=== PATIENT | male | born 1955 | race Caucasian/White ===

== ENCOUNTER 2017-05-16 12:11 | Inpatient (IN) | payer BC, MEDICARE ==
[2017-05-16] MEDS ORDERED: SODIUM CHLORIDE 0.9% 1,000 ML IV ONE (12:25)
[2017-05-16] MEDS ORDERED: FUROSEMIDE 10 MG/ML 4 ML VIAL IV ONE (12:35)
[2017-05-16] MEDS ORDERED: LIDOCAINE 2% INJ 20 MG/ML SQ ONE ×2 (12:39→12:41)
[2017-05-16] MEDS ORDERED: fentaNYL (PF) 50 MCG/ML 2 ML AMP IVP ONE (12:42)
[2017-05-16] MEDS ORDERED: BIVALIRUDIN BOLUS 250 MG/50 ML IV ONE (12:56)
[2017-05-16] MEDS ORDERED: BIVALIRUDIN 250 MG in SODIUM CHLORIDE 0.9% 40 ML IV ONE ×2 (12:57→13:31)
[2017-05-16] MEDS ORDERED: MIDAZOLAM 2 MG/2 ML VIAL IVP ONE (13:00)
[2017-05-16] MEDS ORDERED: PRASUGREL 10 MG TAB PO ONE (13:01)
[2017-05-16 13:13] LABS: Glucose,Whole Blood 474 mg/dL (75-99)
[2017-05-16] MEDS ORDERED: NITROGLYCERIN 1000MCG/10ML SYRINGE INTRACORON ONE (13:14)
[2017-05-16] MEDS: niCARdipine Syringe (1,000 mcg/10 mL) INTRACORON ONE ×2 (13:23→13:40)
--- NOTE | 2017-05-16 13:38 | CC ---
INDICATION: Acute ischemic syndrome with recent anterior wall myocardial infarction with postinfarct angina. A 61-year-old gentleman presented to [facility] with shortness of breath, not feeling well initially presented to an outpatient clinic yesterday where a pneumonia was diagnosed on his arrival to the ER at [facility]. They did an EKG that showed extensive ST segment elevation in the precordial leads due to which he was expeditiously transferred to [facility] for emergent cardiac catheterization and angioplasty. I evaluated the patient in the radiographer cardiac catheterization and had explained to him risks, benefits and alternatives. Patient seems to be in respiratory distress. His O2 sats were in the high 80s to 90s. We increased the O2 and if necessary we will put him on a Ventimask. Patient had been explained of risk, benefits and alternatives, understood and accepted. Patient received moderate conscious sedation and the total sedation time was 20 minutes. PROCEDURE NOTE: After obtaining informed consent, left heart catheterization and coronary angiogram are performed via the right femoral artery using standard Liliana catheters. The patient tolerated the procedure well without any obvious immediate complications. FINDINGS: 1. HEMODYNAMICS: Left ventricular end-diastolic pressure is elevated at 36 mm. There is no significant gradient across the aortic valve. 2. LEFT VENTRICULOGRAM: Left ventriculogram is not performed. 3. ANGIOGRAPHIC DATA: LEFT MAIN CORONARY ARTERY: Left main coronary artery is a normal size vessel and is free of stenosis. Divides into left anterior descending coronary artery and circumflex coronary artery. LAD is totally occluded in its mid portion. Circumflex coronary artery is a large codominant vessel. It gives off a large caliber OM branch that shows an 80% to 90% stenosis. Right coronary artery shows mild atherosclerotic disease. CONCLUSIONS: 1. Total occlusion of the mid left anterior descending coronary artery, 80% stenosis involving the OM branch. 2. Elevated left ventricular end-diastolic pressures. PLAN: The patient will undergo angioplasty of the LAD. It appears like patient has already completed his myocardial infarction and his symptoms seem to be more related to congestive heart failure. We will obtain a 2-D echo to document his LV function. ZACHARIAH
--- NOTE | 2017-05-16 13:46 | CONS ---
CHIEF COMPLAINT: Shortness of breath. A 61-year-old gentleman with history of morbid obesity, chronic back pain and history of prior surgeries. Came to [facility] emergency room complaining of shortness of breath and cough. An EKG showed ST segment elevation in the precordial leads with Q waves. He was expeditiously transferred over to [facility] for emergent cardiac catheterization and angioplasty. Past medical history is negative for hypertension, diabetes, dyslipidemia. MEDICATIONS: None. ALLERGIES: None. FAMILY HISTORY: Significant for coronary artery disease. SOCIAL HISTORY: Negative for smoking, EtOH abuse or drug abuse. REVIEW OF SYSTEMS: HEENT: Unremarkable. CARDIAC: As described above. RESPIRATORY: As describe above. GI: Negative. GENITOURINARY: Negative. ALLERGIES/IMMUNOLOGY: Negative. MUSCULOSKELETAL: Significant for arthritis. PSYCHOSOCIAL: Negative. ENDOCRINE: Negative. DERM: Negative. CONSTITUTIONAL: Negative. ONCOLOGICAL: Negative. The rest of the system review is not relevant. On exam, comfortable at rest. Vital signs are stable. Chest exam reveals diminished air entry bilaterally. Heart exam reveals first and second heart sounds. No murmur, no rub. Abdomen is soft, nontender. Examination of the extremities did not reveal edema. Peripheral pulses are felt. O2 sat is low at 90%. Patient is tachypneic. EKG shows changes as described above. Labs are pending at this time. ASSESSMENT: 1. Acute ischemic syndrome with postinfarct angina ( ) in the form of shortness of breath. 2. Congestive heart failure, shortness of breath probably secondary to acute systolic heart failure. PLAN: Patient will undergo emergent cardiac catheterization. ZACHARIAH
[2017-05-16] MEDS ORDERED: INSULIN LISPRO (humaLOG) 300 UNIT/3 ML VIAL SQ ONE (13:47)
[2017-05-16] MEDS ORDERED: IOHEXOL 350 MG/ML 125ML BOTTLE INJ ONE (13:48)
[2017-05-16] MEDS ORDERED: MAG HYDROX/AL HYDROX/SIMETH 30 ML CUP PO PRN (13:50)
[2017-05-16] MEDS ORDERED: RX INFO: IV CONTRAST WAS GIVEN 1 EACH MISC MISCELLANE PRN (13:50)
[2017-05-16] MEDS ORDERED: NITROGLYCERIN SL TABS 0.4 MG TAB SUBLINGUAL PRN (13:50)
[2017-05-16] MEDS ORDERED: ZOLPIDEM 5 MG TAB PO PRN (13:50)
[2017-05-16] MEDS ORDERED: ATROPINE SULFATE 0.1 MG/ML 10ML SYRINGE IV PRN (13:50)
[2017-05-16] MEDS ORDERED: SODIUM CHLORIDE 0.9% 1,000 ML IV SCH ×2 (14:00→23:30)
[2017-05-16 15:33] LABS: Glucose,Whole Blood 390 mg/dL (75-99)
--- NOTE | 2017-05-16 16:23 | XR ---
EXAMINATION TYPE: XR chest 1V portable DATE OF EXAM: 05/16/2017 HISTORY: Shortness of breath. COMPARISON: None. TECHNIQUE: Single view of the chest is submitted. FINDINGS: Demonstrated are scattered senescent parenchymal change. Patchy density right lower lobe may reflect pneumonia. Correlate clinically progress studies are zachary mmended. The heart is enlarged. Hilar and mediastinal structures are within normal limits. Degenerative changes are seen of the dorsal spine. IMPRESSION: 1. Patchy density right lower lobe may reflect pneumonia. Correlate clinically progress studies are recommended.
--- NOTE | 2017-05-16 16:35 | P.HPIM ---
History of Present Illness H&P Date: 05/16/17 Chief Complaint: STEMI This is a 61-year-old gentleman that is admitted to the hospital from the [facility]. Patient apparently was presented to the other facility with complaints of difficulty breathing times a day and a half. He shouldn't the initially went to his physician which is physician Jamison Us. Patient was noted to have cough associated with difficulty breathing and chest x-ray did show some abnormalities at that time as patient was put on antibiotics and was told he has pneumonia. 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 According to the patient does not have any other medical history States that he has a cough nonproductive in nature no fevers chills nausea vomiting abdominal pain is reported patient states that he has significant amount of snoring and he does stop breathing in the middle the night Review of Systems All systems: negative (Noted in HPI) Medications and Allergies Home Medications Medication Instructions Recorded Confirmed Type Aspirin EC [Ecotrin Low Dose] 81 mg PO DAILY 05/16/17 05/16/17 History Doxycycline Hyclate 100 mg PO BID 05/16/17 05/16/17 History Ibuprofen [Motrin] 800 mg PO Q6H PRN 05/16/17 05/16/17 History guaiFENesin [Mucinex] 600 mg PO BID PRN 05/16/17 05/16/17 History Allergies Allergy/AdvReac Type Severity Reaction Status Date / Time No Known Allergies Allergy Verified 05/16/17 16:14 Physical Exam Vitals: Vital Signs Temp Pulse Pulse Resp BP BP Pulse Ox 05/16/17 16:17 93 L 05/16/17 15:09 98.3 F 107 H 20 125/85 92 L 05/16/17 14:40 103 H 24 128/89 90 L 05/16/17 14:15 102 H 24 128/69 Intake and Output 05/16/17 05/16/17 05/16/17 06:59 14:59 22:59 Intake Total 390.0 75 Output Total 250 200 Balance 140.0 -125 Intake: IV 106.7 75 Sodium Chloride 0.9% 1, 75 000 ml @ 75 mls/hr IV . [id number] [facility] Rx#:[id number] Intake, IV Titration 83.3 Amount Bivalirudin 250 mg In 33.3 Sodium Chloride 0.9% 40 ml As IV .[facility] Rx# :[id number] Sodium Chloride 0.9% 1, 50 000 ml @ 75 mls/hr IV . [id number] [facility] Rx#:[id number] Oral 200 Output: Urine 250 200 Other: Voiding Method Urinal Weight 113.398 kg Patient Weight 05/17/17 06:59 Weight 113.398 kg ABP, PAP, CO, CI - Last 8 Hours Arterial Blood Pressure 130/74 Physical exam Gen. appearance oriented 3 in no distress Neck is supple no JVD Lungs diminished breath sounds more significant on the left The left base Heart S1-S2 heard regular rate and rhythm no murmurs appreciated Abdomen is soft nontender no organomegaly bowel sounds are intact Neurologically cranial nerves II-12 grossly intact no focal motor or sensory deficits noted Skin no abnormalities appreciated Results Labs: Abnormal Lab Results - Last 24 Hours (Table) 05/16/17 05/16/17 Range/Units 13:11 15:26 POC Glucose (mg/dL) 474 H 390 H (75-99) mg/dL Assessment and Plan Plan: Acute STEMI unsuccessfuTIMI flow this is likely due to the time of presentation #2 obesity #3 history of exposure to tobacco #4 clinical obstructive sleep apnea #5 cardio megaly #6 acute hypoxic respiratory failure unknown etiology suspect right ventricular strain secondary to pulmonary hypertension #7 newly diagnosed diabetes mellitus Plan Patient's LVEDP was noted to be 38 we'll discontinue fluids at this time Patient will also be started on Rocephin and Zithromax patient is an obese gentleman the quality of the film is poor we'll obtain a CT of the chest with noncontrast as patient is on a significant amount of oxygen and poor air movement DVT prophylaxis
[2017-05-16 17:21] LABS: Glucose,Whole Blood 363 mg/dL (75-99)
[2017-05-16] MEDS: AZITHROMYCIN 250 MG TAB PO SCH (17:31)
[2017-05-16] MEDS: INSULIN LISPRO (humaLOG) 300 UNIT/3 ML VIAL SQ SCH ×2 (17:31→20:22)
--- NOTE | 2017-05-16 18:36 | CT ---
EXAMINATION TYPE: CT chest wo con DATE OF EXAM: 05/16/2017 COMPARISON: Chest x-ray 05/16/2017 HISTORY: Patient poor historian. Patient exhibits severe shortness of breath. CT DLP: 924.1 mGycm. Automated Exposure Control for Dose Reduction was Utilized. TECHNIQUE: CT scan of the thorax is performed without IV contrast. FINDINGS: LUNGS: There are interstitial reticular bands present bilaterally. Groundglass opacities scattered th roughout the lungs. Perihilar alveolar pattern is present. Interlobular septal lines are present at t he lung bases. There are bilateral pleural effusions. Small pericardial effusion is present. There ar e coronary artery calcifications. No pneumothorax. MEDIASTINUM: Lack of IV contrast is noted to limit evaluation for mediastinal and especially hilar ad enopathy. There are no definitive greater than 1 cm hilar or mediastinal lymph nodes. The heart is en larged. OTHER: Contrast is present within the renal collecting systems. The liver shows low attenuation poss ibly due to fatty infiltration. IMPRESSION: Findings compatible with congestive heart failure. Small bilateral pleural effusions and associated atelectasis.
[2017-05-16] MEDS ORDERED: ALBUTEROL NEBULIZED 2.5 MG/3 ML INHALATION SCH (20:00)
[2017-05-16 20:22] LABS: Glucose,Whole Blood 304 mg/dL (75-99)
[2017-05-16] MEDS: METOPROLOL TARTRATE 25 MG TAB PO SCH (20:22)
[2017-05-16] MEDS: predniSONE 10 MG TAB PO SCH (20:22)
[2017-05-16] MEDS: ATORVASTATIN 80 MG TAB PO SCH (20:22)
[2017-05-16] MEDS ORDERED: INSULIN DETEMIR 100 UNIT/ML 10 ML VIAL SQ SCH (21:00)
[2017-05-16] MEDS: FUROSEMIDE 10 MG/ML 4 ML VIAL IV SCH (21:15)
[2017-05-16 21:55] LABS: Potassium 3.7 mmol/L (3.5-5.1)
[2017-05-16] MEDS ORDERED: methylPREDNISolone SOD SUCCI 40 MG/ML 1 ML VIAL IV STA (22:23)
[2017-05-16 22:39] LABS: ABG HCO3 25 mmol/L (21-25); ABG PCO2 32 mmHg (35-45); ABG PO2 73 mmHg (83-108); ABG TCO2 26 mmol/L (19-24)
[2017-05-16 22:40] LABS: ABG Base Excess 1.6 mmol/L
[2017-05-16] MEDS ORDERED: PROPOFOL 1,000 MG/100 ML VIAL IV ONE (22:45)
[2017-05-16] MEDS ORDERED: ROCURONIUM BROMIDE 10 MG/ML 10 ML VIAL IV ONE (22:50)
[2017-05-16] MEDS ORDERED: PHENYLEPHRINE-0.9% NACL SYG 1 MG/10 ML SYRINGE ONE (22:50)
[2017-05-16] MEDS: PROPOFOL 1,000 MG/100 ML VIAL IV SCH (22:55)
[2017-05-16] MEDS ORDERED: NALOXONE 0.4 MG/ML 1 ML VIAL IV PRN (23:23)
[2017-05-16] MEDS ORDERED: ACETAMINOPHEN IV (For NPO) 1,000 MG in EMPTY BAG 1 BAG IVPB PRN (23:23)
--- NOTE | 2017-05-16 23:36 | XR ---
EXAM: XR Chest, 1 View CLINICAL HISTORY: Reason: Post intubation confirmation TECHNIQUE: Frontal view of the chest. COMPARISON: Chest x-ray 05/16/2017 at 15:59. FINDINGS: Lungs: Bilateral perihilar airspace disease. Pleural space: Blunting of the left costophrenic angle concerning for small pleural effusion. Heart: Enlarged cardiac silhouette. Bones/joints: Moderate degenerative changes of the spine. Vasculature: Vascular congestion. Tubes, lines and devices: Endotracheal tube terminates 4 cm superior to the dari. Distal enteric tube not well visualized due to underpenetration. IMPRESSION: 1. Endotracheal tube terminates 4 cm superior to the dari. 2. Distal enteric tube not well visualized due to underpenetration. 3. Vascular congestion, worse compared to prior. 4. Bilateral perihilar airspace disease, worse compared to prior. 5. Blunting of the left costophrenic angle concerning for small pleural effusion. 6. Enlarged cardiac silhouette.
[2017-05-17] LABS: ABG HCO3 26 mmol/L (21-25); ABG PCO2 46 mmHg (35-45); ABG PH 7.37 (7.35-7.45); ABG PO2 58 mmHg (83-108); ABG TCO2 28 mmol/L (19-24)
[2017-05-17 00:01] LABS: ABG Base Excess 1.5 mmol/L; ABG Oxygen Saturation 88.8 % (94-97)
[2017-05-17] MEDS ORDERED: Potassium Replacement Protocol 1 EACH MISC MISCELLANE PRN (00:19)
[2017-05-17 00:51] LABS: Amorphous Sediment,Urine Occasional /hpf; Appearance,Urine Cloudy (Clear); Bilirubin,Urine Negative (Negative); Glucose,Urine (UA) 4+ (Negative); Ketones,Urine Negative (Negative); Leukocyte Esterase,Urine Negative (Negative); Mucus,Urine Rare /hpf; Nitrite,Urine Negative (Negative); PH, Urine 5.5 (5.0-8.0); Particle Count 28199; Protein,Urine 1+ (Negative); RBC,Urine 9 /hpf (0-5); Specific Gravity,Urine 1.031 (1.001-1.035); Squamous Epithelial Cell,Urine 5 /hpf (0-4); UA Billing (MACRO vs. MICRO) MICRO; Urobilinogen,Urine <2.0 mg/dL (<2.0); WBC,Urine 3 /hpf (0-5)
[2017-05-17] MEDS ORDERED: POTASSIUM CHLORIDE ORAL LIQUID 40 MEQ/30 ML CUP NG-TUBE SCH (01:00)
[2017-05-17 04:32] LABS: Basophils % (A) 0 %; CH 32.9; CHCM 33.5; Eosinophils # (A) 0.1 k/uL (0-0.7); Eosinophils % (A) 0 %; HCT 42.2 % (39.0-53.0); HDW 2.67; HGB 13.8 gm/dL (13.0-17.5); Luc # (Auto) 0.17; Luc % (Auto) 1; Lymphocytes # (A) 0.6 k/uL (1.0-4.8); Lymphocytes % (A) 3 %; MCH 32.4 pg (25.0-35.0); MCHC 32.8 g/dL (31.0-37.0); Mean Platelet Volume 7.9; Monocytes # (A) 0.6 k/uL (0-1.0); Monocytes % (A) 3 %; Neutrophils # (A) 17.9 k/uL (1.3-7.7); Neutrophils % (A) 93 %; RBC 4.27 m/uL (4.30-5.90); RDW 13.5 % (11.5-15.5); WBC 19.4 k/uL (3.8-10.6); WBC (Perox) 18.75
[2017-05-17 04:40] LABS: INR 1.4 (<1.2); Prothrombin Time 13.7 sec (9.0-12.0)
[2017-05-17 04:43] LABS: Magnesium 2.3 mg/dL (1.6-2.3); Phosphorous 3.4 mg/dL (2.5-4.5); Total Bilirubin 0.9 mg/dL (0.2-1.3); Total Protein 6.3 g/dL (6.3-8.2)
[2017-05-17] MEDS: PROPOFOL 1,000 MG/100 ML VIAL IV SCH ×4 (05:06→22:50)
[2017-05-17 05:34] LABS: ABG Base Excess 0.2 mmol/L; ABG HCO3 24 mmol/L (21-25); ABG Oxygen Saturation 99.6 % (94-97); ABG PCO2 37 mmHg (35-45); ABG PH 7.43 (7.35-7.45); ABG PO2 175 mmHg (83-108); ABG TCO2 25 mmol/L (19-24)
[2017-05-17 07:14] LABS: Glucose,Whole Blood 342 mg/dL (75-99)
[2017-05-17] MEDS: IPRATROPIUM 0.5 MG/2.5 ML NEBU INHALATION SCH ×4 (07:18→19:16)
[2017-05-17] MEDS: LEVALBUTEROL NEB 1.25 MG/3 ML AMP INHALATION SCH ×4 (07:18→19:16)
--- NOTE | 2017-05-17 07:43 | XR ---
EXAMINATION TYPE: XR chest 1V portable DATE OF EXAM: 05/17/2017 HISTORY: Tube placement. REFERENCE: Previous study dated 05/16/2017. FINDINGS: The patient is ET tube and NG tube remain in place, unchanged in appearance. The heart is enlarged. Vascular congestion has improved. There is a small left effusion. IMPRESSION: THERE IS SLIGHT IMPROVEMENT IN THE PATIENT'S VOLUME STATUS.
[2017-05-17] MEDS ORDERED: INSULIN LISPRO (humaLOG) 300 UNIT/3 ML VIAL SQ SCH (08:00)
[2017-05-17] MEDS: CHLORHEXIDINE GLUCONATE 15 ML CUP MUCOUS MEM SCH ×2 (08:30→20:47)
[2017-05-17 08:46] LABS: Glucose,Whole Blood 346 mg/dL (75-99)
[2017-05-17] MEDS ORDERED: FAMOTIDINE 20 MG/2 ML VIAL IV SCH (09:00)
[2017-05-17] MEDS: ASPIRIN 325 MG TAB PO SCH (09:31)
[2017-05-17] MEDS: PRASUGREL 10 MG TAB PO SCH (09:32)
[2017-05-17] MEDS: predniSONE 10 MG TAB PO SCH (09:32)
[2017-05-17] MEDS: METOPROLOL TARTRATE 25 MG TAB PO SCH ×2 (09:33→20:47)
[2017-05-17] MEDS: FUROSEMIDE 10 MG/ML 4 ML VIAL IV SCH ×2 (09:33→23:38)
--- NOTE | 2017-05-17 09:39 | PCN ---
DATE OF SERVICE: 05/16/2017 PERFORMING PHYSICIAN: Eusebio Gann MD, [employer]ing Table Worker PROCEDURE PERFORMED: 1. Aspiration thrombectomy for the left anterior descending. 2. Successful stenting of the mid left anterior descending using 3.25 x 15 mm Xience TIM with good angiographic results. INDICATIONS: This is a pleasant 61-year-old gentleman who presented to the emergency room at [facility] with chest discomfort and was diagnosed with acute anterior ST elevation myocardial infarction. He underwent a heart catheterization by Dr. Mathew and was found to have occluded mid-LAD and critical disease involving the left circumflex. He was brought today to undergo heart catheterization. APPROACH: Right common femoral artery. COMPLICATIONS: None. LEVEL OF SEDATION: Moderate with sedation length of 52 minutes. PROCEDURE DESCRIPTION: After diagnostic heart catheterization was performed by Dr. Mathew, I evaluated the angiogram and we decided to intervene on the LAD. Anticoagulation was initiated using Angiomax. Subsequently, I used JL4 guide and the left main was engaged. Whisper wire was used to wire the LAD. I did after that balloon angioplasty of the mid-LAD. Subsequently I did aspiration thrombectomy from mid LAD. Then I stented the mid-LAD using 3.25 x 15 mm Xience TIM where the stent was positioned under fluoroscopy guidance and deployed under its nominal pressure. The following angiogram showed good angiographic results of the stented segment , but the distal LAD bed was not well visualized because of competitive flow and probably LAD distally was full of clots. POSTPROCEDURE MANAGEMENT: 1. Dual antiplatelet therapy. 2. Risk factor modifications. 3. Follow up with the patient. ZACHARIAH
--- NOTE | 2017-05-17 11:18 | P.CNPUL ---
History of Present Illness Consult date: 05/17/17 Chief complaint: Acute CO, acute respiratory failure History of present illness: 62-year-old male patient who got transferred from [facility] because of acute ST segment elevation myocardial infarction. The patient had anterior wall septal wall CO along with LAD distribution. The patient was taken immediately to cardiac catheterization he was found to have occluded mid LAD and critical disease involving the left circumflex. Based on that, patient underwent angioplasty and stenting of the mid LAD and follow-up angiogram showed good angiographic results of the stented segment but the distal LAD bed was not well-visualized because of competitive flow and probably LAD distally occluded with clots. The patient was started on dual antiplatelet agents and he was moved to the intensive care unit. Within the afternoon, the patient became progressively more short of breath. He was taken for a CT angios the chest which confirmed the findings of acute CHF. No clots were seen in the pulmonary artery branches. Within next few hours the patient even got more short of breath and he went into respiratory failure. At that point I was involved in the case and I was informed of the above-mentioned changes. I recommended immediate intubation and the patient was placed on a mechanical ventilator. Following that he was sedated with Diprivan. The patient is currently on a assist-control mode rate of 24, tidal volume of 400, FiO2 of 70% and a PEEP of 10. Morning blood gases showed a pH 7.43 with a pCO2 of 36.5 and a pO2 of 175 and based on that the FiO2 is being further weaned off. Urine output at this point is around 10 mL an hour. His systolic blood pressures in the 110 range. His creatinine is up to 1.8. He has suffered an acute kidney injury. ST segment elevation is still present on the EKG and has been present since yesterday. There is diffuse ST segment elevation involving V2, V2, V3, V4 , V5, V6, and also the inferior leads. Furthermore, a stat echocardiogram was done and it showed EF less than 20%. The patient's left ventricular end- diastolic pressure based on the cardiac catheterization was quite elevated at 36. This morning, the chest x-ray showing improvement of pulmonary edema. She was in good location. The patient is cardiomegaly. The patient on Lasix 40 mg IV push every 12 hours. The patient is also on a combination of aspirin and Effient, and he was ordered metoprolol 5 mg by mouth twice a day. He is also on lisinopril of 10 mg by mouth daily has not been given this morning. He was empirically covered also with a combination of Rocephin and Zithromax. She is on a 30 mg of prednisone. Review of Systems ROS unobtainable: due to endotracheal tube Past Medical History Past Medical History: Pneumonia Additional Past Medical History / Comment(s): Morbidly obese, diabetes mellitus , obstructive sleep apnea History of Any Multi-Drug Resistant Organisms: None Reported Past Surgical History: Appendectomy, Back Surgery Additional Past Surgical History / Comment(s): 2 BACK SX HAS CINDY/SCREWS, RT ROTAOTR CUIFF REPAIR Past Anesthesia/Blood Transfusion Reactions: No Reported Reaction Smoking Status: Former smoker - Past Family History Father Additional Family Medical History / Comment(s): LOW PLATLETS. SPLEENECTOMY Mother Family Medical History: CVA/TIA Additional Family Medical History / Comment(s): 2 STROKES, HEART DISEASE. Medications and Allergies Home Medications Medication Instructions Recorded Confirmed Type Aspirin EC [Ecotrin Low Dose] 81 mg PO DAILY 05/16/17 05/16/17 History Doxycycline Hyclate 100 mg PO BID 05/16/17 05/16/17 History Ibuprofen [Motrin] 800 mg PO Q6H PRN 05/16/17 05/16/17 History guaiFENesin [Mucinex] 600 mg PO BID PRN 05/16/17 05/16/17 History Allergies Allergy/AdvReac Type Severity Reaction Status Date / Time No Known Allergies Allergy Verified 05/16/17 16:14 Physical Exam Vitals: Vital Signs Temp Pulse Pulse Pulse Resp BP BP 05/17/17 10:00 92 30 H 114/64 05/17/17 09:30 93 28 H 114/64 05/17/17 09:00 93 26 H 135/66 05/17/17 08:30 94 27 H 135/66 05/17/17 08:00 99.1 F 93 27 H 105/82 05/17/17 07:30 88 26 H 108/69 05/17/17 07:22 89 05/17/17 07:00 91 30 H 124/62 05/17/17 06:40 94 33 H 112/73 05/17/17 06:20 95 29 H 110/65 05/17/17 06:00 87 25 H 110/62 07/28/17 05:40 87 33 H 124/67 05/17/17 05:20 92 26 H 109/73 05/17/17 05:00 93 28 H 102/63 05/17/17 04:40 88 28 H 99/65 05/17/17 04:20 88 32 H 107/64 05/17/17 04:00 97.6 F 87 32 H 92/63 05/17/17 03:40 89 31 H 100/65 05/17/17 03:20 86 30 H 100/66 05/17/17 03:00 86 30 H 98/57 05/17/17 02:40 86 30 H 90/55 05/17/17 02:20 88 30 H 100/58 05/17/17 02:00 83 28 H 95/60 05/17/17 01:40 85 25 H 98/56 05/17/17 01:35 85 25 H 05/17/17 01:20 87 26 H 95/60 05/17/17 01:00 85 31 H 90/50 05/17/17 00:40 89 31 H 86/58 05/17/17 00:20 96.9 F L 92 32 H 108/68 05/17/17 00:00 95 85 28 H 106/69 05/16/17 23:40 103 H 24 140/74 05/16/17 23:20 100 24 107/77 05/16/17 23:00 97 24 96/59 05/16/17 22:40 102 H 29 H 126/80 05/16/17 22:20 98 35 H 126/80 05/16/17 22:01 109 H 29 H 140/83 05/16/17 22:00 104 H 31 H 140/83 05/16/17 21:30 103 H 38 H 151/81 05/16/17 21:00 106 H 35 H 145/86 05/16/17 20:30 98.3 F 106 H 38 H 122/83 05/16/17 20:23 100 05/16/17 20:08 108 H 05/16/17 20:00 105 H 35 H 119/81 05/16/17 19:30 100 48 H 138/82 05/16/17 19:00 110 H 19 121/86 05/16/17 18:30 107 H 33 H 144/82 05/16/17 18:00 144/82 05/16/17 17:30 105 H 34 H 135/84 05/16/17 17:00 99 39 H 122/82 05/16/17 16:45 104 H 27 H 121/86 05/16/17 16:30 105 H 31 H 121/86 05/16/17 16:17 05/16/17 16:15 99 26 H 127/78 05/16/17 16:00 103 H 48 H 127/78 05/16/17 15:45 103 H 35 H 125/85 05/16/17 15:30 98 46 H 125/85 05/16/17 15:09 98.3 F 107 H 20 125/85 05/16/17 14:40 103 H 24 128/89 05/16/17 14:15 102 H 24 128/69 Pulse Ox 05/17/17 10:00 99 05/17/17 09:30 98 05/17/17 09:00 98 05/17/17 08:30 98 05/17/17 08:00 98 05/17/17 07:30 97 05/17/17 07:22 05/17/17 07:00 98 05/17/17 06:40 98 05/17/17 06:20 98 05/17/17 06:00 98 05/17/17 05:40 96 05/17/17 05:20 95 05/17/17 05:00 99 05/17/17 04:40 99 05/17/17 04:20 97 05/17/17 04:00 99 05/17/17 03:40 99 05/17/17 03:20 99 05/17/17 03:00 99 05/17/17 02:40 99 05/17/17 02:20 98 05/17/17 02:00 98 05/17/17 01:40 98 05/17/17 01:35 05/17/17 01:20 96 05/17/17 01:00 95 05/17/17 00:40 93 L 05/17/17 00:20 93 L 05/17/17 00:00 89 L 05/16/17 23:40 87 L 05/16/17 23:20 93 L 05/16/17 23:00 95 05/16/17 22:40 91 L 05/16/17 22:20 91 L 05/16/17 22:01 90 L 05/16/17 22:00 85 L 05/16/17 21:30 92 L 05/16/17 21:00 96 05/16/17 20:30 95 05/16/17 20:23 05/16/17 20:08 93 L 05/16/17 20:00 92 L 05/16/17 19:30 93 L 05/16/17 19:00 94 L 05/16/17 18:30 96 05/16/17 18:00 05/16/17 17:30 90 L 05/16/17 17:00 88 L 05/16/17 16:45 92 L 05/16/17 16:30 89 L 05/16/17 16:17 93 L 05/16/17 16:15 95 05/16/17 16:00 94 L 05/16/17 15:45 93 L 05/16/17 15:30 93 L 05/16/17 15:09 92 L 05/16/17 14:40 90 L 05/16/17 14:15 Intake and Output 05/16/17 05/17/17 05/17/17 22:59 06:59 14:59 Intake Total 165 230.921 102 Output Total 475 1068 332 Balance -310 -837.079 -230 Intake: IV 165 161 102 Pressure Bag 0.9% sodium 21 12 chloride Propofol 1000 mg in 100 70 ml Sodium Chloride 0.9% 1, 115 70 40 000 ml @ 75 mls/hr IV . [id number] SAMANTHA Rx#:[id number] cefTRIAXone 1,000 mg In 50 50 Sodium Chloride 0.9% 50 ml @ 100 mls/hr IVPB Q24HR SAMANTHA Rx#:[id number] Intake, IV Titration 69.921 Amount Propofol 1,000 mg In 100 69.921 ml @ Titrate IV .Q0M SAMANTHA Rx#:[id number] Output: Gastric Drainage 750 250 Urine 475 318 82 Other: Voiding Method Urinal Indwelling Catheter Weight 113.398 kg 117.5 kg 117.5 kg Patient Weight 05/18/17 06:59 Weight 117.5 kg ABP, PAP, CO, CI - Last 8 Hours Arterial Blood Pressure 108/71 Arterial Blood Pressure 122/68 Arterial Blood Pressure 115/73 Arterial Blood Pressure 118/74 Arterial Blood Pressure 114/75 Arterial Blood Pressure 115/75 Arterial Blood Pressure 120/76 Arterial Blood Pressure 114/73 Arterial Blood Pressure 117/76 Arterial Blood Pressure 102/67 Arterial Blood Pressure 102/69 Arterial Blood Pressure 92/68 Arterial Blood Pressure 112/76 Arterial Blood Pressure 103/68 Arterial Blood Pressure 91/65 Arterial Blood Pressure 107/71 Arterial Blood Pressure 99/69 Arterial Blood Pressure 101/71 Arterial Blood Pressure 97/70 Head exam was generally normal. There was no scleral icterus or corneal arcus. Mucous membranes were moist. Neck is short and supple and there is significant sickness and shortening of the neck. No neck stiffness. Orogastric and orotracheal tube are both in place. No JVDs can be visualized. Lung sounds are diminished bilaterally. No wheezes overall currently crackles at this point. Heart sounds are regular, distant, positive S1 and S2 with an S3 gallop. No murmurs appreciated.Abdominal exam revealed normal bowel sounds. The abdomen was soft, non-tender, and without masses, organomegaly, or appreciable enlargement of the abdominal aorta. Patient is obese and orders cannot be accurately palpated. Neurologically the patient is quite sedated at this point. He is on Diprivan. He can move all 4 extremities to painful stimuli. Results - Laboratory Findings CBC and BMP: 05/17/17 04:25 05/17/17 04:25 ABG ABG pH 7.43 (7.35-7.45) 05/17/17 05:05 ABG pCO2 37 mmHg (35-45) 05/17/17 05:05 ABG pO2 175 mmHg (83-108) H 05/17/17 05:05 ABG O2 Saturation 99.6 % (94-97) H 05/17/17 05:05 PT/INR, D-dimer PT 13.7 sec (9.0-12.0) H 05/17/17 04:25 INR 1.4 (<1.2) H 05/17/17 04:25 Abnormal lab findings: Abnormal Labs 05/16/17 05/16/17 05/16/17 13:11 15:26 17:04 WBC RBC Neutrophils # Lymphocytes # PT INR ABG pH ABG pCO2 ABG pO2 ABG HCO3 ABG Total CO2 ABG O2 Saturation Sodium Chloride BUN Creatinine Glucose POC Glucose (mg/dL) 474 H 390 H 363 H Calcium AST ALT Albumin Urine Protein Urine Glucose (UA) Urine Blood Urine RBC Ur Squamous Epith Cells Amorphous Sediment Urine Mucus 05/16/17 05/16/17 05/16/17 20:19 21:33 22:25 WBC RBC Neutrophils # Lymphocytes # PT INR ABG pH 7.50 H ABG pCO2 32 L ABG pO2 73 L ABG HCO3 ABG Total CO2 26 H ABG O2 Saturation Sodium 136 L Chloride 97 L BUN 45 H Creatinine 1.48 H Glucose 273 H POC Glucose (mg/dL) 304 H Calcium 8.0 L AST ALT Albumin Urine Protein Urine Glucose (UA) Urine Blood Urine RBC Ur Squamous Epith Cells Amorphous Sediment Urine Mucus 05/16/17 05/17/17 05/17/17 23:38 00:20 04:25 WBC 19.4 H RBC 4.27 L Neutrophils # 17.9 H Lymphocytes # 0.6 L PT INR ABG pH ABG pCO2 46 H ABG pO2 58 L ABG HCO3 26 H ABG Total CO2 28 H ABG O2 Saturation 88.8 L Sodium Chloride BUN Creatinine Glucose POC Glucose (mg/dL) Calcium AST ALT Albumin Urine Protein 1+ H Urine Glucose (UA) 4+ H Urine Blood Small H Urine RBC 9 H Ur Squamous Epith Cells 5 H Amorphous Sediment Occasional H Urine Mucus Rare H 05/17/17 05/17/17 05/17/17 04:25 04:25 05:05 WBC RBC Neutrophils # Lymphocytes # PT 13.7 H INR 1.4 H ABG pH ABG pCO2 ABG pO2 175 H ABG HCO3 ABG Total CO2 25 H ABG O2 Saturation 99.6 H Sodium 136 L Chloride BUN 52 H Creatinine 1.80 H Glucose 336 H POC Glucose (mg/dL) Calcium 8.0 L AST 92 H ALT 75 H Albumin 3.1 L Urine Protein Urine Glucose (UA) Urine Blood Urine RBC Ur Squamous Epith Cells Amorphous Sediment Urine Mucus 05/17/17 05/17/17 07:13 08:44 WBC RBC Neutrophils # Lymphocytes # PT INR ABG pH ABG pCO2 ABG pO2 ABG HCO3 ABG Total CO2 ABG O2 Saturation Sodium Chloride BUN Creatinine Glucose POC Glucose (mg/dL) 342 H 346 H Calcium AST ALT Albumin Urine Protein Urine Glucose (UA) Urine Blood Urine RBC Ur Squamous Epith Cells Amorphous Sediment Urine Mucus - Diagnostic Findings Chest x-ray: image reviewed Assessment and Plan Plan: Assessment [address] segment anterior wall myocardial infarction. The patient was having chest pain few days prior to his hospital admission and came in for an acute ST segment elevation myocardial infarction. He had emergent cardiac catheterization and stenting of the LAD. Please refer to the catheter report for further details. The patient also has a tight circumflex lesion in the order of 80-90%. 2 acute pulmonary edema secondary to CHF 3 acute respiratory failure secondary to above 4 acute kidney injury due to a combination of low cardiac output and contrast. Rule out contrast nephropathy. Urine output was no order of 10-20 mL an hour at this point. Creatinine is up to 1.8 5 diabetes mellitus with poorly controlled blood sugars 6 morbid obesity 7 obstructive sleep apnea [address] a [address] angios the chest is consistent with CHF/pulmonary edema Plan I was able to oxygenate the patient more effectively today. The patient is up- to-date PEEP of 10 and FiO2 has been cut down to 50%. He is pulse oxing still in the 97-99% range. I think we should be able to hydrate this patient gently and I will give normal state rate of 75 mL an hour. Continue the Lasix for now 40 mg IV push every 12 hours. We'll monitor his urine output very closely and very much likely the patient is developing an ATN for the reasons mentioned above including contrast nephropathy. We'll continue aspirin. Continue Effient. Continue monitored hemodynamics and consider addition of pressors should he develop any further drop in his blood pressure. Pressor of choice will be either norepinephrine or dobutamine based on his overall hemodynamics. Pulses in a for now. Discontinue IV Solu-Medrol. Put the patient insulin drip for blood sugar control. Would like to achieve a tighter blood sugar control. Continue high-dose statin. Echocardiogram was noted. Discussed with cardiology. No further cardiac intervention is indicated this point. It seems that the patient may ultimately have aneurysmal dilatation of the left ventricle knowing that he had a prolonged ST segment elevation and he was having chest pain at least for a few days prior to him coming to the hospital. Keep the patient sedated with Diprivan. We'll initiate tube feeds with the next 24 hours. We'll continue to follow make further recommendations based on his progress. Condition is critical. The family will be updated on his condition.
[2017-05-17] MEDS: LISINOPRIL 10 MG TAB PO SCH (11:19)
[2017-05-17] MEDS ORDERED: INSULIN REGULAR BOLUS (FROM DRIP BAG) IV PRN (11:33)
--- NOTE | 2017-05-17 11:33 | ECHOF ---
Referral Reason:stemi MEASUREMENTS -------- HEIGHT: 177.8 cm WEIGHT: 113.4 kg BP: 125/85 RVIDd: 2.4 cm (< 3.3) IVSd: 1.0 cm (0.6 - 1.1) LVIDd: 6.6 cm (3.9 - 5.3) LVPWd: 1.0 cm (0.6 - 1.1) IVSs: 1.3 cm LVIDs: 6.3 cm LVPWs: 1.3 cm LAESV Index (A-L): 25.40 ml/m Ao Diam: 3.5 cm (2.0 - 3.7) AV Cusp: 1.4 cm (1.5 - 2.6) LA Diam: 3.0 cm (2.7 - 3.8) MV EXCURSION: 16.898 mm (> 18.000) MV EF SLOPE: 391 mm/s (70 - 150) MV E Tai: 0.76 m/s MV DecT: 191 ms MV A Tai: 0.72 m/s MV E/A Ratio: 1.06 FINDINGS -------- Undetermined rhythm. This was a technically difficult study with suboptimal views. Pt. Very Sob Patient is post cardiac catheterization and cannot be in left lateral position. The left ventricle is moderately dilated. Overall left ventricular systolic function is severely impaired with, an EF < 20%. The right ventricle is normal in size and function. Normal LA size by volume 22+/-6 ml/m2. The right atrium was not well visualized. There is mild to moderate aortic valve sclerosis. There is no evidence of aortic regurgitation. There is no evidence of aortic stenosis. The mitral valve leaflets are mildly thickened. Mild mitral annular calcification present. There is trace to mild mitral regurgitation. The tricuspid valve was not well visualized. The pulmonic valve was not well visualized. The aortic root size is normal. IVC Not well visulized. The pericardium is normal. There is no pericardial effusion. CONCLUSIONS -------- 1. Undetermined rhythm. 2. The mitral valve leaflets are mildly thickened. 3. Mild mitral annular calcification present. 4. There is trace to mild mitral regurgitation. 5. The tricuspid valve was not well visualized. 6. The pulmonic valve was not well visualized. 7. The aortic root size is normal. 8. IVC Not well visulized. 9. There is no pericardial effusion. 10. This was a technically difficult study with suboptimal views. 11. Pt. Very Sob 12. Patient is post cardiac catheterization and cannot be in left lateral position. 13. The left ventricle is moderately dilated. 14. Overall left ventricular systolic function is severely impaired with, an EF < 20%. 15. Normal LA size by volume 22+/-6 ml/m2. 16. The right atrium was not well visualized. 17. There is mild to moderate aortic valve sclerosis. ELECTRICAL AND ELECTRONIC ASSEMBLER: Derian Bender RDCS
[2017-05-17] MEDS: AZITHROMYCIN 250 MG TAB PO SCH (13:36)
[2017-05-17] MEDS: SODIUM CHLORIDE 0.9% 1,000 ML IV SCH (13:37)
[2017-05-17 13:46] LABS: Glucose,Whole Blood 350 mg/dL (75-99)
[2017-05-17] MEDS: INSULIN REGULAR 100 UNIT in SODIUM CHLORIDE 0.9% 100 ML IV SCH ×2 (13:49→23:39)
[2017-05-17 14:26] LABS: Glucose,Whole Blood 357 mg/dL (75-99)
--- NOTE | 2017-05-17 14:56 | P.PN ---
Subjective Principal diagnosis: Anterior wall myocardial infarction, status post failed stent placement, cardiomyopathy and CHF This is a 61-year-old gentleman is admitted to the hospital following subacute myocardial infarction. Patient had attempted stent placement yesterday by Dr. Zurita with suboptimal results. There was no flow into the distal LAD. Patient continued to have ST elevations. Patient will be progressive shortness of breath, requiring intubation last night. His chest x-ray was consistent with pulmonary edema. Patient has diabetes for the last night and a chest x-ray appeared to be much clearer today. However, his urine output dropped. His blood pressures running about 110-120 systolic. His heart rate is in the 80s to low 90s. Patient is maintaining sinus rhythm. Patient is intubated and sedated. His oxygenation looks better. However, his creatinine has come up to 1.8. If urine output doesn't improve on his creatinine starts creeping up, patient may need nephrology consult. There is also consideration that patient be transferred to tertiary unit for further care. Objective - Vital Signs Vital signs: Vital Signs Temp 101.0 F H 05/17/17 13:00 Pulse 91 05/17/17 14:00 Resp 28 H 05/17/17 14:00 BP 101/64 05/17/17 14:00 Pulse Ox 98 05/17/17 14:00 Intake & Output 05/16/17 05/17/17 05/17/17 18:59 06:59 18:59 Intake Total 515.0 270.921 514.951 Output Total 625 1168 477 Balance -110.0 -897.079 37.951 Weight 113.398 kg 117.5 kg 117.5 kg Intake: IV 231.7 201 409 Pressure Bag 0.9% sodium 21 24 chloride Propofol 1000 mg in 100 70 ml Sodium Chloride 0.9% 1, 75 110 335 000 ml @ 75 mls/hr IV . [id number] [facility] Rx#:[id number] cefTRIAXone 1,000 mg In 50 50 Sodium Chloride 0.9% 50 ml @ 100 mls/hr IVPB Q24HR [facility] Rx#:[id number] Intake, IV Titration 83.3 69.921 105.951 Amount Bivalirudin 250 mg In 33.3 Sodium Chloride 0.9% 40 ml As IV .K-MED ONE Rx# :[id number] Insulin Regular 100 unit 7.07 In Sodium Chloride 0.9% 100 ml @ Per Protocol IV .Q0M [facility] Rx#:[id number] Propofol 1,000 mg In 100 69.921 98.881 ml @ Titrate IV .Q0M [facility] Rx#:[id number] Sodium Chloride 0.9% 1, 50 000 ml @ 75 mls/hr IV . [id number] [facility] Rx#:[id number] Oral 200 Output: Gastric Drainage 750 300 Urine 625 418 177 Other: Voiding Method Urinal Indwelling Catheter Indwelling Catheter ABP, PAP, CO, CI - Last Documented Arterial Blood Pressure 111/68 - Exam GENERAL EXAM: Patient intubated and sedated HEENT: Normocephalic. NECK: No masses, no nuchal rigidity. CHEST: No chest wall deformity. LUNGS: Diminished air exchange HEART: S1 and S2 normal with no audible mumurs or gallops. Regular rhythm, ABDOMEN: Soft SKIN: No rashes CENTRAL NERVOUS SYSTEM: Deferred EXTREMITIES: No cyanosis, clubbing or edema. - Labs CBC & Chem 7: 05/17/17 04:25 05/17/17 04:25 Labs: Abnormal Lab Results - Last 24 Hours (Table) 05/16/17 05/16/17 05/16/17 Range/Units 15:26 17:04 18:48 WBC (3.8-10.6) k/uL RBC (4.30-5.90) m/uL Neutrophils # (1.3-7.7) k/uL Lymphocytes # (1.0-4.8) k/uL PT (9.0-12.0) sec INR (<1.2) ABG pH (7.35-7.45) ABG pCO2 (35-45) mmHg ABG pO2 (83-108) mmHg ABG HCO3 (21-25) mmol/L ABG Total CO2 (19-24) mmol/L ABG O2 Saturation (94-97) % Sodium (137-145) mmol/L Chloride (98-107) mmol/L BUN (9-20) mg/dL Creatinine (0.66-1.25) mg/dL Glucose (74-99) mg/dL POC Glucose (mg/dL) 390 H 363 H (75-99) mg/dL Hemoglobin A1c 11.0 H (4.2-6.1) % Calcium (8.4-10.2) mg/dL AST (17-59) U/L ALT (21-72) U/L Total Creatine Kinase (55-170) U/L Albumin (3.5-5.0) g/dL Urine Protein (Negative) Urine Glucose (UA) (Negative) Urine Blood (Negative) Urine RBC (0-5) /hpf Ur Squamous Epith Cells (0-4) /hpf Amorphous Sediment (None) /hpf Urine Mucus (None) /hpf 05/16/17 05/16/17 05/16/17 Range/Units 20:19 21:33 22:25 WBC (3.8-10.6) k/uL RBC (4.30-5.90) m/uL Neutrophils # (1.3-7.7) k/uL Lymphocytes # (1.0-4.8) k/uL PT (9.0-12.0) sec INR (<1.2) ABG pH 7.50 H (7.35-7.45) ABG pCO2 32 L (35-45) mmHg ABG pO2 73 L (83-108) mmHg ABG HCO3 (21-25) mmol/L ABG Total CO2 26 H (19-24) mmol/L ABG O2 Saturation (94-97) % Sodium 136 L (137-145) mmol/L Chloride 97 L (98-107) mmol/L BUN 45 H (9-20) mg/dL Creatinine 1.48 H (0.66-1.25) mg/dL Glucose 273 H (74-99) mg/dL POC Glucose (mg/dL) 304 H (75-99) mg/dL Hemoglobin A1c (4.2-6.1) % Calcium 8.0 L (8.4-10.2) mg/dL AST (17-59) U/L ALT (21-72) U/L Total Creatine Kinase (55-170) U/L Albumin (3.5-5.0) g/dL Urine Protein (Negative) Urine Glucose (UA) (Negative) Urine Blood (Negative) Urine RBC (0-5) /hpf Ur Squamous Epith Cells (0-4) /hpf Amorphous Sediment (None) /hpf Urine Mucus (None) /hpf 05/16/17 05/17/17 05/17/17 Range/Units 23:38 00:20 04:25 WBC 19.4 H (3.8-10.6) k/uL RBC 4.27 L (4.30-5.90) m/uL Neutrophils # 17.9 H (1.3-7.7) k/uL Lymphocytes # 0.6 L (1.0-4.8) k/uL PT (9.0-12.0) sec INR (<1.2) ABG pH (7.35-7.45) ABG pCO2 46 H (35-45) mmHg ABG pO2 58 L (83-108) mmHg ABG HCO3 26 H (21-25) mmol/L ABG Total CO2 28 H (19-24) mmol/L ABG O2 Saturation 88.8 L (94-97) % Sodium (137-145) mmol/L Chloride (98-107) mmol/L BUN (9-20) mg/dL Creatinine (0.66-1.25) mg/dL Glucose (74-99) mg/dL POC Glucose (mg/dL) (75-99) mg/dL Hemoglobin A1c (4.2-6.1) % Calcium (8.4-10.2) mg/dL AST (17-59) U/L ALT (21-72) U/L Total Creatine Kinase (55-170) U/L Albumin (3.5-5.0) g/dL Urine Protein 1+ H (Negative) Urine Glucose (UA) 4+ H (Negative) Urine Blood Small H (Negative) Urine RBC 9 H (0-5) /hpf Ur Squamous Epith Cells 5 H (0-4) /hpf Amorphous Sediment Occasional H (None) /hpf Urine Mucus Rare H (None) /hpf 05/17/17 05/17/17 05/17/17 Range/Units 04:25 04:25 05:05 WBC (3.8-10.6) k/uL RBC (4.30-5.90) m/uL Neutrophils # (1.3-7.7) k/uL Lymphocytes # (1.0-4.8) k/uL PT 13.7 H (9.0-12.0) sec INR 1.4 H (<1.2) ABG pH (7.35-7.45) ABG pCO2 (35-45) mmHg ABG pO2 175 H (83-108) mmHg ABG HCO3 (21-25) mmol/L ABG Total CO2 25 H (19-24) mmol/L ABG O2 Saturation 99.6 H (94-97) % Sodium 136 L (137-145) mmol/L Chloride (98-107) mmol/L BUN 52 H (9-20) mg/dL Creatinine 1.80 H (0.66-1.25) mg/dL Glucose 336 H (74-99) mg/dL POC Glucose (mg/dL) (75-99) mg/dL Hemoglobin A1c (4.2-6.1) % Calcium 8.0 L (8.4-10.2) mg/dL AST 92 H (17-59) U/L ALT 75 H (21-72) U/L Total Creatine Kinase (55-170) U/L Albumin 3.1 L (3.5-5.0) g/dL Urine Protein (Negative) Urine Glucose (UA) (Negative) Urine Blood (Negative) Urine RBC (0-5) /hpf Ur Squamous Epith Cells (0-4) /hpf Amorphous Sediment (None) /hpf Urine Mucus (None) /hpf 05/17/17 05/17/17 05/17/17 Range/Units 07:13 08:44 13:40 WBC (3.8-10.6) k/uL RBC (4.30-5.90) m/uL Neutrophils # (1.3-7.7) k/uL Lymphocytes # (1.0-4.8) k/uL PT (9.0-12.0) sec INR (<1.2) ABG pH (7.35-7.45) ABG pCO2 (35-45) mmHg ABG pO2 (83-108) mmHg ABG HCO3 (21-25) mmol/L ABG Total CO2 (19-24) mmol/L ABG O2 Saturation (94-97) % Sodium (137-145) mmol/L Chloride (98-107) mmol/L BUN (9-20) mg/dL Creatinine (0.66-1.25) mg/dL Glucose (74-99) mg/dL POC Glucose (mg/dL) 342 H 346 H (75-99) mg/dL Hemoglobin A1c (4.2-6.1) % Calcium (8.4-10.2) mg/dL AST (17-59) U/L ALT (21-72) U/L Total Creatine Kinase 381 H (55-170) U/L Albumin (3.5-5.0) g/dL Urine Protein (Negative) Urine Glucose (UA) (Negative) Urine Blood (Negative) Urine RBC (0-5) /hpf Ur Squamous Epith Cells (0-4) /hpf Amorphous Sediment (None) /hpf Urine Mucus (None) /hpf 05/17/17 05/17/17 Range/Units 13:43 14:19 WBC (3.8-10.6) k/uL RBC (4.30-5.90) m/uL Neutrophils # (1.3-7.7) k/uL Lymphocytes # (1.0-4.8) k/uL PT (9.0-12.0) sec INR (<1.2) ABG pH (7.35-7.45) ABG pCO2 (35-45) mmHg ABG pO2 (83-108) mmHg ABG HCO3 (21-25) mmol/L ABG Total CO2 (19-24) mmol/L ABG O2 Saturation (94-97) % Sodium (137-145) mmol/L Chloride (98-107) mmol/L BUN (9-20) mg/dL Creatinine (0.66-1.25) mg/dL Glucose (74-99) mg/dL POC Glucose (mg/dL) 350 H 357 H (75-99) mg/dL Hemoglobin A1c (4.2-6.1) % Calcium (8.4-10.2) mg/dL AST (17-59) U/L ALT (21-72) U/L Total Creatine Kinase (55-170) U/L Albumin (3.5-5.0) g/dL Urine Protein (Negative) Urine Glucose (UA) (Negative) Urine Blood (Negative) Urine RBC (0-5) /hpf Ur Squamous Epith Cells (0-4) /hpf Amorphous Sediment (None) /hpf Urine Mucus (None) /hpf Microbiology - Last 24 Hours (Table) 05/17/17 00:20 Urine Culture - Preliminary Urine,Catheterized Assessment and Plan (1) Cardiomyopathy Status: Acute (2) STEMI (ST elevation myocardial infarction) Status: Acute (3) Congestive heart failure Status: Acute (4) Diabetes mellitus Status: Acute Plan: This patient had a large anterior wall myocardial infarction. Echo Cardigan showed severe LV dysfunction with ejection fraction of 20-25%. Patient is currently on IV diuretics. His creatinine also has gone up to 1.8. A chest x- ray shows clearing of CHF. We'll continue with cautious fluid administration. If necessary, either dobutamine or dopamine may be used. If patient condition doesn't improve, may consider transfer to share unit. Meanwhile, we'll continue beta blockers, ASH inhibitor and antiplatelet agents as tolerated.
[2017-05-17 14:59] LABS: Troponin I 34.6 ng/mL (0.000-0.034)
[2017-05-17 15:28] LABS: Glucose,Whole Blood 332 mg/dL (75-99)
[2017-05-17 16:06] LABS: Glucose,Whole Blood 291 mg/dL (75-99)
--- NOTE | 2017-05-17 16:49 | P.PN ---
Subjective This is a 61-year-old gentleman that is admitted to the hospital from the [facility]. Patient apparently was presented to the other facility with complaints of difficulty breathing times a day and a half. He shouldn't the initially went to his physician which is physician Jamison Us. Patient was noted to have cough associated with difficulty breathing and chest x-ray did show some abnormalities at that time as patient was put on antibiotics and was told he has pneumonia. 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 Patient will had to be emergently intubated due to significant respiratory distress Chest CT was noted to have pulmonary vessel congestion with diffuse pulmonary edema Objective - Vital Signs Vital signs: Vital Signs Temp 98.9 F 05/17/17 16:00 Pulse 86 05/17/17 16:02 Resp 33 H 05/17/17 16:00 BP 110/68 05/17/17 16:00 Pulse Ox 95 05/17/17 16:00 Intake & Output 05/16/17 05/17/17 05/17/17 18:59 06:59 18:59 Intake Total 515.0 270.921 701.939 Output Total 625 1168 512 Balance -110.0 -897.079 189.939 Weight 113.398 kg 117.5 kg 117.5 kg Intake: IV 231.7 201 565 Pressure Bag 0.9% sodium 21 30 chloride Propofol 1000 mg in 100 70 ml Sodium Chloride 0.9% 1, 75 110 485 000 ml @ 75 mls/hr IV . [id number] [facility] Rx#:[id number] cefTRIAXone 1,000 mg In 50 50 Sodium Chloride 0.9% 50 ml @ 100 mls/hr IVPB Q24HR [facility] Rx#:[id number] Intake, IV Titration 83.3 69.921 136.939 Amount Bivalirudin 250 mg In 33.3 Sodium Chloride 0.9% 40 ml As IV .STK-MED ONE Rx# :[id number] Insulin Regular 100 unit 29.795 In Sodium Chloride 0.9% 100 ml @ Per Protocol IV .Q0M [facility] Rx#:[id number] Propofol 1,000 mg In 100 69.921 107.144 ml @ Titrate IV .Q0M [facility] Rx#:[id number] Sodium Chloride 0.9% 1, 50 000 ml @ 75 mls/hr IV . [id number] [facility] Rx#:[id number] Oral 200 Output: Gastric Drainage 750 300 Urine 625 418 212 Other: Voiding Method Urinal Indwelling Catheter Indwelling Catheter ABP, PAP, CO, CI - Last Documented Arterial Blood Pressure 122/68 - Exam Patient is currently intubated and sedated her graft lungs trace crackles at the bases no rhonchi or wheezing Patient is currently on 50% of FiO2 and 10 of PEEP with minimal ventilation settings Abdomen is soft nontender organomegaly Lower extremity is no edema appreciated Neuro patient is sedated - Labs CBC & Chem 7: 05/17/17 04:25 05/17/17 04:25 Labs: Abnormal Lab Results - Last 24 Hours (Table) 05/16/17 05/16/17 05/16/17 Range/Units 17:04 18:48 20:19 WBC (3.8-10.6) k/uL RBC (4.30-5.90) m/uL Neutrophils # (1.3-7.7) k/uL Lymphocytes # (1.0-4.8) k/uL PT (9.0-12.0) sec INR (<1.2) ABG pH (7.35-7.45) ABG pCO2 (35-45) mmHg ABG pO2 (83-108) mmHg ABG HCO3 (21-25) mmol/L ABG Total CO2 (19-24) mmol/L ABG O2 Saturation (94-97) % Sodium (137-145) mmol/L Chloride (98-107) mmol/L BUN (9-20) mg/dL Creatinine (0.66-1.25) mg/dL Glucose (74-99) mg/dL POC Glucose (mg/dL) 363 H 304 H (75-99) mg/dL Hemoglobin A1c 11.0 H (4.2-6.1) % Calcium (8.4-10.2) mg/dL AST (17-59) U/L ALT (21-72) U/L Total Creatine Kinase (55-170) U/L CK-MB (CK-2) (0.0-2.4) ng/mL Troponin I (0.000-0.034) ng/mL Albumin (3.5-5.0) g/dL Urine Protein (Negative) Urine Glucose (UA) (Negative) Urine Blood (Negative) Urine RBC (0-5) /hpf Ur Squamous Epith Cells (0-4) /hpf Amorphous Sediment (None) /hpf Urine Mucus (None) /hpf 05/16/17 05/16/17 05/16/17 Range/Units 21:33 22:25 23:38 WBC (3.8-10.6) k/uL RBC (4.30-5.90) m/uL Neutrophils # (1.3-7.7) k/uL Lymphocytes # (1.0-4.8) k/uL PT (9.0-12.0) sec INR (<1.2) ABG pH 7.50 H (7.35-7.45) ABG pCO2 32 L 46 H (35-45) mmHg ABG pO2 73 L 58 L (83-108) mmHg ABG HCO3 26 H (21-25) mmol/L ABG Total CO2 26 H 28 H (19-24) mmol/L ABG O2 Saturation 88.8 L (94-97) % Sodium 136 L (137-145) mmol/L Chloride 97 L (98-107) mmol/L BUN 45 H (9-20) mg/dL Creatinine 1.48 H (0.66-1.25) mg/dL Glucose 273 H (74-99) mg/dL POC Glucose (mg/dL) (75-99) mg/dL Hemoglobin A1c (4.2-6.1) % Calcium 8.0 L (8.4-10.2) mg/dL AST (17-59) U/L ALT (21-72) U/L Total Creatine Kinase (55-170) U/L CK-MB (CK-2) (0.0-2.4) ng/mL Troponin I (0.000-0.034) ng/mL Albumin (3.5-5.0) g/dL Urine Protein (Negative) Urine Glucose (UA) (Negative) Urine Blood (Negative) Urine RBC (0-5) /hpf Ur Squamous Epith Cells (0-4) /hpf Amorphous Sediment (None) /hpf Urine Mucus (None) /hpf 05/17/17 05/17/17 05/17/17 Range/Units 00:20 04:25 04:25 WBC 19.4 H (3.8-10.6) k/uL RBC 4.27 L (4.30-5.90) m/uL Neutrophils # 17.9 H (1.3-7.7) k/uL Lymphocytes # 0.6 L (1.0-4.8) k/uL PT (9.0-12.0) sec INR (<1.2) ABG pH (7.35-7.45) ABG pCO2 (35-45) mmHg ABG pO2 (83-108) mmHg ABG HCO3 (21-25) mmol/L ABG Total CO2 (19-24) mmol/L ABG O2 Saturation (94-97) % Sodium 136 L (137-145) mmol/L Chloride (98-107) mmol/L BUN 52 H (9-20) mg/dL Creatinine 1.80 H (0.66-1.25) mg/dL Glucose 336 H (74-99) mg/dL POC Glucose (mg/dL) (75-99) mg/dL Hemoglobin A1c (4.2-6.1) % Calcium 8.0 L (8.4-10.2) mg/dL AST 92 H (17-59) U/L ALT 75 H (21-72) U/L Total Creatine Kinase (55-170) U/L CK-MB (CK-2) (0.0-2.4) ng/mL Troponin I (0.000-0.034) ng/mL Albumin 3.1 L (3.5-5.0) g/dL Urine Protein 1+ H (Negative) Urine Glucose (UA) 4+ H (Negative) Urine Blood Small H (Negative) Urine RBC 9 H (0-5) /hpf Ur Squamous Epith Cells 5 H (0-4) /hpf Amorphous Sediment Occasional H (None) /hpf Urine Mucus Rare H (None) /hpf 05/17/17 05/17/17 05/17/17 Range/Units 04:25 05:05 07:13 WBC (3.8-10.6) k/uL RBC (4.30-5.90) m/uL Neutrophils # (1.3-7.7) k/uL Lymphocytes # (1.0-4.8) k/uL PT 13.7 H (9.0-12.0) sec INR 1.4 H (<1.2) ABG pH (7.35-7.45) ABG pCO2 (35-45) mmHg ABG pO2 175 H (83-108) mmHg ABG HCO3 (21-25) mmol/L ABG Total CO2 25 H (19-24) mmol/L ABG O2 Saturation 99.6 H (94-97) % Sodium (137-145) mmol/L Chloride (98-107) mmol/L BUN (9-20) mg/dL Creatinine (0.66-1.25) mg/dL Glucose (74-99) mg/dL POC Glucose (mg/dL) 342 H (75-99) mg/dL Hemoglobin A1c (4.2-6.1) % Calcium (8.4-10.2) mg/dL AST (17-59) U/L ALT (21-72) U/L Total Creatine Kinase (55-170) U/L CK-MB (CK-2) (0.0-2.4) ng/mL Troponin I (0.000-0.034) ng/mL Albumin (3.5-5.0) g/dL Urine Protein (Negative) Urine Glucose (UA) (Negative) Urine Blood (Negative) Urine RBC (0-5) /hpf Ur Squamous Epith Cells (0-4) /hpf Amorphous Sediment (None) /hpf Urine Mucus (None) /hpf 05/17/17 05/17/17 05/17/17 Range/Units 08:44 13:40 13:43 WBC (3.8-10.6) k/uL RBC (4.30-5.90) m/uL Neutrophils # (1.3-7.7) k/uL Lymphocytes # (1.0-4.8) k/uL PT (9.0-12.0) sec INR (<1.2) ABG pH (7.35-7.45) ABG pCO2 (35-45) mmHg ABG pO2 (83-108) mmHg ABG HCO3 (21-25) mmol/L ABG Total CO2 (19-24) mmol/L ABG O2 Saturation (94-97) % Sodium (137-145) mmol/L Chloride (98-107) mmol/L BUN (9-20) mg/dL Creatinine (0.66-1.25) mg/dL Glucose (74-99) mg/dL POC Glucose (mg/dL) 346 H 350 H (75-99) mg/dL Hemoglobin A1c (4.2-6.1) % Calcium (8.4-10.2) mg/dL AST (17-59) U/L ALT (21-72) U/L Total Creatine Kinase 381 H (55-170) U/L CK-MB (CK-2) 8.0 H* (0.0-2.4) ng/mL Troponin I 34.600 H* (0.000-0.034) ng/mL Albumin (3.5-5.0) g/dL Urine Protein (Negative) Urine Glucose (UA) (Negative) Urine Blood (Negative) Urine RBC (0-5) /hpf Ur Squamous Epith Cells (0-4) /hpf Amorphous Sediment (None) /hpf Urine Mucus (None) /hpf 05/17/17 05/17/17 05/17/17 Range/Units 14:19 15:19 16:02 WBC (3.8-10.6) k/uL RBC (4.30-5.90) m/uL Neutrophils # (1.3-7.7) k/uL Lymphocytes # (1.0-4.8) k/uL PT (9.0-12.0) sec INR (<1.2) ABG pH (7.35-7.45) ABG pCO2 (35-45) mmHg ABG pO2 (83-108) mmHg ABG HCO3 (21-25) mmol/L ABG Total CO2 (19-24) mmol/L ABG O2 Saturation (94-97) % Sodium (137-145) mmol/L Chloride (98-107) mmol/L BUN (9-20) mg/dL Creatinine (0.66-1.25) mg/dL Glucose (74-99) mg/dL POC Glucose (mg/dL) 357 H 332 H 291 H (75-99) mg/dL Hemoglobin A1c (4.2-6.1) % Calcium (8.4-10.2) mg/dL AST (17-59) U/L ALT (21-72) U/L Total Creatine Kinase (55-170) U/L CK-MB (CK-2) (0.0-2.4) ng/mL Troponin I (0.000-0.034) ng/mL Albumin (3.5-5.0) g/dL Urine Protein (Negative) Urine Glucose (UA) (Negative) Urine Blood (Negative) Urine RBC (0-5) /hpf Ur Squamous Epith Cells (0-4) /hpf Amorphous Sediment (None) /hpf Urine Mucus (None) /hpf Microbiology - Last 24 Hours (Table) 05/17/17 00:20 Urine Culture - Preliminary Urine,Catheterized Assessment and Plan Plan: Acute STEMI unsuccessfuTIMI flow this is likely due to the time of presentation #2 obesity #3 history of exposure to tobacco #4 clinical obstructive sleep apnea #5 cardio megaly #6 acute hypoxic respiratory failure unknown etiology suspect right ventricular strain secondary to pulmonary hypertension #7 newly diagnosed diabetes mellitus #8 fever of unknown origin Plan Patient is restarted on IV fluids for contrast nephropathy protection Once the protocol is done patient would benefit from diuretics Continues to have ST elevations Continue full ICU supportive care GI prophylaxis should be ensured
--- NOTE | 2017-05-17 17:15 | P.PCN ---
Date of Procedure: 05/17/17 Preoperative Diagnosis: Acute myocardial infarction Postoperative Diagnosis: Same Procedure(s) Performed: Insertion of a triple-lumen catheter Implants: Anesthesia: regional Surgeon: Dave Logan Estimated Blood Loss (ml): 0 Pathology: none sent Condition: stable Disposition: ICU Indications for Procedure: Operative Findings: Description of Procedure: This procedure was done under regional anesthesia. The patient had his right inguinal area cleaned using ChloraPrep. The skin was infiltrated by 1% lidocaine and adequate local anesthesia was achieved. Following that, a triple lumen insertion introducer needle was used to identify the right femoral vein. A guidewire was inserted successfully and the needle was taken out. Following that the skin was incised and dilated using a dilator and following that a triple lumen catheter was inserted over the guidewire into the right femoral vein using the Seldinger technique. The guidewire was removed and the blood return was adequate in all ports. Different ports of triple-lumen catheter were flushed and the catheter was secured in place and sutured. No bedside complications or bleeding.
[2017-05-17 17:36] LABS: Glucose,Whole Blood 239 mg/dL (75-99)
[2017-05-17] MEDS ORDERED: FUROSEMIDE 10 MG/ML 4 ML VIAL IV STA (18:15)
[2017-05-17 18:21] LABS: Glucose,Whole Blood 212 mg/dL (75-99)
[2017-05-17 19:03] LABS: Glucose,Whole Blood 187 mg/dL (75-99)
[2017-05-17 19:14] LABS: Creatine Kinase MB 6.9 ng/mL (0.0-2.4); Troponin I 39.2 ng/mL (0.000-0.034)
[2017-05-17 20:45] LABS: Glucose,Whole Blood 170 mg/dL (75-99)
[2017-05-17] MEDS: ATORVASTATIN 80 MG TAB PO SCH (20:47)
[2017-05-17 21:50] LABS: Glucose,Whole Blood 176 mg/dL (75-99)
[2017-05-17 22:51] LABS: Glucose,Whole Blood 187 mg/dL (75-99)
[2017-05-17 23:48] LABS: Glucose,Whole Blood 174 mg/dL (75-99)
[2017-05-18 01:00] LABS: Glucose,Whole Blood 187 mg/dL (75-99)
[2017-05-18] MEDS: SODIUM CHLORIDE 0.9% 1,000 ML IV SCH ×2 (01:45→17:47)
[2017-05-18 01:51] LABS: Glucose,Whole Blood 165 mg/dL (75-99)
[2017-05-18 02:33] LABS: Creatine Kinase MB 6.2 ng/mL (0.0-2.4); Troponin I 45.5 ng/mL (0.000-0.034)
[2017-05-18 03:22] LABS: Glucose,Whole Blood 160 mg/dL (75-99)
[2017-05-18] MEDS: PROPOFOL 1,000 MG/100 ML VIAL IV SCH ×4 (03:24→20:45)
[2017-05-18 04:14] LABS: Glucose,Whole Blood 149 mg/dL (75-99)
[2017-05-18 05:06] LABS: Glucose,Whole Blood 140 mg/dL (75-99)
[2017-05-18 05:18] LABS: Basophils % (A) 0 %; CH 32.5; CHCM 33.1; Eosinophils % (A) 0 %; HDW 2.57; HGB 12.4 gm/dL (13.0-17.5); Luc % (Auto) 2; Lymphocytes # (A) 0.8 k/uL (1.0-4.8); Lymphocytes % (A) 4 %; MCH 33.1 pg (25.0-35.0); MCHC 33.5 g/dL (31.0-37.0); MCV 98.8 fL (80.0-100.0); Mean Platelet Volume 7.6; Monocytes # (A) 1.5 k/uL (0-1.0); Monocytes % (A) 7 %; Neutrophils # (A) 18.9 k/uL (1.3-7.7); Neutrophils % (A) 87 %; RBC 3.75 m/uL (4.30-5.90); RDW 12.7 % (11.5-15.5); WBC 21.7 k/uL (3.8-10.6); WBC (Perox) 22.42
[2017-05-18 05:32] LABS: INR 1.3 (<1.2); Prothrombin Time 12.7 sec (9.0-12.0)
[2017-05-18 05:35] LABS: Calcium 7.9 mg/dL (8.4-10.2); Magnesium 2.6 mg/dL (1.6-2.3); Phosphorous 4.9 mg/dL (2.5-4.5); Potassium 3.8 mmol/L (3.5-5.1)
[2017-05-18 05:37] LABS: ABG Base Excess 2.1 mmol/L; ABG HCO3 26 mmol/L (21-25); ABG PCO2 37 mmHg (35-45); ABG PH 7.46 (7.35-7.45); ABG PO2 91 mmHg (83-108); ABG TCO2 27 mmol/L (19-24)
[2017-05-18 07:08] LABS: Glucose,Whole Blood 136 mg/dL (75-99)
[2017-05-18] MEDS: IPRATROPIUM 0.5 MG/2.5 ML NEBU INHALATION SCH ×4 (07:15→19:35)
[2017-05-18] MEDS: LEVALBUTEROL NEB 1.25 MG/3 ML AMP INHALATION SCH ×4 (07:15→19:35)
--- NOTE | 2017-05-18 07:37 | XR ---
EXAMINATION TYPE: XR chest 1V portable DATE OF EXAM: 05/18/2017 COMPARISON: Prior chest x-ray 05/17/2017 HISTORY: Intubated TECHNIQUE: Single frontal view of the chest is obtained. FINDINGS: Endotracheal tube, NG tube, overlying cardiac leads are present as on prior exam. The hear t is enlarged. Perihilar vascular indistinctness is present, interstitium is increased. Bibasilar inc reased density noted. IMPRESSION: Findings suggest congestive failure, there may be basilar atelectasis and associated eff usions versus edema or pneumonia. Follow-up recommended.
[2017-05-18 08:10] LABS: Glucose,Whole Blood 123 mg/dL (75-99)
[2017-05-18] MEDS: CHLORHEXIDINE GLUCONATE 15 ML CUP MUCOUS MEM SCH ×2 (08:20→20:24)
[2017-05-18] MEDS: FAMOTIDINE 20 MG/2 ML VIAL IV SCH (08:21)
[2017-05-18] MEDS: ASPIRIN 325 MG TAB PO SCH (08:21)
[2017-05-18] MEDS: METOPROLOL TARTRATE 25 MG TAB PO SCH ×2 (08:21→20:25)
[2017-05-18] MEDS: LISINOPRIL 10 MG TAB PO SCH ×2 (08:22→08:47)
[2017-05-18] MEDS: PRASUGREL 10 MG TAB PO SCH (08:22)
[2017-05-18] MEDS: FUROSEMIDE 10 MG/ML 4 ML VIAL IV SCH (08:47)
[2017-05-18] MEDS ORDERED: FUROSEMIDE 10 MG/ML 10 ML VIAL IV STA (08:47)
[2017-05-18 09:12] LABS: Glucose,Whole Blood 140 mg/dL (75-99)
[2017-05-18] MEDS: INSULIN LISPRO (humaLOG) 300 UNIT/3 ML VIAL SQ SCH (09:39)
--- NOTE | 2017-05-18 10:01 | US ---
EXAMINATION TYPE: US kidneys/renal and bladder DATE OF EXAM: 05/18/2017 COMPARISON: NONE CLINICAL HISTORY: ARF. ICU patient with ARF EXAM MEASUREMENTS: Right Kidney: 13.4 x 6.1 x 6.4 cm Left Kidney: 13.7 x 6.2 x 6.2 cm Right Kidney: no evidence of hydronephrosis or mass as visualized Left Kidney: enlarged, no evidence of hydronephrosis or mass as visualized Bladder: not visualized, patient has a Causey catheter Cortical medullary differentiation maintained bilaterally. IMPRESSION: Kidneys are somewhat large, no evident hydronephrosis.
[2017-05-18 10:14] LABS: Glucose,Whole Blood 134 mg/dL (75-99)
[2017-05-18 11:15] LABS: Glucose,Whole Blood 138 mg/dL (75-99)
--- NOTE | 2017-05-18 11:18 | P.PN ---
Subjective 62-year-old male patient who got transferred from [facility] because of acute ST segment elevation myocardial infarction. The patient had anterior wall septal wall TN along with LAD distribution. The patient was taken immediately to cardiac catheterization he was found to have occluded mid LAD and critical disease involving the left circumflex. Based on that, patient underwent angioplasty and stenting of the mid LAD and follow-up angiogram showed good angiographic results of the stented segment but the distal LAD bed was not well-visualized because of competitive flow and probably LAD distally occluded with clots. The patient was started on dual antiplatelet agents and he was moved to the intensive care unit. Within the afternoon, the patient became progressively more short of breath. He was taken for a CT angios the chest which confirmed the findings of acute CHF. No clots were seen in the pulmonary artery branches. Within next few hours the patient even got more short of breath and he went into respiratory failure. At that point I was involved in the case and I was informed of the above-mentioned changes. I recommended immediate intubation and the patient was placed on a mechanical ventilator. Following that he was sedated with Diprivan. The patient is currently on a assist-control mode rate of 24, tidal volume of 400, FiO2 of 70% and a PEEP of 10. Morning blood gases showed a pH 7.43 with a pCO2 of 36.5 and a pO2 of 175 and based on that the FiO2 is being further weaned off. Urine output at this point is around 10 mL an hour. His systolic blood pressures in the 110 range. His creatinine is up to 1.8. He has suffered an acute kidney injury. ST segment elevation is still present on the EKG and has been present since yesterday. There is diffuse ST segment elevation involving V2, V2, V3, V4 , V5, V6, and also the inferior leads. Furthermore, a stat echocardiogram was done and it showed EF less than 20%. The patient's left ventricular end- diastolic pressure based on the cardiac catheterization was quite elevated at 36. This morning, the chest x-ray showing improvement of pulmonary edema. She was in good location. The patient is cardiomegaly. The patient on Lasix 40 mg IV push every 12 hours. The patient is also on a combination of aspirin and Effient, and he was ordered metoprolol 5 mg by mouth twice a day. He is also on lisinopril of 10 mg by mouth daily has not been given this morning. He was empirically covered also with a combination of Rocephin and Zithromax. He is on a 30 mg of prednisone. The patient is seen again today 05/18/2017 in follow-up in the intensive care unit. He remains intubated and on the mechanical ventilator. Current settings are assist-control 24, tidal volume 400, FiO2 of 50% and a PEEP of 10. Morning blood gases reveal a pO2 of 91, pCO2 37 and a pH of 7.46. He remains sedated on to propofol at 25 mcg/kg/m. He has a 0.9 normal saline at 75 MLS per hour. He is on insulin drip at 0.5 units per hour. He is arousable. He follows commands. His chest x-ray continues to show evidence of congestive heart failure with basilar atelectasis and small effusions. His renal function has worsened with the current creatinine of 3.40. His urine output is marginal. Ultrasound of the kidneys revealed no evidence of hydronephrosis. Telemetry continues to demonstrate elevated ST segments. Troponin increased at 45.5. This remains hemodynamically stable. Currently on no pressors. He is febrile with a temperature of 100.2. White count 21.7. He is currently on ceftriaxone and azithromycin. Objective - Vital Signs Vital signs: Vital Signs Temp 100.2 F H 05/18/17 08:00 Pulse 71 05/18/17 10:00 Resp 26 H 05/18/17 10:00 BP 100/70 05/18/17 10:00 Pulse Ox 96 05/18/17 10:00 Intake & Output 05/17/17 05/18/17 05/18/17 18:59 06:59 18:59 Intake Total 407.184 8689.391 466.436 Output Total 527 335 163 Balance 394.268 838.391 303.436 Weight 117.5 kg 118.3 kg Intake: IV 721 936 287 Pressure Bag 0.9% sodium 36 36 12 chloride Sodium Chloride 0.9% 1, 635 900 225 000 ml @ 75 mls/hr IV . [id number] SAMANTHA Rx#:[id number] cefTRIAXone 1,000 mg In 50 50 Sodium Chloride 0.9% 50 ml @ 100 mls/hr IVPB Q24HR SAMANTHA Rx#:[id number] Intake, IV Titration 200.268 237.391 179.436 Amount Insulin Regular 100 unit 52.301 41.209 26.757 In Sodium Chloride 0.9% 100 ml @ Per Protocol IV .Q0M SAMANTHA Rx#:[id number] Propofol 1,000 mg In 100 147.967 196.182 77.679 ml @ Titrate IV .Q0M SAMANTHA Rx#:[id number] Sodium Chloride 0.9% 1, 75 000 ml @ 75 mls/hr IV . [id number] SAMANTHA Rx#:[id number] Output: Gastric Drainage 300 110 30 Urine 227 225 133 Other: Voiding Method Indwelling Catheter Indwelling Catheter Indwelling Catheter # Bowel Movements 0 ABP, PAP, CO, CI - Last Documented Arterial Blood Pressure 112/63 - Exam Head exam was generally normal. There was no scleral icterus or corneal arcus. Mucous membranes were moist. Neck is short and supple and there is significant sickness and shortening of the neck. No neck stiffness. Orogastric and orotracheal tube are both in place. No JVDs can be visualized. Lung sounds are diminished bilaterally. No wheezes overall currently crackles at this point. Heart sounds are regular, distant, positive S1 and S2 with an S3 gallop. No murmurs appreciated.Abdominal exam revealed normal bowel sounds. The abdomen was soft, non-tender, and without masses, organomegaly, or appreciable enlargement of the abdominal aorta. Patient is obese and orders cannot be accurately palpated. Neurologically the patient is quite sedated at this point. He is on Diprivan. He can move all 4 extremities to stimuli. Left radial arterial line in place. Right femoral triple-lumen catheter. Peripheral pulses are intact. - Labs CBC & Chem 7: 05/18/17 04:10 05/18/17 04:10 Labs: Abnormal Lab Results - Last 24 Hours (Table) 05/16/17 05/17/17 05/17/17 Range/Units 18:48 13:40 13:43 WBC (3.8-10.6) k/uL RBC (4.30-5.90) m/uL Hgb (13.0-17.5) gm/dL Hct (39.0-53.0) % Neutrophils # (1.3-7.7) k/uL Lymphocytes # (1.0-4.8) k/uL Monocytes # (0-1.0) k/uL PT (9.0-12.0) sec INR (<1.2) ABG pH (7.35-7.45) ABG HCO3 (21-25) mmol/L ABG Total CO2 (19-24) mmol/L ABG O2 Saturation (94-97) % BUN (9-20) mg/dL Creatinine (0.66-1.25) mg/dL Glucose (74-99) mg/dL POC Glucose (mg/dL) 350 H (75-99) mg/dL Hemoglobin A1c 11.0 H (4.2-6.1) % Calcium (8.4-10.2) mg/dL Phosphorus (2.5-4.5) mg/dL Magnesium (1.6-2.3) mg/dL Total Creatine Kinase 381 H (55-170) U/L CK-MB (CK-2) 8.0 H* (0.0-2.4) ng/mL Troponin I 34.600 H* (0.000-0.034) ng/mL 05/17/17 05/17/17 05/17/17 Range/Units 14:19 15:19 16:02 WBC (3.8-10.6) k/uL RBC (4.30-5.90) m/uL Hgb (13.0-17.5) gm/dL Hct (39.0-53.0) % Neutrophils # (1.3-7.7) k/uL Lymphocytes # (1.0-4.8) k/uL Monocytes # (0-1.0) k/uL PT (9.0-12.0) sec INR (<1.2) ABG pH (7.35-7.45) ABG HCO3 (21-25) mmol/L ABG Total CO2 (19-24) mmol/L ABG O2 Saturation (94-97) % BUN (9-20) mg/dL Creatinine (0.66-1.25) mg/dL Glucose (74-99) mg/dL POC Glucose (mg/dL) 357 H 332 H 291 H (75-99) mg/dL Hemoglobin A1c (4.2-6.1) % Calcium (8.4-10.2) mg/dL Phosphorus (2.5-4.5) mg/dL Magnesium (1.6-2.3) mg/dL Total Creatine Kinase (55-170) U/L CK-MB (CK-2) (0.0-2.4) ng/mL Troponin I (0.000-0.034) ng/mL 05/17/17 05/17/17 05/17/17 Range/Units 17:17 18:16 18:17 WBC (3.8-10.6) k/uL RBC (4.30-5.90) m/uL Hgb (13.0-17.5) gm/dL Hct (39.0-53.0) % Neutrophils # (1.3-7.7) k/uL Lymphocytes # (1.0-4.8) k/uL Monocytes # (0-1.0) k/uL PT (9.0-12.0) sec INR (<1.2) ABG pH (7.35-7.45) ABG HCO3 (21-25) mmol/L ABG Total CO2 (19-24) mmol/L ABG O2 Saturation (94-97) % BUN (9-20) mg/dL Creatinine (0.66-1.25) mg/dL Glucose (74-99) mg/dL POC Glucose (mg/dL) 239 H 212 H (75-99) mg/dL Hemoglobin A1c (4.2-6.1) % Calcium (8.4-10.2) mg/dL Phosphorus (2.5-4.5) mg/dL Magnesium (1.6-2.3) mg/dL Total Creatine Kinase 353 H (55-170) U/L CK-MB (CK-2) 6.9 H* (0.0-2.4) ng/mL Troponin I 39.200 H* (0.000-0.034) ng/mL 05/17/17 05/17/17 05/17/17 Range/Units 19:02 20:44 21:48 WBC (3.8-10.6) k/uL RBC (4.30-5.90) m/uL Hgb (13.0-17.5) gm/dL Hct (39.0-53.0) % Neutrophils # (1.3-7.7) k/uL Lymphocytes # (1.0-4.8) k/uL Monocytes # (0-1.0) k/uL PT (9.0-12.0) sec INR (<1.2) ABG pH (7.35-7.45) ABG HCO3 (21-25) mmol/L ABG Total CO2 (19-24) mmol/L ABG O2 Saturation (94-97) % BUN (9-20) mg/dL Creatinine (0.66-1.25) mg/dL Glucose (74-99) mg/dL POC Glucose (mg/dL) 187 H 170 H 176 H (75-99) mg/dL Hemoglobin A1c (4.2-6.1) % Calcium (8.4-10.2) mg/dL Phosphorus (2.5-4.5) mg/dL Magnesium (1.6-2.3) mg/dL Total Creatine Kinase (55-170) U/L CK-MB (CK-2) (0.0-2.4) ng/mL Troponin I (0.000-0.034) ng/mL 05/17/17 05/17/17 05/18/17 Range/Units 22:50 23:47 00:58 WBC (3.8-10.6) k/uL RBC (4.30-5.90) m/uL Hgb (13.0-17.5) gm/dL Hct (39.0-53.0) % Neutrophils # (1.3-7.7) k/uL Lymphocytes # (1.0-4.8) k/uL Monocytes # (0-1.0) k/uL PT (9.0-12.0) sec INR (<1.2) ABG pH (7.35-7.45) ABG HCO3 (21-25) mmol/L ABG Total CO2 (19-24) mmol/L ABG O2 Saturation (94-97) % BUN (9-20) mg/dL Creatinine (0.66-1.25) mg/dL Glucose (74-99) mg/dL POC Glucose (mg/dL) 187 H 174 H 187 H (75-99) mg/dL Hemoglobin A1c (4.2-6.1) % Calcium (8.4-10.2) mg/dL Phosphorus (2.5-4.5) mg/dL Magnesium (1.6-2.3) mg/dL Total Creatine Kinase (55-170) U/L CK-MB (CK-2) (0.0-2.4) ng/mL Troponin I (0.000-0.034) ng/mL 05/18/17 05/18/17 05/18/17 Range/Units 01:30 01:48 03:19 WBC (3.8-10.6) k/uL RBC (4.30-5.90) m/uL Hgb (13.0-17.5) gm/dL Hct (39.0-53.0) % Neutrophils # (1.3-7.7) k/uL Lymphocytes # (1.0-4.8) k/uL Monocytes # (0-1.0) k/uL PT (9.0-12.0) sec INR (<1.2) ABG pH (7.35-7.45) ABG HCO3 (21-25) mmol/L ABG Total CO2 (19-24) mmol/L ABG O2 Saturation (94-97) % BUN (9-20) mg/dL Creatinine (0.66-1.25) mg/dL Glucose (74-99) mg/dL POC Glucose (mg/dL) 165 H 160 H (75-99) mg/dL Hemoglobin A1c (4.2-6.1) % Calcium (8.4-10.2) mg/dL Phosphorus (2.5-4.5) mg/dL Magnesium (1.6-2.3) mg/dL Total Creatine Kinase 340 H (55-170) U/L CK-MB (CK-2) 6.2 H* (0.0-2.4) ng/mL Troponin I 45.500 H* (0.000-0.034) ng/mL 05/18/17 05/18/17 05/18/17 Range/Units 04:10 04:10 04:10 WBC 21.7 H (3.8-10.6) k/uL RBC 3.75 L (4.30-5.90) m/uL Hgb 12.4 L (13.0-17.5) gm/dL Hct 37.0 L (39.0-53.0) % Neutrophils # 18.9 H (1.3-7.7) k/uL Lymphocytes # 0.8 L (1.0-4.8) k/uL Monocytes # 1.5 H (0-1.0) k/uL PT 12.7 H (9.0-12.0) sec INR 1.3 H (<1.2) ABG pH (7.35-7.45) ABG HCO3 (21-25) mmol/L ABG Total CO2 (19-24) mmol/L ABG O2 Saturation (94-97) % BUN 83 H* (9-20) mg/dL Creatinine 3.40 H (0.66-1.25) mg/dL Glucose 132 H (74-99) mg/dL POC Glucose (mg/dL) (75-99) mg/dL Hemoglobin A1c (4.2-6.1) % Calcium 7.9 L (8.4-10.2) mg/dL Phosphorus 4.9 H (2.5-4.5) mg/dL Magnesium 2.6 H (1.6-2.3) mg/dL Total Creatine Kinase (55-170) U/L CK-MB (CK-2) (0.0-2.4) ng/mL Troponin I (0.000-0.034) ng/mL 05/18/17 05/18/17 05/18/17 Range/Units 04:12 05:04 05:18 WBC (3.8-10.6) k/uL RBC (4.30-5.90) m/uL Hgb (13.0-17.5) gm/dL Hct (39.0-53.0) % Neutrophils # (1.3-7.7) k/uL Lymphocytes # (1.0-4.8) k/uL Monocytes # (0-1.0) k/uL PT (9.0-12.0) sec INR (<1.2) ABG pH 7.46 H (7.35-7.45) ABG HCO3 26 H (21-25) mmol/L ABG Total CO2 27 H (19-24) mmol/L ABG O2 Saturation 98.0 H (94-97) % BUN (9-20) mg/dL Creatinine (0.66-1.25) mg/dL Glucose (74-99) mg/dL POC Glucose (mg/dL) 149 H 140 H (75-99) mg/dL Hemoglobin A1c (4.2-6.1) % Calcium (8.4-10.2) mg/dL Phosphorus (2.5-4.5) mg/dL Magnesium (1.6-2.3) mg/dL Total Creatine Kinase (55-170) U/L CK-MB (CK-2) (0.0-2.4) ng/mL Troponin I (0.000-0.034) ng/mL 05/18/17 05/18/17 05/18/17 Range/Units 07:06 08:09 09:09 WBC (3.8-10.6) k/uL RBC (4.30-5.90) m/uL Hgb (13.0-17.5) gm/dL Hct (39.0-53.0) % Neutrophils # (1.3-7.7) k/uL Lymphocytes # (1.0-4.8) k/uL Monocytes # (0-1.0) k/uL PT (9.0-12.0) sec INR (<1.2) ABG pH (7.35-7.45) ABG HCO3 (21-25) mmol/L ABG Total CO2 (19-24) mmol/L ABG O2 Saturation (94-97) % BUN (9-20) mg/dL Creatinine (0.66-1.25) mg/dL Glucose (74-99) mg/dL POC Glucose (mg/dL) 136 H 123 H 140 H (75-99) mg/dL Hemoglobin A1c (4.2-6.1) % Calcium (8.4-10.2) mg/dL Phosphorus (2.5-4.5) mg/dL Magnesium (1.6-2.3) mg/dL Total Creatine Kinase (55-170) U/L CK-MB (CK-2) (0.0-2.4) ng/mL Troponin I (0.000-0.034) ng/mL 05/18/17 Range/Units 10:12 WBC (3.8-10.6) k/uL RBC (4.30-5.90) m/uL Hgb (13.0-17.5) gm/dL Hct (39.0-53.0) % Neutrophils # (1.3-7.7) k/uL Lymphocytes # (1.0-4.8) k/uL Monocytes # (0-1.0) k/uL PT (9.0-12.0) sec INR (<1.2) ABG pH (7.35-7.45) ABG HCO3 (21-25) mmol/L ABG Total CO2 (19-24) mmol/L ABG O2 Saturation (94-97) % BUN (9-20) mg/dL Creatinine (0.66-1.25) mg/dL Glucose (74-99) mg/dL POC Glucose (mg/dL) 134 H (75-99) mg/dL Hemoglobin A1c (4.2-6.1) % Calcium (8.4-10.2) mg/dL Phosphorus (2.5-4.5) mg/dL Magnesium (1.6-2.3) mg/dL Total Creatine Kinase (55-170) U/L CK-MB (CK-2) (0.0-2.4) ng/mL Troponin I (0.000-0.034) ng/mL Microbiology - Last 24 Hours (Table) 05/17/17 00:20 Urine Culture - Preliminary Urine,Catheterized Assessment and Plan Plan: Assessment [address] segment anterior wall myocardial infarction. The patient was having chest pain few days prior to his hospital admission and came in for an acute ST segment elevation myocardial infarction. He had emergent cardiac catheterization and stenting of the LAD. Please refer to the catheter report for further details. The patient also has a tight circumflex lesion in the order of 80-90%. Currently on aspirin and Effient. 2 acute pulmonary edema secondary to CHF 3 acute hypoxic respiratory failure secondary to above 4 acute kidney injury due to a combination of low cardiac output and contrast. Rule out contrast nephropathy. Urine output remains marginal at this point. Creatinine is up to 3.40 5 diabetes mellitus with poorly controlled blood sugars 6 morbid obesity 7 obstructive sleep apnea 8 doubtful pneumonia, CT angio of the chest is consistent with CHF/pulmonary edema, however, the patient is covered with ceftriaxone and azithromycin empirically. Plan The patient was seen and evaluated by Dr. Dave. His chest x-ray and labs were reviewed. We will go ahead and consult nephrology regarding the worsening renal failure. We'll consult dietary services for tube feeding recommendations. No plans for weaning at this point. We will allow continued decrease work of breathing while he is recovering from his significant myocardial infarction and significant ischemic cardiomyopathy. He is on heparin for DVT prophylaxis, Pepcid for GI prophylaxis. Continue bronchodilators every 4 hours. We'll continue to follow and make further recommendations based on his clinical status. Critical care time 38 minutes.
[2017-05-18 12:08] LABS: Glucose,Whole Blood 142 mg/dL (75-99)
[2017-05-18] MEDS: HEPARIN SODIUM,PORCINE 5,000 UNIT/ML 1 ML VIAL SQ SCH ×3 (12:22→23:39)
[2017-05-18] MEDS: AZITHROMYCIN 250 MG TAB PO SCH (12:23)
[2017-05-18 13:07] LABS: Glucose,Whole Blood 131 mg/dL (75-99)
[2017-05-18 14:06] LABS: Glucose,Whole Blood 129 mg/dL (75-99)
[2017-05-18 15:16] LABS: Glucose,Whole Blood 114 mg/dL (75-99)
--- NOTE | 2017-05-18 16:05 | P.PN ---
Subjective Principal diagnosis: Anterior wall myocardial infarction, status post failed stent placement, cardiomyopathy and CHF This patient is admitted with acute/subacute anterior wall myocardial infarction. Patient had attempted stent placement of the LAD with suboptimal results. His echocardiogram showed severely impaired LV function. Patient went into pulmonary edema and respiratory failure requiring intubation. Patient responded very well to diuresis and chest x-ray showed improvement. However, subsequently his renal function got worse and creatinine went up to 2.3 which most probably secondary to ATN. Nephrology consult is requested. Patient is awake and responding appropriately. Pulmonary has evaluated the patient and are not attempted to wean him at this time. Urine output has picked up after IV Lasix is given this morning. His blood pressure is in the range of about 100/64, pulse rate is about 75. Saturations are about 95% on current ventilatory settings. Patient is currently on aspirin, Lipitor 80 mg, Zithromax, ceftriaxone, famotidine subcu heparin, insulin, metoprolol 25 mg by mouth twice a day possible 10 mg daily and also the program. Objective - Vital Signs Vital signs: Vital Signs Temp 99.8 F H 05/18/17 12:00 Pulse 74 05/18/17 15:49 Resp 24 05/18/17 15:00 BP 97/65 05/18/17 15:00 Pulse Ox 95 05/18/17 15:00 Intake & Output 05/17/17 05/18/17 05/18/17 18:59 06:59 18:59 Intake Total 472.665 1982.391 977.155 Output Total 527 335 493 Balance 394.268 838.391 484.155 Weight 117.5 kg 118.3 kg 118.3 kg Intake: IV 721 936 677 Pressure Bag 0.9% sodium 36 36 27 chloride Sodium Chloride 0.9% 1, 635 900 600 000 ml @ 75 mls/hr IV . [id number] [facility] Rx#:[id number] cefTRIAXone 1,000 mg In 50 50 Sodium Chloride 0.9% 50 ml @ 100 mls/hr IVPB Q24HR [facility] Rx#:[id number] Intake, IV Titration 200.268 237.391 215.155 Amount Insulin Regular 100 unit 52.301 41.209 43.085 In Sodium Chloride 0.9% 100 ml @ Per Protocol IV .Q0M [facility] Rx#:[id number] Propofol 1,000 mg In 100 147.967 196.182 97.070 ml @ Titrate IV .Q0M [facility] Rx#:[id number] Sodium Chloride 0.9% 1, 75 000 ml @ 75 mls/hr IV . [id number] [facility] Rx#:[id number] Tube Feeding 40 Other 45 Output: Gastric Drainage 300 110 30 Urine 227 225 463 Other: Voiding Method Indwelling Catheter Indwelling Catheter Indwelling Catheter # Bowel Movements 0 ABP, PAP, CO, CI - Last Documented Arterial Blood Pressure 112/64 - Exam GENERAL EXAM: Patient intubated and awake this morning HEENT: Normocephalic. NECK: No masses, no nuchal rigidity. CHEST: No chest wall deformity. LUNGS: Diminished air exchange HEART: S1 and S2 normal with no audible mumurs or gallops. Regular rhythm, ABDOMEN: Soft SKIN: No rashes CENTRAL NERVOUS SYSTEM: Deferred EXTREMITIES: No cyanosis, clubbing or edema. - Labs CBC & Chem 7: 05/18/17 04:10 05/18/17 04:10 Labs: Abnormal Lab Results - Last 24 Hours (Table) 05/17/17 05/17/17 05/17/17 Range/Units 16:02 17:17 18:16 WBC (3.8-10.6) k/uL RBC (4.30-5.90) m/uL Hgb (13.0-17.5) gm/dL Hct (39.0-53.0) % Neutrophils # (1.3-7.7) k/uL Lymphocytes # (1.0-4.8) k/uL Monocytes # (0-1.0) k/uL PT (9.0-12.0) sec INR (<1.2) ABG pH (7.35-7.45) ABG HCO3 (21-25) mmol/L ABG Total CO2 (19-24) mmol/L ABG O2 Saturation (94-97) % BUN (9-20) mg/dL Creatinine (0.66-1.25) mg/dL Glucose (74-99) mg/dL POC Glucose (mg/dL) 291 H 239 H 212 H (75-99) mg/dL Calcium (8.4-10.2) mg/dL Phosphorus (2.5-4.5) mg/dL Magnesium (1.6-2.3) mg/dL Total Creatine Kinase (55-170) U/L CK-MB (CK-2) (0.0-2.4) ng/mL Troponin I (0.000-0.034) ng/mL 05/17/17 05/17/17 05/17/17 Range/Units 18:17 19:02 20:44 WBC (3.8-10.6) k/uL RBC (4.30-5.90) m/uL Hgb (13.0-17.5) gm/dL Hct (39.0-53.0) % Neutrophils # (1.3-7.7) k/uL Lymphocytes # (1.0-4.8) k/uL Monocytes # (0-1.0) k/uL PT (9.0-12.0) sec INR (<1.2) ABG pH (7.35-7.45) ABG HCO3 (21-25) mmol/L ABG Total CO2 (19-24) mmol/L ABG O2 Saturation (94-97) % BUN (9-20) mg/dL Creatinine (0.66-1.25) mg/dL Glucose (74-99) mg/dL POC Glucose (mg/dL) 187 H 170 H (75-99) mg/dL Calcium (8.4-10.2) mg/dL Phosphorus (2.5-4.5) mg/dL Magnesium (1.6-2.3) mg/dL Total Creatine Kinase 353 H (55-170) U/L CK-MB (CK-2) 6.9 H* (0.0-2.4) ng/mL Troponin I 39.200 H* (0.000-0.034) ng/mL 05/17/17 05/17/17 05/17/17 Range/Units 21:48 22:50 23:47 WBC (3.8-10.6) k/uL RBC (4.30-5.90) m/uL Hgb (13.0-17.5) gm/dL Hct (39.0-53.0) % Neutrophils # (1.3-7.7) k/uL Lymphocytes # (1.0-4.8) k/uL Monocytes # (0-1.0) k/uL PT (9.0-12.0) sec INR (<1.2) ABG pH (7.35-7.45) ABG HCO3 (21-25) mmol/L ABG Total CO2 (19-24) mmol/L ABG O2 Saturation (94-97) % BUN (9-20) mg/dL Creatinine (0.66-1.25) mg/dL Glucose (74-99) mg/dL POC Glucose (mg/dL) 176 H 187 H 174 H (75-99) mg/dL Calcium (8.4-10.2) mg/dL Phosphorus (2.5-4.5) mg/dL Magnesium (1.6-2.3) mg/dL Total Creatine Kinase (55-170) U/L CK-MB (CK-2) (0.0-2.4) ng/mL Troponin I (0.000-0.034) ng/mL 05/18/17 05/18/17 05/18/17 Range/Units 00:58 01:30 01:48 WBC (3.8-10.6) k/uL RBC (4.30-5.90) m/uL Hgb (13.0-17.5) gm/dL Hct (39.0-53.0) % Neutrophils # (1.3-7.7) k/uL Lymphocytes # (1.0-4.8) k/uL Monocytes # (0-1.0) k/uL PT (9.0-12.0) sec INR (<1.2) ABG pH (7.35-7.45) ABG HCO3 (21-25) mmol/L ABG Total CO2 (19-24) mmol/L ABG O2 Saturation (94-97) % BUN (9-20) mg/dL Creatinine (0.66-1.25) mg/dL Glucose (74-99) mg/dL POC Glucose (mg/dL) 187 H 165 H (75-99) mg/dL Calcium (8.4-10.2) mg/dL Phosphorus (2.5-4.5) mg/dL Magnesium (1.6-2.3) mg/dL Total Creatine Kinase 340 H (55-170) U/L CK-MB (CK-2) 6.2 H* (0.0-2.4) ng/mL Troponin I 45.500 H* (0.000-0.034) ng/mL 05/18/17 05/18/17 05/18/17 Range/Units 03:19 04:10 04:10 WBC 21.7 H (3.8-10.6) k/uL RBC 3.75 L (4.30-5.90) m/uL Hgb 12.4 L (13.0-17.5) gm/dL Hct 37.0 L (39.0-53.0) % Neutrophils # 18.9 H (1.3-7.7) k/uL Lymphocytes # 0.8 L (1.0-4.8) k/uL Monocytes # 1.5 H (0-1.0) k/uL PT 12.7 H (9.0-12.0) sec INR 1.3 H (<1.2) ABG pH (7.35-7.45) ABG HCO3 (21-25) mmol/L ABG Total CO2 (19-24) mmol/L ABG O2 Saturation (94-97) % BUN (9-20) mg/dL Creatinine (0.66-1.25) mg/dL Glucose (74-99) mg/dL POC Glucose (mg/dL) 160 H (75-99) mg/dL Calcium (8.4-10.2) mg/dL Phosphorus (2.5-4.5) mg/dL Magnesium (1.6-2.3) mg/dL Total Creatine Kinase (55-170) U/L CK-MB (CK-2) (0.0-2.4) ng/mL Troponin I (0.000-0.034) ng/mL 05/18/17 05/18/17 05/18/17 Range/Units 04:10 04:12 05:04 WBC (3.8-10.6) k/uL RBC (4.30-5.90) m/uL Hgb (13.0-17.5) gm/dL Hct (39.0-53.0) % Neutrophils # (1.3-7.7) k/uL Lymphocytes # (1.0-4.8) k/uL Monocytes # (0-1.0) k/uL PT (9.0-12.0) sec INR (<1.2) ABG pH (7.35-7.45) ABG HCO3 (21-25) mmol/L ABG Total CO2 (19-24) mmol/L ABG O2 Saturation (94-97) % BUN 83 H* (9-20) mg/dL Creatinine 3.40 H (0.66-1.25) mg/dL Glucose 132 H (74-99) mg/dL POC Glucose (mg/dL) 149 H 140 H (75-99) mg/dL Calcium 7.9 L (8.4-10.2) mg/dL Phosphorus 4.9 H (2.5-4.5) mg/dL Magnesium 2.6 H (1.6-2.3) mg/dL Total Creatine Kinase (55-170) U/L CK-MB (CK-2) (0.0-2.4) ng/mL Troponin I (0.000-0.034) ng/mL 05/18/17 05/18/17 05/18/17 Range/Units 05:18 07:06 08:09 WBC (3.8-10.6) k/uL RBC (4.30-5.90) m/uL Hgb (13.0-17.5) gm/dL Hct (39.0-53.0) % Neutrophils # (1.3-7.7) k/uL Lymphocytes # (1.0-4.8) k/uL Monocytes # (0-1.0) k/uL PT (9.0-12.0) sec INR (<1.2) ABG pH 7.46 H (7.35-7.45) ABG HCO3 26 H (21-25) mmol/L ABG Total CO2 27 H (19-24) mmol/L ABG O2 Saturation 98.0 H (94-97) % BUN (9-20) mg/dL Creatinine (0.66-1.25) mg/dL Glucose (74-99) mg/dL POC Glucose (mg/dL) 136 H 123 H (75-99) mg/dL Calcium (8.4-10.2) mg/dL Phosphorus (2.5-4.5) mg/dL Magnesium (1.6-2.3) mg/dL Total Creatine Kinase (55-170) U/L CK-MB (CK-2) (0.0-2.4) ng/mL Troponin I (0.000-0.034) ng/mL 05/18/17 05/18/17 05/18/17 Range/Units 09:09 10:12 11:14 WBC (3.8-10.6) k/uL RBC (4.30-5.90) m/uL Hgb (13.0-17.5) gm/dL Hct (39.0-53.0) % Neutrophils # (1.3-7.7) k/uL Lymphocytes # (1.0-4.8) k/uL Monocytes # (0-1.0) k/uL PT (9.0-12.0) sec INR (<1.2) ABG pH (7.35-7.45) ABG HCO3 (21-25) mmol/L ABG Total CO2 (19-24) mmol/L ABG O2 Saturation (94-97) % BUN (9-20) mg/dL Creatinine (0.66-1.25) mg/dL Glucose (74-99) mg/dL POC Glucose (mg/dL) 140 H 134 H 138 H (75-99) mg/dL Calcium (8.4-10.2) mg/dL Phosphorus (2.5-4.5) mg/dL Magnesium (1.6-2.3) mg/dL Total Creatine Kinase (55-170) U/L CK-MB (CK-2) (0.0-2.4) ng/mL Troponin I (0.000-0.034) ng/mL 05/18/17 05/18/17 05/18/17 Range/Units 12:07 13:05 14:04 WBC (3.8-10.6) k/uL RBC (4.30-5.90) m/uL Hgb (13.0-17.5) gm/dL Hct (39.0-53.0) % Neutrophils # (1.3-7.7) k/uL Lymphocytes # (1.0-4.8) k/uL Monocytes # (0-1.0) k/uL PT (9.0-12.0) sec INR (<1.2) ABG pH (7.35-7.45) ABG HCO3 (21-25) mmol/L ABG Total CO2 (19-24) mmol/L ABG O2 Saturation (94-97) % BUN (9-20) mg/dL Creatinine (0.66-1.25) mg/dL Glucose (74-99) mg/dL POC Glucose (mg/dL) 142 H 131 H 129 H (75-99) mg/dL Calcium (8.4-10.2) mg/dL Phosphorus (2.5-4.5) mg/dL Magnesium (1.6-2.3) mg/dL Total Creatine Kinase (55-170) U/L CK-MB (CK-2) (0.0-2.4) ng/mL Troponin I (0.000-0.034) ng/mL 05/18/17 Range/Units 15:15 WBC (3.8-10.6) k/uL RBC (4.30-5.90) m/uL Hgb (13.0-17.5) gm/dL Hct (39.0-53.0) % Neutrophils # (1.3-7.7) k/uL Lymphocytes # (1.0-4.8) k/uL Monocytes # (0-1.0) k/uL PT (9.0-12.0) sec INR (<1.2) ABG pH (7.35-7.45) ABG HCO3 (21-25) mmol/L ABG Total CO2 (19-24) mmol/L ABG O2 Saturation (94-97) % BUN (9-20) mg/dL Creatinine (0.66-1.25) mg/dL Glucose (74-99) mg/dL POC Glucose (mg/dL) 114 H (75-99) mg/dL Calcium (8.4-10.2) mg/dL Phosphorus (2.5-4.5) mg/dL Magnesium (1.6-2.3) mg/dL Total Creatine Kinase (55-170) U/L CK-MB (CK-2) (0.0-2.4) ng/mL Troponin I (0.000-0.034) ng/mL Microbiology - Last 24 Hours (Table) 05/17/17 00:20 Urine Culture - Final Urine,Catheterized Assessment and Plan (1) Cardiomyopathy Status: Acute (2) STEMI (ST elevation myocardial infarction) Status: Acute (3) Congestive heart failure Status: Acute (4) Diabetes mellitus Status: Acute (5) ATN (acute tubular necrosis) Status: Acute Plan: Patient is being consulted by nephrology. Pulmonary is not planning to do any weaning today. From [facility]ec standpoint we'll continue current medical therapy. Further recommendations depend upon clinical course.
[2017-05-18 16:56] LABS: Glucose,Whole Blood 128 mg/dL (75-99)
--- NOTE | 2017-05-18 18:14 | P.PN ---
<Kaycee Morales - Last Filed: 05/18/17 17:44> Progress Note - Text DATE OF SERVICE: 05/18/2017 PRESENTING COMPLAINT: Acute ST segment elevation myocardial infarction INTERVAL HISTORY: 62-year-old male transferred from [place] due to ST segment elevation myocardial infarction. Patient was taken to the [facility] and was found to have an occluded mid LAD and critical disease involving his left circumflex. Patient underwent angioplasty and stenting however LAD that was not well visualized. Patient was started on dual antiplatelet agents and moved to the ICU. Patient became increasingly short of breath, CT angiogram revealed acute CHF. Patient developed respiratory failure and required intubation. Patient has subsequently developed acute kidney injury. 05/18/2017: Patient remains intubated, awake, following commands, ventilator settings: Assist control FiO2 of 50% PEEP of 10. Patient motioning to get the tube out, attempting to mouth words. Anxious appearing. Nutrition services is been consulted for tube feeding. REVIEW OF SYSTEMS: Done for constitutional ,cardiovascular, GI, pulmonary with relevant findings as above. CURRENT MEDICATIONS Insulin drip, ceftriaxone, azithromycin, PHYSICAL EXAM VITAL SIGNS: Temperature 100.2, pulse 83, respirations 26, blood pressure 127/71, oxygen saturation 96% on mechanical ventilation. GENERAL APPEARANCE: Lying in bed, attempting to mouth words, motioning for the tube to be removed appears distressed. EYES: Pupils equal. Conjunctiva normal. NECK: JVD not raised. Mass not palpable. THROAT/Mouth: ET tube in place, orogastric tube in place draining dark burgundy drainage RESPIRATORY: Respiratory effort normal. Lungs diminished with scattered crackles to auscultation. CARDIOVASCULAR: First and second sounds normal. Moderate edema. ABDOMEN: Soft. Liver and spleen not palpable. No tenderness. No mass palpable. Right femoral triple-lumen catheter in place PSYCHIATRY: Alert and oriented x3. Mood and affect normal. MUSCULOSKELETAL: Moves all 4 extremities, left radial arterial line in place INVESTIGATIONS: Chest x-ray: Evidence of congestive heart failure with basilar atelectasis and small effusions. ASSESSMENT: -Acute ST segment anterior wall myocardial infarction status post cardiac catheterization and stenting of the LAD -Acute pulmonary edema secondary to CHF -Acute hypoxic respiratory failure requiring intubation and mechanical ventilation. -Acute kidney injury secondary to low cardiac output, contrast. Rule out contrast nephropathy. -Diabetes mellitus2 -Morbid obesity -Obstructive sleep apnea -Pneumonia, although this is unlikely as CT angiogram of the chest is consistent with CHF/pulmonary edema PLAN: No plans for weaning and extubation today however we'll attempt tomorrow. Cardiology plans to continue current medication therapy and will adjust based on patient's clinical course. Await input from nephrology. Given the patient' s current condition, plan of care discussion deferred until family is present. We'll continue to follow closely. CARE COORDINATOR statement: Patient was seen and examined by nurse practitioner Kaycee Morales and all elements of the case discussed with attending Dr. Mckeon <Kana Mckeon - Last Filed: 05/19/17 13:08> Progress Note - Text Attending note. Date of service-05/18/2017 This patient was seen and examined by me . I reviewed the note of my nurse practitioner, Ms. Morales. Discussed with her, additional findings as below. Patient with uncontrolled diabetes, admitted with ST elevation myocardial infarction. Patient status post stents to the LAD. Then went into respiratory failure currently on the ventilator on IV Diprivan. Patient somewhat responsive. Blood pressures running low off pressors On examination: 99.8, 77, 24, 92/63, 50% on the ventilator with PEEP of 10 Sitting up in a chair, lethargic responding slightly Lungsbreath sounds Psychiatry lethargic Investigations: BUN 83, creatinine 3.40 Assessment and plan: -Acute ST elevation microinfarction followed by stent to the LAD -Obesity BMI 37.4 -Obstructive sleep apnea -Acute congestive heart failure exacerbation from systolic dysfunction EF 20% from underlying coronary artery disease -Acute hypoxic respiratory failure from pulmonary edema -That is metastatic to uncontrolled on insulin drip -Acute renal failure likely ATN multifactorial including hypotension -Possibly chronic kidney disease from diabetic nephro at the -Acute metabolic and cough neuropathy multifactorial from multiple medical problems Acute hypoxic respiratory failure currently ventilator assisted Plan continue medication treatment plan and nephrology was consulted. on the ventilator. On IV diprivan. Renal function to be followed closely prognosis guarded. follow
[2017-05-18 18:57] LABS: Glucose,Whole Blood 122 mg/dL (75-99)
[2017-05-18 20:01] LABS: Glucose,Whole Blood 128 mg/dL (75-99)
[2017-05-18] MEDS: FUROSEMIDE 10 MG/ML 10 ML VIAL IV SCH (20:24)
[2017-05-18] MEDS: ATORVASTATIN 80 MG TAB PO SCH (20:24)
[2017-05-18 21:13] LABS: Glucose,Whole Blood 134 mg/dL (75-99)
[2017-05-18 22:33] LABS: Glucose,Whole Blood 143 mg/dL (75-99)
[2017-05-18 22:48] LABS: Calcium 7.8 mg/dL (8.4-10.2); Magnesium 2.7 mg/dL (1.6-2.3); Potassium 3.3 mmol/L (3.5-5.1)
[2017-05-18] MEDS ORDERED: INSULIN GLARGINE 100 UNIT/ML 10 ML VIAL SQ SCH (23:00)
[2017-05-18 23:38] LABS: Glucose,Whole Blood 152 mg/dL (75-99)
[2017-05-19] MEDS: POTASSIUM CHLORIDE 20 MEQ in WATER FOR INJECTION 1 100ML.BAG IVPB SCH ×3 (00:12→04:30)
[2017-05-19] MEDS: PROPOFOL 1,000 MG/100 ML VIAL IV SCH (04:47)
[2017-05-19 05:18] LABS: ABG Base Excess 2.1 mmol/L; ABG HCO3 26 mmol/L (21-25); ABG PCO2 38 mmHg (35-45); ABG PH 7.45 (7.35-7.45); ABG PO2 118 mmHg (83-108); ABG TCO2 27 mmol/L (19-24)
[2017-05-19 05:38] LABS: Glucose,Whole Blood 241 mg/dL (75-99)
[2017-05-19 05:50] LABS: Basophils % (A) 0 %; CH 32.8; CHCM 32.9; Eosinophils # (A) 0.1 k/uL (0-0.7); Eosinophils % (A) 0 %; HCT 37.4 % (39.0-53.0); HDW 2.56; HGB 12.2 gm/dL (13.0-17.5); Luc # (Auto) 0.24; Luc % (Auto) 2; Lymphocytes # (A) 1.1 k/uL (1.0-4.8); Lymphocytes % (A) 7 %; MCH 32.5 pg (25.0-35.0); MCHC 32.5 g/dL (31.0-37.0); MCV 100.1 fL (80.0-100.0); Mean Platelet Volume 7.8; Monocytes # (A) 1.4 k/uL (0-1.0); Monocytes % (A) 10 %; Neutrophils # (A) 11.4 k/uL (1.3-7.7); Neutrophils % (A) 81 %; RBC 3.74 m/uL (4.30-5.90); RDW 13.1 % (11.5-15.5); WBC 14.2 k/uL (3.8-10.6); WBC (Perox) 14.57
[2017-05-19 05:52] LABS: INR 1.2 (<1.2); Prothrombin Time 12.3 sec (9.0-12.0)
[2017-05-19 05:53] LABS: Ionized Calcium 4.7 mg/dL (4.5-5.3)
[2017-05-19 06:02] LABS: Calcium 7.9 mg/dL (8.4-10.2); Magnesium 2.7 mg/dL (1.6-2.3); Phosphorous 5.7 mg/dL (2.5-4.5); Potassium 4.5 mmol/L (3.5-5.1)
[2017-05-19] MEDS: INSULIN LISPRO (humaLOG) 300 UNIT/3 ML VIAL SQ SCH ×3 (06:11→17:26)
--- NOTE | 2017-05-19 07:21 | XR ---
EXAMINATION TYPE: XR chest 1V portable DATE OF EXAM: 05/19/2017 COMPARISON: Prior chest x-ray 05/18/2017 HISTORY: Intubated TECHNIQUE: Single frontal view of the chest is obtained. FINDINGS: Endotracheal tube, NG tube, overlying cardiac leads are again noted. No pneumothorax. Hear t size is stable. Pleural parenchymal changes not significantly changed. IMPRESSION: Essentially stable exam. Correlate for congestive heart failure, edema, pneumonia, ARDS follow-up recommended.
[2017-05-19] MEDS: IPRATROPIUM 0.5 MG/2.5 ML NEBU INHALATION SCH ×4 (07:26→20:02)
[2017-05-19] MEDS: LEVALBUTEROL NEB 1.25 MG/3 ML AMP INHALATION SCH ×4 (07:26→20:02)
[2017-05-19] MEDS: HEPARIN SODIUM,PORCINE 5,000 UNIT/ML 1 ML VIAL SQ SCH ×2 (07:48→17:00)
[2017-05-19] MEDS: ASPIRIN 325 MG TAB PO SCH (09:23)
[2017-05-19] MEDS: PRASUGREL 10 MG TAB PO SCH (09:23)
[2017-05-19] MEDS: FUROSEMIDE 10 MG/ML 10 ML VIAL IV SCH ×2 (09:23→21:06)
[2017-05-19] MEDS: METOPROLOL TARTRATE 25 MG TAB PO SCH ×2 (09:23→21:06)
[2017-05-19] MEDS: FAMOTIDINE 20 MG/2 ML VIAL IV SCH (09:23)
[2017-05-19] MEDS: AZITHROMYCIN 250 MG TAB PO SCH (09:24)
[2017-05-19] MEDS: CHLORHEXIDINE GLUCONATE 15 ML CUP MUCOUS MEM SCH (09:24)
--- NOTE | 2017-05-19 09:24 | P.PN ---
Subjective Principal diagnosis: Anterior wall myocardial infarction, status post failed stent placement, cardiomyopathy and CHF This 61-year-old male was admitted with the anterior wall myocardial infarction which most probably subacute. Unfortunately patient did not have a good result at attempted stent placement of the LAD. Patient developed a picture of cardiomyopathy and CHF. Patient required ventilatory support because of pulmonary edema. His pulmonary status is improved and attempts are being made to wean him of the respirator. Urine output has picked up. His creatinine showed some improvement. We'll continue his current management. Hopefully we' ll be able extubated later today Objective - Vital Signs Vital signs: Vital Signs Temp 98.5 F 05/19/17 04:00 Pulse 78 05/19/17 08:02 Resp 24 05/19/17 07:29 BP 103/65 05/19/17 07:00 Pulse Ox 98 05/19/17 07:00 Intake & Output 05/18/17 05/19/17 05/19/17 18:59 06:59 18:59 Intake Total 1855.630 2822.440 352.866 Output Total 658 2030 100 Balance 717.901 -282.560 252.866 Weight 118.3 kg 118.1 kg Intake: IV 761 581 73 Potassium Chloride 20 mEq 250 50 /100ml @50 ml/hr Pressure Bag 0.9% sodium 36 36 3 chloride Sodium Chloride 0.9% 1, 675 75 000 ml @ 75 mls/hr IV . [id number] [facility] Rx#:[id number] Sodium Chloride 0.9% @ 20 220 20 ml/hr cefTRIAXone 1,000 mg In 50 Sodium Chloride 0.9% 50 ml @ 100 mls/hr IVPB Q24HR [facility] Rx#:[id number] Intake, IV Titration 369.901 216.440 64.866 Amount Insulin Regular 100 unit 47.831 19.313 In Sodium Chloride 0.9% 100 ml @ Per Protocol IV .Q0M [facility] Rx#:[id number] Propofol 1,000 mg In 100 97.070 197.127 64.866 ml @ Titrate IV .Q0M [facility] Rx#:[id number] Sodium Chloride 0.9% 1, 225 000 ml @ 20 mls/hr IV . Q24H [facility] Rx#:[id number] Tube Feeding 200 600 40 Other 45 350 175 Output: Gastric Drainage 30 Urine 628 2030 100 Other: Voiding Method Indwelling Catheter Indwelling Catheter # Bowel Movements 0 ABP, PAP, CO, CI - Last Documented Arterial Blood Pressure 118/59 - Exam GENERAL EXAM: Patient intubated and awake this morning HEENT: Normocephalic. NECK: No masses, no nuchal rigidity. CHEST: No chest wall deformity. LUNGS: Diminished air exchange HEART: S1 and S2 normal with no audible mumurs or gallops. Regular rhythm, ABDOMEN: Soft SKIN: No rashes CENTRAL NERVOUS SYSTEM: Deferred EXTREMITIES: No cyanosis, clubbing or edema. - Labs CBC & Chem 7: 05/19/17 05:35 05/19/17 05:35 Labs: Abnormal Lab Results - Last 24 Hours (Table) 05/18/17 05/18/17 05/18/17 Range/Units 10:12 11:14 12:07 WBC (3.8-10.6) k/uL RBC (4.30-5.90) m/uL Hgb (13.0-17.5) gm/dL Hct (39.0-53.0) % MCV (80.0-100.0) fL Neutrophils # (1.3-7.7) k/uL Monocytes # (0-1.0) k/uL PT (9.0-12.0) sec INR (<1.2) ABG pO2 (83-108) mmHg ABG HCO3 (21-25) mmol/L ABG Total CO2 (19-24) mmol/L ABG O2 Saturation (94-97) % Potassium (3.5-5.1) mmol/L BUN (9-20) mg/dL Creatinine (0.66-1.25) mg/dL Glucose (74-99) mg/dL POC Glucose (mg/dL) 134 H 138 H 142 H (75-99) mg/dL Calcium (8.4-10.2) mg/dL Phosphorus (2.5-4.5) mg/dL Magnesium (1.6-2.3) mg/dL 05/18/17 05/18/17 05/18/17 Range/Units 13:05 14:04 15:15 WBC (3.8-10.6) k/uL RBC (4.30-5.90) m/uL Hgb (13.0-17.5) gm/dL Hct (39.0-53.0) % MCV (80.0-100.0) fL Neutrophils # (1.3-7.7) k/uL Monocytes # (0-1.0) k/uL PT (9.0-12.0) sec INR (<1.2) ABG pO2 (83-108) mmHg ABG HCO3 (21-25) mmol/L ABG Total CO2 (19-24) mmol/L ABG O2 Saturation (94-97) % Potassium (3.5-5.1) mmol/L BUN (9-20) mg/dL Creatinine (0.66-1.25) mg/dL Glucose (74-99) mg/dL POC Glucose (mg/dL) 131 H 129 H 114 H (75-99) mg/dL Calcium (8.4-10.2) mg/dL Phosphorus (2.5-4.5) mg/dL Magnesium (1.6-2.3) mg/dL 05/18/17 05/18/17 05/18/17 Range/Units 16:55 18:56 19:58 WBC (3.8-10.6) k/uL RBC (4.30-5.90) m/uL Hgb (13.0-17.5) gm/dL Hct (39.0-53.0) % MCV (80.0-100.0) fL Neutrophils # (1.3-7.7) k/uL Monocytes # (0-1.0) k/uL PT (9.0-12.0) sec INR (<1.2) ABG pO2 (83-108) mmHg ABG HCO3 (21-25) mmol/L ABG Total CO2 (19-24) mmol/L ABG O2 Saturation (94-97) % Potassium (3.5-5.1) mmol/L BUN (9-20) mg/dL Creatinine (0.66-1.25) mg/dL Glucose (74-99) mg/dL POC Glucose (mg/dL) 128 H 122 H 128 H (75-99) mg/dL Calcium (8.4-10.2) mg/dL Phosphorus (2.5-4.5) mg/dL Magnesium (1.6-2.3) mg/dL 07/05/18/17 05/18/17 Range/Units 21:07 22:31 22:31 WBC (3.8-10.6) k/uL RBC (4.30-5.90) m/uL Hgb (13.0-17.5) gm/dL Hct (39.0-53.0) % MCV (80.0-100.0) fL Neutrophils # (1.3-7.7) k/uL Monocytes # (0-1.0) k/uL PT (9.0-12.0) sec INR (<1.2) ABG pO2 (83-108) mmHg ABG HCO3 (21-25) mmol/L ABG Total CO2 (19-24) mmol/L ABG O2 Saturation (94-97) % Potassium 3.3 L (3.5-5.1) mmol/L BUN 91 H* (9-20) mg/dL Creatinine 2.60 H (0.66-1.25) mg/dL Glucose 139 H (74-99) mg/dL POC Glucose (mg/dL) 134 H 143 H (75-99) mg/dL Calcium 7.8 L (8.4-10.2) mg/dL Phosphorus (2.5-4.5) mg/dL Magnesium 2.7 H (1.6-2.3) mg/dL 05/18/17 05/19/17 05/19/17 Range/Units 23:36 05:17 05:35 WBC 14.2 H (3.8-10.6) k/uL RBC 3.74 L (4.30-5.90) m/uL Hgb 12.2 L (13.0-17.5) gm/dL Hct 37.4 L (39.0-53.0) % MCV 100.1 H (80.0-100.0) fL Neutrophils # 11.4 H (1.3-7.7) k/uL Monocytes # 1.4 H (0-1.0) k/uL PT (9.0-12.0) sec INR (<1.2) ABG pO2 118 H (83-108) mmHg ABG HCO3 26 H (21-25) mmol/L ABG Total CO2 27 H (19-24) mmol/L ABG O2 Saturation 99.0 H (94-97) % Potassium (3.5-5.1) mmol/L BUN (9-20) mg/dL Creatinine (0.66-1.25) mg/dL Glucose (74-99) mg/dL POC Glucose (mg/dL) 152 H (75-99) mg/dL Calcium (8.4-10.2) mg/dL Phosphorus (2.5-4.5) mg/dL Magnesium (1.6-2.3) mg/dL 05/19/17 05/19/17 05/19/17 Range/Units 05:35 05:35 05:35 WBC (3.8-10.6) k/uL RBC (4.30-5.90) m/uL Hgb (13.0-17.5) gm/dL Hct (39.0-53.0) % MCV (80.0-100.0) fL Neutrophils # (1.3-7.7) k/uL Monocytes # (0-1.0) k/uL PT 12.3 H (9.0-12.0) sec INR 1.2 H (<1.2) ABG pO2 (83-108) mmHg ABG HCO3 (21-25) mmol/L ABG Total CO2 (19-24) mmol/L ABG O2 Saturation (94-97) % Potassium (3.5-5.1) mmol/L BUN 91 H* (9-20) mg/dL Creatinine 2.13 H (0.66-1.25) mg/dL Glucose 206 H (74-99) mg/dL POC Glucose (mg/dL) 241 H (75-99) mg/dL Calcium 7.9 L (8.4-10.2) mg/dL Phosphorus 5.7 H (2.5-4.5) mg/dL Magnesium 2.7 H (1.6-2.3) mg/dL Microbiology - Last 24 Hours (Table) 05/17/17 14:35 Blood Culture - Preliminary Blood No Growth after 24 hours 05/17/17 14:15 Blood Culture - Preliminary Blood No Growth after 24 hours 05/17/17 00:20 Urine Culture - Final Urine,Catheterized Assessment and Plan (1) Cardiomyopathy Status: Acute (2) STEMI (ST elevation myocardial infarction) Status: Acute (3) Congestive heart failure Status: Acute (4) Diabetes mellitus Status: Acute (5) ATN (acute tubular necrosis) Status: Acute Plan: Continue current management. Extubation later today. Prognosis is guarded and we'll repeat the echocardiogram next week
--- NOTE | 2017-05-19 09:39 | P.NPCON ---
History of Present Illness - Reason for Consult acute renal failure - History of Present Illness Patient is a 61-year-old white male who was admitted to the hospital with ST elevation UT and Q waves. He was taken for emergent emergent cardiac catheterization on 05/16/2017. Cardiac cath revealed severe triple-vessel disease. Angioplasty at that time could not be performed as the lesions were too tight.. He has severe cardiomyopathy with ejection fraction of less than 20 %. Patient was intubated and is currently on the vent. His urine output dropped the following day. Blood pressure was noted to be on the lower side with systolic around 95-98 mmHg. Patient has been maintained on IV fluids however his urine output remained low. He was also started on josey inhibitors in the setting of acute UT. Yesterday 60 mg of IV Lasix was given and patient responded well with good diuresis. His IV fluids were then decreased to KVO and patient's Lasix was increased to 60 IV every 12. He has put out a large amount of urine and his creatinine is actually improved from 2.6 with grams per deciliter to 2.13 today. Serum creatinine on admission was 1.48 mg/dL. Patient remains on the vent with 10 of PEEP FiO2 is at 50% he is awake and has been communicating with nursing staff. He is maintained on minimal sedation Review of Systems No GI bleed noted patient remains on the vent no fevers. Past Medical History Past Medical History: Pneumonia Additional Past Medical History / Comment(s): Morbidly obese, diabetes mellitus , obstructive sleep apnea History of Any Multi-Drug Resistant Organisms: None Reported Past Surgical History: Appendectomy, Back Surgery Additional Past Surgical History / Comment(s): 2 BACK SX HAS CINDY/SCREWS, RT ROTAOTR CUIFF REPAIR Past Anesthesia/Blood Transfusion Reactions: No Reported Reaction Smoking Status: Former smoker - Past Family History Father Additional Family Medical History / Comment(s): LOW PLATLETS. SPLEENECTOMY Mother Family Medical History: CVA/TIA Additional Family Medical History / Comment(s): 2 STROKES, HEART DISEASE. Medications and Allergies Home Medications Medication Instructions Recorded Confirmed Type Aspirin EC [Ecotrin Low Dose] 81 mg PO DAILY 05/16/17 05/16/17 History Doxycycline Hyclate 100 mg PO BID 05/16/17 05/16/17 History Ibuprofen [Motrin] 800 mg PO Q6H PRN 05/16/17 05/16/17 History guaiFENesin [Mucinex] 600 mg PO BID PRN 05/16/17 05/16/17 History Allergies Allergy/AdvReac Type Severity Reaction Status Date / Time No Known Allergies Allergy Verified 05/16/17 16:14 Physical Exam Vitals: Vital Signs Temp Pulse Resp BP BP Pulse Ox 05/19/17 08:02 78 05/19/17 07:29 80 24 05/19/17 07:00 80 24 103/65 98 05/19/17 06:00 79 24 104/68 97 05/19/17 05:00 80 24 103/67 98 05/19/17 04:00 98.5 F 76 24 100/66 98 05/19/17 03:00 77 24 98/56 97 05/19/17 02:00 77 24 99/64 97 05/19/17 01:00 98.7 F 77 26 H 101/68 101/68 97 05/19/17 00:00 76 24 98/61 97 05/18/17 23:00 99.9 F H 74 24 107/74 98 05/18/17 22:00 78 26 H 108/72 98 05/18/17 21:00 77 25 H 106/68 98 05/18/17 20:00 99 F 77 26 H 106/66 98 05/18/17 19:52 76 05/18/17 19:35 76 05/18/17 19:00 76 24 106/66 97 05/18/17 18:00 77 24 112/61 97 05/18/17 17:00 82 27 H 105/68 94 L 05/18/17 16:00 98.9 F 78 24 95/67 96 05/18/17 15:49 74 05/18/17 15:00 67 24 97/65 95 05/18/17 14:00 73 24 99/66 95 05/18/17 13:00 72 24 97/64 98 05/18/17 12:00 99.8 F H 77 24 92/63 97 05/18/17 11:45 79 26 H 05/18/17 11:20 79 05/18/17 11:00 73 24 98/61 95 05/18/17 10:00 71 26 H 100/70 96 Intake and Output 05/18/17 05/19/17 05/19/17 22:59 06:59 14:59 Intake Total 5729.429 0129.354 352.866 Output Total 925 1330 100 Balance 103.447 -42.646 252.866 Intake: IV 309 434 73 Potassium Chloride 20 mEq 250 50 /100ml @50 ml/hr Pressure Bag 0.9% sodium 24 24 3 chloride Sodium Chloride 0.9% 1, 225 000 ml @ 75 mls/hr IV . [id number] [facility] Rx#:[id number] Sodium Chloride 0.9% @ 20 60 160 20 ml/hr Intake, IV Titration 274.447 103.354 64.866 Amount Insulin Regular 100 unit 27.320 3.354 In Sodium Chloride 0.9% 100 ml @ Per Protocol IV .Q0M [facility] Rx#:[id number] Propofol 1,000 mg In 100 97.127 100.000 64.866 ml @ Titrate IV .Q0M [facility] Rx#:[id number] Sodium Chloride 0.9% 1, 150 000 ml @ 20 mls/hr IV . Q24H [facility] Rx#:[id number] Tube Feeding 400 400 40 Other 45 350 175 Output: Urine 925 1330 100 Other: Voiding Method Indwelling Catheter Indwelling Catheter # Bowel Movements 0 0 Weight 118.3 kg 118.1 kg ABP, PAP, CO, CI - Last 8 Hours Arterial Blood Pressure 118/59 Arterial Blood Pressure 116/60 Arterial Blood Pressure 117/64 Arterial Blood Pressure 111/60 Arterial Blood Pressure 118/61 Arterial Blood Pressure 112/61 On examination patient is currently on the vent with minimal sedation. Blood pressure is 103/65 heart rate 80/m he is afebrile Examination of the heart S1 and S2 Examination lungs bilateral breath sounds are heard Abdomen is soft obese nontender Examination lower extremities shows trace edema bilaterally. Results - Lab Results Most recent lab results ABG pH 7.45 (7.35-7.45) 05/19/17 05:17 ABG pCO2 38 mmHg (35-45) 05/19/17 05:17 ABG pO2 118 mmHg (83-108) H 05/19/17 05:17 ABG HCO3 26 mmol/L (21-25) H 05/19/17 05:17 ABG O2 Saturation 99.0 % (94-97) H 05/19/17 05:17 Calcium 7.9 mg/dL (8.4-10.2) L 05/19/17 05:35 Phosphorus 5.7 mg/dL (2.5-4.5) H 05/19/17 05:35 Magnesium 2.7 mg/dL (1.6-2.3) H 05/19/17 05:35 05/19/17 05:35 05/19/17 05:35 Assessment and Plan Plan: Assessment 1. Acute kidney injury ATN initially oliguric currently nonoliguric and improving. May continue with the current dose of Lasix we may need to decrease it down the road possibly tomorrow. Patient has had good diuresis hopefully this will help with getting him off the vent. 2. CHF with the severe cardiomyopathy EF of less than 20% 3. Status post acute ST elevation UT. Status post cardiac cath which showed severe triple-vessel disease. Lesions were too tight for intervention. 4. Vent dependent respiratory failure mainly associated with CHF and severe cardiomyopathy. Continue to diurese 5. Hypokalemia secondary to diuretic status post replacement Plan Continue with current dose of Lasix. Repeat labs in a.m. monitor hemoglobin to rule out underlying GI bleed as BUN is disproportionately elevated, this may also be secondary to prerenal condition from severe CHF. Patient is currently not on steroids. Thank you for the consultation we'll continue to follow the patient with you during his hospitalization. prognosis is guarded
[2017-05-19 09:49] LABS: ABG Base Excess 1.1 mmol/L; ABG HCO3 25 mmol/L (21-25); ABG PCO2 36 mmHg (35-45); ABG PH 7.45 (7.35-7.45); ABG PO2 96 mmHg (83-108); ABG TCO2 26 mmol/L (19-24)
[2017-05-19 09:50] LABS: ABG Oxygen Saturation 97.8 % (94-97)
--- NOTE | 2017-05-19 11:14 | P.PN ---
Subjective Principal diagnosis: Acute ST elevation myocardial infarction, and respiratory failure secondary to congestive heart failure. 62-year-old male patient who got transferred from [facility] because of acute ST segment elevation myocardial infarction. The patient had anterior wall septal wall SD along with LAD distribution. The patient was taken immediately to cardiac catheterization he was found to have occluded mid LAD and critical disease involving the left circumflex. Based on that, patient underwent angioplasty and stenting of the mid LAD and follow-up angiogram showed good angiographic results of the stented segment but the distal LAD bed was not well-visualized because of competitive flow and probably LAD distally occluded with clots. The patient was started on dual antiplatelet agents and he was moved to the intensive care unit. Within the afternoon, the patient became progressively more short of breath. He was taken for a CT angios the chest which confirmed the findings of acute CHF. No clots were seen in the pulmonary artery branches. Within next few hours the patient even got more short of breath and he went into respiratory failure. At that point I was involved in the case and I was informed of the above-mentioned changes. I recommended immediate intubation and the patient was placed on a mechanical ventilator. Following that he was sedated with Diprivan. The patient is currently on a assist-control mode rate of 24, tidal volume of 400, FiO2 of 70% and a PEEP of 10. Morning blood gases showed a pH 7.43 with a pCO2 of 36.5 and a pO2 of 175 and based on that the FiO2 is being further weaned off. Urine output at this point is around 10 mL an hour. His systolic blood pressures in the 110 range. His creatinine is up to 1.8. He has suffered an acute kidney injury. ST segment elevation is still present on the EKG and has been present since yesterday. There is diffuse ST segment elevation involving V2, V2, V3, V4 , V5, V6, and also the inferior leads. Furthermore, a stat echocardiogram was done and it showed EF less than 20%. The patient's left ventricular end- diastolic pressure based on the cardiac catheterization was quite elevated at 36. This morning, the chest x-ray showing improvement of pulmonary edema. She was in good location. The patient is cardiomegaly. The patient on Lasix 40 mg IV push every 12 hours. The patient is also on a combination of aspirin and Effient, and he was ordered metoprolol 5 mg by mouth twice a day. He is also on lisinopril of 10 mg by mouth daily has not been given this morning. He was empirically covered also with a combination of Rocephin and Zithromax. He is on a 30 mg of prednisone. The patient is seen again today 05/18/2017 in follow-up in the intensive care unit. He remains intubated and on the mechanical ventilator. Current settings are assist-control 24, tidal volume 400, FiO2 of 50% and a PEEP of 10. Morning blood gases reveal a pO2 of 91, pCO2 37 and a pH of 7.46. He remains sedated on to propofol at 25 mcg/kg/m. He has a 0.9 normal saline at 75 MLS per hour. He is on insulin drip at 0.5 units per hour. He is arousable. He follows commands. His chest x-ray continues to show evidence of congestive heart failure with basilar atelectasis and small effusions. His renal function has worsened with the current creatinine of 3.40. His urine output is marginal. Ultrasound of the kidneys revealed no evidence of hydronephrosis. Telemetry continues to demonstrate elevated ST segments. Troponin increased at 45.5. This remains hemodynamically stable. Currently on no pressors. He is febrile with a temperature of 100.2. White count 21.7. He is currently on ceftriaxone and azithromycin. Seen again on 05/19/2017, patient remains on mechanical ventilation, however his ABG seems to be significantly better, chest x-ray is showing definite improvement in his pulmonary edema, ABG was reviewed, bedside weaning parameters were noted, hence I went ahead and recommended switching the patient to a pressure support of 8 and CPAP. Urine output seems to be adequate, remains on Lasix at 60 mg IV push every 12 hours, patient was placed on pressure support and CPAP, and I was able to monitor his pulmonary status while I'm at bedside. After 20 minutes of pressure support and CPAP, patient continued to do well, he had good ABG, hence I recommended extubation. Patient was extubated to nasal cannula, I saw him again one hour post extubation, and he was doing quite well in no form of distress. Preextubation gases showed a pO2 of 96 pCO2 of 36 pH of 7.45. Renal profile seems to be better today compared to yesterday, and this is in spite of aggressive diuresis. Patient remains on 60 mg of Lasix IV push every 12 hours. Objective - Vital Signs Vital signs: Vital Signs Temp 98.4 F 05/19/17 08:00 Pulse 86 05/19/17 10:00 Resp 22 05/19/17 10:00 BP 126/69 05/19/17 10:00 Pulse Ox 96 05/19/17 10:00 Intake & Output 05/18/17 05/19/17 05/19/17 18:59 06:59 18:59 Intake Total 4726.638 8278.440 511.866 Output Total 658 2030 550 Balance 717.901 -282.560 -38.134 Weight 118.3 kg 118.1 kg Intake: IV 761 581 192 Potassium Chloride 20 mEq 250 50 /100ml @50 ml/hr Pressure Bag 0.9% sodium 36 36 12 chloride Sodium Chloride 0.9% 1, 675 75 000 ml @ 75 mls/hr IV . [id number] [facility]A Rx#:[id number] Sodium Chloride 0.9% @ 20 220 80 ml/hr cefTRIAXone 1,000 mg In 50 50 Sodium Chloride 0.9% 50 ml @ 100 mls/hr IVPB Q24HR [facility]A Rx#:[id number] Intake, IV Titration 369.901 216.440 64.866 Amount Insulin Regular 100 unit 47.831 19.313 In Sodium Chloride 0.9% 100 ml @ Per Protocol IV .Q0M [facility]A Rx#:[id number] Propofol 1,000 mg In 100 97.070 197.127 64.866 ml @ Titrate IV .Q0M [facility]AN[facility]A Rx#:[id number] Sodium Chloride 0.9% 1, 225 000 ml @ 20 mls/hr IV . Q24H [facility]A Rx#:[id number] Tube Feeding 200 600 80 Other 45 350 175 Output: Gastric Drainage 30 Urine 628 2030 550 Other: Voiding Method Indwelling Catheter Indwelling Catheter Indwelling Catheter # Bowel Movements 0 ABP, PAP, CO, CI - Last Documented Arterial Blood Pressure 128/69 - Exam Head exam was generally normal. There was no scleral icterus or corneal arcus. Mucous membranes were moist. Neck is short and supple and there is significant sickness and shortening of the neck. No neck stiffness. Orogastric and orotracheal tube are both in place. No JVDs can be visualized. Lung sounds are diminished bilaterally. No wheezes overall currently crackles at this point. Heart sounds are regular, distant, positive S1 and S2 with an S3 gallop. No murmurs appreciated.Abdominal exam revealed normal bowel sounds. The abdomen was soft, non-tender, and without masses, organomegaly, or appreciable enlargement of the abdominal aorta. Patient is obese and orders cannot be accurately palpated. Neurologically the patient is quite sedated at this point. He is on Diprivan. He can move all 4 extremities to stimuli. Left radial arterial line in place. Right femoral triple-lumen catheter. Peripheral pulses are intact. - Labs CBC & Chem 7: 05/19/17 05:35 05/19/17 05:35 Labs: Abnormal Lab Results - Last 24 Hours (Table) 05/18/17 05/18/17 05/18/17 Range/Units 11:14 12:07 13:05 WBC (3.8-10.6) k/uL RBC (4.30-5.90) m/uL Hgb (13.0-17.5) gm/dL Hct (39.0-53.0) % MCV (80.0-100.0) fL Neutrophils # (1.3-7.7) k/uL Monocytes # (0-1.0) k/uL PT (9.0-12.0) sec INR (<1.2) ABG pO2 (83-108) mmHg ABG HCO3 (21-25) mmol/L ABG Total CO2 (19-24) mmol/L ABG O2 Saturation (94-97) % Potassium (3.5-5.1) mmol/L BUN (9-20) mg/dL Creatinine (0.66-1.25) mg/dL Glucose (74-99) mg/dL POC Glucose (mg/dL) 138 H 142 H 131 H (75-99) mg/dL Calcium (8.4-10.2) mg/dL Phosphorus (2.5-4.5) mg/dL Magnesium (1.6-2.3) mg/dL 05/18/17 05/18/17 05/18/17 Range/Units 14:04 15:15 16:55 WBC (3.8-10.6) k/uL RBC (4.30-5.90) m/uL Hgb (13.0-17.5) gm/dL Hct (39.0-53.0) % MCV (80.0-100.0) fL Neutrophils # (1.3-7.7) k/uL Monocytes # (0-1.0) k/uL PT (9.0-12.0) sec INR (<1.2) ABG pO2 (83-108) mmHg ABG HCO3 (21-25) mmol/L ABG Total CO2 (19-24) mmol/L ABG O2 Saturation (94-97) % Potassium (3.5-5.1) mmol/L BUN (9-20) mg/dL Creatinine (0.66-1.25) mg/dL Glucose (74-99) mg/dL POC Glucose (mg/dL) 129 H 114 H 128 H (75-99) mg/dL Calcium (8.4-10.2) mg/dL Phosphorus (2.5-4.5) mg/dL Magnesium (1.6-2.3) mg/dL 05/18/17 05/18/17 05/18/17 Range/Units 18:56 19:58 21:07 WBC (3.8-10.6) k/uL RBC (4.30-5.90) m/uL Hgb (13.0-17.5) gm/dL Hct (39.0-53.0) % MCV (80.0-100.0) fL Neutrophils # (1.3-7.7) k/uL Monocytes # (0-1.0) k/uL PT (9.0-12.0) sec INR (<1.2) ABG pO2 (83-108) mmHg ABG HCO3 (21-25) mmol/L ABG Total CO2 (19-24) mmol/L ABG O2 Saturation (94-97) % Potassium (3.5-5.1) mmol/L BUN (9-20) mg/dL Creatinine (0.66-1.25) mg/dL Glucose (74-99) mg/dL POC Glucose (mg/dL) 122 H 128 H 134 H (75-99) mg/dL Calcium (8.4-10.2) mg/dL Phosphorus (2.5-4.5) mg/dL Magnesium (1.6-2.3) mg/dL 05/18/17 05/18/17 05/18/17 Range/Units 22:31 22:31 23:36 WBC (3.8-10.6) k/uL RBC (4.30-5.90) m/uL Hgb (13.0-17.5) gm/dL Hct (39.0-53.0) % MCV (80.0-100.0) fL Neutrophils # (1.3-7.7) k/uL Monocytes # (0-1.0) k/uL PT (9.0-12.0) sec INR (<1.2) ABG pO2 (83-108) mmHg ABG HCO3 (21-25) mmol/L ABG Total CO2 (19-24) mmol/L ABG O2 Saturation (94-97) % Potassium 3.3 L (3.5-5.1) mmol/L BUN 91 H* (9-20) mg/dL Creatinine 2.60 H (0.66-1.25) mg/dL Glucose 139 H (74-99) mg/dL POC Glucose (mg/dL) 143 H 152 H (75-99) mg/dL Calcium 7.8 L (8.4-10.2) mg/dL Phosphorus (2.5-4.5) mg/dL Magnesium 2.7 H (1.6-2.3) mg/dL 05/19/17 05/19/17 05/19/17 Range/Units 05:17 05:35 05:35 WBC 14.2 H (3.8-10.6) k/uL RBC 3.74 L (4.30-5.90) m/uL Hgb 12.2 L (13.0-17.5) gm/dL Hct 37.4 L (39.0-53.0) % MCV 100.1 H (80.0-100.0) fL Neutrophils # 11.4 H (1.3-7.7) k/uL Monocytes # 1.4 H (0-1.0) k/uL PT 12.3 H (9.0-12.0) sec INR 1.2 H (<1.2) ABG pO2 118 H (83-108) mmHg ABG HCO3 26 H (21-25) mmol/L ABG Total CO2 27 H (19-24) mmol/L ABG O2 Saturation 99.0 H (94-97) % Potassium (3.5-5.1) mmol/L BUN (9-20) mg/dL Creatinine (0.66-1.25) mg/dL Glucose (74-99) mg/dL POC Glucose (mg/dL) (75-99) mg/dL Calcium (8.4-10.2) mg/dL Phosphorus (2.5-4.5) mg/dL Magnesium (1.6-2.3) mg/dL 05/19/17 05/19/17 05/19/17 Range/Units 05:35 05:35 09:40 WBC (3.8-10.6) k/uL RBC (4.30-5.90) m/uL Hgb (13.0-17.5) gm/dL Hct (39.0-53.0) % MCV (80.0-100.0) fL Neutrophils # (1.3-7.7) k/uL Monocytes # (0-1.0) k/uL PT (9.0-12.0) sec INR (<1.2) ABG pO2 (83-108) mmHg ABG HCO3 (21-25) mmol/L ABG Total CO2 26 H (19-24) mmol/L ABG O2 Saturation 97.8 H (94-97) % Potassium (3.5-5.1) mmol/L BUN 91 H* (9-20) mg/dL Creatinine 2.13 H (0.66-1.25) mg/dL Glucose 206 H (74-99) mg/dL POC Glucose (mg/dL) 241 H (75-99) mg/dL Calcium 7.9 L (8.4-10.2) mg/dL Phosphorus 5.7 H (2.5-4.5) mg/dL Magnesium 2.7 H (1.6-2.3) mg/dL Microbiology - Last 24 Hours (Table) 05/17/17 14:35 Blood Culture - Preliminary Blood No Growth after 24 hours 05/17/17 14:15 Blood Culture - Preliminary Blood No Growth after 24 hours 05/17/17 00:20 Urine Culture - Final Urine,Catheterized Assessment and Plan Plan: [address] segment anterior wall myocardial infarction. The patient was having chest pain few days prior to his hospital admission and came in for an acute ST segment elevation myocardial infarction. He had emergent cardiac catheterization and stenting of the LAD. Please refer to the catheter report for further details. The patient also has a tight circumflex lesion in the order of 80-90%. Currently on aspirin and Effient. 2 acute pulmonary edema secondary to ischemic cardiomyopathy and acute myocardial infarction 3 acute hypoxic respiratory failure secondary to above 4 acute kidney injury due to a combination of low cardiac output and contrast. Rule out contrast nephropathy. Urine output has been improving with diuretics, renal profile remains poor but improved compared to yesterday. 5 diabetes mellitus with poorly controlled blood sugars 6 morbid obesity 7 obstructive sleep apnea 8 doubtful pneumonia, CT angio of the chest is consistent with CHF/pulmonary edema, however, the patient is covered with ceftriaxone and azithromycin empirically. Recommendation: After a trial of pressure support and CPAP, patient was extubated uneventfully, follow-up evaluation an hour after showed that the patient was tolerating the extubation well, hence we'll continue present supportive care measures, repeat chest x-ray in a.m., further decisions regarding his underlying coronary artery disease with have to be made by cardiology. Whether or not the patient needs to have repeat cardiac cath or consider surgical evaluation, that would be decided upon by cardiology. Discussed with the patient his condition, I also discussed his condition with his family yesterday. Critical care time is 32 minutes. Time with Patient: Greater than 30
--- NOTE | 2017-05-19 12:01 | P.PN ---
Progress Note - Text DATE OF SERVICE: 05/19/2017 PRESENTING COMPLAINT: Acute ST segment elevation myocardial infarction INTERVAL HISTORY: 62-year-old male transferred from [facility] due to ST segment elevation myocardial infarction. Patient was taken to the [facility] and was found to have an occluded mid LAD and critical disease involving his left circumflex. Patient underwent angioplasty and stenting however LAD that was not well visualized. Patient was started on dual antiplatelet agents and moved to the ICU. Patient became increasingly short of breath, CT angiogram revealed acute CHF. Patient developed respiratory failure and required intubation. Patient has subsequently developed acute kidney injury. 05/18/2017: Patient remains intubated, awake, following commands, ventilator settings: Assist control FiO2 of 50% PEEP of 10. Patient motioning to get the tube out, attempting to mouth words. Anxious appearing. Nutrition services is been consulted for tube feeding. 05/19/2017: Patient remains intubated, awake, following commands, ventilator settings: Assist control FiO2 of 40%, PEEP of 5, patient is awake and anxious to have the tube removed, in the middle of an SBT. Insulin drip stopped yesterday Lantus was added and today blood glucose remains elevated. Lantus increased from 20 units to 30 units at at bedtime. REVIEW OF SYSTEMS: Done for constitutional ,cardiovascular, GI, pulmonary with relevant findings as above. CURRENT MEDICATIONS Insulin drip, ceftriaxone, azithromycin, PHYSICAL EXAM VITAL SIGNS: Temperature 98.4, pulse 79, respiratory rate 27, blood pressure 110/70, oxygen saturation 96% on SBT trial GENERAL APPEARANCE: Sitting up in bed, attempting to mouth words, motioning for the tube to be removed appears somewhat anxious. EYES: Pupils equal. Conjunctiva normal. NECK: JVD not raised. Mass not palpable. THROAT/Mouth: ET tube in place, orogastric tube in place draining dark burgundy drainage RESPIRATORY: Respiratory effort normal. Lungs diminished with scattered crackles to auscultation. CARDIOVASCULAR: First and second sounds normal. Gross edema. ABDOMEN: Soft. Liver and spleen not palpable. No tenderness. No mass palpable. Right femoral triple-lumen catheter in place PSYCHIATRY: Alert and oriented x3. Mood and affect normal. MUSCULOSKELETAL: Moves all 4 extremities, left radial arterial line in place INVESTIGATIONS: Sodium 140, potassium 4.5, BUN 91, creatinine 2.13, Chest x-ray: Essentially stable exam, ET tube, NG tube, overlying cardiac leads , no pneumothorax. ASSESSMENT: -Acute ST segment anterior wall myocardial infarction status post cardiac catheterization and stenting of the LAD -Acute hypoxic respiratory failure from pulmonary edema -Diabetes mellitus type II, uncontrolled, on injectable insulin -Acute hypoxic respiratory failure requiring intubation and mechanical ventilation. -Acute renal failure likely nonoliguric likely multifactorial including hypotension, improving -Possible chronic kidney disease from diabetic nephrosclerosis -Morbid obesity -Obstructive sleep apnea -Pneumonia, although this is unlikely as CT angiogram of the chest is consistent with CHF/pulmonary marisa -Acute metabolic encephalopathy, multifactorial from multiple medical problems PLAN: Patient will be likely extubated today based on SBT trial numbers. Cardiology plans to continue current medication therapy and will adjust based on patient's clinical course plans to repeat echocardiogram next week. Nephrology will continue the current dose of Lasix with possibility of decreasing it tomorrow. Lantus increased today to gain better control over his glucose. Given the patient's current condition, plan of care discussed briefly with the patient as to today's events, and pending extubation. Patient is in agreement and acknowledges this by nodding his head. We'll continue to follow closely. CONTINUOUS IMPROVEMENT COACH statement: Patient was seen and examined by nurse practitioner Kaycee Morales and all elements of the case discussed with attending Dr. Mckeon
[2017-05-19 12:15] LABS: Glucose,Whole Blood 233 mg/dL (75-99)
[2017-05-19] MEDS: SODIUM CHLORIDE 0.9% 1,000 ML IV SCH (12:55)
[2017-05-19 17:27] LABS: Glucose,Whole Blood 288 mg/dL (75-99)
[2017-05-19] MEDS: INSULIN GLARGINE 100 UNIT/ML 10 ML VIAL SQ SCH (20:54)
[2017-05-19] MEDS: ATORVASTATIN 80 MG TAB PO SCH (21:06)
[2017-05-19 23:01] LABS: Calcium 8.6 mg/dL (8.4-10.2)
[2017-05-19] MEDS ORDERED: METOPROLOL TARTRATE 25 MG TAB PO STA (23:43)
[2017-05-19] MEDS ORDERED: HEPARIN SODIUM,PORCINE/D5W PMX 25,000 UNIT in DEXTROSE/WATER 1 500ML.BAG IV SCH (23:45)
[2017-05-19 23:53] LABS: Glucose,Whole Blood 239 mg/dL (75-99)
[2017-05-19] MEDS ORDERED: HEPARIN SODIUM,PORCINE 5,000 UNIT/ML 1 ML VIAL IV ONE (23:55)
[2017-05-20] MEDS: INSULIN LISPRO (humaLOG) 300 UNIT/3 ML VIAL SQ SCH ×5 (00:05→23:53)
[2017-05-20] MEDS: HEPARIN SODIUM,PORCINE/D5W PMX 25,000 UNIT in DEXTROSE/WATER 1 500ML.BAG IV SCH ×2 (00:18→19:10)
[2017-05-20 04:03] LABS: INR 1.3 (<1.2); Partial Thromboplastin Time 21.9 sec (22.0-30.0)
[2017-05-20 05:22] LABS: Glucose,Whole Blood 210 mg/dL (75-99)
[2017-05-20 05:47] LABS: Basophils % (A) 0 %; Eosinophils # (A) 0.1 k/uL (0-0.7); Eosinophils % (A) 1 %; HCT 41.1 % (39.0-53.0); HGB 13.5 gm/dL (13.0-17.5); Luc # (Auto) 0.27; Luc % (Auto) 2; Lymphocytes % (A) 6 %; MCH 32.9 pg (25.0-35.0); MCHC 32.8 g/dL (31.0-37.0); MCV 100.5 fL (80.0-100.0); Mean Platelet Volume 7.6; Monocytes # (A) 1.5 k/uL (0-1.0); Monocytes % (A) 9 %; Neutrophils # (A) 14.4 k/uL (1.3-7.7); Neutrophils % (A) 83 %; RBC 4.09 m/uL (4.30-5.90); RDW 12.4 % (11.5-15.5); WBC 17.3 k/uL (3.8-10.6); WBC (Perox) 17.43
[2017-05-20 05:57] LABS: INR 1.3 (<1.2); Partial Thromboplastin Time 24.4 sec (22.0-30.0); Prothrombin Time 13.1 sec (9.0-12.0)
[2017-05-20 06:10] LABS: Calcium 8.6 mg/dL (8.4-10.2); Magnesium 2.5 mg/dL (1.6-2.3); Phosphorous 5.4 mg/dL (2.5-4.5); Potassium 4.3 mmol/L (3.5-5.1)
[2017-05-20] MEDS: HEPARIN SODIUM,PORCINE 5,000 UNIT/ML 1 ML VIAL IV PRN ×3 (06:54→23:45)
--- NOTE | 2017-05-20 07:34 | XR ---
EXAMINATION TYPE: XR chest 1V portable DATE OF EXAM: 05/20/2017 CLINICAL HISTORY: Difficulty breathing progress study. TECHNIQUE: Single AP portable upright view of the chest is obtained. COMPARISON: Chest x-ray from one day earlier FINDINGS: There is interval extubation with removal of endotracheal and orogastric tubes. There is c ardiomegaly with atherosclerotic thoracic aorta. There is central vascular congestion with small bila teral pleural effusions and bibasilar infiltrate and/or atelectasis all redemonstrated. Large spurs i n the mid thoracic spine are redemonstrated. IMPRESSION: Overall stable findings, suspect CHF exacerbation as there is cardiomegaly with mild ce ntral vascular congestion and small bilateral pleural effusions felt present, underlying bibasilar at electasis and/or infiltrate is noted.
[2017-05-20] MEDS: FAMOTIDINE 20 MG/2 ML VIAL IV SCH (08:13)
[2017-05-20] MEDS: FUROSEMIDE 10 MG/ML 10 ML VIAL IV SCH ×2 (08:13→20:11)
[2017-05-20] MEDS: METOPROLOL TARTRATE 50 MG TAB PO SCH ×2 (08:13→21:26)
[2017-05-20] MEDS: ASPIRIN 325 MG TAB PO SCH (08:14)
[2017-05-20] MEDS: PRASUGREL 10 MG TAB PO SCH (08:14)
--- NOTE | 2017-05-20 08:43 | P.PN ---
Subjective Principal diagnosis: Anterior wall myocardial infarction, status post failed stent placement, cardiomyopathy and CHF This 61-year-old male was admitted with the anterior wall myocardial infarction which most probably subacute. Unfortunately patient did not have a good result at attempted stent placement of the LAD. Patient developed a picture of cardiomyopathy and CHF. Patient required ventilatory support because of pulmonary edema. His pulmonary status is improved and attempts are being made to wean him of the respirator. Urine output has picked up. His creatinine showed some improvement. We'll continue his current management. Hopefully we' ll be able extubated later today. This patient is reexamined on 20 of May. Patient is extubated and seems to be alert and oriented. Doesn't appear to be in acute distress. Complaints of mild cough. Still extremely weak. Patient converted to atrial fibrillation last night with controlled ventricular response. Patient was initiated on higher dose of beta demar and also heparin protocol. Patient may have to go on anticoagulation therapy along with the dual antiplatelet agents. I will start him on Coumadin 2.5 mg and try to keep low INRs in the range of 1.8-2. His creatinine has improved to 1.5. Patient's urine output is good and seemed to be redding balance. A chest x-ray showed findings of mild CHF and possible right lower lobe infiltrate. Patient is also having intermittent spikes in temperature. He is currently on antibiotic therapy. I will discuss with nephrology before starting patient on ASH inhibitor and Aldactone combination because of cardiomyopathy Objective - Vital Signs Vital signs: Vital Signs Temp 98.0 F 05/20/17 08:00 Pulse 104 H 05/20/17 08:00 Resp 25 H 05/20/17 08:00 BP 136/95 05/20/17 08:00 Pulse Ox 98 05/20/17 08:00 Intake & Output 05/19/17 05/20/17 05/20/17 18:59 06:59 18:59 Intake Total 3084.420 9863.786 40 Output Total 3150 2550 135 Balance -1868.134 -1180.214 -95 Weight 116.7 kg Intake: IV 352 240 40 Potassium Chloride 20 mEq 50 /100ml @50 ml/hr Pressure Bag 0.9% sodium 12 chloride Sodium Chloride 0.9% @ 20 240 240 40 ml/hr cefTRIAXone 1,000 mg In 50 Sodium Chloride 0.9% 50 ml @ 100 mls/hr IVPB Q24HR SAMANTHA Rx#:[id number] Intake, IV Titration 64.866 129.786 Amount Heparin Sodium,Porcine/ 129.786 D5w Pmx 25,000 unit In Dextrose/Water 1 500ml. bag @ 8.5 UNITS/KG/HR 20. 07 mls/hr IV .Q24H SAMANTHA Rx #:[id number] Propofol 1,000 mg In 100 64.866 ml @ Titrate IV .Q0M SAMANTHA Rx#:[id number] Oral 610 1000 Tube Feeding 80 Other 175 Output: Urine 3150 2550 135 Other: Voiding Method Indwelling Catheter Indwelling Catheter # Bowel Movements 0 ABP, PAP, CO, CI - Last Documented Arterial Blood Pressure 128/69 - Exam GENERAL EXAM: Patient is extubated. Alert and oriented. HEENT: Normocephalic. NECK: No masses, no nuchal rigidity. CHEST: No chest wall deformity. LUNGS: Diminished air exchange HEART: S1 and S2 normal with no audible mumurs or gallops. Regular rhythm, ABDOMEN: Soft SKIN: No rashes CENTRAL NERVOUS SYSTEM: Deferred EXTREMITIES: No cyanosis, clubbing or edema. - Labs CBC & Chem 7: 05/20/17 05:20 05/20/17 05:20 Labs: Abnormal Lab Results - Last 24 Hours (Table) 05/19/17 05/19/17 05/19/17 Range/Units 09:40 12:14 17:26 WBC (3.8-10.6) k/uL RBC (4.30-5.90) m/uL MCV (80.0-100.0) fL Neutrophils # (1.3-7.7) k/uL Monocytes # (0-1.0) k/uL PT (9.0-12.0) sec INR (<1.2) APTT (22.0-30.0) sec ABG Total CO2 26 H (19-24) mmol/L ABG O2 Saturation 97.8 H (94-97) % Carbon Dioxide (22-30) mmol/L BUN (9-20) mg/dL Creatinine (0.66-1.25) mg/dL Glucose (74-99) mg/dL POC Glucose (mg/dL) 233 H 288 H (75-99) mg/dL Phosphorus (2.5-4.5) mg/dL Magnesium (1.6-2.3) mg/dL 05/19/17 05/19/17 05/20/17 Range/Units 22:40 23:33 00:10 WBC (3.8-10.6) k/uL RBC (4.30-5.90) m/uL MCV (80.0-100.0) fL Neutrophils # (1.3-7.7) k/uL Monocytes # (0-1.0) k/uL PT 13.0 H (9.0-12.0) sec INR 1.3 H (<1.2) APTT 21.9 L (22.0-30.0) sec ABG Total CO2 (19-24) mmol/L ABG O2 Saturation (94-97) % Carbon Dioxide 31 H (22-30) mmol/L BUN 68 H (9-20) mg/dL Creatinine 1.60 H (0.66-1.25) mg/dL Glucose 254 H (74-99) mg/dL POC Glucose (mg/dL) 239 H (75-99) mg/dL Phosphorus (2.5-4.5) mg/dL Magnesium (1.6-2.3) mg/dL 05/20/17 05/20/17 05/20/17 Range/Units 05:20 05:20 05:20 WBC 17.3 H (3.8-10.6) k/uL RBC 4.09 L (4.30-5.90) m/uL MCV 100.5 H (80.0-100.0) fL Neutrophils # 14.4 H (1.3-7.7) k/uL Monocytes # 1.5 H (0-1.0) k/uL PT 13.1 H (9.0-12.0) sec INR 1.3 H (<1.2) APTT (22.0-30.0) sec ABG Total CO2 (19-24) mmol/L ABG O2 Saturation (94-97) % Carbon Dioxide (22-30) mmol/L BUN 62 H (9-20) mg/dL Creatinine 1.50 H (0.66-1.25) mg/dL Glucose 215 H (74-99) mg/dL POC Glucose (mg/dL) (75-99) mg/dL Phosphorus 5.4 H (2.5-4.5) mg/dL Magnesium 2.5 H (1.6-2.3) mg/dL 05/20/17 Range/Units 05:20 WBC (3.8-10.6) k/uL RBC (4.30-5.90) m/uL MCV (80.0-100.0) fL Neutrophils # (1.3-7.7) k/uL Monocytes # (0-1.0) k/uL PT (9.0-12.0) sec INR (<1.2) APTT (22.0-30.0) sec ABG Total CO2 (19-24) mmol/L ABG O2 Saturation (94-97) % Carbon Dioxide (22-30) mmol/L BUN (9-20) mg/dL Creatinine (0.66-1.25) mg/dL Glucose (74-99) mg/dL POC Glucose (mg/dL) 210 H (75-99) mg/dL Phosphorus (2.5-4.5) mg/dL Magnesium (1.6-2.3) mg/dL Microbiology - Last 24 Hours (Table) 05/17/17 14:35 Blood Culture - Preliminary Blood No Growth after 48 hours 05/17/17 14:15 Blood Culture - Preliminary Blood No Growth after 48 hours Assessment and Plan (1) Cardiomyopathy Status: Acute (2) STEMI (ST elevation myocardial infarction) Status: Acute (3) Congestive heart failure Status: Acute (4) Diabetes mellitus Status: Acute (5) ATN (acute tubular necrosis) Status: Acute Plan: Overall patient clinical status seemed more stable. There is improvement in the renal function. Patient went into atrial fibrillation with controlled ventricular response. We'll continue with high dose of beta demar and also anticoagulation. Increase activity as tolerated. We'll add ASH inhibitor and Aldactone when cleared by nephrology.
[2017-05-20] MEDS: IPRATROPIUM 0.5 MG/2.5 ML NEBU INHALATION SCH ×4 (08:57→20:21)
[2017-05-20] MEDS: LEVALBUTEROL NEB 1.25 MG/3 ML AMP INHALATION SCH ×4 (08:57→20:21)
--- NOTE | 2017-05-20 09:19 | P.PN ---
Subjective Patient is seen in follow-up for acute kidney injury. Unclear as to what his baseline renal function is. Creatinine on admission was 1.48 and peaked at 3.4. It is down to 1.5 today. Patient presented with an acute STEMI and underwent a cardiac catheterization on May 16 which revealed triple-vessel disease. No interventions could be done at that time. He is noted to have an ejection fraction of 20%. Currently is resting in bed. Denies chest pain or shortness of breath. He is nonoliguric. Chest x-ray shows vascular congestion and he's maintained on IV diuretics. Oral intake is fair. Vital signs are stable. General: The patient appeared well nourished and normally developed. HEENT: Head exam is unremarkable. Neck is without jugular venous distension. LUNGS: Breath sounds decreased. Mild rhonchi at bases. HEART: Rate and Rhythm are regular. First and second heart sounds normal. No murmurs, rubs or gallops. ABDOMEN: Abdominal exam reveals normal bowel sounds. Non-tender and non- distended. No evidence of peritonitis. EXTREMITITES: No clubbing, cyanosis, or edema. Objective - Vital Signs Vital signs: Vital Signs Temp 98.0 F 05/20/17 08:00 Pulse 99 05/20/17 09:00 Resp 25 H 05/20/17 09:00 BP 136/95 05/20/17 08:00 Pulse Ox 98 05/20/17 08:00 Intake & Output 05/19/17 05/20/17 05/20/17 18:59 06:59 18:59 Intake Total 2517.992 0390.786 40 Output Total 3150 2550 135 Balance -1868.134 -1180.214 -95 Weight 116.7 kg Intake: IV 352 240 40 Potassium Chloride 20 mEq 50 /100ml @50 ml/hr Pressure Bag 0.9% sodium 12 chloride Sodium Chloride 0.9% @ 20 240 240 40 ml/hr cefTRIAXone 1,000 mg In 50 Sodium Chloride 0.9% 50 ml @ 100 mls/hr IVPB Q24HR [facility] Rx#:[id number] Intake, IV Titration 64.866 129.786 Amount Heparin Sodium,Porcine/ 129.786 D5w Pmx 25,000 unit In Dextrose/Water 1 500ml. bag @ 8.5 UNITS/KG/HR 20. 07 mls/hr IV .Q24H [facility] Rx #:[id number] Propofol 1,000 mg In 100 64.866 ml @ Titrate IV .Q0M [facility] Rx#:[id number] Oral 610 1000 Tube Feeding 80 Other 175 Output: Urine 3150 2550 135 Other: Voiding Method Indwelling Catheter Indwelling Catheter # Bowel Movements 0 ABP, PAP, CO, CI - Last Documented Arterial Blood Pressure 128/69 - Labs CBC & Chem 7: 05/20/17 05:20 05/20/17 05:20 Labs: Abnormal Lab Results - Last 24 Hours (Table) 05/19/17 05/19/17 05/19/17 Range/Units 09:40 12:14 17:26 WBC (3.8-10.6) k/uL RBC (4.30-5.90) m/uL MCV (80.0-100.0) fL Neutrophils # (1.3-7.7) k/uL Monocytes # (0-1.0) k/uL PT (9.0-12.0) sec INR (<1.2) APTT (22.0-30.0) sec ABG Total CO2 26 H (19-24) mmol/L ABG O2 Saturation 97.8 H (94-97) % Carbon Dioxide (22-30) mmol/L BUN (9-20) mg/dL Creatinine (0.66-1.25) mg/dL Glucose (74-99) mg/dL POC Glucose (mg/dL) 233 H 288 H (75-99) mg/dL Phosphorus (2.5-4.5) mg/dL Magnesium (1.6-2.3) mg/dL 05/19/17 05/19/17 05/20/17 Range/Units 22:40 23:33 00:10 WBC (3.8-10.6) k/uL RBC (4.30-5.90) m/uL MCV (80.0-100.0) fL Neutrophils # (1.3-7.7) k/uL Monocytes # (0-1.0) k/uL PT 13.0 H (9.0-12.0) sec INR 1.3 H (<1.2) APTT 21.9 L (22.0-30.0) sec ABG Total CO2 (19-24) mmol/L ABG O2 Saturation (94-97) % Carbon Dioxide 31 H (22-30) mmol/L BUN 68 H (9-20) mg/dL Creatinine 1.60 H (0.66-1.25) mg/dL Glucose 254 H (74-99) mg/dL POC Glucose (mg/dL) 239 H (75-99) mg/dL Phosphorus (2.5-4.5) mg/dL Magnesium (1.6-2.3) mg/dL 05/20/17 05/20/17 05/20/17 Range/Units 05:20 05:20 05:20 WBC 17.3 H (3.8-10.6) k/uL RBC 4.09 L (4.30-5.90) m/uL MCV 100.5 H (80.0-100.0) fL Neutrophils # 14.4 H (1.3-7.7) k/uL Monocytes # 1.5 H (0-1.0) k/uL PT 13.1 H (9.0-12.0) sec INR 1.3 H (<1.2) APTT (22.0-30.0) sec ABG Total CO2 (19-24) mmol/L ABG O2 Saturation (94-97) % Carbon Dioxide (22-30) mmol/L BUN 62 H (9-20) mg/dL Creatinine 1.50 H (0.66-1.25) mg/dL Glucose 215 H (74-99) mg/dL POC Glucose (mg/dL) (75-99) mg/dL Phosphorus 5.4 H (2.5-4.5) mg/dL Magnesium 2.5 H (1.6-2.3) mg/dL 05/20/17 Range/Units 05:20 WBC (3.8-10.6) k/uL RBC (4.30-5.90) m/uL MCV (80.0-100.0) fL Neutrophils # (1.3-7.7) k/uL Monocytes # (0-1.0) k/uL PT (9.0-12.0) sec INR (<1.2) APTT (22.0-30.0) sec ABG Total CO2 (19-24) mmol/L ABG O2 Saturation (94-97) % Carbon Dioxide (22-30) mmol/L BUN (9-20) mg/dL Creatinine (0.66-1.25) mg/dL Glucose (74-99) mg/dL POC Glucose (mg/dL) 210 H (75-99) mg/dL Phosphorus (2.5-4.5) mg/dL Magnesium (1.6-2.3) mg/dL Microbiology - Last 24 Hours (Table) 05/17/17 14:35 Blood Culture - Preliminary Blood No Growth after 48 hours 05/17/17 14:15 Blood Culture - Preliminary Blood No Growth after 48 hours Assessment and Plan Plan: Assessment: #1. Nonoliguric acute kidney injury secondary to ischemic ATN secondary to acute [place] and hemodynamic instability. Renal function improving with creatinine down to 1.5 today. Unclear as to what his baseline renal function is. #2. Acute STEMI status post cardiac catheterization on May 16 revealing triple -vessel disease. #3. Systolic CHF with ejection fraction of 20%. #4. Volume overload. Plan: Continue Lasix 60 mg IV twice daily. May resume low-dose ASH inhibitor as GFR stabilizing and hemodynamically stable. Continue to monitor renal function and urine output. Cardiology following.
--- NOTE | 2017-05-20 11:10 | PN ---
DATE OF SERVICE: 05/19/2017 ATTENDING NOTE: This patient was seen and examined by me. I discussed the care with my nurse practitioner, Ms. Morales. Additional findings as below. This patient is status post acute MD intervention, extubated earlier today, sitting up, is on clear liquids. and 2 kids at the bedside. Breathing is somewhat better. ON EXAMINATION: LUNGS: Decreased breath sounds. CARDIOVASCULAR: First and second sounds normal. No edema. PSYCH: Awake, answering questions. INVESTIGATIONS: White count 14.2, hemoglobin 12.2. BUN 91, creatinine 2.13. ASSESSMENT: 1. Acute ST elevation myocardial infarction, followed by stent to the LAD. 2. Acute hypoxic respiratory failure, multifactorial, status post being on the ventilator. 3. Acute renal failure, likely acute tubular necrosis, improving. PLAN: Continue current medications and treatment plan. Overall patient doing better. Care was discussed. Family at the bedside. Will follow. ZACHARIAH
[2017-05-20] MEDS: BISACODYL 5 MG TABLET.DR PO SCH (12:09)
[2017-05-20] MEDS: LISINOPRIL 2.5 MG TAB PO SCH (12:09)
[2017-05-20 12:11] LABS: Glucose,Whole Blood 270 mg/dL (75-99)
--- NOTE | 2017-05-20 13:04 | PN ---
This is a 61 -year-old male who was admitted on May 16. He is a patient who has ST segment elevation myocardial infarction and stent in the LAD. He has very poor cardiac function with ejection fraction of less than 20%. Apparently was on the ventilator yesterday when he was seen by my partner and the patient was extubated. The patient seems to be doing reasonably well. He is sitting at the side of the bed. He is not having any complaints. No shortness of breath, chest pain, chest discomfort, cough, wheezing, shortness of breath, phlegm production or any other complaints for that matter. The patient is currently on O2 with 10 L of high flow getting a 0.9 IV at 20. Heparin via weight based protocol and apparently the yard supervisor cotton gin started the patient on Coumadin today. As mentioned earlier, also ejection fraction only less than 20%. Current vital signs include a temperature of 98. Heart rate 100. Respiratory rate of 25. Blood pressure 136/95. Saturations are 98% on FIO2. Appears in no acute distress. Sitting at the bedside. HEENT: Examination is grossly unremarkable. Mucous membranes are moist. No oral lesions. Neck is supple. Full range of motion. No adenopathy, thyromegaly or neck vein distention. Cardiovascular examination reveals distant heart sounds. S1, S2 normal. Soft, systolic murmur. No distinct S3, or S4. Lungs reveal some crackles at the bases. More right than left sided. No wheezes or rhonchi. Breath sounds are equal. Abdomen soft but obese. Bowel sounds are heard. Extremities intact. Slight edema. Skin without rash. Neurological examination is brief but nonfocal. Labs are reviewed. White count 17.2. Hemoglobin 13.5. Hematocrit 41.1. Platelet count 323,000. PT/INR were 13.1 and 1.3 respectively. PTT 24.4. Sodium and potassium, chloride and CO2 all normal. Anion gap is normal. BUN and creatinine consistent with prerenal azotemia with BUN and creatinine 62 and 1.5. The rest of the labs look okay. The patient had a chest x-ray which showed findings of CHF with cardiomegaly and central venous congestion. Some small effusions. Chest x-ray as mentioned earlier consistent with some heart failure. There is cardiomegaly. There is small bilateral effusions. There is some cephalization probably a little bit of fluid in the minor fissure wall. ASSESSMENT: 1. Acute ST segment elevation myocardial infarction, status post LAD stent. 2. Hypoxemic respiratory failure requiring intubation, mechanical ventilation , resolved. 3. Acute pulmonary edema secondary to ischemic cardiomyopathy and acute myocardial infarction. 4. Acute kidney injury. 5. Diabetes mellitus. 6. Morbid obesity. 7. Sleep apnea syndrome. 8. Doubt pneumonia. PLAN: The patient seems to be doing relatively well. Extubated yesterday. We will continue to follow. The patients lab work is reviewed. Medications are reviewed. Chest x-ray is reviewed. Continue to progress. Cardiology will stop the IV heparin, started on Coumadin. Will continue to follow. Prognosis given his poor cardiac function is very guarded. ZACHARIAH
[2017-05-20] MEDS: AZITHROMYCIN 250 MG TAB PO SCH (14:02)
[2017-05-20] MEDS: SODIUM CHLORIDE 0.9% 1,000 ML IV SCH (14:02)
--- NOTE | 2017-05-20 17:06 | P.PN ---
Progress Note - Text DATE OF SERVICE: 05/20/2017 PRESENTING COMPLAINT: Acute ST segment elevation myocardial infarction INTERVAL HISTORY: 62-year-old male transferred from [facility] due to ST segment elevation myocardial infarction. Patient was taken to the [facility] and was found to have an occluded mid LAD and critical disease involving his left circumflex. Patient underwent angioplasty and stenting however LAD that was not well visualized. Patient was started on dual antiplatelet agents and moved to the ICU. Patient became increasingly short of breath, CT angiogram revealed acute CHF. Patient developed respiratory failure and required intubation. Patient has subsequently developed acute kidney injury. 05/18/2017: Patient remains intubated, awake, following commands, ventilator settings: Assist control FiO2 of 50% PEEP of 10. Patient motioning to get the tube out, attempting to mouth words. Anxious appearing. Nutrition services is been consulted for tube feeding. 05/19/2017: Patient remains intubated, awake, following commands, ventilator settings: Assist control FiO2 of 40%, PEEP of 5, patient is awake and anxious to have the tube removed, in the middle of an SBT. Insulin drip stopped yesterday Lantus was added and today blood glucose remains elevated. Lantus increased from 20 units to 30 units at at bedtime. 05/20/2017: Patient is extubated sitting at the bedside working with physical therapy. Feels a bit dizzy and lightheaded at this time. Patient ate most of his breakfast. Blood and urine cultures negative. Patient went into atrial fibrillation overnight, cardiology has been consulted. REVIEW OF SYSTEMS: Done for constitutional ,cardiovascular, GI, pulmonary with relevant findings as above. CURRENT MEDICATIONS Azithromycin, ceftriaxone, famotidine, Lasix, lisinopril, metoprolol, warfarin. PHYSICAL EXAM VITAL SIGNS: Temperature 98.0 pulse 104 respirations 25 blood pressure 136/95 98% on 6 L high flow GENERAL APPEARANCE: Sitting up on the edge of the bed, tired appearing, weak. EYES: Pupils equal. Conjunctiva normal. NECK: JVD not raised. Mass not palpable. RESPIRATORY: Respiratory effort labored. Lungs diminished with scattered crackles to bilateral bases CARDIOVASCULAR: First and second sounds normal. Gross edema. ABDOMEN: Soft. Liver and spleen not palpable. No tenderness. No mass palpable. PSYCHIATRY: Alert and oriented x3. Mood and affect tired appearing. MUSCULOSKELETAL: Moves all 4 extremities INVESTIGATIONS: White blood cell count 17.3, hemoglobin 13.5, INR 1.3, sodium 140, potassium 4.3 , BUN 62, creatinine 1.50, Accu-Cheks noted ASSESSMENT: -Acute ST segment anterior wall myocardial infarction status post cardiac catheterization and stenting of the LAD -Acute hypoxic respiratory failure, multifactorial, status post being on the ventilator -Diabetes mellitus type II, uncontrolled, on injectable insulin -Acute hypoxic respiratory failure requiring intubation and mechanical ventilation. -Acute renal failure likely acute tubular necrosis, likely multifactorial including hypotension, improving -Possible chronic kidney disease from diabetic nephrosclerosis -Morbid obesity -Obstructive sleep apnea -Pneumonia, although this is unlikely as CT angiogram of the chest is consistent with CHF/pulmonary marisa -Acute metabolic encephalopathy, multifactorial from multiple medical problems, improving -New onset atrial fibrillation PLAN: Atrial fibrillation will be controlled with a beta demar and anticoagulation, cardiology will add ASH inhibitor and Aldactone when cleared by nephrology. Overall kidney function has improved nephrology will continue Lasix, patient's white blood cell count bumped back up today patient is continued on antibiotic therapy. Plan of care discussed with the patient, and he is agreeable. ANIMAL ASSISTED THERAPIST statement: Patient was seen and examined by nurse practitioner Kaycee Morales and all elements of the case discussed with attending Dr. Mckeon
[2017-05-20 17:45] LABS: Glucose,Whole Blood 288 mg/dL (75-99)
[2017-05-20] MEDS ORDERED: WARFARIN 2.5 MG TAB PO ONE (18:00)
[2017-05-20] MEDS: ATORVASTATIN 80 MG TAB PO SCH (20:10)
[2017-05-20] MEDS: FAMOTIDINE 20 MG TAB PO SCH (20:11)
[2017-05-20 21:25] LABS: Glucose,Whole Blood 274 mg/dL (75-99)
[2017-05-20] MEDS: INSULIN GLARGINE 100 UNIT/ML 10 ML VIAL SQ SCH (21:25)
[2017-05-20 23:55] LABS: Glucose,Whole Blood 249 mg/dL (75-99)
[2017-05-21 06:09] LABS: Basophils # (A) 0.1 k/uL (0-0.2); Basophils % (A) 1 %; CH 32.5; CHCM 32.4; Eosinophils # (A) 0.2 k/uL (0-0.7); Eosinophils % (A) 1 %; HCT 38.9 % (39.0-53.0); HDW 2.59; HGB 12.4 gm/dL (13.0-17.5); Luc # (Auto) 0.29; Luc % (Auto) 2; Lymphocytes # (A) 1.2 k/uL (1.0-4.8); Lymphocytes % (A) 7 %; MCH 32.2 pg (25.0-35.0); MCV 100.7 fL (80.0-100.0); Mean Platelet Volume 7.8; Monocytes # (A) 1.5 k/uL (0-1.0); Monocytes % (A) 8 %; Neutrophils % (A) 81 %; RBC 3.86 m/uL (4.30-5.90); RDW 12.9 % (11.5-15.5); WBC 17.2 k/uL (3.8-10.6)
[2017-05-21 06:24] LABS: INR 1.3 (<1.2); Partial Thromboplastin Time 38.8 sec (22.0-30.0); Prothrombin Time 13.2 sec (9.0-12.0)
--- NOTE | 2017-05-21 06:34 | P.CONS ---
History of Present Illness - Chief Complaint Medical debility - History of Present Illness I had the op to see patient for inpatient rehab consultation with regard to medical debility. He was admitted to [facility] May 16 with shortness of breath with than half duration. Found to have non-STEMI and acute respiratory failure. Seen by Dr. Logan for acute respiratory failure in ICU care. Seen by Dr. Smith for acute kidney failure. Chest CT and chest x-rays demonstrated congestive heart failure and small effusions. Abdominal ultrasound with large kidneys only. PT reports two-person maximal assistance for transfer yesterday. OT attempted available was on vent, not extubated yet. Previous functional history as elicited from patient: 61-year-old right-handed white male who is lives in one form with and daughter. Retired. History smoking 30 years ago. Rare drink. Describes independent with cooking, laundry, driving, standing shower and gait without device. Regular doctors Dr. Santiago. Family history of cardiac disease in mother. Review of Systems Review of systems: ENT: Denies sneezes or discharge. Eyes: Denies discharge or photophobia. Cardiac: Denies chest pain or palpitation. Pulmonary: Denies cough or shortness of breath. Gastrointestinal: Denies nausea, emesis, constipation, diarrhea. Genitourinary: Denies discharge or frequency. Musculoskeletal: Denies muscle or bone aches. Neurologic: Denies motor or sensory change. Endocrine: Denies shakes or sweats. Oncology: Denies cancers. Dermatologic: Denies rash, itching, pruritus. ALLERGY/immunology: Denies sneezes, rashes. Past Medical History Past Medical History: Pneumonia Additional Past Medical History / Comment(s): Morbidly obese, diabetes mellitus , obstructive sleep apnea History of Any Multi-Drug Resistant Organisms: None Reported Past Surgical History: Appendectomy, Back Surgery Additional Past Surgical History / Comment(s): 2 BACK SX HAS CINDY/SCREWS, RT ROTAOTR CUIFF REPAIR Past Anesthesia/Blood Transfusion Reactions: No Reported Reaction Smoking Status: Former smoker - Past Family History Father Additional Family Medical History / Comment(s): LOW PLATLETS. SPLEENECTOMY Mother Family Medical History: CVA/TIA Additional Family Medical History / Comment(s): 2 STROKES, HEART DISEASE. Medications and Allergies Home Medications Medication Instructions Recorded Confirmed Type Aspirin EC [Ecotrin Low Dose] 81 mg PO DAILY 05/16/17 05/16/17 History Doxycycline Hyclate 100 mg PO BID 05/16/17 05/16/17 History Ibuprofen [Motrin] 800 mg PO Q6H PRN 05/16/17 05/16/17 History guaiFENesin [Mucinex] 600 mg PO BID PRN 05/16/17 05/16/17 History Allergies Allergy/AdvReac Type Severity Reaction Status Date / Time No Known Allergies Allergy Verified 05/16/17 16:14 Physical Exam Vitals: Vital Signs Temp Pulse Resp BP Pulse Ox 05/21/17 06:00 87 22 104/67 95 05/21/17 05:00 88 20 93/65 90 L 05/21/17 04:00 97.9 F 97 12 102/75 91 L 05/21/17 03:00 84 24 102/75 93 L 05/21/17 02:00 83 21 100/66 91 L 05/21/17 01:00 89 20 108/64 94 L 05/21/17 00:00 97.8 F 78 27 H 106/73 92 L 05/20/17 23:00 88 22 98/69 96 05/20/17 22:00 92 22 116/69 98 05/20/17 21:00 88 23 112/73 96 05/20/17 20:35 91 05/20/17 20:24 89 05/20/17 20:00 97.1 F L 93 27 H 108/65 96 05/20/17 19:00 85 13 103/83 96 05/20/17 18:00 100 38 H 99/65 93 L 05/20/17 17:00 94 25 H 94/71 97 05/20/17 16:04 92 05/20/17 16:00 98.1 F 92 26 H 113/76 100 05/20/17 15:55 90 05/20/17 15:00 92 18 108/64 93 L 05/20/17 14:00 87 27 H 116/88 92 L 05/20/17 13:30 90 05/20/17 13:08 88 28 H 05/20/17 13:00 85 24 116/88 100 05/20/17 12:00 98.7 F 89 23 129/74 98 05/20/17 11:00 88 28 H 120/74 96 05/20/17 10:00 99 21 129/80 98 05/20/17 09:13 90 05/20/17 09:00 103 H 25 H 141/90 98 05/20/17 08:00 98.0 F 104 H 21 136/95 98 05/20/17 07:00 109 H 14 118/89 98 Intake and Output 05/20/17 05/20/17 05/21/17 14:59 22:59 06:59 Intake Total 160 521.092 294.651 Output Total 885 871 480 Balance -725 -349.908 -185.349 Intake: IV 160 160 140 Sodium Chloride 0.9% @ 20 160 160 140 ml/hr Intake, IV Titration 361.092 154.651 Amount Heparin Sodium,Porcine/ 361.092 154.651 D5w Pmx 25,000 unit In Dextrose/Water 1 500ml. bag @ 8.5 UNITS/KG/HR 20. 07 mls/hr IV .Q24H [facility] Rx #:[id number] Output: Urine 885 871 480 Other: Voiding Method Indwelling Catheter Indwelling Catheter Indwelling Catheter # Bowel Movements 0 0 Skin: Good color, texture, turgor. General: Obese and comfortable appearance. Head: Normocephalic, atraumatic. Eyes: Symmetric. Pupils equal round. Ears: Symmetric. Hearing within normal limits. Mouth: Clear. Neck: Supple. Carotid without bruit. Cardiac: Regular rate and rhythm. Lungs: Clear anteriorly and posteriorly. Abdomen: Soft active nontender, obese. Extremities: Normal tone. Neurological: Mental status: Alert, cooperative, pleasant. Cranial nerves: Symmetric facial tone and trapezius. Motor: Active movement and ability elevate limbs off of bed all 4 limbs. Sensation: Intact throughout. DTRs: Symmetric and equal throughout. Mobility: Did not attempt to sit or stand is currently in ICU bed. Results CBC & Chem 7: 05/21/17 05:46 05/20/17 05:20 Labs: Abnormal Lab Results - Last 24 Hours (Table) 05/20/17 05/20/17 05/20/17 Range/Units 12:09 14:10 17:44 WBC (3.8-10.6) k/uL RBC (4.30-5.90) m/uL Hgb (13.0-17.5) gm/dL Hct (39.0-53.0) % MCV (80.0-100.0) fL Neutrophils # (1.3-7.7) k/uL Monocytes # (0-1.0) k/uL PT (9.0-12.0) sec INR (<1.2) APTT 30.5 H (22.0-30.0) sec POC Glucose (mg/dL) 270 H 288 H (75-99) mg/dL 05/20/17 05/20/17 05/20/17 Range/Units 21:22 22:18 23:52 WBC (3.8-10.6) k/uL RBC (4.30-5.90) m/uL Hgb (13.0-17.5) gm/dL Hct (39.0-53.0) % MCV (80.0-100.0) fL Neutrophils # (1.3-7.7) k/uL Monocytes # (0-1.0) k/uL PT (9.0-12.0) sec INR (<1.2) APTT 30.4 H (22.0-30.0) sec POC Glucose (mg/dL) 274 H 249 H (75-99) mg/dL 05/21/17 05/21/17 Range/Units 05:46 05:46 WBC 17.2 H (3.8-10.6) k/uL RBC 3.86 L (4.30-5.90) m/uL Hgb 12.4 L (13.0-17.5) gm/dL Hct 38.9 L (39.0-53.0) % MCV 100.7 H (80.0-100.0) fL Neutrophils # 14.0 H (1.3-7.7) k/uL Monocytes # 1.5 H (0-1.0) k/uL PT 13.2 H (9.0-12.0) sec INR 1.3 H (<1.2) APTT 38.8 H (22.0-30.0) sec POC Glucose (mg/dL) (75-99) mg/dL Microbiology - Last 24 Hours (Table) 05/19/17 23:30 Blood Culture - Preliminary Blood No Growth after 24 hours 05/19/17 22:40 Blood Culture - Preliminary Blood No Growth after 24 hours 05/17/17 14:35 Blood Culture - Preliminary Blood No Growth after 72 hours 05/17/17 14:15 Blood Culture - Preliminary Blood No Growth after 72 hours Chest x-ray: report reviewed (Followed for CHF and small effusions.) CT scan - chest: report reviewed (Demonstrated CHF and small effusions.) US - abdomen: report reviewed (Consistent only for large kidneys.) Assessment and Plan (1) STEMI (ST elevation myocardial infarction) Status: Acute Plan: Impression: 1. Medical debility. 2. Non-STEMI. 3. Acute respiratory failure. 4. Acute tubular necrosis with acute kidney failure. 5. Obesity. Comments and plan: At this time PT and OT are ongoing. Anticipate patient will do well. Will follow closely with yourself.
[2017-05-21 06:37] LABS: Anion Gap 10 mmol/L; Blood Urea Nitrogen 54 mg/dL (9-20); Calcium 7.9 mg/dL (8.4-10.2); Carbon Dioxide 28 mmol/L (22-30); Chloride 100 mmol/L (98-107); Glucose 217 mg/dL (74-99); Magnesium 2.6 mg/dL (1.6-2.3); Non-African American GFR(MDRD) >60 (>60 ml/min/1.73 sqM); Phosphorous 3.9 mg/dL (2.5-4.5); Potassium 3.9 mmol/L (3.5-5.1); Sodium 138 mmol/L (137-145)
[2017-05-21] MEDS: HEPARIN SODIUM,PORCINE 5,000 UNIT/ML 1 ML VIAL IV PRN ×2 (06:52→15:58)
[2017-05-21 07:54] LABS: Glucose,Whole Blood 222 mg/dL (75-99)
[2017-05-21] MEDS ORDERED: POTASSIUM CHLORIDE ER 20 MEQ TAB.ER PO SCH (08:00)
[2017-05-21] MEDS: INSULIN LISPRO (humaLOG) 300 UNIT/3 ML VIAL SQ SCH ×7 (08:01→21:05)
[2017-05-21] MEDS: LEVALBUTEROL NEB 1.25 MG/3 ML AMP INHALATION SCH (08:14)
[2017-05-21] MEDS: IPRATROPIUM 0.5 MG/2.5 ML NEBU INHALATION SCH (08:14)
[2017-05-21] MEDS: LISINOPRIL 2.5 MG TAB PO SCH (08:20)
[2017-05-21] MEDS: BISACODYL 5 MG TABLET.DR PO SCH (08:20)
[2017-05-21] MEDS: METOPROLOL TARTRATE 50 MG TAB PO SCH ×2 (08:20→21:32)
[2017-05-21] MEDS: FUROSEMIDE 10 MG/ML 10 ML VIAL IV SCH ×2 (08:21→20:59)
[2017-05-21] MEDS: FAMOTIDINE 20 MG TAB PO SCH ×2 (08:21→20:59)
[2017-05-21] MEDS: ASPIRIN 325 MG TAB PO SCH (08:21)
[2017-05-21] MEDS: PRASUGREL 10 MG TAB PO SCH (08:23)
[2017-05-21] MEDS: POLYETHYLENE GLYCOL 3350 17 GM POWD.PACK PO SCH (08:23)
[2017-05-21] MEDS ORDERED: IPRATROPIUM-ALBUTEROL 3 ML NEB INHALATION PRN (08:24)
--- NOTE | 2017-05-21 09:10 | P.PN ---
Subjective Principal diagnosis: Anterior wall myocardial infarction, status post failed stent placement, cardiomyopathy and CHF This 61-year-old male was admitted with the anterior wall myocardial infarction which most probably subacute. Unfortunately patient did not have a good result at attempted stent placement of the LAD. Patient developed a picture of cardiomyopathy and CHF. Patient required ventilatory support because of pulmonary edema. His pulmonary status is improved and attempts are being made to wean him of the respirator. Urine output has picked up. His creatinine showed some improvement. We'll continue his current management. Hopefully we' ll be able extubated later today. This patient is reexamined on 20 of May. Patient is extubated and seems to be alert and oriented. Doesn't appear to be in acute distress. Complaints of mild cough. Still extremely weak. Patient converted to atrial fibrillation last night with controlled ventricular response. Patient was initiated on higher dose of beta demar and also heparin protocol. Patient may have to go on anticoagulation therapy along with the dual antiplatelet agents. I will start him on Coumadin 2.5 mg and try to keep low INRs in the range of 1.8-2. His creatinine has improved to 1.5. Patient's urine output is good and seemed to be beaver balance. A chest x-ray showed findings of mild CHF and possible right lower lobe infiltrate. Patient is also having intermittent spikes in temperature. He is currently on antibiotic therapy. I will discuss with nephrology before starting patient on ASH inhibitor and Aldactone combination because of cardiomyopathy. This patient is reexamined on May 21. Patient appears to be stable. Doesn't complain of any chest pain or shortness of breath appears to be slightly tachypneic. Still extremely weak. His maintaining it fibrillation with controlled ventricular response. His blood pressures running about 110 systolic. His respiratory rate is about 15-20. Clinically, his lungs appeared to be clear. Heart is irregular. No murmurs heard. Patient is having good diuresis and urine output, maintaining a negative balance and last about a couple of pounds. At this point we will continue current medical therapy. Try to increase his physical activity. From Cardec standpoint, patient could be transferred to telemetry unit. Repeat echo is done, which will be reviewed Objective - Vital Signs Vital signs: Vital Signs Temp 97.9 F 05/21/17 04:00 Pulse 96 05/21/17 08:32 Resp 31 H 05/21/17 08:00 BP 99/66 05/21/17 08:00 Pulse Ox 96 05/21/17 08:18 Intake & Output 05/20/17 05/21/17 05/21/17 18:59 06:59 18:59 Intake Total 483.535 809.095 20 Output Total 1200 1086 65 Balance -716.465 -276.905 -45 Weight 118.6 kg Intake: IV 240 240 20 Sodium Chloride 0.9% @ 20 240 240 20 ml/hr Intake, IV Titration 243.535 569.095 Amount Heparin Sodium,Porcine/ 243.535 569.095 D5w Pmx 25,000 unit In Dextrose/Water 1 500ml. bag @ 8.5 UNITS/KG/HR 20. 07 mls/hr IV .Q24H [facility] Rx #:[id number] Output: Urine 1200 1086 65 Other: Voiding Method Indwelling Catheter Indwelling Catheter # Bowel Movements 0 ABP, PAP, CO, CI - Last Documented Arterial Blood Pressure 128/69 - Exam GENERAL EXAM: Patient is extubated. Alert and oriented. HEENT: Normocephalic. NECK: No masses, no nuchal rigidity. CHEST: No chest wall deformity. LUNGS: Diminished air exchange HEART: S1 and S2 normal with no audible mumurs or gallops. Regular rhythm, ABDOMEN: Soft SKIN: No rashes CENTRAL NERVOUS SYSTEM: Deferred EXTREMITIES: No cyanosis, clubbing or edema. - Labs CBC & Chem 7: 05/21/17 05:46 05/21/17 05:46 Labs: Abnormal Lab Results - Last 24 Hours (Table) 05/20/17 05/20/17 05/20/17 Range/Units 12:09 14:10 17:44 WBC (3.8-10.6) k/uL RBC (4.30-5.90) m/uL Hgb (13.0-17.5) gm/dL Hct (39.0-53.0) % MCV (80.0-100.0) fL Neutrophils # (1.3-7.7) k/uL Monocytes # (0-1.0) k/uL PT (9.0-12.0) sec INR (<1.2) APTT 30.5 H (22.0-30.0) sec BUN (9-20) mg/dL Glucose (74-99) mg/dL POC Glucose (mg/dL) 270 H 288 H (75-99) mg/dL Calcium (8.4-10.2) mg/dL Magnesium (1.6-2.3) mg/dL 05/20/17 05/20/17 05/20/17 Range/Units 21:22 22:18 23:52 WBC (3.8-10.6) k/uL RBC (4.30-5.90) m/uL Hgb (13.0-17.5) gm/dL Hct (39.0-53.0) % MCV (80.0-100.0) fL Neutrophils # (1.3-7.7) k/uL Monocytes # (0-1.0) k/uL PT (9.0-12.0) sec INR (<1.2) APTT 30.4 H (22.0-30.0) sec BUN (9-20) mg/dL Glucose (74-99) mg/dL POC Glucose (mg/dL) 274 H 249 H (75-99) mg/dL Calcium (8.4-10.2) mg/dL Magnesium (1.6-2.3) mg/dL 05/21/17 05/21/17 05/21/17 Range/Units 05:46 05:46 05:46 WBC 17.2 H (3.8-10.6) k/uL RBC 3.86 L (4.30-5.90) m/uL Hgb 12.4 L (13.0-17.5) gm/dL Hct 38.9 L (39.0-53.0) % MCV 100.7 H (80.0-100.0) fL Neutrophils # 14.0 H (1.3-7.7) k/uL Monocytes # 1.5 H (0-1.0) k/uL PT 13.2 H (9.0-12.0) sec INR 1.3 H (<1.2) APTT 38.8 H (22.0-30.0) sec BUN 54 H (9-20) mg/dL Glucose 217 H (74-99) mg/dL POC Glucose (mg/dL) (75-99) mg/dL Calcium 7.9 L (8.4-10.2) mg/dL Magnesium 2.6 H (1.6-2.3) mg/dL 05/21/17 Range/Units 07:52 WBC (3.8-10.6) k/uL RBC (4.30-5.90) m/uL Hgb (13.0-17.5) gm/dL Hct (39.0-53.0) % MCV (80.0-100.0) fL Neutrophils # (1.3-7.7) k/uL Monocytes # (0-1.0) k/uL PT (9.0-12.0) sec INR (<1.2) APTT (22.0-30.0) sec BUN (9-20) mg/dL Glucose (74-99) mg/dL POC Glucose (mg/dL) 222 H (75-99) mg/dL Calcium (8.4-10.2) mg/dL Magnesium (1.6-2.3) mg/dL Microbiology - Last 24 Hours (Table) 05/19/17 23:30 Blood Culture - Preliminary Blood No Growth after 24 hours 05/19/17 22:40 Blood Culture - Preliminary Blood No Growth after 24 hours 05/17/17 14:35 Blood Culture - Preliminary Blood No Growth after 72 hours 05/17/17 14:15 Blood Culture - Preliminary Blood No Growth after 72 hours Assessment and Plan (1) Cardiomyopathy Status: Acute (2) STEMI (ST elevation myocardial infarction) Status: Acute (3) Congestive heart failure Status: Acute (4) Diabetes mellitus Status: Acute (5) ATN (acute tubular necrosis) Status: Acute Plan: Patient seemed to be clinically stable. He remains weak and needs physical therapy. Maintaining atrial fibrillation. Urine output is good. We'll continue current medical therapy and may switch to by mouth diuretics tomorrow. May transfer to telemetry unit and increase activity gradually. Repeat echo to be reviewed.
[2017-05-21] MEDS: HEPARIN SODIUM,PORCINE/D5W PMX 25,000 UNIT in DEXTROSE/WATER 1 500ML.BAG IV SCH (09:31)
--- NOTE | 2017-05-21 09:39 | P.PN ---
Subjective Acute ST elevation myocardial infarction, and respiratory failure secondary to congestive heart failure. 62-year-old male patient who got transferred from [facility] because of acute ST segment elevation myocardial infarction. The patient had anterior wall septal wall FL along with LAD distribution. The patient was taken immediately to cardiac catheterization he was found to have occluded mid LAD and critical disease involving the left circumflex. Based on that, patient underwent angioplasty and stenting of the mid LAD and follow-up angiogram showed good angiographic results of the stented segment but the distal LAD bed was not well-visualized because of competitive flow and probably LAD distally occluded with clots. The patient was started on dual antiplatelet agents and he was moved to the intensive care unit. Within the afternoon, the patient became progressively more short of breath. He was taken for a CT angios the chest which confirmed the findings of acute CHF. No clots were seen in the pulmonary artery branches. Within next few hours the patient even got more short of breath and he went into respiratory failure. At that point I was involved in the case and I was informed of the above-mentioned changes. I recommended immediate intubation and the patient was placed on a mechanical ventilator. Following that he was sedated with Diprivan. The patient is currently on a assist-control mode rate of 24, tidal volume of 400, FiO2 of 70% and a PEEP of 10. Morning blood gases showed a pH 7.43 with a pCO2 of 36.5 and a pO2 of 175 and based on that the FiO2 is being further weaned off. Urine output at this point is around 10 mL an hour. His systolic blood pressures in the 110 range. His creatinine is up to 1.8. He has suffered an acute kidney injury. ST segment elevation is still present on the EKG and has been present since yesterday. There is diffuse ST segment elevation involving V2, V2, V3, V4 , V5, V6, and also the inferior leads. Furthermore, a stat echocardiogram was done and it showed EF less than 20%. The patient's left ventricular end- diastolic pressure based on the cardiac catheterization was quite elevated at 36. This morning, the chest x-ray showing improvement of pulmonary edema. She was in good location. The patient is cardiomegaly. The patient on Lasix 40 mg IV push every 12 hours. The patient is also on a combination of aspirin and Effient, and he was ordered metoprolol 5 mg by mouth twice a day. He is also on lisinopril of 10 mg by mouth daily has not been given this morning. He was empirically covered also with a combination of Rocephin and Zithromax. He is on a 30 mg of prednisone. The patient is seen again today 05/18/2017 in follow-up in the intensive care unit. He remains intubated and on the mechanical ventilator. Current settings are assist-control 24, tidal volume 400, FiO2 of 50% and a PEEP of 10. Morning blood gases reveal a pO2 of 91, pCO2 37 and a pH of 7.46. He remains sedated on to propofol at 25 mcg/kg/m. He has a 0.9 normal saline at 75 MLS per hour. He is on insulin drip at 0.5 units per hour. He is arousable. He follows commands. His chest x-ray continues to show evidence of congestive heart failure with basilar atelectasis and small effusions. His renal function has worsened with the current creatinine of 3.40. His urine output is marginal. Ultrasound of the kidneys revealed no evidence of hydronephrosis. Telemetry continues to demonstrate elevated ST segments. Troponin increased at 45.5. This remains hemodynamically stable. Currently on no pressors. He is febrile with a temperature of 100.2. White count 21.7. He is currently on ceftriaxone and azithromycin. Seen again on 05/19/2017, patient remains on mechanical ventilation, however his ABG seems to be significantly better, chest x-ray is showing definite improvement in his pulmonary edema, ABG was reviewed, bedside weaning parameters were noted, hence I went ahead and recommended switching the patient to a pressure support of 8 and CPAP. Urine output seems to be adequate, remains on Lasix at 60 mg IV push every 12 hours, patient was placed on pressure support and CPAP, and I was able to monitor his pulmonary status while I'm at bedside. After 20 minutes of pressure support and CPAP, patient continued to do well, he had good ABG, hence I recommended extubation. Patient was extubated to nasal cannula, I saw him again one hour post extubation, and he was doing quite well in no form of distress. Preextubation gases showed a pO2 of 96 pCO2 of 36 pH of 7.45. Renal profile seems to be better today compared to yesterday, and this is in spite of aggressive diuresis. Patient remains on 60 mg of Lasix IV push every 12 hours. Patient is seen again today 05/21/2017 in follow-up in the intensive care unit. He is awake and alert in no acute distress. He has been maintaining good O2 saturations in the mid 90s on 5 L of high flow nasal cannula. He's been hemodynamically stable. He is currently on IV 0.9 at a KVO. He is maintained on a heparin drip and is being transitioned to warfarin. Current white count 17.2, hemoglobin 12.4, INR 1.3 and his creatinine continues to improve currently at 1.10. He remains on Lasix 60 mg IV every 12 hours. He denies any worsening shortness of breath, cough or congestion. He denies any chest pain, palpitations, lightheadedness or dizziness. Objective - Vital Signs Vital signs: Vital Signs Temp 97.9 F 05/21/17 04:00 Pulse 96 05/21/17 08:32 Resp 31 H 05/21/17 08:00 BP 99/66 05/21/17 08:00 Pulse Ox 96 05/21/17 08:18 Intake & Output 05/20/17 05/21/17 05/21/17 18:59 06:59 18:59 Intake Total 483.535 809.095 20 Output Total 1200 1086 65 Balance -716.465 -276.905 -45 Weight 118.6 kg Intake: IV 240 240 20 Sodium Chloride 0.9% @ 20 240 240 20 ml/hr Intake, IV Titration 243.535 569.095 Amount Heparin Sodium,Porcine/ 243.535 569.095 D5w Pmx 25,000 unit In Dextrose/Water 1 500ml. bag @ 8.5 UNITS/KG/HR 20. 07 mls/hr IV .Q24H [facility] Rx #:[id number] Output: Urine 1200 1086 65 Other: Voiding Method Indwelling Catheter Indwelling Catheter # Bowel Movements 0 ABP, PAP, CO, CI - Last Documented Arterial Blood Pressure 128/69 - Exam Head exam was generally normal. There was no scleral icterus or corneal arcus. Mucous membranes were moist. Neck is short and supple and there is significant shortening of the neck. No neck stiffness. No JVDs can be visualized. Lung sounds are diminished bilaterally. No wheezes overall currently crackles at this point. Heart sounds are regular, distant, positive S1 and S2 with an S3 gallop. No murmurs appreciated. Abdominal exam revealed normal bowel sounds. The abdomen was soft, non-tender, and without masses, organomegaly, or appreciable enlargement of the abdominal aorta. Patient is obese and organs cannot be accurately palpated. Neurologically the patient is awake and alert and intact. He can move all 4 extremities. Peripheral pulses are intact. - Labs CBC & Chem 7: 05/21/17 05:46 05/21/17 05:46 Labs: Abnormal Lab Results - Last 24 Hours (Table) 05/20/17 05/20/17 05/20/17 Range/Units 12:09 14:10 17:44 WBC (3.8-10.6) k/uL RBC (4.30-5.90) m/uL Hgb (13.0-17.5) gm/dL Hct (39.0-53.0) % MCV (80.0-100.0) fL Neutrophils # (1.3-7.7) k/uL Monocytes # (0-1.0) k/uL PT (9.0-12.0) sec INR (<1.2) APTT 30.5 H (22.0-30.0) sec BUN (9-20) mg/dL Glucose (74-99) mg/dL POC Glucose (mg/dL) 270 H 288 H (75-99) mg/dL Calcium (8.4-10.2) mg/dL Magnesium (1.6-2.3) mg/dL 05/20/17 05/20/17 05/20/17 Range/Units 21:22 22:18 23:52 WBC (3.8-10.6) k/uL RBC (4.30-5.90) m/uL Hgb (13.0-17.5) gm/dL Hct (39.0-53.0) % MCV (80.0-100.0) fL Neutrophils # (1.3-7.7) k/uL Monocytes # (0-1.0) k/uL PT (9.0-12.0) sec INR (<1.2) APTT 30.4 H (22.0-30.0) sec BUN (9-20) mg/dL Glucose (74-99) mg/dL POC Glucose (mg/dL) 274 H 249 H (75-99) mg/dL Calcium (8.4-10.2) mg/dL Magnesium (1.6-2.3) mg/dL 05/21/17 05/21/17 05/21/17 Range/Units 05:46 05:46 05:46 WBC 17.2 H (3.8-10.6) k/uL RBC 3.86 L (4.30-5.90) m/uL Hgb 12.4 L (13.0-17.5) gm/dL Hct 38.9 L (39.0-53.0) % MCV 100.7 H (80.0-100.0) fL Neutrophils # 14.0 H (1.3-7.7) k/uL Monocytes # 1.5 H (0-1.0) k/uL PT 13.2 H (9.0-12.0) sec INR 1.3 H (<1.2) APTT 38.8 H (22.0-30.0) sec BUN 54 H (9-20) mg/dL Glucose 217 H (74-99) mg/dL POC Glucose (mg/dL) (75-99) mg/dL Calcium 7.9 L (8.4-10.2) mg/dL Magnesium 2.6 H (1.6-2.3) mg/dL 05/21/17 Range/Units 07:52 WBC (3.8-10.6) k/uL RBC (4.30-5.90) m/uL Hgb (13.0-17.5) gm/dL Hct (39.0-53.0) % MCV (80.0-100.0) fL Neutrophils # (1.3-7.7) k/uL Monocytes # (0-1.0) k/uL PT (9.0-12.0) sec INR (<1.2) APTT (22.0-30.0) sec BUN (9-20) mg/dL Glucose (74-99) mg/dL POC Glucose (mg/dL) 222 H (75-99) mg/dL Calcium (8.4-10.2) mg/dL Magnesium (1.6-2.3) mg/dL Microbiology - Last 24 Hours (Table) 05/19/17 23:30 Blood Culture - Preliminary Blood No Growth after 24 hours 05/19/17 22:40 Blood Culture - Preliminary Blood No Growth after 24 hours 05/17/17 14:35 Blood Culture - Preliminary Blood No Growth after 72 hours 05/17/17 14:15 Blood Culture - Preliminary Blood No Growth after 72 hours Assessment and Plan Plan: Assessment [address] segment anterior wall myocardial infarction. The patient was having chest pain few days prior to his hospital admission and came in for an acute ST segment elevation myocardial infarction. He had emergent cardiac catheterization and stenting of the LAD. Please refer to the catheter report for further details. The patient also has a tight circumflex lesion in the order of 80-90%. Currently on aspirin and Effient. 2 acute pulmonary edema secondary to CHF much improved. 3 acute hypoxic respiratory failure secondary to above mentioned improved. 4 acute kidney injury due to a combination of low cardiac output and contrast. Rule out contrast nephropathy. Urine output remains marginal at this point. Creatinine is down to 1.10. 5 diabetes mellitus with poorly controlled blood sugars 6 morbid obesity 7 obstructive sleep apnea 8 doubtful pneumonia, CT angio of the chest is consistent with CHF/pulmonary edema, however, the patient is covered with ceftriaxone and azithromycin empirically. 9 atrial fibrillation currently in normal sinus rhythm Plan The patient was seen and evaluated by Dr. Veliz. We'll continue with his current medications including antibiotics in the form of ceftriaxone and azithromycin. Continue IV Lasix. He is on heparin and being transitioned to warfarin. Pepcid for GI prophylaxis. Continue bronchodilators 3 times a day and when necessary. The patient could be transferred to the selective care unit from the pulmonary and critical care standpoint if cleared by cardiology. We' ll continue to follow and make further recommendations based on his clinical status.
--- NOTE | 2017-05-21 10:00 | PN ---
Patient is seen for follow up for acute kidney injury and volume overload. He has been extubated, currently doing fairly well. Patient remains on Lasix, it is now at 60 IV q12. He has had good urine output. Renal function has improved with serum creatinine now down to 1.1. On examination, patient is comfortable, awake, alert, oriented x3. He is not in any acute distress. Blood pressure is 99/66, heart rate 96 per minute, he is afebrile. HEART: S1/S2. LUNGS: Decreased breath sounds at the bases. Bilateral basal crackles are heard. ABDOMEN: Soft, obese, nontender. LOWER EXTREMITIES: Show not significant edema. GOLF BALL WINDER: Grossly intact. Patient is moving all four extremities. LABS: Show sodium 138, potassium 3.9, chloride 100, BUN 54, serum creatinine 1.1 , hemoglobin 12.4 gm/dl. ASSESSMENT: 1. Acute kidney injury, acute tubular necrosis, initially oliguric, currently nonoliguric and significantly improved. 2. Volume overload congestive heart failure, maintained on IV Lasix which we can continue for now. 3. Severe cardiomyopathy, ejection fraction of less than 20%. 4. Status post ST elevation myocardial infarction status post cardiac catheterization on initial admission on 05/16/2017. 5. Ventilator dependent respiratory failure status post extubation and doing well. PLAN: Continue with IV Lasix, monitor potassium, repeat labs in a.m. MTDD
--- NOTE | 2017-05-21 11:34 | ECHOF ---
Referral Reason:Chest pain and cardiomyopathy MEASUREMENTS -------- HEIGHT: 152.4 cm WEIGHT: 116.6 kg BP: 104/55 FINDINGS -------- Undetermined rhythm. Limited Study: Pt had Echo 05/16/17, Re-eval LV Function. There is severe global hypokinesis of LV . Overall left ventricular systolic function is severely impaired with, an EF between 25 - 30 %. Segmental hypokinesis. only mid and basal inf lateral segment is ir[place]. Anterseptal Hypokinesis [place] Hypokinesis. Distal Septal Hypokinesis. There is a trivial pericardial effusion present. CONCLUSIONS -------- 1. Limited Study: Pt had Echo 05/16/17, Re-eval LV Function. 2. There is severe global hypokinesis of LV . 3. Overall left ventricular systolic function is severely impaired with, an EF between 25 - 30 %. 4. Segmental hypokinesis. 5. only mid and basal inf lateral segment is irwin. 6. Anterseptal Hypokinesis 7. [place] Hypokinesis. 8. Distal Septal Hypokinesis. 9. There is a trivial pericardial effusion present. SUPPLY CHAIN SPECIALIST: Chandni Briseno RDCS
--- NOTE | 2017-05-21 11:40 | PN ---
DATE OF SERVICE: 05/20/2017 ATTENDING NOTE: This patient seen and examined by me earlier today. Discussed with the HEAD ANIMAL KEEPER, Ms. Morales, additional findings below. This is a patient with acute ST elevation myocardial infarction, status post intervention to the LAD. Patient is status post being on the ventilator, more awake, tolerating his diet, was up in the chair, breathing is better. Lantus was added last night. Patient did go into atrial fibrillation last night. Respiration 23, blood pressure 112/74, pulse ox 98% on 8 L. GENERAL APPEARANCE: Sitting up, awake. Heart sounds irregular. LUNGS: Diminished breath sounds. ASSESSMENT: 1. Acute ST-elevation, myocardial infarction with stent of the left anterior descending artery. 2. Acute renal failure, improving. 3. There is acute metabolic encephalopathy, improving. 4. New onset atrial fibrillation. 5. Diabetes mellitus type 2, uncontrolled. PLAN: Continued current medication and treatment plan. Humalog 5 units will be added with each meal. Dose of Lantus is already increased. Care was discussed with the patient and at the bedside. Prognosis guarded. MTDD
[2017-05-21] MEDS: AZITHROMYCIN 250 MG TAB PO SCH (12:30)
[2017-05-21 12:34] LABS: Glucose,Whole Blood 274 mg/dL (75-99)
[2017-05-21] MEDS: IPRATROPIUM-ALBUTEROL 3 ML NEB INHALATION SCH ×2 (13:36→20:41)
--- NOTE | 2017-05-21 17:19 | P.PN ---
<Kaycee Morales J Luis - Last Filed: 05/21/17 17:06> Progress Note - Text DATE OF SERVICE: 05/21/2017 PRESENTING COMPLAINT: Acute ST segment elevation myocardial infarction INTERVAL HISTORY: 62-year-old male transferred from [facility] due to ST segment elevation myocardial infarction. Patient was taken to the Desk Clerk and was found to have an occluded mid LAD and critical disease involving his left circumflex. Patient underwent angioplasty and stenting however LAD that was not well visualized. Patient was started on dual antiplatelet agents and moved to the ICU. Patient became increasingly short of breath, CT angiogram revealed acute CHF. Patient developed respiratory failure and required intubation. Patient has subsequently developed acute kidney injury. 05/18/2017: Patient remains intubated, awake, following commands, ventilator settings: Assist control FiO2 of 50% PEEP of 10. Patient motioning to get the tube out, attempting to mouth words. Anxious appearing. Nutrition services is been consulted for tube feeding. 05/19/2017: Patient remains intubated, awake, following commands, ventilator settings: Assist control FiO2 of 40%, PEEP of 5, patient is awake and anxious to have the tube removed, in the middle of an SBT. Insulin drip stopped yesterday Lantus was added and today blood glucose remains elevated. Lantus increased from 20 units to 30 units at at bedtime. 05/20/2017: Patient is extubated sitting at the bedside working with physical therapy. Feels a bit dizzy and lightheaded at this time. Patient ate most of his breakfast. Blood and urine cultures negative. Patient went into atrial fibrillation overnight, cardiology has been consulted. 05/21/2017: Patient lying in the bed, appears comfortable. Has not yet been up out of bed today. States appetite is better ate about 50% of his meal. Patient is aware that he stable enough to be transferred to stepdown area, this may occur later today. REVIEW OF SYSTEMS: Done for constitutional ,cardiovascular, GI, pulmonary with relevant findings as above. CURRENT MEDICATIONS Azithromycin, ceftriaxone, famotidine, Lasix, heparin IV lisinopril, metoprolol , . PHYSICAL EXAM VITAL SIGNS: Temperature 97.4, pulse 85, respiratory rate 27, blood pressure 100/64, oxygen saturation 97% on 5 L GENERAL APPEARANCE: Lying in the bed, tired appearing, weak. EYES: Pupils equal. Conjunctiva normal. NECK: JVD not raised. Mass not palpable. RESPIRATORY: Respiratory effort labored. Lungs diminished with scattered crackles to bilateral bases CARDIOVASCULAR: Irregular rhythm. Gross edema. ABDOMEN: Soft. Liver and spleen not palpable. No tenderness. No mass palpable. PSYCHIATRY: Alert and oriented x3. Mood and affect tired appearing. INVESTIGATIONS: White blood cell count 17.2, hemoglobin 12.4, INR 1.3, sodium 138, potassium 3.9 , BUN 54, creatinine 1.10. Accu-Cheks noted ASSESSMENT: -Acute ST segment anterior wall myocardial infarction status post cardiac catheterization and stenting of the LAD -Acute hypoxic respiratory failure, multifactorial, status post being on the ventilator -Diabetes mellitus type II, uncontrolled, on injectable insulin -Acute hypoxic respiratory failure requiring intubation and mechanical ventilation. -Acute renal failure likely acute tubular necrosis, likely multifactorial including hypotension, improving -Possible chronic kidney disease from diabetic nephrosclerosis -Morbid obesity -Obstructive sleep apnea -Pneumonia, although this is unlikely as CT angiogram of the chest is consistent with CHF/pulmonary marisa -Acute metabolic encephalopathy, multifactorial from multiple medical problems, improving -New onset atrial fibrillation, on heparin drip. PLAN: Atrial fibrillation will be controlled with a beta demar and anticoagulation, cardiology will add ASH inhibitor and Aldactone when cleared by nephrology. Overall kidney function has improved nephrology will continue Lasix, patient's white blood cell count bumped back up today patient is continued on antibiotic therapy. Plan of care discussed with the patient, and he is agreeable. Transfer to [facility] soon. STAMP REDEMPTION CLERK statement: Patient was seen and examined by nurse practitioner Kaycee Morales and all elements of the case discussed with attending Dr. Mckeon <Kana Mckeon - Last Filed: 05/22/17 10:49> Progress Note - Text Attending note. Date of service-05/21/2017 This patient was seen and examined by me . I reviewed the note of my nurse practitioner, Ms. Morales. Discussed with her, additional findings as below. Admitted with acute [place] with a stent to the LAD though not with good results. Patient has been in atrial fibrillation. And on IV heparin. Insulin was adjusted. at the bedside breathing is better. On examination: Respiratory rate increased, decreased breath sounds, blood pressure 99 / 66 Investigations: Telemetry shows atrial fibrillation BUN 54, creatinine 1.10, hemoglobin 12.4 Assessment and plan: Acute ST elevation myocardial infarction with stent to the LAD with not so good results Persistent atrial fibrillation now on IV heparin Care was discussed the patient and at the bedside discussed with Dr. Treviño. Patient will be started on Coumadin. Overall prognosis guarded.
[2017-05-21 17:24] LABS: Glucose,Whole Blood 190 mg/dL (75-99)
[2017-05-21] MEDS: SODIUM CHLORIDE 0.9% 1,000 ML IV SCH (19:45)
[2017-05-21] MEDS: ATORVASTATIN 80 MG TAB PO SCH (20:59)
[2017-05-21 21:03] LABS: Glucose,Whole Blood 174 mg/dL (75-99)
[2017-05-21] MEDS: INSULIN GLARGINE 100 UNIT/ML 10 ML VIAL SQ SCH (21:08)
[2017-05-22 06:29] LABS: Glucose,Whole Blood 152 mg/dL (75-99)
[2017-05-22 06:32] LABS: Basophils # (A) 0.1 k/uL (0-0.2); Basophils % (A) 1 %; CH 32.5; CHCM 32.8; Eosinophils # (A) 0.4 k/uL (0-0.7); Eosinophils % (A) 2 %; HCT 38.5 % (39.0-53.0); HDW 2.68; HGB 12.5 gm/dL (13.0-17.5); Luc # (Auto) 0.39; Luc % (Auto) 2; Lymphocytes # (A) 1.5 k/uL (1.0-4.8); Lymphocytes % (A) 8 %; MCH 32.4 pg (25.0-35.0); MCHC 32.5 g/dL (31.0-37.0); MCV 99.7 fL (80.0-100.0); Mean Platelet Volume 7.9; Monocytes # (A) 1.5 k/uL (0-1.0); Monocytes % (A) 8 %; Neutrophils # (A) 16.1 k/uL (1.3-7.7); Neutrophils % (A) 80 %; RBC 3.86 m/uL (4.30-5.90); RDW 12.6 % (11.5-15.5); WBC (Perox) 20.14
[2017-05-22 06:39] LABS: INR 1.4 (<1.2); Prothrombin Time 13.8 sec (9.0-12.0)
[2017-05-22] MEDS: INSULIN LISPRO (humaLOG) 300 UNIT/3 ML VIAL SQ SCH ×7 (07:08→21:43)
[2017-05-22] MEDS: IPRATROPIUM-ALBUTEROL 3 ML NEB INHALATION SCH ×3 (07:48→20:10)
[2017-05-22] MEDS: BISACODYL 5 MG TABLET.DR PO SCH (08:52)
[2017-05-22] MEDS: FUROSEMIDE 10 MG/ML 10 ML VIAL IV SCH ×2 (08:52→20:13)
[2017-05-22] MEDS: PRASUGREL 10 MG TAB PO SCH (08:52)
[2017-05-22] MEDS: LISINOPRIL 2.5 MG TAB PO SCH ×2 (08:52→09:42)
[2017-05-22] MEDS: ASPIRIN 325 MG TAB PO SCH (08:52)
[2017-05-22] MEDS: POLYETHYLENE GLYCOL 3350 17 GM POWD.PACK PO SCH (08:52)
[2017-05-22] MEDS: METOPROLOL TARTRATE 50 MG TAB PO SCH ×2 (08:52→20:12)
[2017-05-22] MEDS: FAMOTIDINE 20 MG TAB PO SCH ×2 (08:52→20:13)
[2017-05-22 11:58] LABS: Glucose,Whole Blood 143 mg/dL (75-99)
[2017-05-22] MEDS: SODIUM CHLORIDE 0.9% 1,000 ML IV SCH (12:23)
[2017-05-22] MEDS: HEPARIN SODIUM,PORCINE/D5W PMX 25,000 UNIT in DEXTROSE/WATER 1 500ML.BAG IV SCH (14:42)
--- NOTE | 2017-05-22 15:14 | PN ---
A 61-year-old male with a diagnosis of acute ST-segment anterior wall myocardial infarction , status post stenting of his LAD. The patient also has a history of acute pulmonary edema secondary to CHF and fluid overload, hypoxemic respiratory failure with chronic intubation, mechanical ventilation and acute kidney injury secondary to ATN and contrast nephropathy as well as diabetes, morbid obesity, sleep apnea and atrial fibrillation. The patient was in the ICU up until yesterday. Moved out the floor today. Doing reasonably well. The patient is feeling much less short of breath. Seems much more comfortable. Should be evaluated eventually for sleep apnea syndrome which he likely has. The patient's current vital signs are stable. Temperature 98.1, heart rate is 80 , respiratory rate is 20, blood pressure 103/64 with a mean of 77 and saturations are 95% to 100% on 4 L. Appears in no acute distress. HEENT examination is grossly unremarkable. Mucous membranes are moist. Nasal O2 in place. NECK: Supple, no adenopathy or thyromegaly. Neck veins are flat. Cardiovascular examination reveals regular rhythm and rate, S1, S2 normal. No S3, no S4, no murmurs. Lungs reveal a few scattered bibasilar crackles. Breath sounds are equal. No rhonchi. ABDOMEN: Soft, bowel sounds are heard. No masses or tenderness. Extremities are intact. Slight edema noted, 1+, there is pitting. Skin without rash. There are some mild venostasis changes noted. Neurologic examination nonfocal. LAB DATA is reviewed. White count is 20, hemoglobin is 12.5, hematocrit 38.5, platelet count normal. PT, INR is 13.8 and 1.4, PTT is 52. No additional labs to report. No additional recent x-rays to report. ASSESSMENT: 1. Acute ST segment elevation anterior wall myocardial infarction. The patient went in for emergency cardiac catheterization, had stenting of the left anterior descending artery. 2. Acute/flash pulmonary edema secondary to CHF. 3. Hypoxemic respiratory failure requiring intubation and mechanical ventilation, resolved. 4. Acute kidney injury secondary to acute tubular necrosis. 5. Hypotension and contrast nephropathy. 6. Diabetes mellitus. 7. Morbid obesity. 8. Sleep apnea syndrome. 9. Doubt pneumonia. 10. History of atrial fibrillation. PLAN: The patient seems to be doing relatively well. Will continue to follow closely. Medications, x-rays, labs are all reviewed. From my perspective the patient is doing well from the pulmonary standpoint. No additional recommendations are made. Again, medications are reviewed. Unnecessary medications are discontinued. MTDD
--- NOTE | 2017-05-22 15:18 | P.PN ---
Subjective Principal diagnosis: anterior wall OH This 61-year-old male was admitted with the anterior wall myocardial infarction which most probably subacute. Unfortunately patient did not have a good result at attempted stent placement of the LAD. Patient developed a picture of cardiomyopathy and CHF. Patient required ventilatory support because of pulmonary edema. 05/22/2017 Patient was seen and examined on the telemetry unit today.blood pressure 100/50 , heart rate in the 80s.White blood cell count 20, hemoglobin 12.5, INR 1.4, limited echocardiogram with Doppler study performed yesterday revealed an ejection fraction of 25-30%. Patient overall is feeling better today.improvement in appetite. Continues to have a persistent hacking cough. Objective - Vital Signs Vital signs: Vital Signs Temp 98.0 F 05/22/17 12:00 Pulse 84 05/22/17 13:27 Resp 20 05/22/17 12:00 BP 99/53 05/22/17 12:00 Pulse Ox 98 05/22/17 12:00 Intake & Output 05/21/17 05/22/17 05/22/17 18:59 06:59 18:59 Intake Total 950.771 617.084 2149 Output Total 780 700 905 Balance 170.771 72.691 105 Weight 118.6 kg 116.5 kg 116.5 kg Intake: IV 230 585 290 Heparin Sodium,Porcine/ 425 D5w Pmx 25,000 unit In Dextrose/Water 1 500ml. bag @ 8.5 UNITS/KG/HR 20. 07 mls/hr IV .Q24H SAMANTHA Rx #:[id number] Sodium Chloride 0.9% @ 20 180 160 240 ml/hr cefTRIAXone 1,000 mg In 50 50 Sodium Chloride 0.9% 50 ml @ 100 mls/hr IVPB Q24HR SAMANTHA Rx#:[id number] Intake, IV Titration 360.771 187.691 Amount Heparin Sodium,Porcine/ 360.771 187.691 D5w Pmx 25,000 unit In Dextrose/Water 1 500ml. bag @ 8.5 UNITS/KG/HR 20. 07 mls/hr IV .Q24H SAMANTHA Rx #:[id number] Oral 360 720 Output: Urine 780 700 905 Uretheral (Causey) 705 Other: Voiding Method Indwelling Catheter Indwelling Catheter Toilet Urinal # Voids 1 1 # Bowel Movements 0 ABP, PAP, CO, CI - Last Documented Arterial Blood Pressure 128/69 - Exam GENERAL EXAM: Patient is extubated. Alert and oriented. HEENT: Normocephalic. NECK: No masses, no nuchal rigidity. CHEST: No chest wall deformity. LUNGS: Diminished air exchange HEART: S1 and S2 normal with no audible mumurs or gallops. Regular rhythm, ABDOMEN: Soft SKIN: No rashes CENTRAL NERVOUS SYSTEM: Deferred EXTREMITIES: No cyanosis, clubbing or edema. - Labs CBC & Chem 7: 05/22/17 05:42 05/21/17 05:46 Labs: Abnormal Lab Results - Last 24 Hours (Table) 05/21/17 05/21/17 05/21/17 Range/Units 15:13 17:21 21:02 WBC (3.8-10.6) k/uL RBC (4.30-5.90) m/uL Hgb (13.0-17.5) gm/dL Hct (39.0-53.0) % Neutrophils # (1.3-7.7) k/uL Monocytes # (0-1.0) k/uL PT (9.0-12.0) sec INR (<1.2) APTT 40.2 H (22.0-30.0) sec POC Glucose (mg/dL) 190 H 174 H (75-99) mg/dL Calcium (8.4-10.2) mg/dL 05/21/17 05/22/17 05/22/17 Range/Units 22:53 05:42 05:42 WBC (3.8-10.6) k/uL RBC (4.30-5.90) m/uL Hgb (13.0-17.5) gm/dL Hct (39.0-53.0) % Neutrophils # (1.3-7.7) k/uL Monocytes # (0-1.0) k/uL PT 13.8 H (9.0-12.0) sec INR 1.4 H (<1.2) APTT 48.7 H 52.0 H (22.0-30.0) sec POC Glucose (mg/dL) (75-99) mg/dL Calcium 7.9 L (8.4-10.2) mg/dL 05/22/17 05/22/1717 Range/Units 05:42 06:27 11:57 WBC 20.0 H (3.8-10.6) k/uL RBC 3.86 L (4.30-5.90) m/uL Hgb 12.5 L (13.0-17.5) gm/dL Hct 38.5 L (39.0-53.0) % Neutrophils # 16.1 H (1.3-7.7) k/uL Monocytes # 1.5 H (0-1.0) k/uL PT (9.0-12.0) sec INR (<1.2) APTT (22.0-30.0) sec POC Glucose (mg/dL) 152 H 143 H (75-99) mg/dL Calcium (8.4-10.2) mg/dL Microbiology - Last 24 Hours (Table) 05/19/17 23:30 Blood Culture - Preliminary Blood No Growth after 48 hours 05/19/17 22:40 Blood Culture - Preliminary Blood No Growth after 48 hours 05/17/17 14:35 Blood Culture - Preliminary Blood No Growth after 96 hours 05/17/17 14:15 Blood Culture - Preliminary Blood No Growth after 96 hours Assessment and Plan (1) ST elevation myocardial infarction (STEMI) of anterior wall Status: Acute (2) Ischemic cardiomyopathy Status: Acute (3) Systolic CHF, acute on chronic Status: Acute (4) Diabetes Status: Acute (5) ATN (acute tubular necrosis) Status: Acute (6) Hyperlipemia Status: Acute Plan: from cardiology's perspective, we'll continue current dose of Lasix. We will add Aldactone to the patient's medication regime, obtain chest x-ray in the morning. Give 2-1/2 mg of Coumadin today. We will also put the paperwork in order for a LifeVest. Dr. Bhatt explained in detail to the patient and his why a LifeVest as necessary for prevention of sudden cardiac . DNP note has been reviewed, I agree with a documented findings and plan of care. Patient was seen and examined.
--- NOTE | 2017-05-22 16:11 | P.PN ---
<Kaycee Morales J Luis - Last Filed: 05/22/17 15:39> Progress Note - Text DATE OF SERVICE: 05/22/2017 PRESENTING COMPLAINT: Acute ST segment elevation myocardial infarction INTERVAL HISTORY: 62-year-old male transferred from [facility] due to ST segment elevation myocardial infarction. Patient was taken to the [employer] [facility] and was found to have an occluded mid LAD and critical disease involving his left circumflex. Patient underwent angioplasty and stenting however LAD that was not well visualized. Patient was started on dual antiplatelet agents and moved to the ICU. Patient became increasingly short of breath, CT angiogram revealed acute CHF. Patient developed respiratory failure and required intubation. Patient has subsequently developed acute kidney injury. 05/18/2017: Patient remains intubated, awake, following commands, ventilator settings: Assist control FiO2 of 50% PEEP of 10. Patient motioning to get the tube out, attempting to mouth words. Anxious appearing. Nutrition services is been consulted for tube feeding. 05/19/2017: Patient remains intubated, awake, following commands, ventilator settings: Assist control FiO2 of 40%, PEEP of 5, patient is awake and anxious to have the tube removed, in the middle of an SBT. Insulin drip stopped yesterday Lantus was added and today blood glucose remains elevated. Lantus increased from 20 units to 30 units at at bedtime. 05/20/2017: Patient is extubated sitting at the bedside working with physical therapy. Feels a bit dizzy and lightheaded at this time. Patient ate most of his breakfast. Blood and urine cultures negative. Patient went into atrial fibrillation overnight, cardiology has been consulted. 05/21/2017: Patient lying in the bed, appears comfortable. Has not yet been up out of bed today. States appetite is better ate about 50% of his meal. Patient is aware that he stable enough to be transferred to stepdown area, this may occur later today. 05/22/2017: Patient sitting up in chair, ate all of his breakfast, states he feels better today and he has in the past days. Ambulatory in the room with a walker, in the hallway with a walker has walked about a third of the hallway with assistance. "No BM yet however does feel"gassy" REVIEW OF SYSTEMS: Done for constitutional ,cardiovascular, GI, pulmonary with relevant findings as above. CURRENT MEDICATIONS Azithromycin, ceftriaxone, famotidine, Lasix, heparin IV lisinopril, metoprolol , . PHYSICAL EXAM VITAL SIGNS: Temperature 98.1, pulse 87, respiratory rate 18, blood pressure 115/85, oxygen saturation 99% on 5 L GENERAL APPEARANCE: Sitting up in the chair at the bedside tired appearing, but much perkier than in days past. EYES: Pupils equal. Conjunctiva normal. NECK: JVD not raised. Mass not palpable. RESPIRATORY: Respiratory effort labored. Lungs diminished with scattered crackles to bilateral bases CARDIOVASCULAR: Irregular rhythm. Gross edema. ABDOMEN: Soft. Liver and spleen not palpable. No tenderness. No mass palpable. PSYCHIATRY: Alert and oriented x3. Mood and affect tired appearing, perkier. INVESTIGATIONS: White blood cell count 20.0, hemoglobin 12.5, INR 1.4, Accu-Cheks noted. ASSESSMENT: -Acute ST segment anterior wall myocardial infarction status post cardiac catheterization and stenting of the LAD with less than optimal results -Acute hypoxic respiratory failure, multifactorial, status post being on the ventilator -Diabetes mellitus type II, uncontrolled, on injectable insulin -Acute hypoxic respiratory failure requiring intubation and mechanical ventilation. -Acute renal failure likely acute tubular necrosis, likely multifactorial including hypotension, improving -Possible chronic kidney disease from diabetic nephrosclerosis -Morbid obesity -Obstructive sleep apnea -Pneumonia, although this is unlikely as CT angiogram of the chest is consistent with CHF/pulmonary marisa -Acute metabolic encephalopathy, multifactorial from multiple medical problems, improving -Persistent atrial fibrillation, Coumadin for anticoagulation PLAN: White blood cell count elevated again today and will continue with antibiotics, Coumadin therapy initiated. Will likely require other antiplatelet agents defer to cardiology. Lasix to continue as well as adding Aldactone tomorrow. Anticipate patient being fitted for a LifeVest. We'll continue to monitor closely. PUBLICATIONS DISTRIBUTION CLERK statement: Patient was seen and examined by nurse practitioner Kaycee Morales and all elements of the case discussed with attending Dr. Mckeon <Kana Mckeon - Last Filed: 05/22/17 22:36> Progress Note - Text Attending note. Date of service-05/22/2017 This patient was seen and examined by me . I reviewed the note of my nurse practitioner, Ms. Morales. Discussed with her, additional findings as below. Patient be admitted with acute ST elevation LA with intervention to LAD though unsuccessfully. Tolerating his diet. Slightly short of breath On examination: Laying in bed tired appearing, lungs decreased breath sounds, blood pressure 103 /64 Investigations: 2-D echo shows EF of 25-30% Accu-Cheks noted Assessment and plan: Acute ST elevation microinfarction with unsuccessful intervention to LAD Acute ischemic cardio myopathy from systolic dysfunction EF 20-25% next diabetes uncontrolled New-onset atrial fibrillation Coumadinstarted. Patient was on Lantus and Humalog was further adjusted. Care was discussed with the patient and at the bedside. prognosis guarded. LifeVest has been ordered by cardiology
[2017-05-22 17:06] LABS: Glucose,Whole Blood 185 mg/dL (75-99)
[2017-05-22] MEDS: WARFARIN 2.5 MG TAB PO SCH (17:24)
[2017-05-22] MEDS: ACETAMINOPHEN TAB 325 MG TAB PO PRN (20:12)
[2017-05-22] MEDS: ATORVASTATIN 80 MG TAB PO SCH (20:13)
[2017-05-22 21:04] LABS: Glucose,Whole Blood 164 mg/dL (75-99)
[2017-05-22] MEDS: INSULIN GLARGINE 100 UNIT/ML 10 ML VIAL SQ SCH (21:43)
[2017-05-23] MEDS: HEPARIN SODIUM,PORCINE/D5W PMX 25,000 UNIT in DEXTROSE/WATER 1 500ML.BAG IV SCH ×2 (02:20→12:25)
[2017-05-23 05:56] LABS: Glucose,Whole Blood 145 mg/dL (75-99)
[2017-05-23 06:27] LABS: Basophils # (A) 0.1 k/uL (0-0.2); Basophils % (A) 1 %; CH 32.5; CHCM 33.1; Eosinophils # (A) 0.3 k/uL (0-0.7); Eosinophils % (A) 2 %; HCT 36.2 % (39.0-53.0); HDW 2.68; HGB 11.7 gm/dL (13.0-17.5); Luc # (Auto) 0.35; Luc % (Auto) 2; Lymphocytes # (A) 1.2 k/uL (1.0-4.8); Lymphocytes % (A) 7 %; MCH 31.8 pg (25.0-35.0); MCHC 32.3 g/dL (31.0-37.0); MCV 98.5 fL (80.0-100.0); Mean Platelet Volume 7.9; Monocytes # (A) 1.7 k/uL (0-1.0); Monocytes % (A) 10 %; Neutrophils # (A) 13.9 k/uL (1.3-7.7); Neutrophils % (A) 79 %; RBC 3.68 m/uL (4.30-5.90); RDW 12.6 % (11.5-15.5); WBC 17.5 k/uL (3.8-10.6); WBC (Perox) 17.23
[2017-05-23 06:31] LABS: Anion Gap 9 mmol/L; Blood Urea Nitrogen 59 mg/dL (9-20); Calcium 7.6 mg/dL (8.4-10.2); Carbon Dioxide 30 mmol/L (22-30); Chloride 96 mmol/L (98-107); Glucose 132 mg/dL (74-99); INR 1.4 (<1.2); Non-African American GFR(MDRD) 60 (>60 ml/min/1.73 sqM); Partial Thromboplastin Time 61.9 sec (22.0-30.0); Potassium 3.4 mmol/L (3.5-5.1); Prothrombin Time 14.1 sec (9.0-12.0); Sodium 135 mmol/L (137-145)
[2017-05-23] MEDS ORDERED: LACTULOSE 20 GM/30 ML CUP PO ONE (06:59)
[2017-05-23] MEDS: INSULIN LISPRO (humaLOG) 300 UNIT/3 ML VIAL SQ SCH ×7 (07:10→21:06)
[2017-05-23] MEDS: IPRATROPIUM-ALBUTEROL 3 ML NEB INHALATION SCH ×3 (07:14→19:21)
[2017-05-23] MEDS: POLYETHYLENE GLYCOL 3350 17 GM POWD.PACK PO SCH (08:11)
[2017-05-23] MEDS: FAMOTIDINE 20 MG TAB PO SCH ×2 (08:11→21:06)
[2017-05-23] MEDS: POTASSIUM CHLORIDE ER 20 MEQ TAB.ER PO SCH ×2 (08:11→12:09)
[2017-05-23] MEDS: SPIRONOLACTONE 25 MG TAB PO SCH (08:12)
[2017-05-23] MEDS: ASPIRIN 81 MG PO SCH (08:12)
[2017-05-23] MEDS: FUROSEMIDE 10 MG/ML 10 ML VIAL IV SCH (08:12)
[2017-05-23] MEDS: PRASUGREL 10 MG TAB PO SCH (08:12)
[2017-05-23] MEDS: METOPROLOL TARTRATE 50 MG TAB PO SCH ×2 (08:12→21:06)
[2017-05-23] MEDS: LISINOPRIL 2.5 MG TAB PO SCH (08:12)
[2017-05-23] MEDS: BISACODYL 5 MG TABLET.DR PO SCH (08:13)
--- NOTE | 2017-05-23 08:32 | XR ---
EXAMINATION TYPE: XR chest 2V DATE OF EXAM: 05/23/2017 COMPARISON: Prior chest x-ray 05/20/2017 HISTORY: Congestive heart failure, coronary artery disease TECHNIQUE: Frontal and lateral views of the chest are obtained. FINDINGS: The heart remains enlarged. There is improvement in aeration as compared to prior exam. So me residual airspace disease or atelectasis is suspected possibly indicating edema or pneumonia. No p neumothorax. No sizable effusion. There are overlying cardiac leads. IMPRESSION: Improvement in aeration, volume status.
--- NOTE | 2017-05-23 10:58 | PN ---
The patient is seen for follow-up for acute kidney injury. He is currently doing well. The patient is actually in the shower. He denies any chest pain, shortness of breath, nausea or vomiting. He is maintained on IV Lasix. This was decreased to 60 mg IV q12 hours. His serum creatinine was 1.1 yesterday, ( ) 1.23 today. On examination, blood pressure is 111/61. Heart rate 95 per minute. The patient is afebrile. Examination of the heart, S1, S2. ( ) examination shows no evidence of edema in the lower extremities. Abdomen is soft, nontender. He appears to be fairly euvolemic. Labs show sodium 135. Potassium 3.4. Chloride 96. ( ) creatinine 1.23. Hemoglobin 11.7. ASSESSMENT: 1. Acute kidney injury, acute tubular necrosis, initially oliguric, currently improved. 2. Volume overload/systolic heart failure, chronic with acute exacerbation currently improving. 3. Volume overload, maintained on IV Lasix. We can decrease it to 40 mg IV q12 hours and switch to po possibly tomorrow. 4. Status post vent dependent respiratory failure. 5. Status post ST elevation myocardial infarction with cardiac catheterization with no plans for further intervention at this time. 6. Hypokalemia, we will replace. PLAN: Decrease Lasix. Replace potassium. Repeat labs in the a.m. Continue to avoid nephrotoxic agents. Avoid hypotension. MTDD
--- NOTE | 2017-05-23 11:20 | P.PN ---
Subjective Acute ST elevation myocardial infarction, and respiratory failure secondary to congestive heart failure. 62-year-old male patient who got transferred from [facility] because of acute ST segment elevation myocardial infarction. The patient had anterior wall septal wall WI along with LAD distribution. The patient was taken immediately to cardiac catheterization he was found to have occluded mid LAD and critical disease involving the left circumflex. Based on that, patient underwent angioplasty and stenting of the mid LAD and follow-up angiogram showed good angiographic results of the stented segment but the distal LAD bed was not well-visualized because of competitive flow and probably LAD distally occluded with clots. The patient was started on dual antiplatelet agents and he was moved to the intensive care unit. Within the afternoon, the patient became progressively more short of breath. He was taken for a CT angios the chest which confirmed the findings of acute CHF. No clots were seen in the pulmonary artery branches. Within next few hours the patient even got more short of breath and he went into respiratory failure. At that point I was involved in the case and I was informed of the above-mentioned changes. I recommended immediate intubation and the patient was placed on a mechanical ventilator. Following that he was sedated with Diprivan. The patient is currently on a assist-control mode rate of 24, tidal volume of 400, FiO2 of 70% and a PEEP of 10. Morning blood gases showed a pH 7.43 with a pCO2 of 36.5 and a pO2 of 175 and based on that the FiO2 is being further weaned off. Urine output at this point is around 10 mL an hour. His systolic blood pressures in the 110 range. His creatinine is up to 1.8. He has suffered an acute kidney injury. ST segment elevation is still present on the EKG and has been present since yesterday. There is diffuse ST segment elevation involving V2, V2, V3, V4 , V5, V6, and also the inferior leads. Furthermore, a stat echocardiogram was done and it showed EF less than 20%. The patient's left ventricular end- diastolic pressure based on the cardiac catheterization was quite elevated at 36. This morning, the chest x-ray showing improvement of pulmonary edema. She was in good location. The patient is cardiomegaly. The patient on Lasix 40 mg IV push every 12 hours. The patient is also on a combination of aspirin and Effient, and he was ordered metoprolol 5 mg by mouth twice a day. He is also on lisinopril of 10 mg by mouth daily has not been given this morning. He was empirically covered also with a combination of Rocephin and Zithromax. He is on a 30 mg of prednisone. The patient is seen again today 05/18/2017 in follow-up in the intensive care unit. He remains intubated and on the mechanical ventilator. Current settings are assist-control 24, tidal volume 400, FiO2 of 50% and a PEEP of 10. Morning blood gases reveal a pO2 of 91, pCO2 37 and a pH of 7.46. He remains sedated on to propofol at 25 mcg/kg/m. He has a 0.9 normal saline at 75 MLS per hour. He is on insulin drip at 0.5 units per hour. He is arousable. He follows commands. His chest x-ray continues to show evidence of congestive heart failure with basilar atelectasis and small effusions. His renal function has worsened with the current creatinine of 3.40. His urine output is marginal. Ultrasound of the kidneys revealed no evidence of hydronephrosis. Telemetry continues to demonstrate elevated ST segments. Troponin increased at 45.5. This remains hemodynamically stable. Currently on no pressors. He is febrile with a temperature of 100.2. White count 21.7. He is currently on ceftriaxone and azithromycin. Seen again on 05/19/2017, patient remains on mechanical ventilation, however his ABG seems to be significantly better, chest x-ray is showing definite improvement in his pulmonary edema, ABG was reviewed, bedside weaning parameters were noted, hence I went ahead and recommended switching the patient to a pressure support of 8 and CPAP. Urine output seems to be adequate, remains on Lasix at 60 mg IV push every 12 hours, patient was placed on pressure support and CPAP, and I was able to monitor his pulmonary status while I'm at bedside. After 20 minutes of pressure support and CPAP, patient continued to do well, he had good ABG, hence I recommended extubation. Patient was extubated to nasal cannula, I saw him again one hour post extubation, and he was doing quite well in no form of distress. Preextubation gases showed a pO2 of 96 pCO2 of 36 pH of 7.45. Renal profile seems to be better today compared to yesterday, and this is in spite of aggressive diuresis. Patient remains on 60 mg of Lasix IV push every 12 hours. Patient is seen again today 05/21/2017 in follow-up in the intensive care unit. He is awake and alert in no acute distress. He has been maintaining good O2 saturations in the mid 90s on 5 L of high flow nasal cannula. He's been hemodynamically stable. He is currently on IV 0.9 at a KVO. He is maintained on a heparin drip and is being transitioned to warfarin. Current white count 17.2, hemoglobin 12.4, INR 1.3 and his creatinine continues to improve currently at 1.10. He remains on Lasix 60 mg IV every 12 hours. He denies any worsening shortness of breath, cough or congestion. He denies any chest pain, palpitations, lightheadedness or dizziness. The patient is seen again today 05/23/2017 in follow-up on the selective care unit. He is currently sitting up in the chair at the bedside. He is awake and alert in no acute distress. He is still quite dyspneic on minimal exertion. He is maintaining good O2 saturations in the high 90s on 2 L/m per nasal cannula. His been afebrile. Hemodynamically stable. He remains in atrial fibrillation with good rate control. Current white count 17.5, hemoglobin 11.7 , creatinine 1.23. INR 1.4. He has been initiated on warfarin. He remains on heparin drip. Blood cultures revealed no growth to date. Objective - Vital Signs Vital signs: Vital Signs Temp 96.9 F L 05/23/17 08:00 Pulse 95 05/23/17 08:00 Resp 22 05/23/17 08:00 BP 111/61 05/23/17 08:00 Pulse Ox 98 05/23/17 08:00 Intake & Output 05/22/17 05/23/17 05/23/17 18:59 06:59 18:59 Intake Total 1510 500 240 Output Total 1305 Balance 205 500 240 Weight 116.5 kg 116.8 kg Intake: IV 290 240 Sodium Chloride 0.9% @ 20 240 240 ml/hr cefTRIAXone 1,000 mg In 50 Sodium Chloride 0.9% 50 ml @ 100 mls/hr IVPB Q24HR [facility] Rx#:[id number] Intake, IV Titration 500 Amount Heparin Sodium,Porcine/ 500 D5w Pmx 25,000 unit In Dextrose/Water 1 500ml. bag @ 8.5 UNITS/KG/HR 20. 07 mls/hr IV .Q24H [facility] Rx #:[id number] Oral 1220 0 Output: Urine 1305 Uretheral (Causey) 705 Other: Voiding Method Toilet Toilet Toilet Urinal Urinal Urinal # Voids 1 2 # Bowel Movements 0 ABP, PAP, CO, CI - Last Documented Arterial Blood Pressure 128/69 - Exam Head exam was generally normal. There was no scleral icterus or corneal arcus. Mucous membranes were moist. Neck is short and supple and there is significant shortening of the neck. No neck stiffness. No JVDs can be visualized. Lung sounds are diminished bilaterally. No wheezes overall currently crackles at this point. Heart sounds are regular, distant, positive S1 and S2 with an S3 gallop. No murmurs appreciated. Abdominal exam revealed normal bowel sounds. The abdomen was soft, non-tender, and without masses, organomegaly, or appreciable enlargement of the abdominal aorta. Patient is obese and organs cannot be accurately palpated. Neurologically the patient is awake and alert and intact. He can move all 4 extremities. Peripheral pulses are intact. - Labs CBC & Chem 7: 05/23/17 05:35 05/23/17 05:35 Labs: Abnormal Lab Results - Last 24 Hours (Table) 05/22/17 05/22/17 05/22/17 Range/Units 11:57 17:03 21:00 WBC (3.8-10.6) k/uL RBC (4.30-5.90) m/uL Hgb (13.0-17.5) gm/dL Hct (39.0-53.0) % Neutrophils # (1.3-7.7) k/uL Monocytes # (0-1.0) k/uL PT (9.0-12.0) sec INR (<1.2) APTT (22.0-30.0) sec Sodium (137-145) mmol/L Potassium (3.5-5.1) mmol/L Chloride (98-107) mmol/L BUN (9-20) mg/dL Glucose (74-99) mg/dL POC Glucose (mg/dL) 143 H 185 H 164 H (75-99) mg/dL Calcium (8.4-10.2) mg/dL 05/23/17 05/23/17 05/23/17 Range/Units 05:35 05:35 05:35 WBC 17.5 H (3.8-10.6) k/uL RBC 3.68 L (4.30-5.90) m/uL Hgb 11.7 L (13.0-17.5) gm/dL Hct 36.2 L (39.0-53.0) % Neutrophils # 13.9 H (1.3-7.7) k/uL Monocytes # 1.7 H (0-1.0) k/uL PT 14.1 H (9.0-12.0) sec INR 1.4 H (<1.2) APTT 61.9 H (22.0-30.0) sec Sodium 135 L (137-145) mmol/L Potassium 3.4 L (3.5-5.1) mmol/L Chloride 96 L (98-107) mmol/L BUN 59 H (9-20) mg/dL Glucose 132 H (74-99) mg/dL POC Glucose (mg/dL) (75-99) mg/dL Calcium 7.6 L (8.4-10.2) mg/dL 05/23/17 Range/Units 05:54 WBC (3.8-10.6) k/uL RBC (4.30-5.90) m/uL Hgb (13.0-17.5) gm/dL Hct (39.0-53.0) % Neutrophils # (1.3-7.7) k/uL Monocytes # (0-1.0) k/uL PT (9.0-12.0) sec INR (<1.2) APTT (22.0-30.0) sec Sodium (137-145) mmol/L Potassium (3.5-5.1) mmol/L Chloride (98-107) mmol/L BUN (9-20) mg/dL Glucose (74-99) mg/dL POC Glucose (mg/dL) 145 H (75-99) mg/dL Calcium (8.4-10.2) mg/dL Microbiology - Last 24 Hours (Table) 05/19/17 23:30 Blood Culture - Preliminary Blood No Growth after 72 hours 05/19/17 22:40 Blood Culture - Preliminary Blood No Growth after 72 hours 05/17/17 14:35 Blood Culture - Preliminary Blood No Growth after 120 hours 05/17/17 14:15 Blood Culture - Preliminary Blood No Growth after 120 hours Assessment and Plan Plan: Assessment [address] segment anterior wall myocardial infarction. The patient was having chest pain few days prior to his hospital admission and came in for an acute ST segment elevation myocardial infarction. He had emergent cardiac catheterization and stenting of the LAD. Please refer to the catheter report for further details. The patient also has a tight circumflex lesion in the order of 80-90%. Currently on aspirin and Effient. 2 acute pulmonary edema secondary to CHF much improved. 3 acute hypoxic respiratory failure secondary to above mentioned improved. 4 acute kidney injury due to a combination of low cardiac output and contrast. Rule out contrast nephropathy. Urine output remains marginal at this point. Creatinine is down to 1.23. 5 diabetes mellitus with poorly controlled blood sugars 6 morbid obesity 7 obstructive sleep apnea 8 doubtful pneumonia, CT angio of the chest is consistent with CHF/pulmonary edema. 9 atrial fibrillation remains on IV heparin, warfarin has been initiated. Plan The patient was seen and evaluated by Dr. Veliz. He is stable from the pulmonary and critical care standpoint. Cardiology is planning to place a LifeVest on the patient regarding his significant ischemic cardiomyopathy and risk for ventricular arrhythmias. Continue IV Lasix. He is on heparin and being transitioned to warfarin. Pepcid for GI prophylaxis. Continue bronchodilators 3 times a day and when necessary. We'll continue to follow and make further recommendations based on his clinical status.
--- NOTE | 2017-05-23 11:24 | P.PN ---
Subjective Principal diagnosis: anterior wall ID This 61-year-old male was admitted with the anterior wall myocardial infarction which most probably subacute. Unfortunately patient did not have a good result at attempted stent placement of the LAD. Patient developed a picture of cardiomyopathy and CHF. Patient required ventilatory support because of pulmonary edema. 05/22/2017 Patient was seen and examined on the telemetry unit today.blood pressure 100/50 , heart rate in the 80s.White blood cell count 20, hemoglobin 12.5, INR 1.4, limited echocardiogram with Doppler study performed yesterday revealed an ejection fraction of 25-30%. Patient overall is feeling better today.improvement in appetite. Continues to have a persistent hacking cough. 05/23/2017 Patient seen and examined this morning, Blood pressure 110/60, heart rate in the 90s. INR 1.4. Patient sitting up in the chair. Coughing is somewhat improved today overall. Creatinine 1.2. Potassium 3.4. Continues to be on IV Lasix. Chest x-ray from today reveals improvement in aeration and volume status. Objective - Vital Signs Vital signs: Vital Signs Temp 96.9 F L 05/23/17 08:00 Pulse 95 05/23/17 08:00 Resp 22 05/23/17 08:00 BP 111/61 05/23/17 08:00 Pulse Ox 98 05/23/17 08:00 Intake & Output 05/22/17 05/23/17 05/23/17 18:59 06:59 18:59 Intake Total 1510 500 240 Output Total 1305 Balance 205 500 240 Weight 116.5 kg 116.8 kg Intake: IV 290 240 Sodium Chloride 0.9% @ 20 240 240 ml/hr cefTRIAXone 1,000 mg In 50 Sodium Chloride 0.9% 50 ml @ 100 mls/hr IVPB Q24HR [facility] Rx#:[id number] Intake, IV Titration 500 Amount Heparin Sodium,Porcine/ 500 D5w Pmx 25,000 unit In Dextrose/Water 1 500ml. bag @ 8.5 UNITS/KG/HR 20. 07 mls/hr IV .Q24H [facility] Rx #:[id number] Oral 1220 0 Output: Urine 1305 Uretheral (Causey) 705 Other: Voiding Method Toilet Toilet Toilet Urinal Urinal Urinal # Voids 1 2 # Bowel Movements 0 ABP, PAP, CO, CI - Last Documented Arterial Blood Pressure 128/69 - Exam GENERAL EXAM: Patient is extubated. Alert and oriented. HEENT: Normocephalic. NECK: No masses, no nuchal rigidity. CHEST: No chest wall deformity. LUNGS: Diminished air exchange HEART: S1 and S2 normal with no audible mumurs or gallops. Regular rhythm, ABDOMEN: Soft SKIN: No rashes CENTRAL NERVOUS SYSTEM: Deferred EXTREMITIES: No cyanosis, clubbing or edema. - Labs CBC & Chem 7: 05/23/17 05:35 05/23/17 05:35 Labs: Abnormal Lab Results - Last 24 Hours (Table) 05/22/17 05/22/17 05/22/17 Range/Units 11:57 17:03 21:00 WBC (3.8-10.6) k/uL RBC (4.30-5.90) m/uL Hgb (13.0-17.5) gm/dL Hct (39.0-53.0) % Neutrophils # (1.3-7.7) k/uL Monocytes # (0-1.0) k/uL PT (9.0-12.0) sec INR (<1.2) APTT (22.0-30.0) sec Sodium (137-145) mmol/L Potassium (3.5-5.1) mmol/L Chloride (98-107) mmol/L BUN (9-20) mg/dL Glucose (74-99) mg/dL POC Glucose (mg/dL) 143 H 185 H 164 H (75-99) mg/dL Calcium (8.4-10.2) mg/dL 05/23/17 05/23/17 05/23/17 Range/Units 05:35 05:35 05:35 WBC 17.5 H (3.8-10.6) k/uL RBC 3.68 L (4.30-5.90) m/uL Hgb 11.7 L (13.0-17.5) gm/dL Hct 36.2 L (39.0-53.0) % Neutrophils # 13.9 H (1.3-7.7) k/uL Monocytes # 1.7 H (0-1.0) k/uL PT 14.1 H (9.0-12.0) sec INR 1.4 H (<1.2) APTT 61.9 H (22.0-30.0) sec Sodium 135 L (137-145) mmol/L Potassium 3.4 L (3.5-5.1) mmol/L Chloride 96 L (98-107) mmol/L BUN 59 H (9-20) mg/dL Glucose 132 H (74-99) mg/dL POC Glucose (mg/dL) (75-99) mg/dL Calcium 7.6 L (8.4-10.2) mg/dL 05/23/17 Range/Units 05:54 WBC (3.8-10.6) k/uL RBC (4.30-5.90) m/uL Hgb (13.0-17.5) gm/dL Hct (39.0-53.0) % Neutrophils # (1.3-7.7) k/uL Monocytes # (0-1.0) k/uL PT (9.0-12.0) sec INR (<1.2) APTT (22.0-30.0) sec Sodium (137-145) mmol/L Potassium (3.5-5.1) mmol/L Chloride (98-107) mmol/L BUN (9-20) mg/dL Glucose (74-99) mg/dL POC Glucose (mg/dL) 145 H (75-99) mg/dL Calcium (8.4-10.2) mg/dL Microbiology - Last 24 Hours (Table) 05/19/17 23:30 Blood Culture - Preliminary Blood No Growth after 72 hours 05/19/17 22:40 Blood Culture - Preliminary Blood No Growth after 72 hours 05/17/17 14:35 Blood Culture - Preliminary Blood No Growth after 120 hours 05/17/17 14:15 Blood Culture - Preliminary Blood No Growth after 120 hours Assessment and Plan (1) ST elevation myocardial infarction (STEMI) of anterior wall Status: Acute (2) Ischemic cardiomyopathy Status: Acute (3) Systolic CHF, acute on chronic Status: Acute (4) Diabetes Status: Acute (5) ATN (acute tubular necrosis) Status: Acute (6) Hyperlipemia Status: Acute Plan: From cardiology's perspective, we'll continue current dose of Lasix. Patient will also be fitted for a LifeVest for prevention of sudden cardiac . Him and his both been educated thoroughly regarding this. If patient continues to do well we will plan for possible discharge home Saturday or Saturday. DNP note has been reviewed, I agree with a documented findings and plan of care. Patient was seen and examined.
[2017-05-23 11:45] LABS: Glucose,Whole Blood 129 mg/dL (75-99)
[2017-05-23] MEDS: SODIUM CHLORIDE 0.9% 1,000 ML IV SCH (12:07)
[2017-05-23] MEDS ORDERED: LACTULOSE 20 GM/30 ML CUP PO PRN (12:18)
--- NOTE | 2017-05-23 12:44 | P.PN ---
Progress Note - Text This is an addendum to the progress note dictated earlier today. Because of the patient's persistent hacking cough, we will discontinue the ASH inhibitor and start the patient on angiotensin demar to see if the cough improves. DNP note has been reviewed, I agree with a documented findings and plan of care. Patient was seen and examined.
[2017-05-23 14:32] VITALS: BMI 36.9
[2017-05-23] MEDS: LOSARTAN 25 MG TAB PO SCH (14:48)
--- NOTE | 2017-05-23 16:14 | P.PN ---
Progress Note - Text DATE OF SERVICE: 05/23/2017 PRESENTING COMPLAINT: Acute ST segment elevation myocardial infarction INTERVAL HISTORY: 62-year-old male transferred from [facility] due to ST segment elevation myocardial infarction. Patient was taken to the Regulatory Assistant and was found to have an occluded mid LAD and critical disease involving his left circumflex. Patient underwent angioplasty and stenting however LAD that was not well visualized. Patient was started on dual antiplatelet agents and moved to the ICU. Patient became increasingly short of breath, CT angiogram revealed acute CHF. Patient developed respiratory failure and required intubation. Patient has subsequently developed acute kidney injury. 05/18/2017: Patient remains intubated, awake, following commands, ventilator settings: Assist control FiO2 of 50% PEEP of 10. Patient motioning to get the tube out, attempting to mouth words. Anxious appearing. Nutrition services is been consulted for tube feeding. 05/19/2017: Patient remains intubated, awake, following commands, ventilator settings: Assist control FiO2 of 40%, PEEP of 5, patient is awake and anxious to have the tube removed, in the middle of an SBT. Insulin drip stopped yesterday Lantus was added and today blood glucose remains elevated. Lantus increased from 20 units to 30 units at at bedtime. 05/20/2017: Patient is extubated sitting at the bedside working with physical therapy. Feels a bit dizzy and lightheaded at this time. Patient ate most of his breakfast. Blood and urine cultures negative. Patient went into atrial fibrillation overnight, cardiology has been consulted. 05/21/2017: Patient lying in the bed, appears comfortable. Has not yet been up out of bed today. States appetite is better ate about 50% of his meal. Patient is aware that he stable enough to be transferred to stepdown area, this may occur later today. 05/22/2017: Patient sitting up in chair, ate all of his breakfast, states he feels better today and he has in the past days. Ambulatory in the room with a walker, in the hallway with a walker has walked about a third of the hallway with assistance. "No BM yet however does feel"gassy" 05/23/2017: Sitting up in the chair, states he feels better. Ambulating in the [facility] about shelter up and back. He is tolerating his diet, had a BM today. Awaiting a LifeVest. Persistent hacking cough noted. Cardiology adjusted his medications. Remains in atrial fibrillation rate controlled, warfarin initiated. Bronchodilators continue per pulmonology. Continues on IV Lasix due to volume overload. REVIEW OF SYSTEMS: Done for constitutional ,cardiovascular, GI, pulmonary with relevant findings as above. CURRENT MEDICATIONS Azithromycin, ceftriaxone, famotidine, IV Lasix, warfarin, heparin lisinopril, metoprolol, . PHYSICAL EXAM VITAL SIGNS: Temperature 96.8, pulse 95, respiratory rate 22, oxygen saturation 98% on 2 L, blood pressure 111/61 GENERAL APPEARANCE: Sitting up in the chair at the bedside a bit perkier, . EYES: Pupils equal. Conjunctiva normal. NECK: JVD not raised. Mass not palpable. RESPIRATORY: Respiratory effort labored. Lungs diminished with scattered crackles to bilateral bases CARDIOVASCULAR: Irregular rhythm. Gross edema. ABDOMEN: Soft. Liver and spleen not palpable. No tenderness. No mass palpable. PSYCHIATRY: Alert and oriented x3. Mood and affect calm cooperative. INVESTIGATIONS: White blood cell count 17.5, hemoglobin is 11.7, INR 1.4, sodium 135, potassium 3.4, Accu-Cheks noted. ASSESSMENT: -Acute ST segment anterior wall myocardial infarction status post cardiac catheterization and unsuccessful stenting of the LAD with less than optimal results -Acute ischemic cardiomyopathy from systolic dysfunction EF 20-25% -Acute hypoxic respiratory failure, multifactorial, status post being on the ventilator -Diabetes mellitus type II, uncontrolled, on injectable insulin -Acute hypoxic respiratory failure requiring intubation and mechanical ventilation. -Acute renal failure likely acute tubular necrosis, likely multifactorial including hypotension, improving -Possible chronic kidney disease from diabetic nephrosclerosis -Morbid obesity -Obstructive sleep apnea -Pneumonia, although this is unlikely as CT angiogram of the chest is consistent with CHF/pulmonary edema -Acute metabolic encephalopathy, multifactorial from multiple medical problems, improving -Persistent atrial fibrillation, Coumadin for anticoagulation PLAN: White blood cell count elevated again today and will continue with antibiotics, Coumadin therapy initiated. Will likely require other antiplatelet agents defer to cardiology. Continue bronchodilators Lasix to continue to be switched to by mouth tomorrow per nephrology. Await fitting for a LifeVest. We'll continue to monitor closely. 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 Mckeon
[2017-05-23 16:47] LABS: Glucose,Whole Blood 131 mg/dL (75-99)
[2017-05-23] MEDS: WARFARIN 2.5 MG TAB PO SCH (17:06)
[2017-05-23 20:45] LABS: Glucose,Whole Blood 147 mg/dL (75-99)
[2017-05-23] MEDS ORDERED: FUROSEMIDE 10 MG/ML 4 ML VIAL IV SCH (21:00)
[2017-05-23] MEDS ORDERED: LACTULOSE 20 GM/30 ML CUP PO SCH (21:00)
[2017-05-23] MEDS: INSULIN GLARGINE 100 UNIT/ML 10 ML VIAL SQ SCH (21:06)
[2017-05-23] MEDS: ATORVASTATIN 80 MG TAB PO SCH (21:06)
[2017-05-24] MEDS: HEPARIN SODIUM,PORCINE/D5W PMX 25,000 UNIT in DEXTROSE/WATER 1 500ML.BAG IV SCH ×2 (01:30→08:33)
[2017-05-24 05:43] LABS: Glucose,Whole Blood 164 mg/dL (75-99)
[2017-05-24 06:43] LABS: Basophils # (A) 0.1 k/uL (0-0.2); Basophils % (A) 0 %; CH 32.4; CHCM 32.8; Eosinophils # (A) 0.1 k/uL (0-0.7); Eosinophils % (A) 1 %; HCT 36.8 % (39.0-53.0); HDW 2.63; HGB 11.9 gm/dL (13.0-17.5); Luc # (Auto) 0.45; Luc % (Auto) 2; Lymphocytes # (A) 1.4 k/uL (1.0-4.8); Lymphocytes % (A) 7 %; MCH 32.2 pg (25.0-35.0); MCHC 32.5 g/dL (31.0-37.0); MCV 99.1 fL (80.0-100.0); Mean Platelet Volume 7.8; Monocytes # (A) 1.8 k/uL (0-1.0); Monocytes % (A) 9 %; Neutrophils # (A) 17.2 k/uL (1.3-7.7); Neutrophils % (A) 81 %; RBC 3.71 m/uL (4.30-5.90); RDW 13.2 % (11.5-15.5); WBC 21.1 k/uL (3.8-10.6); WBC (Perox) 21.92
[2017-05-24 06:52] LABS: INR 1.5 (<1.2); Prothrombin Time 14.5 sec (9.0-12.0)
[2017-05-24 06:58] LABS: Anion Gap 12 mmol/L; Blood Urea Nitrogen 65 mg/dL (9-20); Carbon Dioxide 27 mmol/L (22-30); Chloride 94 mmol/L (98-107); Glucose 164 mg/dL (74-99); Non-African American GFR(MDRD) 51 (>60 ml/min/1.73 sqM); Potassium 3.6 mmol/L (3.5-5.1); Sodium 133 mmol/L (137-145)
[2017-05-24] MEDS: INSULIN LISPRO (humaLOG) 300 UNIT/3 ML VIAL SQ SCH ×4 (07:17→12:21)
--- NOTE | 2017-05-24 08:31 | P.PN ---
Subjective Patient is seen for follow-up for acute kidney injury. He was admitted to the hospital with ST elevation [place] and had a cardiac catheterization which showed significant cardiomyopathy and severe coronary artery disease. No plans for intervention No plans for surgery. Patient had been dependent respiratory failure and was on the ventilator. He was in severe volume overload and congestive heart failure. Patient has been diuresed aggressively. His renal function improved with creatinine going down from 3.4-1.1 mg/dL on 10/2016. Lasix was decreased serum creatinine was 1.23 yesterday and this morning it is at 1.4. Patient denies any chest pains or shortness of breath he is comfortable he has had good urine output. Objective - Vital Signs Vital signs: Vital Signs Temp 96.4 F L 05/24/17 04:00 Pulse 85 05/24/17 04:00 Resp 18 05/24/17 04:00 BP 111/77 05/24/17 04:00 Pulse Ox 93 L 05/24/17 04:00 Intake & Output 05/23/17 05/24/17 05/24/17 18:59 06:59 18:59 Intake Total 790 980 Output Total 800 500 200 Balance -10 480 -200 Weight 116.8 kg 118.5 kg Intake: IV 240 320 Heparin Sodium,Porcine/ 160 D5w Pmx 25,000 unit In Dextrose/Water 1 500ml. bag @ 8.5 UNITS/KG/HR 20. 07 mls/hr IV .Q24H [facility] Rx #:[id number] Sodium Chloride 0.9% @ 20 240 160 ml/hr Intake, IV Titration 500 500 Amount Heparin Sodium,Porcine/ 500 500 D5w Pmx 25,000 unit In Dextrose/Water 1 500ml. bag @ 8.5 UNITS/KG/HR 20. 07 mls/hr IV .Q24H [facility] Rx #:[id number] Oral 50 160 Output: Urine 800 500 200 Other: Voiding Method Toilet Toilet Urinal Urinal # Voids 1 2 # Bowel Movements 1 ABP, PAP, CO, CI - Last Documented Arterial Blood Pressure 128/69 - Exam And examination patient is comfortable awake alert oriented 3. Not in any acute distress. Blood pressure is 111/77 heart rate 85/m he is afebrile Examination of the heart S1 and S2 Examination lungs bilateral breath sounds are heard. There are few basal crackles heard bilaterally. Abdomen is soft obese nontender Examination of lower extremities shows chronic skin changes edema 1+ bilaterally. 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 - Labs CBC & Chem 7: 05/24/17 05:59 05/24/17 05:59 Labs: Abnormal Lab Results - Last 24 Hours (Table) 05/23/17 05/23/17 05/23/17 Range/Units 11:43 16:46 20:43 WBC (3.8-10.6) k/uL RBC (4.30-5.90) m/uL Hgb (13.0-17.5) gm/dL Hct (39.0-53.0) % Neutrophils # (1.3-7.7) k/uL Monocytes # (0-1.0) k/uL PT (9.0-12.0) sec INR (<1.2) APTT (22.0-30.0) sec Sodium (137-145) mmol/L Chloride (98-107) mmol/L BUN (9-20) mg/dL Creatinine (0.66-1.25) mg/dL Glucose (74-99) mg/dL POC Glucose (mg/dL) 129 H 131 H 147 H (75-99) mg/dL Calcium (8.4-10.2) mg/dL 05/24/17 05/24/17 05/24/17 Range/Units 05:42 05:59 05:59 WBC 21.1 H (3.8-10.6) k/uL RBC 3.71 L (4.30-5.90) m/uL Hgb 11.9 L (13.0-17.5) gm/dL Hct 36.8 L (39.0-53.0) % Neutrophils # 17.2 H (1.3-7.7) k/uL Monocytes # 1.8 H (0-1.0) k/uL PT (9.0-12.0) sec INR (<1.2) APTT (22.0-30.0) sec Sodium 133 L (137-145) mmol/L Chloride 94 L (98-107) mmol/L BUN 65 H (9-20) mg/dL Creatinine 1.40 H (0.66-1.25) mg/dL Glucose 164 H (74-99) mg/dL POC Glucose (mg/dL) 164 H (75-99) mg/dL Calcium 8.0 L (8.4-10.2) mg/dL 05/24/17 Range/Units 06:25 WBC (3.8-10.6) k/uL RBC (4.30-5.90) m/uL Hgb (13.0-17.5) gm/dL Hct (39.0-53.0) % Neutrophils # (1.3-7.7) k/uL Monocytes # (0-1.0) k/uL PT 14.5 H (9.0-12.0) sec INR 1.5 H (<1.2) APTT 59.0 H (22.0-30.0) sec Sodium (137-145) mmol/L Chloride (98-107) mmol/L BUN (9-20) mg/dL Creatinine (0.66-1.25) mg/dL Glucose (74-99) mg/dL POC Glucose (mg/dL) (75-99) mg/dL Calcium (8.4-10.2) mg/dL Microbiology - Last 24 Hours (Table) 05/19/17 23:30 Blood Culture - Preliminary Blood No Growth after 96 hours 05/19/17 22:40 Blood Culture - Preliminary Blood No Growth after 96 hours 05/17/17 14:35 Blood Culture - Final Blood No Growth after 144 hours 05/17/17 14:15 Blood Culture - Final Blood No Growth after 144 hours Assessment and Plan Plan: Assessment 1. Acute kidney injury ATN initially oliguric currently improving however. Serum creatinine has been slowly increasing over the last 2 days. Lasix was decreased to 40 mg IV every 12 hours yesterday. I will switch him to oral diuretics today. He is maintained on a small dose of 4 Cozaar which we can continue for now. 2. Volume overload with systolic heart failure acute on top of chronic exacerbation currently improved 3. Status post vent dependent respiratory failure 4. Status post ST elevation [place] with cardiac catheterization with currently no plans for intervention secondary to severe disease. He did have an unsuccessful attempt at stent placement to LAD he 5. Hypokalemia status post replacement Plan Change Lasix to by mouth. Continue with Cozaar for now. Repeat labs in a.m.
[2017-05-24] MEDS: ASPIRIN 81 MG PO SCH (08:53)
[2017-05-24] MEDS: FAMOTIDINE 20 MG TAB PO SCH (08:54)
[2017-05-24] MEDS: SPIRONOLACTONE 25 MG TAB PO SCH (08:55)
[2017-05-24] MEDS: PRASUGREL 10 MG TAB PO SCH (08:55)
[2017-05-24] MEDS: METOPROLOL TARTRATE 50 MG TAB PO SCH (08:55)
[2017-05-24] MEDS ORDERED: FUROSEMIDE 40 MG TAB PO SCH (09:00)
[2017-05-24] MEDS: IPRATROPIUM-ALBUTEROL 3 ML NEB INHALATION SCH ×3 (09:00→12:46)
[2017-05-24 11:14] VITALS: BP 121/57; RESP 20; TEMP 96.8
[2017-05-24] MEDS: LOSARTAN 25 MG TAB PO SCH (11:17)
[2017-05-24] MEDS: POLYETHYLENE GLYCOL 3350 17 GM POWD.PACK PO SCH (11:17)
[2017-05-24] MEDS: BISACODYL 5 MG TABLET.DR PO SCH (11:17)
[2017-05-24 11:51] LABS: Glucose,Whole Blood 146 mg/dL (75-99)
[2017-05-24 12:59] VITALS: PULSE 74
--- NOTE | 2017-05-24 13:57 | P.PN ---
Subjective Acute ST elevation myocardial infarction, and respiratory failure secondary to congestive heart failure. 62-year-old male patient who got transferred from [facility] because of acute ST segment elevation myocardial infarction. The patient had anterior wall septal wall NC along with LAD distribution. The patient was taken immediately to cardiac catheterization he was found to have occluded mid LAD and critical disease involving the left circumflex. Based on that, patient underwent angioplasty and stenting of the mid LAD and follow-up angiogram showed good angiographic results of the stented segment but the distal LAD bed was not well-visualized because of competitive flow and probably LAD distally occluded with clots. The patient was started on dual antiplatelet agents and he was moved to the intensive care unit. Within the afternoon, the patient became progressively more short of breath. He was taken for a CT angios the chest which confirmed the findings of acute CHF. No clots were seen in the pulmonary artery branches. Within next few hours the patient even got more short of breath and he went into respiratory failure. At that point I was involved in the case and I was informed of the above-mentioned changes. I recommended immediate intubation and the patient was placed on a mechanical ventilator. Following that he was sedated with Diprivan. The patient is currently on a assist-control mode rate of 24, tidal volume of 400, FiO2 of 70% and a PEEP of 10. Morning blood gases showed a pH 7.43 with a pCO2 of 36.5 and a pO2 of 175 and based on that the FiO2 is being further weaned off. Urine output at this point is around 10 mL an hour. His systolic blood pressures in the 110 range. His creatinine is up to 1.8. He has suffered an acute kidney injury. ST segment elevation is still present on the EKG and has been present since yesterday. There is diffuse ST segment elevation involving V2, V2, V3, V4 , V5, V6, and also the inferior leads. Furthermore, a stat echocardiogram was done and it showed EF less than 20%. The patient's left ventricular end- diastolic pressure based on the cardiac catheterization was quite elevated at 36. This morning, the chest x-ray showing improvement of pulmonary edema. She was in good location. The patient is cardiomegaly. The patient on Lasix 40 mg IV push every 12 hours. The patient is also on a combination of aspirin and Effient, and he was ordered metoprolol 5 mg by mouth twice a day. He is also on lisinopril of 10 mg by mouth daily has not been given this morning. He was empirically covered also with a combination of Rocephin and Zithromax. He is on a 30 mg of prednisone. The patient is seen again today 05/18/2017 in follow-up in the intensive care unit. He remains intubated and on the mechanical ventilator. Current settings are assist-control 24, tidal volume 400, FiO2 of 50% and a PEEP of 10. Morning blood gases reveal a pO2 of 91, pCO2 37 and a pH of 7.46. He remains sedated on to propofol at 25 mcg/kg/m. He has a 0.9 normal saline at 75 MLS per hour. He is on insulin drip at 0.5 units per hour. He is arousable. He follows commands. His chest x-ray continues to show evidence of congestive heart failure with basilar atelectasis and small effusions. His renal function has worsened with the current creatinine of 3.40. His urine output is marginal. Ultrasound of the kidneys revealed no evidence of hydronephrosis. Telemetry continues to demonstrate elevated ST segments. Troponin increased at 45.5. This remains hemodynamically stable. Currently on no pressors. He is febrile with a temperature of 100.2. White count 21.7. He is currently on ceftriaxone and azithromycin. Seen again on 05/19/2017, patient remains on mechanical ventilation, however his ABG seems to be significantly better, chest x-ray is showing definite improvement in his pulmonary edema, ABG was reviewed, bedside weaning parameters were noted, hence I went ahead and recommended switching the patient to a pressure support of 8 and CPAP. Urine output seems to be adequate, remains on Lasix at 60 mg IV push every 12 hours, patient was placed on pressure support and CPAP, and I was able to monitor his pulmonary status while I'm at bedside. After 20 minutes of pressure support and CPAP, patient continued to do well, he had good ABG, hence I recommended extubation. Patient was extubated to nasal cannula, I saw him again one hour post extubation, and he was doing quite well in no form of distress. Preextubation gases showed a pO2 of 96 pCO2 of 36 pH of 7.45. Renal profile seems to be better today compared to yesterday, and this is in spite of aggressive diuresis. Patient remains on 60 mg of Lasix IV push every 12 hours. Patient is seen again today 05/21/2017 in follow-up in the intensive care unit. He is awake and alert in no acute distress. He has been maintaining good O2 saturations in the mid 90s on 5 L of high flow nasal cannula. He's been hemodynamically stable. He is currently on IV 0.9 at a KVO. He is maintained on a heparin drip and is being transitioned to warfarin. Current white count 17.2, hemoglobin 12.4, INR 1.3 and his creatinine continues to improve currently at 1.10. He remains on Lasix 60 mg IV every 12 hours. He denies any worsening shortness of breath, cough or congestion. He denies any chest pain, palpitations, lightheadedness or dizziness. The patient is seen again today 05/23/2017 in follow-up on the selective care unit. He is currently sitting up in the chair at the bedside. He is awake and alert in no acute distress. He is still quite dyspneic on minimal exertion. He is maintaining good O2 saturations in the high 90s on 2 L/m per nasal cannula. His been afebrile. Hemodynamically stable. He remains in atrial fibrillation with good rate control. Current white count 17.5, hemoglobin 11.7 , creatinine 1.23. INR 1.4. He has been initiated on warfarin. He remains on heparin drip. Blood cultures revealed no growth to date. The patient is seen again today for 2016 in follow-up on the selective care unit. He is currently sitting up in the chair at the bedside. He is awake and alert in no acute distress. His LifeVest has been placed. He denies any chest pain, palpitations lightheadedness or dizziness. No worsening shortness of breath cough or congestion. He is still somewhat dyspneic on minimal exertion. He is maintaining good O2 saturations in the mid 90s on room air. He is afebrile. Hemodynamically stable. Objective - Vital Signs Vital signs: Vital Signs Temp 96.8 F L 05/24/17 11:14 Pulse 74 05/24/17 12:58 Resp 20 05/24/17 11:14 BP 121/57 05/24/17 11:14 Pulse Ox 94 L 05/24/17 11:14 Intake & Output 05/23/17 05/24/17 05/24/17 18:59 06:59 18:59 Intake Total 790 980 Output Total 800 500 200 Balance -10 480 -200 Weight 116.8 kg 118.5 kg Intake: IV 240 320 Heparin Sodium,Porcine/ 160 D5w Pmx 25,000 unit In Dextrose/Water 1 500ml. bag @ 8.5 UNITS/KG/HR 20. 07 mls/hr IV .Q24H [facility] Rx #:[id number] Sodium Chloride 0.9% @ 20 240 160 ml/hr Intake, IV Titration 500 500 Amount Heparin Sodium,Porcine/ 500 500 D5w Pmx 25,000 unit In Dextrose/Water 1 500ml. bag @ 8.5 UNITS/KG/HR 20. 07 mls/hr IV .Q24H [facility] Rx #:[id number] Oral 50 160 Output: Urine 800 500 200 Other: Voiding Method Toilet Toilet Toilet Urinal Urinal Urinal # Voids 1 2 # Bowel Movements 1 ABP, PAP, CO, CI - Last Documented Arterial Blood Pressure 128/69 - Exam Head exam was generally normal. There was no scleral icterus or corneal arcus. Mucous membranes were moist. Neck is short and supple and there is significant shortening of the neck. No neck stiffness. No JVDs can be visualized. Lung sounds are diminished bilaterally. No wheezes overall currently crackles at this point. Heart sounds are regular, distant, positive S1 and S2 with an S3 gallop. No murmurs appreciated. Abdominal exam revealed normal bowel sounds. The abdomen was soft, non-tender, and without masses, organomegaly, or appreciable enlargement of the abdominal aorta. Patient is obese and organs cannot be accurately palpated. Neurologically the patient is awake and alert and intact. He can move all 4 extremities. Peripheral pulses are intact. - Labs CBC & Chem 7: 05/24/17 05:59 05/24/17 05:59 Labs: Abnormal Lab Results - Last 24 Hours (Table) 05/23/17 05/23/17 05/24/17 Range/Units 16:46 20:43 05:42 WBC (3.8-10.6) k/uL RBC (4.30-5.90) m/uL Hgb (13.0-17.5) gm/dL Hct (39.0-53.0) % Neutrophils # (1.3-7.7) k/uL Monocytes # (0-1.0) k/uL PT (9.0-12.0) sec INR (<1.2) APTT (22.0-30.0) sec Sodium (137-145) mmol/L Chloride (98-107) mmol/L BUN (9-20) mg/dL Creatinine (0.66-1.25) mg/dL Glucose (74-99) mg/dL POC Glucose (mg/dL) 131 H 147 H 164 H (75-99) mg/dL Calcium (8.4-10.2) mg/dL 05/24/17 05/24/17 05/24/17 Range/Units 05:59 05:59 06:25 WBC 21.1 H (3.8-10.6) k/uL RBC 3.71 L (4.30-5.90) m/uL Hgb 11.9 L (13.0-17.5) gm/dL Hct 36.8 L (39.0-53.0) % Neutrophils # 17.2 H (1.3-7.7) k/uL Monocytes # 1.8 H (0-1.0) k/uL PT 14.5 H (9.0-12.0) sec INR 1.5 H (<1.2) APTT 59.0 H (22.0-30.0) sec Sodium 133 L (137-145) mmol/L Chloride 94 L (98-107) mmol/L BUN 65 H (9-20) mg/dL Creatinine 1.40 H (0.66-1.25) mg/dL Glucose 164 H (74-99) mg/dL POC Glucose (mg/dL) (75-99) mg/dL Calcium 8.0 L (8.4-10.2) mg/dL 05/24/17 Range/Units 11:49 WBC (3.8-10.6) k/uL RBC (4.30-5.90) m/uL Hgb (13.0-17.5) gm/dL Hct (39.0-53.0) % Neutrophils # (1.3-7.7) k/uL Monocytes # (0-1.0) k/uL PT (9.0-12.0) sec INR (<1.2) APTT (22.0-30.0) sec Sodium (137-145) mmol/L Chloride (98-107) mmol/L BUN (9-20) mg/dL Creatinine (0.66-1.25) mg/dL Glucose (74-99) mg/dL POC Glucose (mg/dL) 146 H (75-99) mg/dL Calcium (8.4-10.2) mg/dL Microbiology - Last 24 Hours (Table) 05/19/17 23:30 Blood Culture - Preliminary Blood No Growth after 96 hours 05/19/17 22:40 Blood Culture - Preliminary Blood No Growth after 96 hours 05/17/17 14:35 Blood Culture - Final Blood No Growth after 144 hours 05/17/17 14:15 Blood Culture - Final Blood No Growth after 144 hours Assessment and Plan Plan: Assessment [address] segment anterior wall myocardial infarction. The patient was having chest pain few days prior to his hospital admission and came in for an acute ST segment elevation myocardial infarction. He had emergent cardiac catheterization and stenting of the LAD. Please refer to the catheter report for further details. The patient also has a tight circumflex lesion in the order of 80-90%. Currently on aspirin and Effient. 2 acute pulmonary edema secondary to CHF much improved. 3 acute hypoxic respiratory failure secondary to above mentioned improved. 4 acute kidney injury due to a combination of low cardiac output and contrast. Rule out contrast nephropathy. Urine output remains marginal at this point. Creatinine 1.40. 5 diabetes mellitus with better controlled blood sugars 6 morbid obesity 7 obstructive sleep apnea 8 doubtful pneumonia, CT angio of the chest is consistent with CHF/pulmonary edema. 9 atrial fibrillation remains on IV heparin, warfarin has been initiated. INR 1.5. Plan The patient was seen and evaluated by Dr. Veliz. He is stable from the pulmonary and critical care standpoint. Pepcid for GI prophylaxis. Continue bronchodilators 3 times a day and when necessary. He may require inpatient rehabilitation. We'll continue to follow and make further recommendations based on his clinical status.
--- NOTE | 2017-05-24 14:42 | P.PN ---
Subjective Principal diagnosis: Acute AL This 61-year-old male was admitted with the anterior wall myocardial infarction which most probably subacute. Unfortunately patient did not have a good result at attempted stent placement of the LAD. Patient developed cardiomyopathy and CHF. Patient required ventilatory support because of pulmonary edema. He has since been extubated and has been on selective care unit. He's been up walking. He was fitted with a LifeVest today. His Lasix was changed to by mouth this morning by Dr. Smith. He continues to have a hacking cough however this has improved some since stopping lisinopril. His INR is 1.5 today, he has been receiving Coumadin 2.5 mg daily. Objective - Vital Signs Vital signs: Vital Signs Temp 96.8 F L 05/24/17 11:14 Pulse 74 05/24/17 12:58 Resp 20 05/24/17 11:14 BP 121/57 05/24/17 11:14 Pulse Ox 94 L 05/24/17 11:14 Intake & Output 05/23/17 05/24/17 05/24/17 18:59 06:59 18:59 Intake Total 790 980 Output Total 800 500 200 Balance -10 480 -200 Weight 116.8 kg 118.5 kg Intake: IV 240 320 Heparin Sodium,Porcine/ 160 D5w Pmx 25,000 unit In Dextrose/Water 1 500ml. bag @ 8.5 UNITS/KG/HR 20. 07 mls/hr IV .Q24H [facility] Rx #:[id number] Sodium Chloride 0.9% @ 20 240 160 ml/hr Intake, IV Titration 500 500 Amount Heparin Sodium,Porcine/ 500 500 D5w Pmx 25,000 unit In Dextrose/Water 1 500ml. bag @ 8.5 UNITS/KG/HR 20. 07 mls/hr IV .Q24H [facility] Rx #:[id number] Oral 50 160 Output: Urine 800 500 200 Other: Voiding Method Toilet Toilet Toilet Urinal Urinal Urinal # Voids 1 2 # Bowel Movements 1 ABP, PAP, CO, CI - Last Documented Arterial Blood Pressure 128/69 - Exam PHYSICAL EXAMINATION: HEENT: Head is atraumatic, normocephalic. Pupils equal, round. Neck is supple. There is no elevated jugular venous pressure. HEART EXAMINATION: Heart sounds irregularly irregular, S1 and S2 normal. No murmur or gallop heard. CHEST EXAMINATION: Lungs are clear to auscultation and precussion. No chest wall tenderness is noted on palpation or with deep breathing. ABDOMEN: Soft, nontender. Bowel sounds are heard. No organomegaly noted. EXTREMITIES: 2+ peripheral pulses with no evidence of peripheral edema and no calf tenderness noted. NEUROLOGIC patient is awake, alert and oriented x3. . - Labs CBC & Chem 7: 05/24/17 05:59 05/24/17 05:59 Labs: Abnormal Lab Results - Last 24 Hours (Table) 05/23/17 05/23/17 05/24/17 Range/Units 16:46 20:43 05:42 WBC (3.8-10.6) k/uL RBC (4.30-5.90) m/uL Hgb (13.0-17.5) gm/dL Hct (39.0-53.0) % Neutrophils # (1.3-7.7) k/uL Monocytes # (0-1.0) k/uL PT (9.0-12.0) sec INR (<1.2) APTT (22.0-30.0) sec Sodium (137-145) mmol/L Chloride (98-107) mmol/L BUN (9-20) mg/dL Creatinine (0.66-1.25) mg/dL Glucose (74-99) mg/dL POC Glucose (mg/dL) 131 H 147 H 164 H (75-99) mg/dL Calcium (8.4-10.2) mg/dL 05/24/17 05/24/17 05/24/17 Range/Units 05:59 05:59 06:25 WBC 21.1 H (3.8-10.6) k/uL RBC 3.71 L (4.30-5.90) m/uL Hgb 11.9 L (13.0-17.5) gm/dL Hct 36.8 L (39.0-53.0) % Neutrophils # 17.2 H (1.3-7.7) k/uL Monocytes # 1.8 H (0-1.0) k/uL PT 14.5 H (9.0-12.0) sec INR 1.5 H (<1.2) APTT 59.0 H (22.0-30.0) sec Sodium 133 L (137-145) mmol/L Chloride 94 L (98-107) mmol/L BUN 65 H (9-20) mg/dL Creatinine 1.40 H (0.66-1.25) mg/dL Glucose 164 H (74-99) mg/dL POC Glucose (mg/dL) (75-99) mg/dL Calcium 8.0 L (8.4-10.2) mg/dL 05/24/17 Range/Units 11:49 WBC (3.8-10.6) k/uL RBC (4.30-5.90) m/uL Hgb (13.0-17.5) gm/dL Hct (39.0-53.0) % Neutrophils # (1.3-7.7) k/uL Monocytes # (0-1.0) k/uL PT (9.0-12.0) sec INR (<1.2) APTT (22.0-30.0) sec Sodium (137-145) mmol/L Chloride (98-107) mmol/L BUN (9-20) mg/dL Creatinine (0.66-1.25) mg/dL Glucose (74-99) mg/dL POC Glucose (mg/dL) 146 H (75-99) mg/dL Calcium (8.4-10.2) mg/dL Microbiology - Last 24 Hours (Table) 05/19/17 23:30 Blood Culture - Preliminary Blood No Growth after 96 hours 05/19/17 22:40 Blood Culture - Preliminary Blood No Growth after 96 hours 05/17/17 14:35 Blood Culture - Final Blood No Growth after 144 hours 05/17/17 14:15 Blood Culture - Final Blood No Growth after 144 hours Assessment and Plan Plan: Assessment and plan #[address] elevation myocardial infarction #2 ischemic cardiomyopathy, LifeVest has been placed #3 acute on chronic systolic congestive heart failure #4 diabetes #5 persistent atrial fibrillation Cardiology's perspective, patient may be transferred to inpatient rehab today with LifeVest. He needs 5 mg of Coumadin tonight and then 2.5 mg daily. PT/ INR daily to keep INR 1.8-2.1. He will follow up in the office as an outpatient. 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 Patient was seen and examined.
--- NOTE | 2017-05-24 15:42 | P.DS ---
Providers Date of admission: 05/16/17 12:29 Expected date of discharge: 05/24/17 Attending physician: Kana Mckeon Consults: 05/16/17 13:50 Consult Physician Routine Consulting Provider: [facility] Consult Reason/Comments: Post Interventional patient Do you want consulting provider notified?: Already Contacted 05/16/17 22:22 Consult Physician Stat Consulting Provider: Dave Logan Consult Reason/Comments: Porter Sample Case for ICU management and respiratory distress Do you want consulting provider notified?: Yes 05/18/17 08:09 Consult Physician Routine Consulting Provider: Umesh Calvo Consult Reason/Comments: Renal failure Do you want consulting provider notified?: Yes 05/20/17 15:08 Consult Physician Routine Consulting Provider: Fernandez Vásquez Consult Reason/Comments: Possible IP rehab Do you want consulting provider notified?: Yes Primary care physician: Luis Alberto Santiago [place] [facility] Course: Hospital course: This pleasant 61 patient was admitted with ST elevation myocardial infarction transferred from [facility]. Patient was taken to the cardiac label stitcher found to have an occluded mid LAD and critical disease involving the circumflex. Patient did have angioplasty stent stenting but this wasn't very successful. Patient also had CHF. Also developed congestive heart failure. Patient's creatinine did peak to 3.4 from 1.48 and did come down to 1.4. Patient did get a life vest today. Also had atrial fibrillation started on Coumadin. INR is 1.5 Investigations: BUN 65, creatinine 1.40, INR 1.5, hemoglobin 11.9 2-D echo shows EF of 25-30%, with multiple wall hypokinesia. On examination: Lungs decreased breath sounds, cardiovascular heart is irregular Consultations: Cardiology Dr. Bhatt Nephrology Dr. Smith Intervention marketing teacher Dr. Zurita Pulmonary-Dr. Logan Final diagnoses: -Acute ST segment anterior wall myocardial infarction status post cardiac catheterization and unsuccessful stenting of the LAD with less than optimal results -Acute ischemic cardiomyopathy from systolic dysfunction EF 20-25% -Acute hypoxic respiratory failure, multifactorial, status post being on the ventilator -Diabetes mellitus type II, uncontrolled, on injectable insulin -Acute hypoxic respiratory failure requiring intubation and mechanical ventilation. -Acute renal failure likely acute tubular necrosis, likely multifactorial including hypotension, improving -Possible chronic kidney disease from diabetic nephrosclerosis -Morbid obesity -Obstructive sleep apnea -Pneumonia, although this is unlikely as CT angiogram of the chest is consistent with CHF/pulmonary edema -Acute metabolic encephalopathy, multifactorial from multiple medical problems, improving -Persistent atrial fibrillation, Coumadin for anticoagulation Plan - Discharge Summary New Discharge Prescriptions: New Acetaminophen Tab [Tylenol] 650 mg PO Q6HR PRN tab PRN Reason: Fever And/ Or Pain Aspirin 81 mg PO DAILY Atorvastatin [Lipitor] 80 mg PO HS tab Bisacodyl [Dulcolax] 5 mg PO DAILY tab Famotidine [Pepcid] 20 mg PO BID tab Furosemide [Lasix] 40 mg PO BID@0900,1600 tab Insulin Glargine [Lantus] 34 unit SQ HS vial INSULIN LISPRO (humaLOG) [humaLOG (formulary)] 8 unit SQ AC-TID vial Ipratropium-Albuterol Nebulize [Duoneb 0.5 mg-3 mg/3 ml Soln] 3 ml INHALATION RT-TID neb Ipratropium-Albuterol Nebulize [Duoneb 0.5 mg-3 mg/3 ml Soln] 3 ml INHALATION RT-Q2H PRN neb PRN Reason: Shortness Of Breath Or Wheezing Lactulose [Cephulac] 30 gm PO BID PRN dose PRN Reason: Constipation Losartan [Cozaar] 12.5 mg PO DAILY tab Mag Hydrox/Al Hydrox/Simeth [Maalox] 30 ml PO Q4HR PRN dose PRN Reason: Heartburn Metoprolol Tartrate [Lopressor] 50 mg PO BID tab Nitroglycerin Sl Tabs [Nitrostat] 0.4 mg SUBLINGUAL Q5M PRN tab PRN Reason: Chest Pain Polyethylene Glycol 3350 [Miralax] 17 gm PO DAILY pack Prasugrel [Effient] 10 mg PO DAILY tab Spironolactone [Aldactone] 25 mg PO DAILY tab Warfarin [Coumadin] 2.5 mg PO DAILY@1800 tab Warfarin [Coumadin] 5 mg PO ONCE@1800 tab Enoxaparin [Lovenox] 120 mg SQ Q12H #1 syringe Discontinued guaiFENesin [Mucinex] 600 mg PO BID PRN PRN Reason: Congestion Aspirin EC [Ecotrin Low Dose] 81 mg PO DAILY Ibuprofen [Motrin] 800 mg PO Q6H PRN PRN Reason: Pain Doxycycline Hyclate 100 mg PO BID Discharge Medication List Acetaminophen Tab [Tylenol] 650 mg PO Q6HR PRN tab 05/24/17 [Rx] Aspirin 81 mg PO DAILY 05/24/17 [Rx] Atorvastatin [Lipitor] 80 mg PO HS tab 05/24/17 [Rx] Bisacodyl [Dulcolax] 5 mg PO DAILY tab 05/24/17 [Rx] Enoxaparin [Lovenox] 120 mg SQ Q12H #1 syringe 05/24/17 [Rx] Famotidine [Pepcid] 20 mg PO BID tab 05/24/17 [Rx] Furosemide [Lasix] 40 mg PO BID@0900,1600 tab 05/24/17 [Rx] INSULIN LISPRO (humaLOG) [humaLOG (formulary)] 8 unit SQ AC-TID vial 05/24/17 [ Rx] Insulin Glargine [Lantus] 34 unit SQ HS vial 05/24/17 [Rx] Ipratropium-Albuterol Nebulize [Duoneb 0.5 mg-3 mg/3 ml Soln] 3 ml INHALATION RT -Q2H PRN neb 05/24/17 [Rx] Ipratropium-Albuterol Nebulize [Duoneb 0.5 mg-3 mg/3 ml Soln] 3 ml INHALATION RT -TID neb 05/24/17 [Rx] Lactulose [Cephulac] 30 gm PO BID PRN dose 05/24/17 [Rx] Losartan [Cozaar] 12.5 mg PO DAILY tab 05/24/17 [Rx] Mag Hydrox/Al Hydrox/Simeth [Maalox] 30 ml PO Q4HR PRN dose 05/24/17 [Rx] Metoprolol Tartrate [Lopressor] 50 mg PO BID tab 05/24/17 [Rx] Nitroglycerin Sl Tabs [Nitrostat] 0.4 mg SUBLINGUAL Q5M PRN tab 05/24/17 [Rx] Polyethylene Glycol 3350 [Miralax] 17 gm PO DAILY pack 05/24/17 [Rx] Prasugrel [Effient] 10 mg PO DAILY tab 05/24/17 [Rx] Spironolactone [Aldactone] 25 mg PO DAILY tab 05/24/17 [Rx] Warfarin [Coumadin] 2.5 mg PO DAILY@1800 tab 05/24/17 [Rx] Warfarin [Coumadin] 5 mg PO ONCE@1800 tab 05/24/17 [Rx] Follow up Appointment(s)/Referral(s): Umesh Calvo DO [STAFF PHYSICIAN] - 1 Week Juan Mathew MD [STAFF PHYSICIAN] - 1 Week Activity/Diet/Wound Care/Special Instructions: life vest Discharge Disposition: TRANSFER TO SNF/ECF
[2017-05-24 16:55] LABS: Glucose,Whole Blood 106 mg/dL (75-99)
[2017-05-24] MEDS: ACETAMINOPHEN TAB 325 MG TAB PO PRN (16:57)
[2017-05-24] MEDS ORDERED: WARFARIN 5 MG TAB PO ONE (18:00)
== END 2017-05-24 17:22 | DRG 246 ==
LOC: 6ICU 12:29 → 6SEL 05-21 22:36
PROVIDERS: ADMIT Hospitalist; ATTEND Hospitalist
PROC: 5A1945Z Respiratory Ventilation, 24-96 Consecutive Hours (ICD-10-PCS; 2017-05-16)
PROC: 4A023N7 Measurement of Cardiac Sampling and Pressure, Left Heart, Percutaneous Approach (ICD-10-PCS; 2017-05-16)
PROC: B2111ZZ Fluoroscopy of Multiple Coronary Arteries using Low Osmolar Contrast (ICD-10-PCS; 2017-05-16)
PROC: 0BH17EZ Insertion of Endotracheal Airway into Trachea, Via Natural or Artificial Opening (ICD-10-PCS; 2017-05-16)
PROC: 0D9670Z Drainage of Stomach with Drainage Device, Via Natural or Artificial Opening (ICD-10-PCS; 2017-05-16)
PROC: 02C03ZZ Extirpation of Matter from Coronary Artery, One Artery, Percutaneous Approach (ICD-10-PCS; principal; 2017-05-16 12:50)
PROC: 027034Z Dilation of Coronary Artery, One Artery with Drug-eluting Intraluminal Device, Percutaneous Approach (ICD-10-PCS; 2017-05-16 12:50)
PROC: 06HM33Z Insertion of Infusion Device into Right Femoral Vein, Percutaneous Approach (ICD-10-PCS; 2017-05-17)
DX: I21.09 ST elevation (STEMI) myocardial infarction involving other coronary artery of anterior wall (principal); J96.01 Acute respiratory failure with hypoxia; N17.0 Acute kidney failure with tubular necrosis; I50.23 Acute on chronic systolic (congestive) heart failure; G93.41 Metabolic encephalopathy; J18.9 Pneumonia, unspecified organism; I48.1 Persistent atrial fibrillation; I23.7 Postinfarction angina; J98.11 Atelectasis; I25.5 Ischemic cardiomyopathy; I27.2 Other secondary pulmonary hypertension; E11.65 Type 2 diabetes mellitus with hyperglycemia; E66.01 Morbid (severe) obesity due to excess calories; G62.9 Polyneuropathy, unspecified; G47.33 Obstructive sleep apnea (adult) (pediatric); G89.29 Other chronic pain; M54.9 Dorsalgia, unspecified; Z68.37 Body mass index [BMI] 37.0-37.9, adult; I25.10 Atherosclerotic heart disease of native coronary artery without angina pectoris; E78.5 Hyperlipidemia, unspecified; E87.6 Hypokalemia; N14.1 Nephropathy induced by other drugs, medicaments and biological substances; T50.2X5A Adverse effect of carbonic-anhydrase inhibitors, benzothiadiazides and other diuretics, initial encounter; T50.8X5A Adverse effect of diagnostic agents, initial encounter; E11.22 Type 2 diabetes mellitus with diabetic chronic kidney disease; N18.9 Chronic kidney disease, unspecified; Z79.82 Long term (current) use of aspirin; Z79.899 Other long term (current) drug therapy; Z87.891 Personal history of nicotine dependence; Z82.49 Family history of ischemic heart disease and other diseases of the circulatory system
CPT/HCPCS: 31500; 36600; 36620; 71010; 71020; 71250; 76770; 80048; 80053; 81001; 82310; 82330; 82550; 82553; 82805; 83036; 83735; 83880; 84100; 84132; 84443; 84484; 85025; 85610; 85730; 87040; 87086; 93306; 93308; 93458; 94002; 94003; 94640; 94770

== ENCOUNTER 2017-05-27 15:39 | Inpatient (IN) | payer BC, MEDICARE ==
[2017-05-27 20:06] LABS: Glucose,Whole Blood 124 mg/dL (75-99)
[2017-05-27] MEDS ORDERED: DEXTROSE/WATER 1 500ML.BAG with DOPamine DRIP 800 MG IV SCH (21:15)
[2017-05-27] MEDS ORDERED: AMIODARONE 450 MG in DEXTROSE 5% IN WATER 250 ML IV SCH ×2 (21:30)
[2017-05-27] MEDS ORDERED: NITROGLYCERIN SL TABS 0.4 MG TAB SUBLINGUAL PRN (22:35)
[2017-05-27] MEDS ORDERED: INSULIN GLARGINE 100 UNIT/ML 10 ML VIAL SQ SCH (22:45)
[2017-05-27] MEDS ORDERED: METOPROLOL TARTRATE 50 MG TAB PO SCH (23:00)
[2017-05-27] MEDS ORDERED: NALOXONE 0.4 MG/ML 1 ML VIAL IV PRN (23:23)
[2017-05-27] MEDS ORDERED: HEPARIN SODIUM,PORCINE/D5W PMX 25,000 UNIT in DEXTROSE/WATER 1 500ML.BAG IV SCH (23:30)
[2017-05-27 23:32] LABS: CH 32.4; CHCM 31.8; HCT 37.6 % (39.0-53.0); HDW 2.44; HGB 11.9 gm/dL (13.0-17.5); MCH 32.2 pg (25.0-35.0); MCHC 31.5 g/dL (31.0-37.0); MCV 102.1 fL (80.0-100.0); Macrocytosis Slight; Mean Platelet Volume 8.9; RBC 3.69 m/uL (4.30-5.90); RDW 13.8 % (11.5-15.5); WBC (Perox) 30.36
[2017-05-27 23:36] LABS: WBC 29.6 k/uL (3.8-10.6)
[2017-05-27 23:38] LABS: INR 1.8 (<1.2); Prothrombin Time 17.8 sec (9.0-12.0)
[2017-05-27 23:49] LABS: Calcium 7.7 mg/dL (8.4-10.2); Total Protein 7.2 g/dL (6.3-8.2)
[2017-05-27 23:53] LABS: Potassium 5.2 mmol/L (3.5-5.1)
[2017-05-28] MEDS: HEPARIN SODIUM,PORCINE 5,000 UNIT/ML 1 ML VIAL IV PRN ×2 (00:36→06:55)
[2017-05-28 00:41] LABS: Add Differential Manual Differential
[2017-05-28 00:43] LABS: Manual Review Performed; Metamyelocytes % 0.5 %; Nucleated Red Blood Cells 0 /100 WBC (0-0); Total Cells Counted 200
[2017-05-28 00:44] LABS: Polychromasia Present
[2017-05-28 01:15] LABS: Appearance,Urine Cloudy (Clear); Bilirubin,Urine Negative (Negative); Glucose,Urine (UA) Negative (Negative); Ketones,Urine Negative (Negative); Leukocyte Esterase,Urine Negative (Negative); Nitrite,Urine Negative (Negative); Particle Count 14684; Protein,Urine Trace (Negative); RBC,Urine 8 /hpf (0-5); Specific Gravity,Urine 1.016 (1.001-1.035); Squamous Epithelial Cell,Urine 1 /hpf (0-4); UA Billing (MACRO vs. MICRO) MICRO; Urobilinogen,Urine <2.0 mg/dL (<2.0); WBC,Urine 6 /hpf (0-5)
[2017-05-28 01:16] VITALS: BMI 40.4
[2017-05-28] MEDS: AMIODARONE 450 MG in DEXTROSE 5% IN WATER 250 ML IV SCH ×4 (03:54→12:25)
[2017-05-28 06:40] LABS: Basophils # (A) 0.1 k/uL (0-0.2); Basophils % (A) 0 %; CH 31.9; CHCM 32.5; Eosinophils # (A) 0.1 k/uL (0-0.7); Eosinophils % (A) 0 %; HCT 34.4 % (39.0-53.0); HDW 2.49; HGB 11.2 gm/dL (13.0-17.5); Luc # (Auto) 0.52; Luc % (Auto) 2; Lymphocytes # (A) 0.8 k/uL (1.0-4.8); Lymphocytes % (A) 3 %; MCH 32.3 pg (25.0-35.0); MCHC 32.7 g/dL (31.0-37.0); MCV 98.6 fL (80.0-100.0); Mean Platelet Volume 7.2; Monocytes # (A) 1.8 k/uL (0-1.0); Monocytes % (A) 6 %; Neutrophils # (A) 29.8 k/uL (1.3-7.7); Neutrophils % (A) 90 %; RBC 3.49 m/uL (4.30-5.90); RDW 12.8 % (11.5-15.5); WBC (Perox) 35.33
[2017-05-28 06:42] LABS: WBC 33.1 k/uL (3.8-10.6)
[2017-05-28 06:56] LABS: Calcium 7.6 mg/dL (8.4-10.2); Phosphorous 7.1 mg/dL (2.5-4.5); Potassium 4.5 mmol/L (3.5-5.1); Total Bilirubin 0.7 mg/dL (0.2-1.3); Total Protein 6.9 g/dL (6.3-8.2)
--- NOTE | 2017-05-28 06:56 | XR ---
EXAMINATION TYPE: XR chest 1V DATE OF EXAM: 05/28/2017 CLINICAL HISTORY: Difficulty breathing progress study. TECHNIQUE: Single AP portable upright view of the chest is obtained. COMPARISON: Chest x-ray from 5 days ago. FINDINGS: Exam is slightly suboptimal due to portable technique and patient's large body habitus. Dim inished inspiration is present currently. Defibrillator pad overlies the right chest. There is persis tent cardiomegaly with central vascular congestion. Suspect persistent small bilateral pleural effusi ons. Poor visualization of left hemidiaphragm suggests atelectasis and/or infiltrate at this level. IMPRESSION: There is redemonstration of cardiomegaly with central vascular congestion and suspected s mall bilateral pleural effusions, suspect CHF exacerbation. In addition underlying left basilar atele ctasis and/or infiltrate is not excluded.
[2017-05-28 07:18] LABS: Glucose,Whole Blood 97 mg/dL (75-99)
[2017-05-28 07:29] LABS: Glucose,Whole Blood 95 mg/dL (75-99)
[2017-05-28] MEDS: INSULIN LISPRO (humaLOG) 300 UNIT/3 ML VIAL SQ SCH ×2 (07:29→12:17)
[2017-05-28] MEDS ORDERED: IPRATROPIUM-ALBUTEROL 3 ML NEB INHALATION SCH (08:00)
--- NOTE | 2017-05-28 08:35 | P.CNPUL ---
History of Present Illness Consult date: 05/28/17 Reason for consult: dyspnea Chief complaint: CHF, VF History of present illness: 62-year-old male patient who got transferred from [facility] because of acute ST segment elevation myocardial infarction. The patient had anterior wall septal wall LA along with LAD distribution. The patient was taken immediately to cardiac catheterization he was found to have occluded mid LAD and critical disease involving the left circumflex. Based on that, patient underwent angioplasty and stenting of the mid LAD and follow-up angiogram showed good angiographic results of the stented segment but the distal LAD bed was not well-visualized because of competitive flow and probably LAD distally occluded with clots. At that time, the patient had diffuse ST segment elevation involving V2, V2, V3, V4, V5, V6, and also the inferior leads. Furthermore, a stat echocardiogram was done and it showed EF less than 20%. The patient's left ventricular end-diastolic pressure based on the cardiac catheterization was quite elevated at 36. Note that the patient was also intubated and he was on a mechanical ventilator due to acute pulmonary edema. He was ultimately weaned off the mechanical ventilator. He was diuresed. He was stabilized and he was discharged to [facility]. Note that he also has chronic renal failure. He is morbidly obese and he suffers from diabetes mellitus and possible obstructive sleep apnea. Yesterday afternoon, the patient developed an acute syncopal episodes. He was wearing a LifeVest which identified ventricular fibrillation and it shot and twice. The patient had spontaneous recovery of his circulation. Following that he was moved to the intensive care unit at [facility] and then to [facility] to be seen by cardiology and electrophysiology. Overnight, the patient was found to have sinus bradycardia. He was placed on dopamine which made him more arrhythmogenic and he was having episodes of tachycardia, short runs of wide-complex tachycardia. Cardiology was again involved in the case and the patient was placed on amiodarone loading and maintenance. Currently amiodarone is running still at 1 mg an hour. His cardiac rhythm is sinus at this point. He still has some underlying ST segment elevation in his rhythm strips and 12-lead EKGs to follow. His white cell count is elevated at 33.1. Renal function is impaired with a creatinine of 2.7 and albumin of 105. His chest x-ray showing cardiomegaly and central pulmonary vessel congestion and small bilateral pleural effusions. He has significant edema in his lower extremities bilaterally. Denies having any cough or sputum production. Denies having any chest pain. No nausea. No vomiting. Quite uncomfortable and somewhat restless in bed. Family is at the bedside. Note that the dopamine drip has been discontinued. The patient is on amiodarone drip at 1 mg an hour. He is also on IV heparin. He is also on a combination of aspirin, Effient and he is also on a mechanical ventilation with warfarin with a INR of 1.8 Review of Systems Constitutional: Reports fatigue, Reports lethargy, Reports weakness, Reports weight gain Eyes: denies blurred vision, denies bulging eye, denies decreased vision Ears: deny: decreased hearing, ear discharge, earache Ears, nose, mouth and throat: Denies headache, Denies sore throat Cardiovascular: Reports decreased exercise tolerance, Reports dyspnea on exertion, Reports orthopnea, Reports paroxysmal nocturnal dyspnea, Reports rapid heart beat, Reports shortness of breath Respiratory: Reports dyspnea, Reports sleep apnea Genitourinary: Reports as per HPI Musculoskeletal: Denies myalgias Musculoskeletal: bilateral: ankle swelling, absent: ankle pain, ankle stiffness Integumentary: Denies pruritus, Denies rash Neurological: Denies numbness, Denies weakness Psychiatric: Denies anxiety, Denies depression Endocrine: Denies fatigue, Denies weight change Past Medical History Past Medical History: Pneumonia Additional Past Medical History / Comment(s): Morbidly obese, diabetes mellitus , obstructive sleep apnea, coronary artery disease with recent anterior wall myocardial infarction status post angioplasty and stenting of the LAD, chronic renal failure, chronic back pain, hyperlipidemia. History of Any Multi-Drug Resistant Organisms: None Reported Past Surgical History: Appendectomy, Back Surgery Additional Past Surgical History / Comment(s): cardiac catheterization and stenting of the LAD, back surgery with instrumentation and insertions of rods and screws, right rotator cuff Past Anesthesia/Blood Transfusion Reactions: No Reported Reaction Past Psychological History: No Psychological Hx Reported Additional Psychological History / Comment(s): PT IS INDEPENDANT. LIVES WITH /DAUGHTER IN SINGLE LEVEL HOME THAT HAS 3OR 4 STEPS. PT IS ON DISABILTY. 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 NO SERVICE IN BACK GROUND. HAS 3 PET CATS. NO HOME CARE SERVICES RECIEVED, HAS A GLUCOMETER. Smoking Status: Former smoker Past Alcohol Use History: Occasional Additional Past Alcohol Use History / Comment(s): STARTED SMOKING AT AGE 19(1973 ) AND QUIT AT AGE 22(1976) SMOKED 1 PPD. Past Drug Use History: None Reported - Past Family History Father Additional Family Medical History / Comment(s): LOW PLATLETS. SPLEENECTOMY Mother Family Medical History: CVA/TIA Additional Family Medical History / Comment(s): 2 STROKES, HEART DISEASE. Medications and Allergies Home Medications Medication Instructions Recorded Confirmed Type Doxycycline Monohydrate [Monodox] 100 mg PO Q12HR 05/27/17 05/27/17 History Allergies Allergy/AdvReac Type Severity Reaction Status Date / Time No Known Allergies Allergy Verified 05/27/17 20:45 Physical Exam Vitals: Vital Signs Temp Pulse Resp BP BP Pulse Ox 05/28/17 07:00 67 26 H 109/72 96 05/28/17 06:30 70 25 H 103/64 95 05/28/17 06:00 68 29 H 99/58 96 05/28/17 05:30 68 28 H 106/71 96 05/28/17 05:00 73 29 H 103/66 97 05/28/17 04:30 67 18 99/66 96 05/28/17 04:00 98.7 F 151 H 22 117/73 95 05/28/17 03:30 71 26 H 96/65 96 05/28/17 03:00 68 20 97/67 97 05/28/17 02:30 79 22 99/71 94 L 05/28/17 02:00 79 26 H 138/79 91 L 05/28/17 01:30 99 27 H 140/67 87 L 05/28/17 01:00 81 26 H 119/93 90 L 05/28/17 00:30 78 26 H 134/107 92 L 05/28/17 00:00 98.6 F 79 27 H 97/69 93 L 05/27/17 23:46 69 33 H 97/69 88 L 05/27/17 23:30 88 35 H 113/65 88 L 05/27/17 23:00 69 36 H 113/65 91 L 05/27/17 22:30 45 L 31 H 113/65 91 L 05/27/17 22:00 75 28 H 96/63 92 L 05/27/17 21:30 44 L 32 H 96/63 98 05/27/17 21:00 45 L 25 H 117/58 98 05/27/17 20:30 33 L 26 H 102/64 98 05/27/17 20:00 98.8 F 44 L 27 H 111/60 97 05/27/17 19:30 33 L 19 102/59 97 05/27/17 19:00 39 L 28 H 91/56 95 05/27/17 18:30 42 L 47 H 111/59 93 L 05/27/17 18:19 98.8 F 119/93 93 L 05/27/17 18:15 25 H Intake and Output 05/27/17 05/28/17 05/28/17 22:59 06:59 14:59 Intake Total 30 255.529 10 Output Total 150 280 25 Balance -120 -24.471 -15 Intake: IV 30 80 10 0.9 KVO 30 80 10 Intake, IV Titration 175.529 Amount Heparin Sodium,Porcine/ 175.529 D5w Pmx 25,000 unit In Dextrose/Water 1 500ml. bag @ 8.1 UNITS/KG/HR 20. 12 mls/hr IV .Q24H [facility] Rx #:[id number] Output: Urine 150 280 25 Other: Voiding Method Urinal Indwelling Catheter Weight 124.2 kg 124.6 kg Patient is in mild degree of respiratory distress even at rest. He has obvious signs of orthopnea. He is unable to lay down flat because of increased shortness of breath. He is a morbidly obese male patient. At times is having difficulty in speaking up. This is. Head exam was generally normal. There was no scleral icterus or corneal arcus. Mucous membranes were moist. Neck is supple and there is mild JVDs no goiter or neck masses this point. He has significant crowding of the posterior pharynx and has a very thick and short neck. Lung sounds are diminished bilaterally especially in the lung bases along with some bibasilar crackles. Heart sounds are distant, regular, normal S1-S2 and no significant murmurs appreciated. Abdomen is obese soft nontender. Organs cannot be palpated. There is no direct tenderness or rebound tenderness or guarding. Extremities show extensive edema in lower extremities bilaterally without any cyanosis or clubbing at this point. Pulses are diminished in the feet. Neurologically the patient is awake and following commands and answering questions appropriately. Results - Laboratory Findings CBC and BMP: 05/28/17 06:17 05/28/17 06:18 PT/INR, D-dimer PT 17.8 sec (9.0-12.0) H 05/27/17 23:25 INR 1.8 (<1.2) H 05/27/17 23:25 Abnormal lab findings: Abnormal Labs 05/27/17 05/27/17 05/27/17 00:59 20:04 22:36 WBC 29.6 H* RBC 3.69 L Hgb 11.9 L Hct 37.6 L MCV 102.1 H Neutrophils # Neutrophils # (Manual) 25.5 H Lymphocytes # Monocytes # Monocytes # (Manual) 2.2 H PT INR APTT Sodium Potassium Chloride Carbon Dioxide BUN Creatinine Glucose POC Glucose (mg/dL) 124 H Calcium Phosphorus Magnesium AST Albumin Urine Protein Trace H Urine Blood Small H Urine RBC 8 H Urine WBC 6 H Hyaline Casts 8 H 05/27/17 05/27/17 05/28/17 23:25 23:25 06:17 WBC 33.1 H* RBC 3.49 L Hgb 11.2 L Hct 34.4 L MCV Neutrophils # 29.8 H Neutrophils # (Manual) Lymphocytes # 0.8 L Monocytes # 1.8 H Monocytes # (Manual) PT 17.8 H INR 1.8 H APTT Sodium 133 L Potassium 5.2 H Chloride Carbon Dioxide 16 L BUN 105 H* Creatinine 2.60 H Glucose 129 H POC Glucose (mg/dL) Calcium 7.7 L Phosphorus Magnesium AST 74 H Albumin 3.2 L Urine Protein Urine Blood Urine RBC Urine WBC Hyaline Casts 05/28/17 05/28/17 06:17 06:18 WBC RBC Hgb Hct MCV Neutrophils # Neutrophils # (Manual) Lymphocytes # Monocytes # Monocytes # (Manual) PT INR APTT 31.1 H Sodium 134 L Potassium Chloride 97 L Carbon Dioxide BUN 105 H* Creatinine 2.71 H Glucose POC Glucose (mg/dL) Calcium 7.6 L Phosphorus 7.1 H Magnesium 3.0 H AST Albumin 3.0 L Urine Protein Urine Blood Urine RBC Urine WBC Hyaline Casts - Diagnostic Findings Chest x-ray: image reviewed Assessment and Plan Plan: Assessment [address] segment elevation myocardial infarction. The patient presented to the hospital approximately 2 weeks ago with acute STEMI involving the LAD. He had emergent cardiac catheterization and stenting of the LAD. Please refer to the earlier cardiac cath report regarding further details. He is also known to have a tight circumflex lesion estimated to be around 80-90% stenosis. Note that he continued to have ST segment elevations throughout his earlier hospitalizations. Ultimately he had Q waves developed throughout the anterior septal and lateral leads. ST segments are still somewhat elevated. Rule out development of a anterior wall aneurysm secondary to massive anterior wall myocardial infarction. Currently free of any chest pain 2 V. fib, a complication of mesentery wall myocardial infarction, the patient had his LifeVest fires twice and currently is on an amiodarone drip 3 ongoing cardiac arrhythmias most recent EKG showing a first-degree AV block, no significant bradycardia arrhythmias noted. 4 CHF with ejection fraction of less than 20% based on an earlier echocardiogram. Rule out LV aneurysm 5 manifestations of heart failure including dyspnea, orthopnea, and an extensive lower extremity edema 6 morbid obesity with classical manifestations of obstructive sleep apnea 7 chronic renal failure, but it nephropathy is suspected. Patient's creatinine was in the 1.8 range during his early hospitalization there is an acute on top of chronic renal failure. Rule out underlying cardiorenal factors. 6 acute hypoxic respiratory failure secondary to above 7 diabetes mellitus 8 leukocytosis 9 paroxysmal atrial fibrillation, current rhythm is sinus. The patient has been anticoagulated with warfarin and INR is at 1.8 10 recent hospitalization for an acute pulmonary edema and respiratory failure , recovered and the patient was extubated without any major difficulties Plan Condition is extremely critical. Prognosis poor baseline above-mentioned comorbidities. My assessment is that the patient is having Complications of massive anterior wall myocardial infarction. It's likely that he had developed a left ventricular aneurysm. He is quite arrhythmogenic. He is currently on amiodarone. He is also in acute heart failure and acute kidney injury on top of chronic renal failure. We'll consult with cardiology. I contacted Dr. Zurita and based on her phone call conversation he tells me that there is no room for role for any further intervention this patient. He needs his condition to be treated medically. He was placed on amiodarone. Continue aspirin. Continue Effient. Continue IV heparin and keep the warfarin on hold. Put the patient on Lasix 40 mg every 12 hours. Monitor renal function. Monitor fluid balance. Monitor white cell count. Pancultures will be sent. We 'll need to put him on a CPAP overnight at a pressure of 12/570 is a fourth and this will be a arbitrary pressure to treat any form of nighttime sleep breathing disorder. Repeat echocardiogram. Repeat cardiac enzymes. We'll continue to follow. Prognosis poor. I will discuss this with the at the bedside. We'll make further recommendations based on his progress. I've contacted cardiology and I asked them to evaluate this patient BRADY baseline above-mentioned medical problems and comorbidities. Time with Patient: Greater than 30
[2017-05-28] MEDS ORDERED: FUROSEMIDE 10 MG/ML 4 ML VIAL IV SCH (09:00)
[2017-05-28] MEDS ORDERED: POLYETHYLENE GLYCOL 3350 17 GM POWD.PACK PO SCH (09:00)
[2017-05-28] MEDS ORDERED: SPIRONOLACTONE 25 MG TAB PO SCH (09:00)
[2017-05-28] MEDS ORDERED: PRASUGREL 10 MG TAB PO SCH (09:00)
[2017-05-28] MEDS ORDERED: FAMOTIDINE 20 MG TAB PO SCH (09:00)
[2017-05-28] MEDS ORDERED: LOSARTAN 25 MG TAB PO SCH (09:00)
[2017-05-28] MEDS ORDERED: ASPIRIN 81 MG CHEW PO SCH (09:00)
[2017-05-28] MEDS ORDERED: METOPROLOL TARTRATE 25 MG TAB PO SCH (09:30)
[2017-05-28] MEDS ORDERED: FUROSEMIDE 10 MG/ML 2 ML VIAL IV STA (09:36)
[2017-05-28 09:38] LABS: Creatine Kinase MB 5.9 ng/mL (0.0-2.4)
--- NOTE | 2017-05-28 09:44 | P.CRDCN ---
History of Present Illness Consult date: 05/28/17 Chief complaint: Syncopal episode History of present illness: This is a pleasant 61-year-old gentleman who was admitted initially to [facility] intensive care unit with syncopal episode and then was transferred to [facility] intensive care unit. The patient presented to the hospital last week with a chest discomfort where he was diagnosed with acute anterior ST elevation myocardial infarction. It was a late presentation with acute anterior STEMI to start with. The patient symptoms started at least 2 days before he presented to the hospital with shortness of breath and he was diagnosed initially with a pneumonia and was on antibiotic but he did not feel better. When he came in with acute anterior STEMI he underwent an emergent heart catheterization and was found to have critical disease involving the proximal to mid LAD which was opened and stented with a good angiographic results. At that point he was found to have intermediate disease involving medium size left circumflex coronary artery runs in the AV groove and doesn't go to the myocardium. The patient after was intubated and he was admitted to the intensive care unit and he was discharged in stable medical condition end was extended care facility. Echocardiogram at that admission showed severe cardiomyopathy and the patient was discharged on LifeVest. He was at the extended care facility yesterday when he took a shower and he was in his usual state of health when he had a syncopal episode. The LifeVest shock the patient was because the patient went into V. fib. Subsequently he was started on amiodarone IV. Currently the patient seems to be in mild respiratory distress and seems to be in congestive heart failure. He has been maintaining normal sinus mechanism with EKG showing ST segment elevation in the anteroseptal leads consistent was probably aneurysmal myocardium. I had a long discussion with the patient as well as with his family in the room regarding the next step in management. I recommended the patient to be seen by lacquer pin press operator to be evaluated for AICD. I will continue the amiodarone at this point. I don't see any urgency to undergo a heart catheterization at this point. I am going to restart the patient back on metoprolol. He is already on heparin IV for anticoagulation because he has paroxysmal atrial fibrillation. Currently he is not on any vasopressors. He was started on Lasix IV because of congestive heart failure. The echocardiogram at bedside was reviewed and continues to show severe cardiomyopathy with EF about 10-15% with small pericardial effusion. Past Medical History Past Medical History: Pneumonia Additional Past Medical History / Comment(s): Morbidly obese, diabetes mellitus , obstructive sleep apnea, coronary artery disease with recent anterior wall myocardial infarction status post angioplasty and stenting of the LAD, chronic renal failure, chronic back pain, hyperlipidemia. History of Any Multi-Drug Resistant Organisms: None Reported Past Surgical History: Appendectomy, Back Surgery Additional Past Surgical History / Comment(s): cardiac catheterization and stenting of the LAD, back surgery with instrumentation and insertions of rods and screws, right rotator cuff Past Anesthesia/Blood Transfusion Reactions: No Reported Reaction Past Psychological History: No Psychological Hx Reported Additional Psychological History / Comment(s): PT IS INDEPENDANT. LIVES WITH /DAUGHTER IN SINGLE LEVEL HOME THAT HAS 3OR 4 STEPS. PT IS ON DISABILTY. 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 NO SERVICE IN BACK GROUND. HAS 3 PET CATS. NO HOME CARE SERVICES RECIEVED, HAS A GLUCOMETER. Smoking Status: Former smoker Past Alcohol Use History: Occasional Additional Past Alcohol Use History / Comment(s): STARTED SMOKING AT AGE 19(1973 ) AND QUIT AT AGE 22(1976) SMOKED 1 PPD. Past Drug Use History: None Reported - Past Family History Father Additional Family Medical History / Comment(s): LOW PLATLETS. SPLEENECTOMY Mother Family Medical History: CVA/TIA Additional Family Medical History / Comment(s): 2 STROKES, HEART DISEASE. Medications and Allergies Home Medications Medication Instructions Recorded Confirmed Type Doxycycline Monohydrate [Monodox] 100 mg PO Q12HR 05/27/17 05/27/17 History Allergies Allergy/AdvReac Type Severity Reaction Status Date / Time No Known Allergies Allergy Verified 05/27/17 20:45 Physical Exam Vitals: Vital Signs Temp Pulse Resp BP BP Pulse Ox 05/28/17 09:01 71 05/28/17 08:50 81 05/28/17 07:00 67 26 H 109/72 96 05/28/17 06:30 70 25 H 103/64 95 05/28/17 06:00 68 29 H 99/58 96 05/28/17 05:30 68 28 H 106/71 96 05/28/17 05:00 73 29 H 103/66 97 05/28/17 04:30 67 18 99/66 96 05/28/17 04:00 98.7 F 151 H 22 117/73 95 05/28/17 03:30 71 26 H 96/65 96 05/28/17 03:00 68 20 97/67 97 05/28/17 02:30 79 22 99/71 94 L 05/28/17 02:00 79 26 H 138/79 91 L 05/28/17 01:30 99 27 H 140/67 87 L 05/28/17 01:00 81 26 H 119/93 90 L 05/28/17 00:30 78 26 H 134/107 92 L 05/28/17 00:00 98.6 F 79 27 H 97/69 93 L 05/27/17 23:46 69 33 H 97/69 88 L 05/27/17 23:30 88 35 H 113/65 88 L 05/27/17 23:00 69 36 H 113/65 91 L 05/27/17 22:30 45 L 31 H 113/65 91 L 05/27/17 22:00 75 28 H 96/63 92 L 05/27/17 21:30 44 L 32 H 96/63 98 05/27/17 21:00 45 L 25 H 117/58 98 05/27/17 20:30 33 L 26 H 102/64 98 05/27/17 20:00 98.8 F 44 L 27 H 111/60 97 05/27/17 19:30 33 L 19 102/59 97 05/27/17 19:00 39 L 28 H 91/56 95 05/27/17 18:30 42 L 47 H 111/59 93 L 05/27/17 18:19 98.8 F 119/93 93 L 05/27/17 18:15 25 H Intake and Output 05/27/17 05/28/17 05/28/17 22:59 06:59 14:59 Intake Total 30 255.529 10 Output Total 150 280 25 Balance -120 -24.471 -15 Intake: IV 30 80 10 0.9 KVO 30 80 10 Intake, IV Titration 175.529 Amount Heparin Sodium,Porcine/ 175.529 D5w Pmx 25,000 unit In Dextrose/Water 1 500ml. bag @ 8.1 UNITS/KG/HR 20. 12 mls/hr IV .Q24H [facility] Rx #:[id number] Output: Urine 150 280 25 Other: Voiding Method Urinal Indwelling Catheter Weight 124.2 kg 124.6 kg - Constitutional General appearance: mild distress - Respiratory Respiratory: left: diminished - Cardiovascular Rhythm: regular Heart sounds: normal: S1, S2 Results 05/28/17 06:17 05/28/17 06:18 Cardiac Enzymes 05/27/17 05/28/17 Range/Units 23:25 06:18 AST 74 H 44 (17-59) U/L Coagulation 05/27/17 05/27/17 05/28/17 Range/Units 23:25 23:25 06:17 PT 17.8 H (9.0-12.0) sec APTT 26.3 31.1 H (22.0-30.0) sec CBC 05/27/17 05/28/17 Range/Units 22:36 06:17 WBC 29.6 H* 33.1 H* (3.8-10.6) k/uL RBC 3.69 L 3.49 L (4.30-5.90) m/uL Hgb 11.9 L 11.2 L (13.0-17.5) gm/dL Hct 37.6 L 34.4 L (39.0-53.0) % Plt Count 363 292 (150-450) k/uL Comprehensive Metabolic Panel 05/27/17 05/28/17 Range/Units 23:25 06:18 Sodium 133 L 134 L (137-145) mmol/L Potassium 5.2 H 4.5 (3.5-5.1) mmol/L Chloride 99 97 L (98-107) mmol/L Carbon Dioxide 16 L 23 (22-30) mmol/L BUN 105 H* 105 H* (9-20) mg/dL Creatinine 2.60 H 2.71 H (0.66-1.25) mg/dL Glucose 129 H 84 (74-99) mg/dL Calcium 7.7 L 7.6 L (8.4-10.2) mg/dL AST 74 H 44 (17-59) U/L ALT 68 69 (21-72) U/L Alkaline Phosphatase 115 110 (38-126) U/L Total Protein 7.2 6.9 (6.3-8.2) g/dL Albumin 3.2 L 3.0 L (3.5-5.0) g/dL Current Medications Generic Name Dose Route Start Last Admin Trade Name Freq PRN Reason Stop Dose Admin Albuterol/Ipratropium 3 ml 05/28/17 08:00 05/28/17 08:50 Duoneb 0.5 Mg-3 Mg/3 Ml Soln INHALATION 3 ml RT-TID [facility] Administration Aspirin 81 mg 05/28/17 09:00 05/28/17 09:05 Aspirin PO 81 mg DAILY [facility] Administration Famotidine 20 mg 05/28/17 09:00 05/28/17 09:05 Pepcid PO 20 mg BID [facility] Administration Furosemide 40 mg 05/28/17 09:00 05/28/17 08:57 Lasix IV 40 mg Q12HR [facility] Administration Furosemide 20 mg 05/28/17 09:36 Lasix IV 05/28/17 09:37 ONCE STA Heparin Sodium (Porcine) 0 unit 05/27/17 23:27 05/28/17 06:55 Heparin IV 4,000 unit PER PROTOCOL PRN Administration Low PTT Protocol Heparin Sodium/Dextrose 25,000 500 mls @ 20.12 mls/hr 05/27/17 23:30 06:56 unit/ IV Solution IV 14.1 units/kg/hr .Q24H [facility] 35.02 mls/hr Protocol Titration 8.1 UNITS/KG/HR Amiodarone HCl 450 mg/ 250 mls @ 33.33 mls/hr 05/28/17 03:35 05/28/17 03:54 Dextrose/Water IV 05/29/17 03:35 1 mg/min .Q7H31M [facility] 33.33 mls/hr Protocol Administration 1 MG/MIN Insulin Glargine 34 unit 05/27/17 22:45 05/27/17 22:55 Lantus SQ Not Given HS [facility] Insulin Human Lispro 8 unit 05/28/17 07:30 05/28/17 07:29 Humalog SQ Not Given AC-TID [facility] Losartan Potassium 12.5 mg 05/28/17 09:00 05/28/17 09:05 Cozaar PO 12.5 mg DAILY [facility] Administration Metoprolol Tartrate 25 mg 05/28/17 09:30 Lopressor PO BID [facility] Naloxone HCl 0.2 mg 05/27/17 23:23 Narcan IV Q2M PRN Opioid Reversal Nitroglycerin 0.4 mg 05/27/17 22:35 Nitrostat SUBLINGUAL Q5M PRN Chest Pain Polyethylene Glycol 17 gm 05/28/17 09:00 05/28/17 09:13 Miralax PO Not Given DAILY [facility] Prasugrel 10 mg 05/28/17 09:00 Effient PO DAILY [facility] Spironolactone 25 mg 05/28/17 09:00 05/28/17 09:05 Aldactone PO 25 mg DAILY [facility] Administration Intake and Output 05/27/17 05/28/17 05/28/17 22:59 06:59 14:59 Intake Total 30 255.529 10 Output Total 150 280 25 Balance -120 -24.471 -15 Intake: IV 30 80 10 0.9 KVO 30 80 10 Intake, IV Titration 175.529 Amount Heparin Sodium,Porcine/ 175.529 D5w Pmx 25,000 unit In Dextrose/Water 1 500ml. bag @ 8.1 UNITS/KG/HR 20. 12 mls/hr IV .Q24H [facility] Rx #:[id number] Output: Urine 150 280 25 Other: Voiding Method Urinal Indwelling Catheter Weight 124.2 kg 124.6 kg 05/28/17 06:17 05/28/17 06:18 Assessment and Plan Plan: This is a 62-year-old gentleman with a known CAD and prior stenting of the LAD as well as severe cardiomyopathy who was admitted to the hospital with Jenn arce. Currently the patient has been maintaining normal sinus mechanism and he is hemodynamically stable. I would restart the patient back on metoprolol, continue amiodarone IV, continue Lasix IV, continue heparin IV, and consult EP for the evaluation of AICD.
[2017-05-28 09:50] LABS: Hemoglobin A1C 10.9 % (4.2-6.1)
--- NOTE | 2017-05-28 10:15 | ECHOF ---
Referral Reason:rhythm changes, SOB MEASUREMENTS -------- HEIGHT: 175.3 cm WEIGHT: 124.3 kg BP: 96/54 RVIDd: 4.1 cm (< 3.3) IVSd: 1.4 cm (0.6 - 1.1) LVIDd: 7.6 cm (3.9 - 5.3) LVPWd: 1.5 cm (0.6 - 1.1) IVSs: 1.7 cm LVIDs: 6.9 cm LVPWs: 1.5 cm LA Diam: 3.7 cm (2.7 - 3.8) LAESV Index (A-L): 39.37 ml/m Ao Diam: 3.7 cm (2.0 - 3.7) AV Cusp: 2.1 cm (1.5 - 2.6) MV EXCURSION: 14.837 mm (> 18.000) MV EF SLOPE: 121 mm/s (70 - 150) EPSS: 1.4 cm MV E Tai: 0.96 m/s MV DecT: 122 ms MV A Tai: 0.32 m/s MV E/A Ratio: 2.97 RAP: 15.00 mmHg RVSP: 55.28 mmHg FINDINGS -------- This was a technically difficult study with suboptimal views. The left ventricle is severely dilated. There is moderate concentric left ventricular hypertrophy. Overall left ventricular systolic function is severely impaired with, an EF < 20%. Mid inferoseptal LV wall motion is hypokinetic. Apical anterior LV wall motion is akinetic. Apical lateral LV wall motion is akinetic. Apical inferior LV wall motion is akinetic. Apical septum LV wall motion is akinetic. The right ventricle is moderately enlarged. LA is moderately dilated 34-39 ml/m2 The right atrium was not well visualized. 1.5mg of Definity was utilized for enhancement of images Aortic valve is trileaflet and is mildly thickened. Mild mitral annular calcification present. Mild mitral regurgitation is present. Mild tricuspid regurgitation present. There is moderate to severe pulmonary hypertension. The right ventricular systolic pressure, as measured by Doppler, is 55.28mmHg. The aortic root is dilated measuring 3.7cm. The inferior vena cava is dilated with no significant inspiratory collapse which is consistent estimated right atrial pressure of >15 mmHg. There is a small, generalized pericardial effusion present. more so overlying RA. CONCLUSIONS -------- 1. This was a technically difficult study with suboptimal views. 2. The right ventricle is moderately enlarged. 3. LA is moderately dilated 34-39 ml/m2 4. The right atrium was not well visualized. 5. 1.5mg of Definity was utilized for enhancement of images 6. Aortic valve is trileaflet and is mildly thickened. 7. Mild mitral annular calcification present. 8. Mild mitral regurgitation is present. 9. Mild tricuspid regurgitation present. 10. There is moderate to severe pulmonary hypertension. 11. The right ventricular systolic pressure, as measured by Doppler, is 55.28mmHg. 12. The left ventricle is severely dilated. 13. The aortic root is dilated measuring 3.7cm. 14. The inferior vena cava is dilated with no significant inspiratory collapse which is consistent estimated right atrial pressure of >15 mmHg. 15. There is moderate concentric left ventricular hypertrophy. 16. Overall left ventricular systolic function is severely impaired with, an EF < 20%. 17. Mid inferoseptal LV wall motion is hypokinetic. 18. Apical anterior LV wall motion is akinetic. 19. Apical lateral LV wall motion is akinetic. 20. Apical inferior LV wall motion is akinetic. 21. Apical septum LV wall motion is akinetic. CHILD AND FAMILY THERAPIST: Savanna Wyatt RDCS
--- NOTE | 2017-05-28 10:15 | P.NPCON ---
History of Present Illness - Reason for Consult acute renal failure - History of Present Illness T1-year-old male with the history of severe cardiomyopathy EF of less than 20% who was just discharged from [facility] to [facility] rehab after an admission with the vent dependent respiratory failure status post ST elevation [place] and cardiac catheterization. He had acute kidney injury which had improved with serum creatinine down to about 1.1-1.2 mg/dL from 3.4 at peak. Patient was readmitted after his life vest shocked twice. Patient was identified to be in V. fib. He is currently in the ICU. Patient was started on dopamine but he had the increased the arrhythmias therefore this is now discontinued. His the serum creatinine was at 2.7 mg/dL. Urine output is low. Patient is also currently maintained on IV amiodarone. He remains short of breath. Review of Systems Per HPI other systems negative for fever chills nausea vomiting diarrhea abdominal pain. Past Medical History Past Medical History: Pneumonia Additional Past Medical History / Comment(s): Morbidly obese, diabetes mellitus , obstructive sleep apnea, coronary artery disease with recent anterior wall myocardial infarction status post angioplasty and stenting of the LAD, chronic renal failure, chronic back pain, hyperlipidemia. History of Any Multi-Drug Resistant Organisms: None Reported Past Surgical History: Appendectomy, Back Surgery Additional Past Surgical History / Comment(s): cardiac catheterization and stenting of the LAD, back surgery with instrumentation and insertions of rods and screws, right rotator cuff Past Anesthesia/Blood Transfusion Reactions: No Reported Reaction Past Psychological History: No Psychological Hx Reported Additional Psychological History / Comment(s): PT IS INDEPENDANT. LIVES WITH /DAUGHTER IN SINGLE LEVEL HOME THAT HAS 3OR 4 STEPS. PT IS ON DISABILTY. 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 NO SERVICE IN BACK GROUND. HAS 3 PET CATS. NO HOME CARE SERVICES RECIEVED, HAS A GLUCOMETER. Smoking Status: Former smoker Past Alcohol Use History: Occasional Additional Past Alcohol Use History / Comment(s): STARTED SMOKING AT AGE 19(1973 ) AND QUIT AT AGE 22(1976) SMOKED 1 PPD. Past Drug Use History: None Reported - Past Family History Father Additional Family Medical History / Comment(s): LOW PLATLETS. SPLEENECTOMY Mother Family Medical History: CVA/TIA Additional Family Medical History / Comment(s): 2 STROKES, HEART DISEASE. Medications and Allergies Home Medications Medication Instructions Recorded Confirmed Type Doxycycline Monohydrate [Monodox] 100 mg PO Q12HR 05/27/17 05/27/17 History Allergies Allergy/AdvReac Type Severity Reaction Status Date / Time No Known Allergies Allergy Verified 05/27/17 20:45 Physical Exam Vitals: Vital Signs Temp Pulse Resp BP BP Pulse Ox 05/28/17 09:30 78 15 105/73 93 L 05/28/17 09:01 71 05/28/17 09:00 66 27 H 95/63 97 05/28/17 08:50 81 05/28/17 08:30 80 26 H 107/50 95 05/28/17 08:00 70 29 H 100/59 95 05/28/17 07:30 133 H 25 H 108/81 96 05/28/17 07:00 67 26 H 109/72 96 05/28/17 06:30 70 25 H 103/64 95 05/28/17 06:00 68 29 H 99/58 96 05/28/17 05:30 68 28 H 106/71 96 05/28/17 05:00 73 29 H 103/66 97 05/28/17 04:30 67 18 99/66 96 05/28/17 04:00 98.7 F 151 H 22 117/73 95 05/28/17 03:30 71 26 H 96/65 96 05/28/17 03:00 68 20 97/67 97 05/28/17 02:30 79 22 99/71 94 L 05/28/17 02:00 79 26 H 138/79 91 L 05/28/17 01:30 99 27 H 140/67 87 L 05/28/17 01:00 81 26 H 119/93 90 L 05/28/17 00:30 78 26 H 134/107 92 L 05/28/17 00:00 98.6 F 79 27 H 97/69 93 L 05/27/17 23:46 69 33 H 97/69 88 L 05/27/17 23:30 88 35 H 113/65 88 L 05/27/17 23:00 69 36 H 113/65 91 L 05/27/17 22:30 45 L 31 H 113/65 91 L 05/27/17 22:00 75 28 H 96/63 92 L 05/27/17 21:30 44 L 32 H 96/63 98 05/27/17 21:00 45 L 25 H 117/58 98 05/27/17 20:30 33 L 26 H 102/64 98 05/27/17 20:00 98.8 F 44 L 27 H 111/60 97 05/27/17 19:30 33 L 19 102/59 97 05/27/17 19:00 39 L 28 H 91/56 95 05/27/17 18:30 42 L 47 H 111/59 93 L 05/27/17 18:19 98.8 F 119/93 93 L 05/27/17 18:15 25 H Intake and Output 05/27/17 05/28/17 05/28/17 22:59 06:59 14:59 Intake Total 30 255.529 12 Output Total 150 280 85 Balance -120 -24.471 -73 Intake: IV 30 80 10 0.9 KVO 30 80 10 Intake, IV Titration 175.529 2 Amount Amiodarone 450 mg In 2 Dextrose 5% in Water 250 ml @ 1 MG/MIN 33.33 mls/ hr IV .Q7H31M [facility] Rx#: [id number] Heparin Sodium,Porcine/ 175.529 D5w Pmx 25,000 unit In Dextrose/Water 1 500ml. bag @ 8.1 UNITS/KG/HR 20. 12 mls/hr IV .Q24H [facility] Rx #:[id number] Output: Urine 150 280 85 Other: Voiding Method Urinal Indwelling Catheter Weight 124.2 kg 124.6 kg On examination patient is is short of breath, he is not in any acute distress. Blood pressure is 123/69 heart rate 65/m he is afebrile he is communicating. Examination of the heart S1 and S2 Examination lungs bilateral breath sounds are heard with crackles heard occasional wheezing is also heard. Abdomen is soft distended obese nontender. Examination lower ex Mittie shows edema 2+ bilaterally. [place] [employer] exam is grossly intact. Results - Lab Results Most recent lab results Calcium 7.6 mg/dL (8.4-10.2) L 05/28/17 06:18 Phosphorus 7.1 mg/dL (2.5-4.5) H 05/28/17 06:18 Magnesium 3.0 mg/dL (1.6-2.3) H 05/28/17 06:18 05/28/17 06:17 05/28/17 06:18 Assessment and Plan Plan: Assessment 1. Acute kidney injury mainly cardiorenal with perhaps an element of ATN secondary to hypoperfusion. Currently urine output is low. Agree with Lasix however I'll give him at least 60 mg IV at this time. There are no nephrotoxic agents on board. 2. Severe cardiomyopathy with EF of less than 20% with severe coronary artery disease 3. Ventricular fibrillation status post shock 2. Patient has a life [place] on. 4. CHF/fluid overload systolic acute on top of chronic. Plan Lasix 160 mg IV push. Continue to monitor urine output. Continue to avoid nephrotoxic agents. Hold the Cozaar for now as patient is oliguric
[2017-05-28] MEDS ORDERED: PIPERACILLIN-TAZOBACTAM 3.375 GM in DEXTROSE/WATER 1 50ML.BAG IVPB SCH ×2 (11:00→16:00)
--- NOTE | 2017-05-28 11:02 | P.HPIM ---
History of Present Illness H&P Date: 05/28/17 Chief Complaint: LifeVest shock History of presenting complaint: This is a pleasant 61 patient who was admitted to [facility] on [id number] and transferred to [facility] on 05/24/2017 for inpatient rehab. Patient was admitted with acute ST elevation anterior wall microinfarction and underwent cardiac catheterization and unsuccessful stenting of the LAD with less than optimal results. She also found a chronically occluded circumflex. Patient also had ischemic cardiomyopathy with the EF of 20-25%. Patient must temporally on the ventilator. Patient also was found to have uncontrolled diabetes and started on insulin. Patient also went into acute renal failure felt to be acute tubular necrosis. And patient also found to underlying chronic kidney disease from diabetic nephrosclerosis. Patient also has a persistent sleep apnea. Patient also went into atrial fibrillation for which she was anticoagulated. With Coumadin. Patient also received the LifeVest. Patient went to the [facility] and his white count was climbing up. Patient and minimal cough no sputum no fever. Patient seen with Dr. Smith who started him on IV Zosyn. Yesterday the patient is didn't rehab and then his life and went off twice. Patient was then transferred here to [place] in ICU by the cardiology service. Patient was bradycardic when he arrived and was put on dopamine drip per cardiology. Patient then has something burst of atrial fibrillation. Dopamine was taken off and patient was given IV amiodarone loading. Subsequently LifeVest was taken off and patient is got chest pads in place. Currently patient is in sinus rhythm. Not a not on any pressure support. Blood pressure systolic is above 100. Patient is short of breath. GEN.: Tired EYES: None HEENT: None NECK: None RESPIRATORY: [Short of breath, mild cough CARDIOVASCULAR: None GASTROINTESTINAL: Some edema GENITOURINARY: None MUSCULOSKELETAL: None LYMPHATICS: None HEMATOLOGICAL: None PSYCHIATRY: None NEUROLOGICAL: None Significant past medical history: --Acute ST segment anterior wall myocardial infarction status post cardiac catheterization and unsuccessful stenting of the LAD with less than optimal results, on 05/16/2017 -Acute ischemic cardiomyopathy from systolic dysfunction EF 20-25% -Acute hypoxic respiratory failure, multifactorial, status post being on the ventilator -Diabetes mellitus type II, uncontrolled, on injectable insulin -Acute hypoxic respiratory failure requiring intubation and mechanical ventilation. -Acute renal failure likely acute tubular necrosis, likely multifactorial including hypotension, improving -Possible chronic kidney disease from diabetic nephrosclerosis -Morbid obesity -Obstructive sleep apnea -Pneumonia, possible -Acute metabolic encephalopathy, multifactorial from multiple medical problems, improving -Persistent atrial fibrillation, Coumadin for anticoagulation Significant past medical history: Appendectomy, back surgery, cardiac cath with stent to LAD with not so good results, back surgery with instrumentation of Ema Hooper, right rotator cuff surgery. Social history: , patient smoked from 7582-9340-1 pack a day Family history: Stroke as splenectomy Medications upon transfer: Coumadin 2.5 mg daily Aldactone 25 mg daily If intermittent Daily MiraLAX 17 g daily Nitrostat 0.4 sublingual every 5 when necessary Lopressor 50 mg by mouth twice a day Maalox 30 mL by mouth every 4 when necessary Cozaar 12.5 by mouth daily Lactulose 30 g by mouth twice a day when necessary Abdomen abdomen 3 times a day Lantus 34 units subcu daily at bedtime Humalog 8 units subcu before meals 3 times a day Lasix 40 mg by mouth twice a day Pepcid 20 mg by mouth twice a day Aspirin 81 mg by mouth daily Tylenol 650 mg by mouth every 6 when necessary I think patient is on Zosyn ALLERGIES: None VITAL SIGNS: 98, 42, 101/5993% 4 L GENERAL: Obese, BMI 40.6, proper in bed short of breath tired. EYES: Pupils equal. Conjunctiva normal. HEENT: External appearance of nose and ears normal, oral cavity grossly normal. NECK: JVD possibly raised; masses not palpable. HEART: First and second heart sounds are normal; edema present. LUNGS: Respiratory rate increased, decreased breath sounds prolonged expiration. ABDOMEN: Soft, distended, nontender, liver spleen not palpable, no masses palpable. LYMPHATICS: No lymph nodes palpable in the axilla and neck. PSYCH: Lethargic, arousable does answer questions dozes off for down to l. NEUROLOGICAL: Cranial nerves grossly intact; no facial asymmetry, power and sensation grossly intact. Investigations: White count 29.6, hemoglobin 11.9, INR 1.8 potassium 5.2, albumin 105, creatinine 2.6, troponin 6, it was 45 on 05/18/2017 Chest [id number] cardiomegaly, some vascular prominence questionable infiltrate Assessment: -Possibly acute on chronic congestive heart failure exacerbation from systolic dysfunction EF 20-25% from an ischemic cardiomyopathy -Recurrent paroxysmal atrial fibrillation -Acute metabolic enteropathy multifactorial --Acute ST segment anterior wall myocardial infarction status post cardiac catheterization and unsuccessful stenting of the LAD with less than optimal results, on 05/16/2017 -Acute hypoxic respiratory failure, multifactorial, r -Diabetes mellitus type II, uncontrolled, on i insulin -Acute hypoxic respiratory failure . -Acute renal failure likely acute tubular necrosis, likely multifactorial including hypotension, improving -Possible chronic kidney disease from diabetic nephrosclerosis -Morbid obesity with BMI 40.6 -Obstructive sleep apnea -Pneumonia, possible -Acute metabolic encephalopathy, multifactorial from multiple medical problems, -Persistent atrial fibrillation, Coumadin for anticoagula Plan: Patient was on dopamine. There was taken off. Patient on IV heparin. Also on Effient Lopressor Lantus DuoNeb. And Aldactone. Upon admission consultation was made to cardiology, pulmonary, nephrology, infectious disease. I spoke to patient's patient at length this morning. Patient will be transferred to [facility] for higher level of care as college he cannot offer more at this point to today. His prognosis is guarded. I also spoke to Dr. guzman from pulmonary. I also spoke to Dr. Ovalles from infectious disease and will continue the Zosyn. Total time spent today was [address] for transferred to [facility] Past Medical History Past Medical History: Pneumonia Additional Past Medical History / Comment(s): Morbidly obese, diabetes mellitus , obstructive sleep apnea, coronary artery disease with recent anterior wall myocardial infarction status post angioplasty and stenting of the LAD, chronic renal failure, chronic back pain, hyperlipidemia. History of Any Multi-Drug Resistant Organisms: None Reported Past Surgical History: Appendectomy, Back Surgery Additional Past Surgical History / Comment(s): cardiac catheterization and stenting of the LAD, back surgery with instrumentation and insertions of rods and screws, right rotator cuff Past Anesthesia/Blood Transfusion Reactions: No Reported Reaction Past Psychological History: No Psychological Hx Reported Additional Psychological History / Comment(s): PT IS INDEPENDANT. LIVES WITH /DAUGHTER IN SINGLE LEVEL HOME THAT HAS 3OR 4 STEPS. PT IS ON DISABILTY. 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 NO SERVICE IN BACK GROUND. HAS 3 PET CATS. NO HOME CARE SERVICES RECIEVED, HAS A GLUCOMETER. Smoking Status: Former smoker Past Alcohol Use History: Occasional Additional Past Alcohol Use History / Comment(s): STARTED SMOKING AT AGE 19(1973 ) AND QUIT AT AGE 22(1976) SMOKED 1 PPD. Past Drug Use History: None Reported - Past Family History Father Additional Family Medical History / Comment(s): LOW PLATLETS. SPLEENECTOMY Mother Family Medical History: CVA/TIA Additional Family Medical History / Comment(s): 2 STROKES, HEART DISEASE. Medications and Allergies Home Medications Medication Instructions Recorded Confirmed Type Doxycycline Monohydrate [Monodox] 100 mg PO Q12HR 05/27/17 05/27/17 History Allergies Allergy/AdvReac Type Severity Reaction Status Date / Time No Known Allergies Allergy Verified 05/27/17 20:45 Physical Exam Vitals: Vital Signs Intake and Output 05/27/17 05/28/17 05/28/17 22:59 06:59 14:59 Intake Total 30 255.529 12 Output Total 150 280 85 Balance -120 -24.471 -73 Intake: IV 30 80 10 0.9 KVO 30 80 10 Intake, IV Titration 175.529 2 Amount Amiodarone 450 mg In 2 Dextrose 5% in Water 250 ml @ 1 MG/MIN 33.33 mls/ hr IV .Q7H31M SAMANTHA Rx#: [id number] Heparin Sodium,Porcine/ 175.529 D5w Pmx 25,000 unit In Dextrose/Water 1 500ml. bag @ 8.1 UNITS/KG/HR 20. 12 mls/hr IV .Q24H SAMANTHA Rx #:[id number] Output: Urine 150 280 85 Other: Voiding Method Urinal Indwelling Catheter Indwelling Catheter # Bowel Movements 0 Weight 124.2 kg 124.6 kg Results CBC & Chem 7: 05/28/17 06:17 05/28/17 06:18
[2017-05-28 11:46] VITALS: TEMP 96.6
[2017-05-28 11:51] LABS: Glucose,Whole Blood 113 mg/dL (75-99)
--- NOTE | 2017-05-28 12:07 | CDI ---
In responding to this query, please exercise your independent professional judgment. The [facility] Coding Staff and Clinical Documentation Specialists appreciate your assistance in clarifying documentation, maintaining compliance with coding guidelines, accurately documenting patients condition and capturing severity of illness. The fact that a question is asked does not imply that any particular answer is desired or expected. Communication forms are a method of clarifying documentation and are not made part of the Legal Health Record. Thank you in advance for your clarification. Last Revision, August 2015 [address] [place] [address] Documentation Clarification Form Date: 05/28/2017 11:38:00 AM From: Summer Renee RN, CDS Admit Date: 05/27/2017 6:10:00 PM Patient Name: Adam Muro Visit Number: [id number] Dr. Mulu Smith, 62 year old patient admitted after syncopal episode post Life vest shocked patient twice for V-fib. Patient has history of chronic renal failure noted in consult note. History/Risk Factors: DM, ALEJANDRA, Chronic Renal Failure, Clinical Indicators: BUN/CR/GFR 105-2.60-25, GFR range noted from 32->60 Treatment: Renal consult, Daily labs, BMP, Phosphorus, In order to capture the severity of condition, please clarify if the condition signifies: CKD Stage 1 (GFR > 90) CKD Stage 2 (GFR 60-89) CKD Stage 3 (GFR 30-59) CKD Stage 4 (GFR 15-29) CKD Stage 5 (GFR <15) Unable to determine Other condition, please specify Please document in your progress notes and discharge summary in order to capture severity of illness and risk of mortality. Include clinical findings that support your diagnosis. FYI: Press F11 to launch patient chart. Thank you. ZACHARIAH
[2017-05-28 12:42] VITALS: BP 99/50
[2017-05-28] MEDS ORDERED: NYSTATIN 100,000 UNIT/ML SUSP 500,000 UNIT/5 ML CUP PO SCH (13:00)
[2017-05-28 13:14] VITALS: PULSE 58; RESP 26
[2017-05-28] MEDS ORDERED: WARFARIN 2.5 MG TAB PO SCH ×2 (18:00)
--- NOTE | 2017-05-29 07:49 | CONS ---
DATE OF SERVICE: 05/28/2017 REASON FOR CONSULTATION: Leukocytosis. HISTORY OF PRESENT ILLNESS: The patient is a 61-year-old male who was recently admitted to [facility] where the patient did have anteroseptal wall IA. Patient did have a PTCA and stenting to the mid LAD. Patient also noted to have a low EF of about 20%. The patient subsequently has been assigned to the [facility] where the patient was getting rehab yesterday afternoon. The patient developed a near-syncopal episode. The patient wearing a Life Vest which identified ventricular fibrillation and it ( ) twice. The patient did have ( ) recovery. He was subsequently was transferred to the ICU and afterward the patient has been transferred to the [facility] ER where the patient was started on Amiodarone drip. The patient did have a chest x-ray which did show cardiomegaly with pulmonary vascular congestion. The patient did have some cough, but had significant sputum production. No chest pain. No abdominal pain. No nausea, vomiting. The patient denies having difficulty in breathing. The patient with no fever, has been admitted to this facility and no fever at the [facility]. The patient did have elevated white count 33.1, which was I was asked to evaluate the patient. The patient did have a UA that was reported to be negative a ramon. REVIEW OF SYSTEMS: CONSTITUTIONAL: Positive for weakness, but no fever. EYES: No complaint. ENT: As per HPI. RESPIRATORY: As per HPI. CARDIOVASCULAR: As per HPI. GENITOURINARY: No complaint. GASTROINTESTINAL: No complaint. MUSCULOSKELETAL: No complaint. INTEGUMENTARY: No complaint. PSYCHOLOGICAL: No complaint. ENDOCRINE: No complaint. NEUROLOGICAL: No complaint. PAST MEDICAL HISTORY: Significant for coronary artery disease, acute IA, pneumonia, morbid obesity, diabetes mellitus, past history of sleep apnea, hyperlipidemia, chronic back pain, chronic renal insufficiency. PAST SURGICAL HISTORY: Appendectomy, back surgery and PTCA and stenting to the LAD. SOCIAL HISTORY: Former smoker, occasionally drinks. No drug use. FAMILY HISTORY: Mother had history CVA and TIA. ALLERGIES: No known drug allergies. Medications include patient is currently on DuoNeb, amiodarone, aspirin, Pepcid , Lasix, heparin, Lantus, Humalog, Lopressor, Narcan, Nitrostat, piperacillin- tazobactam, MiraLAX and Aldactone. On examination, blood pressure is 99/50 with a pulse of 88, temperature 98. He is 96% on 2 L nasal cannula. General description is a middle-age male lying in bed in no distress. No tachypnea or accessory muscles of respiration use. HEENT examination shows slight pallor. No scleral icterus. Oral mucosa is moist with minimal thrush. NECK: Trachea central. No thyromegaly. LUNGS: Unlabored breathing with decreased breath sounds, no wheeze. HEART: S1 and S2, regular rate and rhythm. ABDOMEN: Soft. No tenderness. No guarding or rigidity. EXTREMITIES: Some trace edema of the feet. SKIN EXAMINATION: With multiple bruises. NEUROLOGICALLY: The patient is awake and alert, oriented x3. Mood and affect normal. LABS: Hemoglobin is 11.2 with a white count of 33.1. BUN of 105 with a creatinine 2.71. UA has been negative. Chest x-ray on admission, cardiomegaly with central vascular congestion suspect small bilateral pleural effusion with left basal atelectasis and/or infiltrate not excluded. DIAGNOSTIC IMPRESSION AND PLAN: The patient with leukocytosis, which is likely multifactorial in this patient who did have a recent myocardial infarction, status post PTCA and stenting to the LAD in a patient who had the questions of possible left lower lobe pneumonia not entirely excluded. The patient did have very minimal cough, not bringing up any sputum. The patient did have multiple bruises and that could be contributed to ( ) elevated white count plus the component of thrush. PLAN: 1. Will try to obtain sputum for gram stain and cultures and sensitivity. 2. The patient will continue Zosyn. I will add Nystatin swish and swallow. 3. Patient is being transferred to [facility] for further management and should be evaluated by an ID service there. 4. Will continue to follow up on the culture and adjustment in antibiotic if needed. was present at the bedside. Her questions and concerns were answered. ZACHARIAH
[2017-05-29] MEDS ORDERED: FAMOTIDINE 20 MG TAB PO SCH (09:00)
--- NOTE | 2017-05-30 05:58 | CONS ---
ADDENDUM An addendum on my previous note from yesterday, which was consultation. The patient was seen in consult for acute kidney injury. Review of previous labs shows serum creatinine about 1.1 to 1.2 mg/dL during his last admission. The patient may have underlying chronic kidney disease secondary to nephrosclerosis and NKF stage II to III. However, at this time we do not have prior labs from before April of 2017. ZACHARIAH
== END 2017-05-28 14:46 | disposition short-term general hospital (02) | DRG 308 ==
LOC: 6ICU 18:10
PROVIDERS: ADMIT Hospitalist; ATTEND Hospitalist
DX: I49.01 Ventricular fibrillation (principal); G93.41 Metabolic encephalopathy; J96.01 Acute respiratory failure with hypoxia; N17.0 Acute kidney failure with tubular necrosis; I50.23 Acute on chronic systolic (congestive) heart failure; J18.9 Pneumonia, unspecified organism; I13.0 Hypertensive heart and chronic kidney disease with heart failure and stage 1 through stage 4 chronic kidney disease, or unspecified chronic kidney disease; Z68.41 Body mass index [BMI] 40.0-44.9, adult; E11.22 Type 2 diabetes mellitus with diabetic chronic kidney disease; E11.65 Type 2 diabetes mellitus with hyperglycemia; E66.01 Morbid (severe) obesity due to excess calories; E78.5 Hyperlipidemia, unspecified; G47.33 Obstructive sleep apnea (adult) (pediatric); I25.10 Atherosclerotic heart disease of native coronary artery without angina pectoris; I25.5 Ischemic cardiomyopathy; I48.0 Paroxysmal atrial fibrillation; I48.1 Persistent atrial fibrillation; N18.9 Chronic kidney disease, unspecified; G89.29 Other chronic pain; M54.9 Dorsalgia, unspecified; I25.2 Old myocardial infarction; Z87.891 Personal history of nicotine dependence; Z95.5 Presence of coronary angioplasty implant and graft; Z79.01 Long term (current) use of anticoagulants; Z79.4 Long term (current) use of insulin; Z79.899 Other long term (current) drug therapy
CPT/HCPCS: 71010; 80053; 81001; 82550; 82553; 83036; 83605; 83735; 83880; 84100; 84484; 85025; 85610; 85730; 87086; 93306; 94640

== ENCOUNTER 2017-07-05 20:55 | Inpatient (IN) | payer BC, MEDICARE ==
[2017-07-05] MEDS ORDERED: SODIUM CHLORIDE 0.9% 500 ML IV STA (21:19)
[2017-07-05] MEDS ORDERED: ACETAMINOPHEN TAB 325 MG TAB PO STA (21:19)
--- NOTE | 2017-07-05 21:26 | ED ---
General Adult HPI - General Chief complaint: Upper Respiratory Infection Stated complaint: Pneumonia-Sent by PCP Time Seen by Provider: 07/05/17 21:10 Source: patient, RN notes reviewed, old records reviewed Mode of arrival: ambulatory Limitations: no limitations - History of Present Illness Initial comments: 62-year-old male sent from primary care physician's office for evaluation. Patient has chief complaint cough and fever. He was found to be febrile at his PCPs office 103. Patient has had recent complicated medical history. Patient had a heart attack in April, after hospitalization for rehab he had a V. fib arrest, patient was wearing a LifeVest at the time and was defibrillated. Patient was subsequently transferred to [facility], he did develop a pneumonia and urinary tract infection. Patient had been home since first week of June. Symptoms began today with fever and cough. Prior to patient's heart attack in April, he had no known medical history, no medications. - Related Data Home Medications Medication Instructions Recorded Confirmed Doxycycline Monohydrate [Monodox] 100 mg PO Q12HR 05/27/17 05/27/17 Previous Rx's Medication Instructions Recorded Acetaminophen Tab [Tylenol] 650 mg PO Q6HR PRN tab 05/24/17 Aspirin 81 mg PO DAILY 05/24/17 Famotidine [Pepcid] 20 mg PO BID tab 05/24/17 Furosemide [Lasix] 40 mg PO BID@0900,1600 tab 05/24/17 INSULIN LISPRO (humaLOG) [humaLOG 8 unit SQ AC-TID vial 05/24/17 (formulary)] Insulin Glargine [Lantus] 34 unit SQ HS vial 05/24/17 Ipratropium-Albuterol Nebulize 3 ml INHALATION RT-TID neb 05/24/17 [Duoneb 0.5 mg-3 mg/3 ml Soln] Lactulose [Cephulac] 30 gm PO BID PRN dose 05/24/17 Losartan [Cozaar] 12.5 mg PO DAILY tab 05/24/17 Mag Hydrox/Al Hydrox/Simeth 30 ml PO Q4HR PRN dose 05/24/17 [Maalox] Metoprolol Tartrate [Lopressor] 50 mg PO BID tab 05/24/17 Nitroglycerin Sl Tabs [Nitrostat] 0.4 mg SUBLINGUAL Q5M PRN tab 05/24/17 Polyethylene Glycol 3350 [Miralax] 17 gm PO DAILY pack 05/24/17 Prasugrel [Effient] 10 mg PO DAILY tab 05/24/17 Spironolactone [Aldactone] 25 mg PO DAILY tab 05/24/17 Warfarin [Coumadin] 2.5 mg PO DAILY@1800 tab 05/24/17 Warfarin [Coumadin] 5 mg PO ONCE@1800 tab 05/24/17 Allergies Allergy/AdvReac Type Severity Reaction Status Date / Time No Known Allergies Allergy Verified 07/05/17 22:11 Review of Systems ROS Statement: Those systems with pertinent positive or pertinent negative responses have been documented in the HPI. ROS Other: All systems not noted in ROS Statement are negative. Past Medical History Past Medical History: Pneumonia Additional Past Medical History / Comment(s): Morbidly obese, diabetes mellitus , obstructive sleep apnea, coronary artery disease with recent anterior wall myocardial infarction status post angioplasty and stenting of the LAD, chronic renal failure, chronic back pain, hyperlipidemia. History of Any Multi-Drug Resistant Organisms: None Reported Past Surgical History: Appendectomy, Back Surgery Additional Past Surgical History / Comment(s): cardiac catheterization and stenting of the LAD, back surgery with instrumentation and insertions of rods and screws, right rotator cuff Past Anesthesia/Blood Transfusion Reactions: No Reported Reaction Past Psychological History: No Psychological Hx Reported Smoking Status: Former smoker Past Alcohol Use History: Occasional Past Drug Use History: None Reported - Past Family History Father Additional Family Medical History / Comment(s): LOW PLATLETS. SPLEENECTOMY Mother Family Medical History: CVA/TIA Additional Family Medical History / Comment(s): 2 STROKES, HEART DISEASE. General Exam Limitations: no limitations General appearance: alert, in no apparent distress Head exam: Present: atraumatic, normocephalic Eye exam: Present: normal appearance, PERRL ENT exam: Present: normal exam Neck exam: Present: normal inspection. Absent: meningismus, full ROM Respiratory exam: Present: rales Cardiovascular Exam: Present: regular rate, normal rhythm GI/Abdominal exam: Present: soft. Absent: distended, tenderness Extremities exam: Present: normal inspection, normal capillary refill. Absent: pedal edema Neurological exam: Present: alert, oriented X3, CN II-XII intact. Absent: motor sensory deficit Psychiatric exam: Present: normal affect, normal mood Skin exam: Present: warm, dry, diaphoretic Course Vital Signs 07/05/17 07/05/17 20:58 21:32 Temperature 100.1 F H 99.5 F Pulse Rate 74 62 Respiratory 18 18 Rate Blood Pressure 117/59 112/60 O2 Sat by Pulse 96 95 Oximetry EKG Findings - EKG Comments: EKG Findings:: EKG shows sinus rhythm with first-degree AV block, ventricular rate 79, OK interval 244, castration 98, QTC 426, there is no ST segment elevation. Medical Decision Making - Medical Decision Making 59-year-old male presenting with cough from outpatient clinic. Patient is competent past medical history including pneumonia. Chest x-ray does reveal left pneumonia or pleural effusion. Blood cell count was 20,000, hemoglobin 10.0, creatinine is 2.3% creatinine at this hospital as 2.7. Troponin is elevated, in the setting of CK D. There is no EKG changes, and no chest pain. This number will be trended. Patient is given broad-spectrum antibiotics. Diagnosis: Hospital-acquired pneumonia, acute on chronic renal insufficiency. - Lab Data Result diagrams: 07/05/17 21:27 07/05/17 21:27 Lab Results 07/05/17 07/05/17 07/05/17 Range/Units 21:27 21:27 21:27 WBC 20.1 H (3.8-10.6) k/uL RBC 3.32 L (4.30-5.90) m/uL Hgb 10.0 L (13.0-17.5) gm/dL Hct 31.8 L (39.0-53.0) % MCV 95.6 (80.0-100.0) fL MCH 30.2 (25.0-35.0) pg MCHC 31.6 (31.0-37.0) g/dL RDW 15.2 (11.5-15.5) % Plt Count 344 (150-450) k/uL Neutrophils % 83 % Lymphocytes % 4 % Monocytes % 9 % Eosinophils % 0 % Basophils % 0 % Neutrophils # 16.6 H (1.3-7.7) k/uL Lymphocytes # 0.8 L (1.0-4.8) k/uL Monocytes # 1.8 H (0-1.0) k/uL Eosinophils # 0.0 (0-0.7) k/uL Basophils # 0.1 (0-0.2) k/uL Manual Slide Review Performed RBC Morphology Normal PT (9.0-12.0) sec INR (<1.2) APTT (22.0-30.0) sec Sodium 133 L (137-145) mmol/L Potassium 3.3 L (3.5-5.1) mmol/L Chloride 89 L (98-107) mmol/L Carbon Dioxide 31 H (22-30) mmol/L Anion Gap 13 mmol/L BUN 77 H (9-20) mg/dL Creatinine 2.30 H (0.66-1.25) mg/dL Est GFR (MDRD) Af Amer 35 (>60 ml/min/1.73 sqM) Est GFR (MDRD) Non-Af 29 (>60 ml/min/1.73 sqM) Glucose 166 H (74-99) mg/dL Plasma Lactic Acid Joseph (0.7-2.0) mmol/L Calcium 8.4 (8.4-10.2) mg/dL Total Bilirubin 0.6 (0.2-1.3) mg/dL AST 28 (17-59) U/L ALT 33 (21-72) U/L Alkaline Phosphatase 75 (38-126) U/L Total Creatine Kinase 61 (55-170) U/L CK-MB (CK-2) 0.9 (0.0-2.4) ng/mL CK-MB (CK-2) Rel Index 1.5 Troponin I 0.157 H* (0.000-0.034) ng/mL Total Protein 7.0 (6.3-8.2) g/dL Albumin 3.4 L (3.5-5.0) g/dL 07/05/17 07/05/17 Range/Units 21:27 21:27 WBC (3.8-10.6) k/uL RBC (4.30-5.90) m/uL Hgb (13.0-17.5) gm/dL Hct (39.0-53.0) % MCV (80.0-100.0) fL MCH (25.0-35.0) pg MCHC (31.0-37.0) g/dL RDW (11.5-15.5) % Plt Count (150-450) k/uL Neutrophils % % Lymphocytes % % Monocytes % % Eosinophils % % Basophils % % Neutrophils # (1.3-7.7) k/uL Lymphocytes # (1.0-4.8) k/uL Monocytes # (0-1.0) k/uL Eosinophils # (0-0.7) k/uL Basophils # (0-0.2) k/uL Manual Slide Review RBC Morphology PT 15.5 H (9.0-12.0) sec INR 1.6 H (<1.2) APTT 25.8 (22.0-30.0) sec Sodium (137-145) mmol/L Potassium (3.5-5.1) mmol/L Chloride (98-107) mmol/L Carbon Dioxide (22-30) mmol/L Anion Gap mmol/L BUN (9-20) mg/dL Creatinine (0.66-1.25) mg/dL Est GFR (MDRD) Af Amer (>60 ml/min/1.73 sqM) Est GFR (MDRD) Non-Af (>60 ml/min/1.73 sqM) Glucose (74-99) mg/dL Plasma Lactic Acid Joseph 0.9 (0.7-2.0) mmol/L Calcium (8.4-10.2) mg/dL Total Bilirubin (0.2-1.3) mg/dL AST (17-59) U/L ALT (21-72) U/L Alkaline Phosphatase (38-126) U/L Total Creatine Kinase (55-170) U/L CK-MB (CK-2) (0.0-2.4) ng/mL CK-MB (CK-2) Rel Index Troponin I (0.000-0.034) ng/mL Total Protein (6.3-8.2) g/dL Albumin (3.5-5.0) g/dL Critical Care Time Critical Care Time: Yes Total Critical Care Time: 35 Disposition Clinical Impression: Healthcare-associated pneumonia Disposition: ADMITTED IP TO THIS [facility] Condition: Stable Referrals: Veto Lemus MD [STAFF PHYSICIAN] - 1-2 days Decision to Admit Reason: Admit from EC Decision Date: 07/05/17 Decision Time: 22:19
[2017-07-05 21:41] LABS: Basophils # (A) 0.1 k/uL (0-0.2); Basophils % (A) 0 %; CH 31.7; CHCM 33.4; Eosinophils % (A) 0 %; HCT 31.8 % (39.0-53.0); Luc # (Auto) 0.72; Luc % (Auto) 4; Lymphocytes # (A) 0.8 k/uL (1.0-4.8); Lymphocytes % (A) 4 %; MCH 30.2 pg (25.0-35.0); MCHC 31.6 g/dL (31.0-37.0); MCV 95.6 fL (80.0-100.0); Mean Platelet Volume 7.4; Monocytes # (A) 1.8 k/uL (0-1.0); Monocytes % (A) 9 %; Neutrophils # (A) 16.6 k/uL (1.3-7.7); Neutrophils % (A) 83 %; RBC 3.32 m/uL (4.30-5.90); RDW 15.2 % (11.5-15.5); WBC 20.1 k/uL (3.8-10.6); WBC (Perox) 21.25
[2017-07-05 21:42] LABS: Calcium 8.4 mg/dL (8.4-10.2); INR 1.6 (<1.2); Partial Thromboplastin Time 25.8 sec (22.0-30.0); Potassium 3.3 mmol/L (3.5-5.1); Prothrombin Time 15.5 sec (9.0-12.0); Total Bilirubin 0.6 mg/dL (0.2-1.3)
[2017-07-05 21:58] LABS: Creatine Kinase MB 0.9 ng/mL (0.0-2.4)
--- NOTE | 2017-07-05 21:58 | XR ---
EXAMINATION TYPE: XR chest 2V DATE OF EXAM: 07/05/2017 COMPARISON: 05/28/2017 HISTORY: Pneumonia and difficulty breathing TECHNIQUE: Frontal and lateral views of the chest are obtained. FINDINGS: Heart is enlarged. There is no heart failure. There is left axillary pacemaker with the le ad tip in the right ventricle. There are chest leads. There is blunting of left posterior costophreni c angle. IMPRESSION: There is evidence for left pleural effusion and probable left basilar pneumonia. No hear t failure. Inspiration is overall improved compared to last exam.
[2017-07-05 22:00] LABS: Troponin I 0.157 ng/mL (0.000-0.034)
[2017-07-05 22:02] LABS: Manual Review Performed; RBC Morphology Normal
[2017-07-05] MEDS ORDERED: IV VANCOMYCIN PER PHARMACY 1 EACH MISC MISCELLANE PRN (22:07)
[2017-07-05] MEDS ORDERED: CEFEPIME 2 GM in SODIUM CHLORIDE 0.9% 50 ML IVPB STA (22:09)
[2017-07-05] MEDS ORDERED: NALOXONE 0.4 MG/ML 1 ML VIAL IV PRN (22:13)
[2017-07-05] MEDS ORDERED: ONDANSETRON 4 MG/2 ML VIAL IVP PRN (22:13)
[2017-07-05] MEDS ORDERED: VANCOMYCIN 1,750 MG in SODIUM CHLORIDE 0.9% 250 ML IVPB ONE (22:30)
[2017-07-05] MEDS: SODIUM CHLORIDE 0.9% 1,000 ML IV SCH (22:49)
[2017-07-05 23:38] VITALS: BMI 33.8
[2017-07-05 23:44] LABS: Glucose,Whole Blood 156 mg/dL (75-99)
[2017-07-05] MEDS ORDERED: POTASSIUM CHLORIDE 10 MEQ in WATER FOR INJECTION 1 100ML.BAG IVPB SCH (23:45)
[2017-07-05] MEDS ORDERED: Potassium Replacement Protocol 1 EACH MISC MISCELLANE PRN (23:53)
[2017-07-06 00:20] LABS: Appearance,Urine Clear (Clear); Bilirubin,Urine Negative (Negative); Glucose,Urine (UA) Negative (Negative); Ketones,Urine Negative (Negative); Leukocyte Esterase,Urine Negative (Negative); Nitrite,Urine Negative (Negative); Protein,Urine Trace (Negative); Specific Gravity,Urine 1.013 (1.001-1.035); UA Billing (MACRO vs. MICRO) CHEM; Urobilinogen,Urine <2.0 mg/dL (<2.0)
[2017-07-06] MEDS: POTASSIUM CHLORIDE 10 MEQ, LIDOCAINE 2% INJ 10 MG in SODIUM CHLORIDE 0.9% 100 ML IV SCH ×2 (02:13→03:27)
[2017-07-06 04:06] LABS: Basophils # (A) 0.1 k/uL (0-0.2); Basophils % (A) 0 %; CH 31.3; CHCM 32.3; Eosinophils % (A) 0 %; HCT 30.5 % (39.0-53.0); HDW 3.06; HGB 9.6 gm/dL (13.0-17.5); Luc # (Auto) 0.48; Luc % (Auto) 3; Lymphocytes # (A) 0.5 k/uL (1.0-4.8); Lymphocytes % (A) 3 %; MCH 30.5 pg (25.0-35.0); MCHC 31.4 g/dL (31.0-37.0); MCV 97.3 fL (80.0-100.0); Mean Platelet Volume 7.1; Monocytes # (A) 1.4 k/uL (0-1.0); Monocytes % (A) 8 %; Neutrophils # (A) 13.9 k/uL (1.3-7.7); Neutrophils % (A) 85 %; RBC 3.14 m/uL (4.30-5.90); RDW 15.1 % (11.5-15.5); WBC 16.4 k/uL (3.8-10.6); WBC (Perox) 17.37
[2017-07-06 04:15] LABS: INR 1.6 (<1.2); Prothrombin Time 15.4 sec (9.0-12.0)
[2017-07-06 04:16] LABS: Calcium 8.3 mg/dL (8.4-10.2); Potassium 3.6 mmol/L (3.5-5.1); Total Bilirubin 0.7 mg/dL (0.2-1.3); Total Protein 6.7 g/dL (6.3-8.2)
[2017-07-06 04:52] LABS: Creatine Kinase MB 1.1 ng/mL (0.0-2.4)
[2017-07-06 04:55] LABS: Troponin I 0.128 ng/mL (0.000-0.034)
[2017-07-06 06:10] LABS: Glucose,Whole Blood 162 mg/dL (75-99)
[2017-07-06] MEDS: INSULIN LISPRO (humaLOG) 300 UNIT/3 ML VIAL SQ SCH ×4 (06:44→20:18)
--- NOTE | 2017-07-06 08:18 | P.CRDCN ---
History of Present Illness Consult date: 07/06/17 Requesting physician: Logan Levy Reason for Consult (text): This is a 62-year-old gentleman with known history of diabetes, hypertension, hyperlipidemia, paroxysmal atrial fibrillation, coronary artery disease with prior myocardial infarction. In April of this year patient presented with a non-ST elevation myocardial infarction and underwent successful angioplasty with stenting of the LAD in May of this year patient was at [facility], he presented with what he describes as a cardiac arrest, he underwent implantation of an AICD at that time. Patient was discharged here from the hospital prior to his presentation at [facility], he did have a LifeVest in place and apparently had received a shock. To the hospital on this occasion with symptoms of elevated temperatures at home , cough, and elevated blood sugars. Patient did go to his primary care doctor' s office and was found to have a temperature of 103. Temperature on arrival here 100.1, blood pressure 116/60, heart rate in the 70s, 96% on room air. Chest x-ray on admission here revealed evidence for left pleural effusion and probable left basilar pneumonia, no heart failure. EKG on admission here shows a sinus rhythm with first-degree AV block and nonspecific ST-T wave changes. White blood cell count on admission 20,000, 16 this morning. Hemoglobin 10.0 on admission, 9.6 this morning. Sodium 134, potassium 3.6, BUN 76, creatinine 2.3. Troponins 0.15, 0.12. Patient has been noted to have abnormal renal function in the past. He was initiated here on IV antibiotics. Cardiology consultation was requested because of abnormal troponins. Troponin abnormality does not appear to be consistent with acute coronary syndrome, likely secondary to oxygen supply and demand mismatch, and abnormal renal function. Patient denies having any chest discomfort and overall he states his breathing has been stable. Past Medical History Past Medical History: Coronary Artery Disease (CAD), Diabetes Mellitus, GI Bleed , Hyperlipidemia, Pneumonia, Sleep Apnea/CPAP/BIPAP Additional Past Medical History / Comment(s): Morbidly obese, diabetes mellitus , obstructive sleep apnea, coronary artery disease with recent anterior wall myocardial infarction status post angioplasty and stenting of the LAD, chronic renal failure, chronic back pain, hyperlipidemia. History of Any Multi-Drug Resistant Organisms: None Reported Past Surgical History: AICD, Appendectomy, Back Surgery, Heart Catheterization With Stent Additional Past Surgical History / Comment(s): cardiac catheterization and stenting of the LAD, back surgery with instrumentation and insertions of rods and screws, right rotator cuff Past Anesthesia/Blood Transfusion Reactions: No Reported Reaction Date of Last Stent Placement:: 05/16/2017 Type of Cardiac Device: AICD Device Placement Date:: 06/25/2017 Past Psychological History: No Psychological Hx Reported Additional Psychological History / Comment(s): PT IS INDEPENDANT. LIVES WITH /DAUGHTER IN SINGLE LEVEL HOME THAT HAS 3OR 4 STEPS. PT IS ON DISABILTY. 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 NO SERVICE IN BACK GROUND. HAS 3 PET CATS. NO HOME CARE SERVICES RECIEVED, HAS A GLUCOMETER. Smoking Status: Former smoker Past Alcohol Use History: Occasional Additional Past Alcohol Use History / Comment(s): STARTED SMOKING AT AGE 19(1973 ) AND QUIT AT AGE 22(1976) SMOKED 1 PPD. Past Drug Use History: None Reported - Past Family History Father Additional Family Medical History / Comment(s): LOW PLATLETS. SPLEENECTOMYl, Aortic Aneurysm Mother Family Medical History: CVA/TIA Additional Family Medical History / Comment(s): 2 STROKES, HEART DISEASE. Medications and Allergies Home Medications Medication Instructions Recorded Confirmed Type Aspirin 81 mg PO DAILY 05/24/17 07/05/17 Rx Polyethylene Glycol 3350 [Miralax] 17 gm PO DAILY pack 05/24/17 07/05/17 Rx Amiodarone [Cordarone] 400 mg PO DAILY 07/05/17 07/05/17 History Atorvastatin [Lipitor] 80 mg PO HS 07/05/17 07/05/17 History Bumetanide [Bumex] 3 mg PO DAILY 07/05/17 07/05/17 History Clopidogrel Bisulfate [Plavix] 75 mg PO DAILY 07/05/17 07/05/17 History Digoxin [Digitek] 125 mcg PO Q48H 07/05/17 07/05/17 History Insulin Aspart [NovoLOG Flexpen] 10 units SQ AC-TID 07/05/17 07/05/17 History Insulin Aspart [NovoLOG Flexpen] See Protocol SQ AC-TID 07/05/17 07/05/17 History Insulin Glargine [Lantus] 36 unit SQ AC-BRKFST 07/05/17 07/05/17 History Isosorbide Dinitrate 20 mg PO TID 07/05/17 07/05/17 History Omeprazole 20 mg PO AC-BID 07/05/17 07/05/17 History Warfarin [Coumadin] 2.5 mg PO SUMOWEFR 07/05/17 07/05/17 History Warfarin [Coumadin] 5 mg PO TUTHSA 07/05/17 07/05/17 History hydrALAZINE HCL [Hydralazine HCl] 75 mg PO Q8H 07/05/17 07/05/17 History Allergies Allergy/AdvReac Type Severity Reaction Status Date / Time No Known Allergies Allergy Verified 07/05/17 22:11 Physical Exam Vitals: Vital Signs Temp Pulse Pulse Resp BP BP Pulse Ox 07/06/17 04:00 98.8 F 78 18 120/59 96 07/06/17 00:00 98.9 F 72 16 120/60 95 07/05/17 22:50 74 16 110/59 95 07/05/17 22:34 98.9 F 72 16 120/60 95 07/05/17 21:32 99.5 F 62 18 112/60 95 07/05/17 20:58 100.1 F H 74 18 117/59 96 Intake and Output 07/05/17 07/06/17 07/06/17 22:59 06:59 14:59 Output Total 175 100 Balance -175 -100 Output: Urine 175 100 Other: Voiding Method Urinal Weight 104 kg 104 kg PHYSICAL EXAMINATION: HEENT: Head is atraumatic, normocephalic. Pupils equal, round. Neck is supple. There is no elevated jugular venous pressure. HEART EXAMINATION: Heart S1, S2 normal. No murmur or gallop heard. CHEST EXAMINATION: Lungs reveal diminished air entry bilaterally with crackles to bilateral bases. ABDOMEN: Soft, obese, nontender. Bowel sounds are heard. No organomegaly noted. EXTREMITIES:1+ peripheral pulses with no evidence of peripheral edema and no calf tenderness noted. NEUROLOGIC patient is awake, alert and oriented -3. . Results 07/06/17 03:34 07/06/17 03:34 Cardiac Enzymes 07/05/17 07/05/17 07/06/17 Range/Units 21:27 21:27 03:34 AST 28 (17-59) U/L CK-MB (CK-2) 0.9 1.1 (0.0-2.4) ng/mL Troponin I 0.157 H* 0.128 H* (0.000-0.034) ng/mL 07/06/17 Range/Units 03:34 AST 24 (17-59) U/L CK-MB (CK-2) (0.0-2.4) ng/mL Troponin I (0.000-0.034) ng/mL Coagulation 07/05/17 07/06/17 Range/Units 21:27 03:34 PT 15.5 H 15.4 H (9.0-12.0) sec APTT 25.8 (22.0-30.0) sec CBC 07/05/17 07/06/17 Range/Units 21:27 03:34 WBC 20.1 H 16.4 H (3.8-10.6) k/uL RBC 3.32 L 3.14 L (4.30-5.90) m/uL Hgb 10.0 L 9.6 L (13.0-17.5) gm/dL Hct 31.8 L 30.5 L (39.0-53.0) % Plt Count 344 320 (150-450) k/uL Comprehensive Metabolic Panel 07/05/17 07/06/17 Range/Units 21:27 03:34 Sodium 133 L 134 L (137-145) mmol/L Potassium 3.3 L 3.6 (3.5-5.1) mmol/L Chloride 89 L 91 L (98-107) mmol/L Carbon Dioxide 31 H 33 H (22-30) mmol/L BUN 77 H 76 H (9-20) mg/dL Creatinine 2.30 H 2.30 H (0.66-1.25) mg/dL Glucose 166 H 153 H (74-99) mg/dL Calcium 8.4 8.3 L (8.4-10.2) mg/dL AST 28 24 (17-59) U/L ALT 33 29 (21-72) U/L Alkaline Phosphatase 75 68 (38-126) U/L Total Protein 7.0 6.7 (6.3-8.2) g/dL Albumin 3.4 L 3.1 L (3.5-5.0) g/dL Current Medications Generic Name Dose Route Start Last Admin Trade Name Freq PRN Reason Stop Dose Admin Acetaminophen 650 mg 07/05/17 22:13 Tylenol Tab PO Q6HR PRN Mild Pain or Fever > 100.5 Cefepime HCl 2 gm/ Sodium 50 mls @ 100 mls/hr 07/06/17 08:00 Chloride IVPB Q8HR SAMANTHA Vancomycin HCl 1,750 mg/ 250 mls @ 125 mls/hr 07/06/17 09:00 Sodium Chloride IVPB Q48H SAMANTHA Sodium Chloride 1,000 mls @ 20 mls/hr 07/05/17 22:15 07/05/17 22:49 Saline 0.9% IV 20 mls/hr .Q24H SAMANTHA Administration Insulin Glargine 36 unit 07/06/17 07:30 Lantus SQ AC-BRKFST SAMANTHA Insulin Human Lispro 0 unit 07/06/17 07:30 07/06/17 06:44 Humalog SQ 1 unit ACHS SAMANTHA Administration Protocol Miscellaneous Information 1 each 07/05/17 23:53 Potassium Per Protocol MISCELLANE DAILY PRN Per Protocol Protocol Naloxone HCl 0.2 mg 07/05/17 22:13 Narcan IV Q2M PRN Opioid Reversal Ondansetron HCl 4 mg 07/05/17 22:13 Zofran IVP Q8HR PRN Nausea And Vomiting Intake and Output 07/05/17 07/06/17 07/06/17 22:59 06:59 14:59 Output Total 175 100 Balance -175 -100 Output: Urine 175 100 Other: Voiding Method Urinal Weight 104 kg 104 kg 07/06/17 03:34 07/06/17 03:34 EKG Interpretations (text) EKG shows normal sinus rhythm with first-degree AV block and nonspecific ST-T wave changes Assessment and Plan Plan: Assessment and plan #1 left lower lobe pneumonia, on IV antibiotics #2 known history of coronary artery disease with myocardial infarction in April of this year at which time patient underwent angioplasty with stenting of the LAD #3 ischemic cardiomyopathy with recent AICD implant #4 hypertension # 5 diabetes #6 hyperlipidemia #7 obstructive sleep apnea #8 acute on chronic renal failure #9 abnormal troponins, not consistent with acute coronary syndrome, likely secondary to oxygen supply and demand mismatch and abnormal renal function. #10 paroxysmal atrial fibrillation subtherapeutic on Coumadin, INR 1.6 Plan We will obtain a repeat echocardiogram with Doppler study. We will also request patient's records from [facility] on his recent admission and AICD implantation. We will resume the patient's aspirin, Coumadin, hydralazine and nitrates, Lipitor, amiodarone, we will reduce the dose to 200 mg daily, we will also start the patient on a low-dose beta demar. It is unclear as to why the patient is not on a beta demar as an outpatient. Further recommendations will be based on these findings and patient's clinical course. DNP note has been reviewed, I agree with a documented findings and plan of care. Patient was seen and examined.
[2017-07-06] MEDS: CEFEPIME 2 GM in SODIUM CHLORIDE 0.9% 50 ML IVPB SCH ×3 (08:42→23:47)
[2017-07-06] MEDS: ASPIRIN 81 MG PO SCH (09:54)
[2017-07-06] MEDS: hydrALAZINE HCL 25 MG TAB PO SCH ×3 (09:54→23:47)
[2017-07-06] MEDS: INSULIN GLARGINE 100 UNIT/ML 10 ML VIAL SQ SCH (09:54)
[2017-07-06] MEDS: VANCOMYCIN 1,750 MG in SODIUM CHLORIDE 0.9% 250 ML IVPB SCH (09:54)
[2017-07-06] MEDS: CARVEDILOL 3.125 MG TAB PO SCH ×2 (09:54→17:25)
[2017-07-06] MEDS: CLOPIDOGREL 75 MG TAB PO SCH (09:55)
[2017-07-06] MEDS: AMIODARONE 200 MG TAB PO SCH (09:55)
[2017-07-06] MEDS: ISOSORBIDE DINITRATE 20 MG TAB PO SCH ×3 (09:55→20:19)
[2017-07-06 10:24] LABS: Creatine Kinase MB 1.1 ng/mL (0.0-2.4)
[2017-07-06 10:29] LABS: Troponin I 0.137 ng/mL (0.000-0.034)
[2017-07-06 11:33] LABS: Glucose,Whole Blood 248 mg/dL (75-99)
--- NOTE | 2017-07-06 13:00 | ECHOF ---
Referral Reason:abn trop MEASUREMENTS -------- HEIGHT: 175.3 cm WEIGHT: 103.9 kg BP: 116/66 RVIDd: 3.5 cm (< 3.3) IVSd: 1.5 cm (0.6 - 1.1) LVIDd: 6.7 cm (3.9 - 5.3) LVPWd: 1.4 cm (0.6 - 1.1) IVSs: 1.8 cm LVIDs: 6.0 cm LVPWs: 1.6 cm LAESV Index (A-L): 36.80 ml/m Ao Diam: 3.6 cm (2.0 - 3.7) AV Cusp: 1.8 cm (1.5 - 2.6) LA Diam: 3.8 cm (2.7 - 3.8) MV EXCURSION: 21.085 mm (> 18.000) MV EF SLOPE: 227 mm/s (70 - 150) EPSS: 1.4 cm MV E Tai: 1.09 m/s MV DecT: 202 ms MV A Tai: 0.59 m/s MV E/A Ratio: 1.86 RAP: 5.00 mmHg RVSP: 14.84 mmHg FINDINGS -------- Sinus rhythm. This was a technically difficult study with suboptimal views. The left ventricle is moderately dilated. There is moderate concentric left ventricular hypertrophy. Overall left ventricular systolic function is severely impaired with, an EF < 20%. Entire apical area is akinetic. The right ventricle is moderately enlarged. The right ventricular systolic function is mildly impaired. LA is moderately dilated 34-39 ml/m2 The right atrium is normal in size. 1.5mg of Definity was utilized for enhancement of images Aortic valve is trileaflet and is mildly thickened. There is no evidence of aortic regurgitation. There is no evidence of aortic stenosis. The mitral valve leaflets are mildly thickened. There is trace to mild mitral regurgitation. Trace tricuspid regurgitation present. Right ventricular systolic pressure is normal at < 35 mmHg. There is no evidence of pulmonary hypertension. The pulmonic valve was not well visualized. The aortic root size is normal. The inferior vena cava is dilated with poor inspiratory collapse which is consistent with estimated right atrial pressure of 20 mmHg. There is a small, generalized pericardial effusion present. CONCLUSIONS -------- 1. Sinus rhythm. 2. 1.5mg of Definity was utilized for enhancement of images 3. Aortic valve is trileaflet and is mildly thickened. 4. The mitral valve leaflets are mildly thickened. 5. There is trace to mild mitral regurgitation. 6. Trace tricuspid regurgitation present. 7. Right ventricular systolic pressure is normal at < 35 mmHg. 8. There is no evidence of pulmonary hypertension. 9. The pulmonic valve was not well visualized. 10. The aortic root size is normal. 11. The inferior vena cava is dilated with poor inspiratory collapse which is consistent with estimated right atrial pressure of 20 mmHg. 12. This was a technically difficult study with suboptimal views. 13. There is a small, generalized pericardial effusion present. 14. The left ventricle is moderately dilated. 15. There is moderate concentric left ventricular hypertrophy. 16. Overall left ventricular systolic function is severely impaired with, an EF < 20%. 17. Entire apical area is akinetic. 18. The right ventricle is moderately enlarged. 19. The right ventricular systolic function is mildly impaired. 20. LA is moderately dilated 34-39 ml/m2 SWAMPER: Derian Bender RDCS
--- NOTE | 2017-07-06 15:22 | P.HPIM ---
History of Present Illness 62-year-old came in with complains of cough and sputum production and found to have right middle lobe pneumonia for which patient was started on antibiotics patient had a high-grade fever in PCPs office and the patient was started on antibiotics treating for healthcare associated pneumonia. Patient had history of can start failure ejection fraction of around 20% patient is hypovolemic with worsening kidney function baseline creatinine is around 1.1 and creatinine has gone up to 2.5. Patient is being treated for sepsis and patient had a coronary artery disease with prior myocardial infarction patient was recently discharged month of April with non-ST elevation myocardial infarction at the time he had a successfully underwent angioplasty patient had an AICD implantation as well blood cultures and sputum cultures were obtained troponins are minimally elevated at this time seconded to sepsis and abnormal renal function. Patient has significant improvement in his is pretty status patient came in with status of breath with significantly improved compared to his admission patient's diuretic therapy is being held because of acute renal dysfunction from a from excessive diuretic therapy. Review of Systems REVIEW OF SYSTEMS: CONSTITUTIONAL: No fever, no malaise, no fatigue. HEENT: No recent visual problems or hearing problems. Denied any sore throat. CARDIOVASCULAR: No chest pain, orthopnea, PND, no palpitations, no syncope. PULMONARY: As described in HPI GASTROINTESTINAL: No diarrhea, no nausea, no vomiting, no abdominal pain. Normoactive bowel sounds. NEUROLOGICAL: No headaches, no weakness, no numbness. HEMATOLOGICAL: Denies any bleeding or petechiae. GENITOURINARY: Denies any burning micturition, frequency, or urgency. MUSCULOSKELETAL/RHEUMATOLOGICAL: Denies any joint pain, swelling, or any muscle pain. ENDOCRINE: Denies any polyuria or polydipsia. The rest of the 14-point review of systems is negative. Past Medical History Past Medical History: Coronary Artery Disease (CAD), Diabetes Mellitus, GI Bleed , Hyperlipidemia, Pneumonia, Sleep Apnea/CPAP/BIPAP Additional Past Medical History / Comment(s): Morbidly obese, diabetes mellitus , obstructive sleep apnea, coronary artery disease with recent anterior wall myocardial infarction status post angioplasty and stenting of the LAD, chronic renal failure, chronic back pain, hyperlipidemia. History of Any Multi-Drug Resistant Organisms: None Reported Past Surgical History: AICD, Appendectomy, Back Surgery, Heart Catheterization With Stent Additional Past Surgical History / Comment(s): cardiac catheterization and stenting of the LAD, back surgery with instrumentation and insertions of rods and screws, right rotator cuff Past Anesthesia/Blood Transfusion Reactions: No Reported Reaction Date of Last Stent Placement:: 05/16/2017 Type of Cardiac Device: AICD Device Placement Date:: 06/25/2017 Past Psychological History: No Psychological Hx Reported Additional Psychological History / Comment(s): PT IS INDEPENDANT. LIVES WITH /DAUGHTER IN SINGLE LEVEL HOME THAT HAS 3OR 4 STEPS. PT IS ON DISABILTY. 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 NO SERVICE IN BACK GROUND. HAS 3 PET CATS. NO HOME CARE SERVICES RECIEVED, HAS A GLUCOMETER. Smoking Status: Former smoker Past Alcohol Use History: Occasional Additional Past Alcohol Use History / Comment(s): STARTED SMOKING AT AGE 19(1973 ) AND QUIT AT AGE 22(1976) SMOKED 1 PPD. Past Drug Use History: None Reported - Past Family History Father Additional Family Medical History / Comment(s): LOW PLATLETS. SPLEENECTOMYl, Aortic Aneurysm Mother Family Medical History: CVA/TIA Additional Family Medical History / Comment(s): 2 STROKES, HEART DISEASE. Medications and Allergies Home Medications Medication Instructions Recorded Confirmed Type Aspirin 81 mg PO DAILY 05/24/17 07/05/17 Rx Polyethylene Glycol 3350 [Miralax] 17 gm PO DAILY pack 05/24/17 07/05/17 Rx Amiodarone [Cordarone] 400 mg PO DAILY 07/05/17 07/05/17 History Atorvastatin [Lipitor] 80 mg PO HS 07/05/17 07/05/17 History Bumetanide [Bumex] 3 mg PO DAILY 07/05/17 07/05/17 History Clopidogrel Bisulfate [Plavix] 75 mg PO DAILY 07/05/17 07/05/17 History Digoxin [Digitek] 125 mcg PO Q48H 07/05/17 07/05/17 History Insulin Aspart [NovoLOG Flexpen] 10 units SQ AC-TID 07/05/17 07/05/17 History Insulin Aspart [NovoLOG Flexpen] See Protocol SQ AC-TID 07/05/17 07/05/17 History Insulin Glargine [Lantus] 36 unit SQ AC-BRKFST 07/05/17 07/05/17 History Isosorbide Dinitrate 20 mg PO TID 07/05/17 07/05/17 History Omeprazole 20 mg PO AC-BID 07/05/17 07/05/17 History Warfarin [Coumadin] 2.5 mg PO SUMOWEFR 07/05/17 07/05/17 History Warfarin [Coumadin] 5 mg PO TUTHSA 07/05/17 07/05/17 History hydrALAZINE HCL [Hydralazine HCl] 75 mg PO Q8H 07/05/17 07/05/17 History Allergies Allergy/AdvReac Type Severity Reaction Status Date / Time No Known Allergies Allergy Verified 07/05/17 22:11 Physical Exam Vitals: Vital Signs Temp Pulse Pulse Resp BP BP Pulse Ox 07/06/17 12:00 73 117/59 96 07/06/17 08:53 97 07/06/17 08:00 97.3 F L 82 116/66 97 07/06/17 04:00 98.8 F 78 18 120/59 96 07/06/17 00:00 98.9 F 72 16 120/60 95 07/05/17 22:50 74 16 110/59 95 07/05/17 22:34 98.9 F 72 16 120/60 95 07/05/17 21:32 99.5 F 62 18 112/60 95 07/05/17 20:58 100.1 F H 74 18 117/59 96 Intake and Output 07/06/17 07/06/17 07/06/17 06:59 14:59 22:59 Intake Total 236 Output Total 175 100 300 Balance -175 136 -300 Intake: Oral 236 Output: Urine 175 100 300 Other: Voiding Method Urinal Weight 104 kg PHYSICAL EXAMINATION: GENERAL: The patient is alert and oriented x3, not in any acute distress. Well developed, well nourished. HEENT: Pupils are round and equally reacting to light. EOMI. No scleral icterus. No conjunctival pallor. Normocephalic, atraumatic. No pharyngeal erythema. No thyromegaly. CARDIOVASCULAR: S1 and S2 present. No murmurs, rubs, or gallops. PULMONARY: Chest is clear to auscultation, no wheezing or crackles in the right lower lung bases ABDOMEN: Soft, nontender, nondistended, normoactive bowel sounds. No palpable organomegaly. MUSCULOSKELETAL: No joint swelling or deformity. EXTREMITIES: No cyanosis, clubbing, or pedal edema. NEUROLOGICAL: Gross neurological examination did not reveal any focal deficits. SKIN: No rashes. Results CBC & Chem 7: 07/06/17 03:34 07/06/17 03:34 Labs: Abnormal Lab Results - Last 24 Hours (Table) 07/05/17 07/05/17 07/05/17 Range/Units 21:27 21:27 21:27 WBC 20.1 H (3.8-10.6) k/uL RBC 3.32 L (4.30-5.90) m/uL Hgb 10.0 L (13.0-17.5) gm/dL Hct 31.8 L (39.0-53.0) % Neutrophils # 16.6 H (1.3-7.7) k/uL Lymphocytes # 0.8 L (1.0-4.8) k/uL Monocytes # 1.8 H (0-1.0) k/uL PT (9.0-12.0) sec INR (<1.2) Sodium 133 L (137-145) mmol/L Potassium 3.3 L (3.5-5.1) mmol/L Chloride 89 L (98-107) mmol/L Carbon Dioxide 31 H (22-30) mmol/L BUN 77 H (9-20) mg/dL Creatinine 2.30 H (0.66-1.25) mg/dL Glucose 166 H (74-99) mg/dL POC Glucose (mg/dL) (75-99) mg/dL Calcium (8.4-10.2) mg/dL Total Creatine Kinase (55-170) U/L Troponin I 0.157 H* (0.000-0.034) ng/mL Albumin 3.4 L (3.5-5.0) g/dL Urine Protein (Negative) 07/05/17 07/05/17 07/06/17 Range/Units 21:27 23:32 00:02 WBC (3.8-10.6) k/uL RBC (4.30-5.90) m/uL Hgb (13.0-17.5) gm/dL Hct (39.0-53.0) % Neutrophils # (1.3-7.7) k/uL Lymphocytes # (1.0-4.8) k/uL Monocytes # (0-1.0) k/uL PT 15.5 H (9.0-12.0) sec INR 1.6 H (<1.2) Sodium (137-145) mmol/L Potassium (3.5-5.1) mmol/L Chloride (98-107) mmol/L Carbon Dioxide (22-30) mmol/L BUN (9-20) mg/dL Creatinine (0.66-1.25) mg/dL Glucose (74-99) mg/dL POC Glucose (mg/dL) 156 H (75-99) mg/dL Calcium (8.4-10.2) mg/dL Total Creatine Kinase (55-170) U/L Troponin I (0.000-0.034) ng/mL Albumin (3.5-5.0) g/dL Urine Protein Trace H (Negative) 07/06/17 07/06/17 07/06/17 Range/Units 03:34 03:34 03:34 WBC 16.4 H (3.8-10.6) k/uL RBC 3.14 L (4.30-5.90) m/uL Hgb 9.6 L (13.0-17.5) gm/dL Hct 30.5 L (39.0-53.0) % Neutrophils # 13.9 H (1.3-7.7) k/uL Lymphocytes # 0.5 L (1.0-4.8) k/uL Monocytes # 1.4 H (0-1.0) k/uL PT (9.0-12.0) sec INR (<1.2) Sodium 134 L (137-145) mmol/L Potassium (3.5-5.1) mmol/L Chloride 91 L (98-107) mmol/L Carbon Dioxide 33 H (22-30) mmol/L BUN 76 H (9-20) mg/dL Creatinine 2.30 H (0.66-1.25) mg/dL Glucose 153 H (74-99) mg/dL POC Glucose (mg/dL) (75-99) mg/dL Calcium 8.3 L (8.4-10.2) mg/dL Total Creatine Kinase (55-170) U/L Troponin I 0.128 H* (0.000-0.034) ng/mL Albumin 3.1 L (3.5-5.0) g/dL Urine Protein (Negative) 07/06/17 07/06/17 07/06/17 Range/Units 03:34 06:04 09:37 WBC (3.8-10.6) k/uL RBC (4.30-5.90) m/uL Hgb (13.0-17.5) gm/dL Hct (39.0-53.0) % Neutrophils # (1.3-7.7) k/uL Lymphocytes # (1.0-4.8) k/uL Monocytes # (0-1.0) k/uL PT 15.4 H (9.0-12.0) sec INR 1.6 H (<1.2) Sodium (137-145) mmol/L Potassium (3.5-5.1) mmol/L Chloride (98-107) mmol/L Carbon Dioxide (22-30) mmol/L BUN (9-20) mg/dL Creatinine (0.66-1.25) mg/dL Glucose (74-99) mg/dL POC Glucose (mg/dL) 162 H (75-99) mg/dL Calcium (8.4-10.2) mg/dL Total Creatine Kinase 51 L (55-170) U/L Troponin I 0.137 H* (0.000-0.034) ng/mL Albumin (3.5-5.0) g/dL Urine Protein (Negative) 07/06/17 Range/Units 11:25 WBC (3.8-10.6) k/uL RBC (4.30-5.90) m/uL Hgb (13.0-17.5) gm/dL Hct (39.0-53.0) % Neutrophils # (1.3-7.7) k/uL Lymphocytes # (1.0-4.8) k/uL Monocytes # (0-1.0) k/uL PT (9.0-12.0) sec INR (<1.2) Sodium (137-145) mmol/L Potassium (3.5-5.1) mmol/L Chloride (98-107) mmol/L Carbon Dioxide (22-30) mmol/L BUN (9-20) mg/dL Creatinine (0.66-1.25) mg/dL Glucose (74-99) mg/dL POC Glucose (mg/dL) 248 H (75-99) mg/dL Calcium (8.4-10.2) mg/dL Total Creatine Kinase (55-170) U/L Troponin I (0.000-0.034) ng/mL Albumin (3.5-5.0) g/dL Urine Protein (Negative) Microbiology - Last 24 Hours (Table) 07/06/17 00:02 Urine Culture - Preliminary Urine,Voided Thrombosis Risk Factor Assmnt - Choose All That Apply Each Factor Represents 1 point: History of prior major surgery (<1month), Obesity (BMI >25) Each Risk Factor Represents 2 Points: Age 61-74 years Thrombosis Risk Factor Assessment Total Risk Factor Score: 4 Thrombosis Risk Factor Assessment Level: Moderate Risk Assessment and Plan Plan: #1 sepsis: Secondary to right lower lobe lobe pneumonia for which patient was started on broad-spectrum antibiotics awaiting sputum cultures and blood cultures, patient is presently on cefepime and vancomycin treating for healthcare associated pneumonia. #2 troponin elevation: Seconded to sepsis. #3 coronary artery disease #4 ischemic cardiomyopathy congestive heart failure tonic systolic dysfunction ejection fraction of 20% patient is presently hypovolemic holding off diuretic therapy patient has an AICD in place. Patient is on hydralazine and isosorbide #5 acute renal failure on CKD2: Secondary to excessive diuretic therapy and C Mulu is probably secondary to diabetic nephropathy. #6 hyperlipidemia #7 COPD without any acute exacerbation. #8 proximal atrial fibrillation rate controlled INR is subtherapeutic but continue the same dose of Coumadin as patient is on broad-spectrum antibiotics. #9 obstructive sleep apnea and morbid obesity:
[2017-07-06 16:53] LABS: Glucose,Whole Blood 146 mg/dL (75-99)
[2017-07-06] MEDS ORDERED: WARFARIN 5 MG TAB PO SCH (18:00)
[2017-07-06] MEDS ORDERED: POLYETHYLENE GLYCOL 3350 17 GM POWD.PACK PO PRN (18:29)
[2017-07-06] MEDS: ATORVASTATIN 80 MG TAB PO SCH (20:17)
[2017-07-06 20:29] LABS: Glucose,Whole Blood 159 mg/dL (75-99)
[2017-07-06] MEDS: ACETAMINOPHEN TAB 325 MG TAB PO PRN (23:47)
[2017-07-06] MEDS: SODIUM CHLORIDE 0.9% 1,000 ML IV SCH (23:47)
[2017-07-07 06:27] LABS: CH 31.3; CHCM 31.8; HCT 30.4 % (39.0-53.0); HDW 3.09; HGB 9.3 gm/dL (13.0-17.5); MCH 30.3 pg (25.0-35.0); MCHC 30.6 g/dL (31.0-37.0); Macrocytosis Slight; Mean Platelet Volume 7.3; RBC 3.07 m/uL (4.30-5.90); RDW 15.3 % (11.5-15.5); WBC 17.9 k/uL (3.8-10.6)
[2017-07-07 06:29] LABS: Glucose,Whole Blood 157 mg/dL (75-99)
[2017-07-07 06:36] LABS: INR 1.6 (<1.2); Prothrombin Time 15.7 sec (9.0-12.0)
[2017-07-07 06:43] LABS: Calcium 8.5 mg/dL (8.4-10.2)
[2017-07-07 06:53] LABS: Potassium 4.3 mmol/L (3.5-5.1)
[2017-07-07] MEDS: PANTOPRAZOLE 40 MG TABLET PO SCH ×2 (06:54→17:18)
[2017-07-07] MEDS: INSULIN GLARGINE 100 UNIT/ML 10 ML VIAL SQ SCH (06:54)
[2017-07-07] MEDS: INSULIN LISPRO (humaLOG) 300 UNIT/3 ML VIAL SQ SCH ×7 (06:54→21:48)
[2017-07-07] MEDS: CARVEDILOL 3.125 MG TAB PO SCH ×2 (06:54→17:17)
[2017-07-07] MEDS: hydrALAZINE HCL 25 MG TAB PO SCH ×3 (08:26→21:49)
[2017-07-07] MEDS: CLOPIDOGREL 75 MG TAB PO SCH (08:27)
[2017-07-07] MEDS: ASPIRIN 81 MG PO SCH (08:27)
[2017-07-07] MEDS: AMIODARONE 200 MG TAB PO SCH (08:27)
[2017-07-07] MEDS: ISOSORBIDE DINITRATE 20 MG TAB PO SCH ×3 (08:27→21:48)
[2017-07-07] MEDS ORDERED: DIGOXIN 125 MCG TAB PO SCH (09:00)
[2017-07-07] MEDS: BUMETANIDE 1 MG TAB PO SCH (09:06)
[2017-07-07] MEDS: CEFEPIME 2 GM in SODIUM CHLORIDE 0.9% 50 ML IVPB SCH ×3 (09:06→23:46)
--- NOTE | 2017-07-07 11:37 | P.PN ---
Subjective Principal diagnosis: Severe cardiomyopathy This is a pleasant 62-year-old gentleman with a past medical history significant for severe underlying CAD and status post a stenting of the LAD in the setting of acute coronary syndrome, severe ischemic cardiomyopathy and status post ICD, obesity, hypertension, and dyslipidemia, was admitted to the hospital with symptoms consistent with cough and high temperature and he was diagnosed with a pneumonia. From a perivascular standpoint of view, he denies having any chest pain or discomfort for and overall he is feeling better. For some reason this, the dose of Bumex was missed and was not given to him yesterday. He gained 2 pounds in the hospital. The Bumex was assumed. I we will obtain a chest x-ray. Also BMP. Objective - Vital Signs Vital signs: Vital Signs Temp 97.0 F L 07/07/17 08:00 Pulse 74 07/07/17 08:00 Resp 16 07/07/17 04:00 BP 101/56 07/07/17 08:00 Pulse Ox 94 L 07/07/17 08:35 Intake & Output 07/06/17 07/07/17 07/07/17 18:59 06:59 18:59 Intake Total 416 320 Output Total 400 175 Balance 16 145 Weight 105.4 kg Intake: Intake, IV Titration 320 Amount Potassium Chloride 10 meq 80 In Water For Injection 1 100ml.bag @ 100 mls/hr IVPB Q1H SAMANTHA Rx#: [id number] Sodium Chloride 0.9% 1, 240 000 ml @ 20 mls/hr IV . Q24H SAMANTHA Rx#:[id number] Oral 416 Output: Urine 400 175 Other: Voiding Method Urinal # Voids 1 - Constitutional General appearance: Present: no acute distress - Respiratory Respiratory: bilateral: diminished - Cardiovascular Rhythm: regular Heart sounds: normal: S1, S2 - Labs CBC & Chem 7: 07/07/17 06:02 07/07/17 06:02 Labs: Abnormal Lab Results - Last 24 Hours (Table) 07/06/17 07/06/17 07/07/17 Range/Units 16:38 20:16 06:02 WBC 17.9 H (3.8-10.6) k/uL RBC 3.07 L (4.30-5.90) m/uL Hgb 9.3 L (13.0-17.5) gm/dL Hct 30.4 L (39.0-53.0) % MCHC 30.6 L (31.0-37.0) g/dL PT (9.0-12.0) sec INR (<1.2) Sodium (137-145) mmol/L Chloride (98-107) mmol/L BUN (9-20) mg/dL Creatinine (0.66-1.25) mg/dL Glucose (74-99) mg/dL POC Glucose (mg/dL) 146 H 159 H (75-99) mg/dL 07/07/17 07/07/17 07/07/17 Range/Units 06:02 06:02 06:26 WBC (3.8-10.6) k/uL RBC (4.30-5.90) m/uL Hgb (13.0-17.5) gm/dL Hct (39.0-53.0) % MCHC (31.0-37.0) g/dL PT 15.7 H (9.0-12.0) sec INR 1.6 H (<1.2) Sodium 135 L (137-145) mmol/L Chloride 93 L (98-107) mmol/L BUN 75 H (9-20) mg/dL Creatinine 2.20 H (0.66-1.25) mg/dL Glucose 152 H (74-99) mg/dL POC Glucose (mg/dL) 157 H (75-99) mg/dL Microbiology - Last 24 Hours (Table) 07/05/17 21:27 Blood Culture - Preliminary Blood No Growth after 24 hours 07/06/17 00:02 Urine Culture - Preliminary Urine,Voided Assessment and Plan Plan: This is a pleasant 61-year-old gentleman with severe underlying CAD, severe ischemic cardiomyopathy, as well as multiple comorbid conditions was admitted to the hospital with a pneumonia. Overall in terms of pneumonia he is feeling better. He gained some weight. I am going to obtain a chest x-ray and BNP and follow-up with him. He has diminished breathing sounds bilaterally.
[2017-07-07 11:46] LABS: Glucose,Whole Blood 237 mg/dL (75-99)
[2017-07-07] MEDS: ACETAMINOPHEN TAB 325 MG TAB PO PRN (12:11)
--- NOTE | 2017-07-07 12:50 | XR ---
EXAMINATION TYPE: XR chest 2V DATE OF EXAM: 07/07/2017 HISTORY: chf. REFERENCE: Previous study dated 07/05/2017. FINDINGS: There is a unipolar pacemaker place on the left. The lungs are overinflated. The heart is enlarged. There is left basilar airspace disease. Am unable to exclude a small left effusion. IMPRESSION: 1. COPD. 2. CARDIOMEGALY. 3. LEFT BASILAR INFILTRATE, LIKELY REPRESENTING PNEUMONIA. 4. I COULD NOT EXCLUDE A SMALL LEFT EFFUSION.
--- NOTE | 2017-07-07 14:25 | P.PN ---
Subjective 61-year-old admitted with the right middle and lower lobe pneumonia and patient is on broad-spectrum antibiotic. Creatinine improved minimally. Next Patient feels much better today. Next Patient denied any chest pain, nausea, vomiting still coughing denied any abdominal pain, shortness of breath Objective - Vital Signs Vital signs: Vital Signs Temp 97.0 F L 07/07/17 08:00 Pulse 74 07/07/17 08:00 Resp 16 07/07/17 04:00 BP 101/56 07/07/17 08:00 Pulse Ox 94 L 07/07/17 08:35 Intake & Output 07/06/17 07/07/17 07/07/17 18:59 06:59 18:59 Intake Total 416 320 Output Total 400 175 Balance 16 145 Weight 105.4 kg Intake: Intake, IV Titration 320 Amount Potassium Chloride 10 meq 80 In Water For Injection 1 100ml.bag @ 100 mls/hr IVPB Q1H SAMANTHA Rx#: [id number] Sodium Chloride 0.9% 1, 240 000 ml @ 20 mls/hr IV . Q24H SAMANTHA Rx#:[id number] Oral 416 Output: Urine 400 175 Other: Voiding Method Urinal # Voids 1 - Exam PHYSICAL EXAMINATION: GENERAL: The patient is alert and oriented x3, not in any acute distress. Well developed, well nourished. HEENT: Pupils are round and equally reacting to light. EOMI. No scleral icterus. No conjunctival pallor. Normocephalic, atraumatic. No pharyngeal erythema. No thyromegaly. CARDIOVASCULAR: S1 and S2 present. No murmurs, rubs, or gallops. PULMONARY: Chest is clear to auscultation, no wheezing or crackles in the right lower lung bases ABDOMEN: Soft, nontender, nondistended, normoactive bowel sounds. No palpable organomegaly. MUSCULOSKELETAL: No joint swelling or deformity. EXTREMITIES: No cyanosis, clubbing, or pedal edema. NEUROLOGICAL: Gross neurological examination did not reveal any focal deficits. SKIN: No rashes. - Labs CBC & Chem 7: 07/07/17 06:02 07/07/17 06:02 Labs: Abnormal Lab Results - Last 24 Hours (Table) 07/06/17 07/06/17 07/07/17 Range/Units 16:38 20:16 06:02 WBC 17.9 H (3.8-10.6) k/uL RBC 3.07 L (4.30-5.90) m/uL Hgb 9.3 L (13.0-17.5) gm/dL Hct 30.4 L (39.0-53.0) % MCHC 30.6 L (31.0-37.0) g/dL PT (9.0-12.0) sec INR (<1.2) Sodium (137-145) mmol/L Chloride (98-107) mmol/L BUN (9-20) mg/dL Creatinine (0.66-1.25) mg/dL Glucose (74-99) mg/dL POC Glucose (mg/dL) 146 H 159 H (75-99) mg/dL 07/07/17 07/07/17 07/07/17 Range/Units 06:02 06:02 06:26 WBC (3.8-10.6) k/uL RBC (4.30-5.90) m/uL Hgb (13.0-17.5) gm/dL Hct (39.0-53.0) % MCHC (31.0-37.0) g/dL PT 15.7 H (9.0-12.0) sec INR 1.6 H (<1.2) Sodium 135 L (137-145) mmol/L Chloride 93 L (98-107) mmol/L BUN 75 H (9-20) mg/dL Creatinine 2.20 H (0.66-1.25) mg/dL Glucose 152 H (74-99) mg/dL POC Glucose (mg/dL) 157 H (75-99) mg/dL 07/07/17 Range/Units 11:35 WBC (3.8-10.6) k/uL RBC (4.30-5.90) m/uL Hgb (13.0-17.5) gm/dL Hct (39.0-53.0) % MCHC (31.0-37.0) g/dL PT (9.0-12.0) sec INR (<1.2) Sodium (137-145) mmol/L Chloride (98-107) mmol/L BUN (9-20) mg/dL Creatinine (0.66-1.25) mg/dL Glucose (74-99) mg/dL POC Glucose (mg/dL) 237 H (75-99) mg/dL Microbiology - Last 24 Hours (Table) 07/06/17 00:02 Urine Culture - Final Urine,Voided 07/05/17 21:27 Blood Culture - Preliminary Blood No Growth after 24 hours Assessment and Plan Plan: #1 sepsis: Secondary to right lower lobe lobe pneumonia for which patient was started on broad-spectrum antibiotics awaiting sputum cultures and blood cultures, patient is presently on cefepime and vancomycin treating for healthcare associated pneumonia. #2 troponin elevation: Seconded to sepsis. #3 coronary artery disease #4 ischemic cardiomyopathy congestive heart failure tonic systolic dysfunction ejection fraction of 20% patient is presently hypovolemic holding off diuretic therapy patient has an AICD in place. Patient is on hydralazine and isosorbide #5 acute renal failure on CKD2: Secondary to excessive diuretic therapy and C Mulu is probably secondary to diabetic nephropathy. #6 hyperlipidemia #7 COPD without any acute exacerbation. #8 proximal atrial fibrillation rate controlled INR is subtherapeutic but continue the same dose of Coumadin as patient is on broad-spectrum antibiotics. #9 obstructive sleep apnea and morbid obesity:
[2017-07-07 16:55] LABS: Glucose,Whole Blood 126 mg/dL (75-99)
[2017-07-07] MEDS: WARFARIN 2.5 MG TAB PO SCH (17:18)
[2017-07-07 20:58] LABS: Glucose,Whole Blood 232 mg/dL (75-99)
[2017-07-07] MEDS: ATORVASTATIN 80 MG TAB PO SCH (21:48)
[2017-07-07] MEDS: SODIUM CHLORIDE 0.9% 1,000 ML IV SCH (23:46)
[2017-07-08 05:43] LABS: Glucose,Whole Blood 160 mg/dL (75-99)
[2017-07-08 05:49] LABS: CH 30.5; CHCM 30.9; HCT 29.2 % (39.0-53.0); HDW 3.18; HGB 9.4 gm/dL (13.0-17.5); Hypochromasia Moderate; MCHC 32.4 g/dL (31.0-37.0); Mean Platelet Volume 7.1; RBC 2.95 m/uL (4.30-5.90); RDW 14.7 % (11.5-15.5)
[2017-07-08 05:57] LABS: INR 1.7 (<1.2); Prothrombin Time 16.5 sec (9.0-12.0)
[2017-07-08 06:03] LABS: Calcium 8.4 mg/dL (8.4-10.2); Potassium 3.6 mmol/L (3.5-5.1)
[2017-07-08] MEDS: CARVEDILOL 3.125 MG TAB PO SCH ×2 (06:58→17:09)
[2017-07-08] MEDS: INSULIN GLARGINE 100 UNIT/ML 10 ML VIAL SQ SCH (06:58)
[2017-07-08] MEDS: INSULIN LISPRO (humaLOG) 300 UNIT/3 ML VIAL SQ SCH ×6 (06:58→17:59)
[2017-07-08] MEDS: PANTOPRAZOLE 40 MG TABLET PO SCH ×2 (07:00→17:09)
[2017-07-08] MEDS: CEFEPIME 2 GM in SODIUM CHLORIDE 0.9% 50 ML IVPB SCH (07:49)
[2017-07-08] MEDS: hydrALAZINE HCL 25 MG TAB PO SCH ×2 (07:51→16:07)
[2017-07-08] MEDS: CLOPIDOGREL 75 MG TAB PO SCH (07:52)
[2017-07-08] MEDS: ISOSORBIDE DINITRATE 20 MG TAB PO SCH ×2 (07:52→16:07)
[2017-07-08] MEDS: ASPIRIN 81 MG PO SCH (07:52)
[2017-07-08] MEDS: BUMETANIDE 1 MG TAB PO SCH (07:53)
[2017-07-08 08:04] VITALS: RESP 18; TEMP 98
[2017-07-08] MEDS ORDERED: AMIODARONE 200 MG TAB PO SCH (09:00)
[2017-07-08] MEDS: VANCOMYCIN 1,750 MG in SODIUM CHLORIDE 0.9% 250 ML IVPB SCH (10:06)
--- NOTE | 2017-07-08 11:11 | P.PN ---
Subjective Principal diagnosis: Pneumonia This is a 62-year-old gentleman with known history of diabetes, hypertension, hyperlipidemia, paroxysmal atrial fibrillation, coronary artery disease with prior myocardial infarction. In April of this year patient presented with a non-ST elevation myocardial infarction and underwent successful angioplasty with stenting of the LAD in May of this year patient was at [facility], he presented with what he describes as a cardiac arrest, he underwent implantation of an AICD at that time. Patient was discharged here from the hospital prior to his presentation at [facility], he did have a LifeVest in place and apparently had received a shock. To the hospital on this occasion with symptoms of elevated temperatures at home , cough, and elevated blood sugars. Patient did go to his primary care doctor' s office and was found to have a temperature of 103. Temperature on arrival here 100.1, blood pressure 116/60, heart rate in the 70s, 96% on room air. Chest x-ray on admission here revealed evidence for left pleural effusion and probable left basilar pneumonia, no heart failure. EKG on admission here shows a sinus rhythm with first-degree AV block and nonspecific ST-T wave changes. White blood cell count on admission 20,000, 16 this morning. Hemoglobin 10.0 on admission, 9.6 this morning. Sodium 134, potassium 3.6, BUN 76, creatinine 2.3. Troponins 0.15, 0.12. Patient has been noted to have abnormal renal function in the past. He was initiated here on IV antibiotics. Cardiology consultation was requested because of abnormal troponins. Troponin abnormality does not appear to be consistent with acute coronary syndrome, likely secondary to oxygen supply and demand mismatch, and abnormal renal function. Patient denies having any chest discomfort and overall he states his breathing has been stable. 07/08/2017 Patient seen and examined this morning, overall feeling better. Continues to have intermittent cough. Repeat chest x-ray was performed which revealed COPD, cardiomegaly, left basilar infiltrate likely reflecting pneumonia. Cannot exclude a small left effusion. INR 1.7, hemoglobin 9.4, potassium 3.6, BUN 81, creatinine 2.4. Objective - Vital Signs Vital signs: Vital Signs Temp 98 F 07/08/17 08:00 Pulse 68 07/08/17 08:00 Resp 18 07/08/17 08:00 BP 117/63 07/08/17 08:00 Pulse Ox 91 L 07/08/17 08:00 Intake & Output 07/07/17 07/08/17 07/08/17 18:59 06:59 18:59 Intake Total 340 50 200 Output Total 400 Balance 340 -350 200 Weight 105.9 kg Intake: Intake, IV Titration 160 50 Amount Cefepime 2 gm In Sodium 50 Chloride 0.9% 50 ml @ 100 mls/hr IVPB Q8HR SAMANTHA Rx# :[id number] Sodium Chloride 0.9% 1, 160 000 ml @ 20 mls/hr IV . Q24H SAMANTHA Rx#:[id number] Oral 180 200 Output: Urine 400 Other: Voiding Method Urinal # Voids 1 - Exam PHYSICAL EXAMINATION: HEENT: Head is atraumatic, normocephalic. Pupils equal, round. Neck is supple. There is no elevated jugular venous pressure. HEART EXAMINATION: Heart S1, S2 normal. No murmur or gallop heard. CHEST EXAMINATION: Lungs reveal diminished air entry bilaterally with crackles to bilateral bases. ABDOMEN: Soft, obese, nontender. Bowel sounds are heard. No organomegaly noted. EXTREMITIES:1+ peripheral pulses with no evidence of peripheral edema and no calf tenderness noted. NEUROLOGIC patient is awake, alert and oriented -3. . - Labs CBC & Chem 7: 07/08/17 05:24 07/08/17 05:24 Labs: Abnormal Lab Results - Last 24 Hours (Table) 07/07/17 07/07/17 07/07/17 Range/Units 11:35 16:47 20:56 WBC (3.8-10.6) k/uL RBC (4.30-5.90) m/uL Hgb (13.0-17.5) gm/dL Hct (39.0-53.0) % PT (9.0-12.0) sec INR (<1.2) Sodium (137-145) mmol/L Chloride (98-107) mmol/L BUN (9-20) mg/dL Creatinine (0.66-1.25) mg/dL Glucose (74-99) mg/dL POC Glucose (mg/dL) 237 H 126 H 232 H (75-99) mg/dL 07/08/17 07/08/17 07/08/17 Range/Units 05:24 05:24 05:24 WBC 15.0 H (3.8-10.6) k/uL RBC 2.95 L (4.30-5.90) m/uL Hgb 9.4 L (13.0-17.5) gm/dL Hct 29.2 L (39.0-53.0) % PT 16.5 H (9.0-12.0) sec INR 1.7 H (<1.2) Sodium 136 L (137-145) mmol/L Chloride 95 L (98-107) mmol/L BUN 81 H* (9-20) mg/dL Creatinine 2.49 H (0.66-1.25) mg/dL Glucose 146 H (74-99) mg/dL POC Glucose (mg/dL) (75-99) mg/dL 07/08/17 Range/Units 05:36 WBC (3.8-10.6) k/uL RBC (4.30-5.90) m/uL Hgb (13.0-17.5) gm/dL Hct (39.0-53.0) % PT (9.0-12.0) sec INR (<1.2) Sodium (137-145) mmol/L Chloride (98-107) mmol/L BUN (9-20) mg/dL Creatinine (0.66-1.25) mg/dL Glucose (74-99) mg/dL POC Glucose (mg/dL) 160 H (75-99) mg/dL Microbiology - Last 24 Hours (Table) 07/05/17 21:27 Blood Culture - Preliminary Blood No Growth after 48 hours 07/06/17 00:02 Urine Culture - Final Urine,Voided Assessment and Plan Plan: Assessment and plan #1 left lower lobe pneumonia, on IV antibiotics #2 known history of coronary artery disease with myocardial infarction in April of this year at which time patient underwent angioplasty with stenting of the LAD #3 ischemic cardiomyopathy with recent AICD implant #4 hypertension # 5 diabetes #6 hyperlipidemia #7 obstructive sleep apnea #8 acute on chronic renal failure #9 abnormal troponins, not consistent with acute coronary syndrome, likely secondary to oxygen supply and demand mismatch and abnormal renal function. #10 paroxysmal atrial fibrillation subtherapeutic on Coumadin, INR 1.6 Plan Cardiology's perspective, we will continue the patient on his current medications including the medics which was resumed yesterday. 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 DNP note has been reviewed, I agree with a documented findings and plan of care. Patient was seen and examined.
[2017-07-08 12:08] LABS: Glucose,Whole Blood 150 mg/dL (75-99)
[2017-07-08 16:20] VITALS: BP 118/62; PULSE 65
[2017-07-08 16:49] LABS: Glucose,Whole Blood 103 mg/dL (75-99)
[2017-07-08] MEDS: WARFARIN 2.5 MG TAB PO SCH (17:24)
[2017-07-08 18:00] LABS: Glucose,Whole Blood 152 mg/dL (75-99)
[2017-07-08] MEDS ORDERED: CEFEPIME 2 GM in SODIUM CHLORIDE 0.9% 50 ML IVPB SCH (20:00)
--- NOTE | 2017-07-08 20:08 | P.DS ---
<Kaycee Morales - Last Filed: 07/08/17 19:46> Providers Date of admission: 07/05/17 22:13 Expected date of discharge: 07/08/17 Attending physician: Kana Mckeon Consults: 07/05/17 22:14 Consult Physician Urgent Consulting Provider: Eusebio Gann Reason/Comments: Elevated troponin Do you want consulting provider notified?: Yes, Notify in am Primary care physician: Luis Alberto Santiago Hospital Course: FINAL DIAGNOSES: -Health-care acquired pneumonia, secondary to multiple hospital admissions, - acute on chronic congestive heart failure exacerbation from systolic dysfunction EF 20-25% from underlying ischemic cardiomyopathy -Recurrent paroxysmal atrial fibrillation -Acute metabolic encephalopathy multifactorial --Acute ST segment anterior wall myocardial infarction status post cardiac catheterization and unsuccessful stenting of the LAD with less than optimal results, on 05/16/2017 -Acute hypoxic respiratory failure, multifactorial, -Diabetes mellitus type II, uncontrolled, on insulin -Acute hypoxic respiratory failure . -Acute renal failure likely acute tubular necrosis, likely multifactorial including hypotension, improving -Possible chronic kidney disease from diabetic nephrosclerosis -Morbid obesity with BMI 34.5 kg/m -Obstructive sleep apnea -Acute metabolic encephalopathy, multifactorial from multiple medical problems, -Persistent atrial fibrillation, Coumadin for anticoagulation HOSPTIAL COURSE: 62-year-old male presented after being seen by his primary care physician with complaints of cough and sputum production diagnostics revealed patient to have right middle lobe pneumonia and was admitted for the same. Home medications resumed, Started on antibiotics of cefepime and vancomycin. Breathing improved , cough and sputum production decreased. Patient tolerating his diet eating about 50-70% of his meals, ambulatory in the room and hallway, last BM 2016. Patient is very anxious to go home overall condition has stabilized, and improved therefore patient to be discharged late in the day today. PHYSICAL EXAM: CARDIOVASCULAR: First and second sound noted, trace edema RESPIRATORY: Effort mildly labored, diminished air entry bilaterally without crackles heard to the bilateral bases PSYCHIATRY: Alert and oriented 3, forgetful at times, mood and affect somewhat anxious. Patient was seen and examined by nurse practitioner Kaycee Morales in all elements of the case discussed with attending Dr. Mckeon DISPOSITION: Home to care of his Patient Condition at Discharge: Stable Plan - Discharge Summary New Discharge Prescriptions: New Carvedilol [Coreg] 3.125 mg PO BID-W/MEALS #60 tab Cefuroxime Axetil [Ceftin] 500 mg PO BID #6 tab Continue Aspirin 81 mg PO DAILY Polyethylene Glycol 3350 [Miralax] 17 gm PO DAILY pack Bumetanide [BUMEX] 3 mg PO DAILY Atorvastatin [Lipitor] 80 mg PO HS Amiodarone [Cordarone] 400 mg PO DAILY hydrALAZINE HCL [Hydralazine HCl] 75 mg PO Q8H Digoxin [Digitek] 125 mcg PO Q48H Clopidogrel Bisulfate [Plavix] 75 mg PO DAILY Insulin Aspart [NovoLOG Flexpen] See Protocol SQ AC-TID Isosorbide Dinitrate 20 mg PO TID Omeprazole 20 mg PO AC-BID Changed Insulin Aspart [NovoLOG Flexpen] 12 units SQ AC-TID #0 Insulin Glargine [Lantus] 40 unit SQ AC-BRKFST #0 Warfarin [Coumadin] 5 mg PO DAILY #0 Discontinued Warfarin [Coumadin] 2.5 mg PO SUMOWEFR Discharge Medication List Aspirin 81 mg PO DAILY 05/24/17 [Rx] Polyethylene Glycol 3350 [Miralax] 17 gm PO DAILY pack 05/24/17 [Rx] Amiodarone [Cordarone] 400 mg PO DAILY 07/05/17 [History] Atorvastatin [Lipitor] 80 mg PO HS 07/05/17 [History] Bumetanide [BUMEX] 3 mg PO DAILY 07/05/17 [History] Clopidogrel Bisulfate [Plavix] 75 mg PO DAILY 07/05/17 [History] Digoxin [Digitek] 125 mcg PO Q48H 07/05/17 [History] Insulin Aspart [NovoLOG Flexpen] See Protocol SQ AC-TID 07/05/17 [History] Isosorbide Dinitrate 20 mg PO TID 07/05/17 [History] Omeprazole 20 mg PO AC-BID 07/05/17 [History] hydrALAZINE HCL [Hydralazine HCl] 75 mg PO Q8H 07/05/17 [History] Carvedilol [Coreg] 3.125 mg PO BID-W/MEALS #60 tab 07/08/17 [Rx] Cefuroxime Axetil [Ceftin] 500 mg PO BID #6 tab 07/08/17 [Rx] Insulin Aspart [NovoLOG Flexpen] 12 units SQ AC-TID #0 07/08/17 [Rx] Insulin Glargine [Lantus] 40 unit SQ AC-BRKFST #0 07/08/17 [Rx] Warfarin [Coumadin] 5 mg PO DAILY #0 07/08/17 [Rx] Follow up Appointment(s)/Referral(s): cardiology Dr RAHEL [Other] - 07/09/17 10:00 am Veto Lemus MD [STAFF PHYSICIAN] - 1-2 days Ambulatory/Diagnostic Orders: Basic Metabolic Panel [LAB.AMB] Location: Determined By Patient Complete Blood Count w/diff [LAB.AMB] Location: Determined By Patient Prothrombin Time INR [LAB.AMB] Time Frame: 2 Days, Location: Determined By Patient Discharge Disposition: HOME SELF-CARE <Kana Mckeon - Last Filed: 07/09/17 22:52> Hospital Course: Attending note. Date of service-07/08/2017 This patient was seen and examined by me . Discussed the patient with my nurse practitioner Ms. Morales. Doing better. Breathing better. On examination: Lungs-fair entry Investigations: Assessment and plan: Pneumonia improved. Discussed with patient. Stable for discharge
--- NOTE | 2017-07-10 13:14 | CDI ---
In responding to this query, please exercise your independent professional judgment. The [facility] Coding Staff and Clinical Documentation Specialists appreciate your assistance in clarifying documentation, maintaining compliance with coding guidelines, accurately documenting patients condition and capturing severity of illness. The fact that a question is asked does not imply that any particular answer is desired or expected. Communication forms are a method of clarifying documentation and are not made part of the Legal Health Record. Thank you in advance for your clarification. Last Revision, August 2015 Abbey Koenig [address] [facility] [place] [address] Documentation Clarification Form Date: 07/10/2017 1:00:00 PM From: Merry Bear Phone: Admit Date: 07/05/2017 10:13:00 PM Patient Name: Adam Muro Visit Number: [id number] Discharge Date: Dr. Kana Mckeon Sepsis secondary to right lower lobe pneumonia is documented in the H&P and in Dr. Bonner's 07/07 progress note. It is not documented in the discharge summary. Patient history/risk factors: Patient admitted with right lower lobe pneumonia , healthcare associatetd. Lab findings: WBC 20.1 on admission, lactic acid 0.9 Vital Signs: T. 100.1 on admssion, per H&P patient had high-grade fever in PCPs office, P. 72, R. 18, BP 120/60 Other Clinical Indicators: Metabolic encephalopathy Treatment: Cefepime IV, Vancomycin IV In your professional opinion, can you please clarify if Sepsis was Ruled In or Ruled Out? Other Unable to determine Please document in your discharge summary in order to capture severity of illness and risk of mortality. Include clinical findings that support your diagnosis. FYI: Press F11 to launch patient chart. If you have a question about this query, please contact Tonja Case, coding compliance specialist at [phone] between 8am and 5 pm. ZACHARIAH
--- NOTE | 2017-07-14 22:29 | DS ---
DISCHARGE SUMMARY ADDENDUM: Addendum to diagnosis: Basal pneumonia, suspect gram-negative organism causing sepsis, present on admission. MMODL / IJN: [id number] /
== END 2017-07-08 18:50 | disposition home or self-care (01) | DRG 871 ==
LOC: EC 20:55 → 6SEL 22:13
PROVIDERS: ADMIT Hospitalist; ATTEND Hospitalist
DX: A41.50 Gram-negative sepsis, unspecified (principal); J96.01 Acute respiratory failure with hypoxia; N17.0 Acute kidney failure with tubular necrosis; G93.41 Metabolic encephalopathy; I50.23 Acute on chronic systolic (congestive) heart failure; J15.6 Pneumonia due to other Gram-negative bacteria; I13.0 Hypertensive heart and chronic kidney disease with heart failure and stage 1 through stage 4 chronic kidney disease, or unspecified chronic kidney disease; I48.1 Persistent atrial fibrillation; J44.0 Chronic obstructive pulmonary disease with (acute) lower respiratory infection; E11.22 Type 2 diabetes mellitus with diabetic chronic kidney disease; E86.1 Hypovolemia; I48.0 Paroxysmal atrial fibrillation; E11.65 Type 2 diabetes mellitus with hyperglycemia; E66.01 Morbid (severe) obesity due to excess calories; E78.5 Hyperlipidemia, unspecified; G47.33 Obstructive sleep apnea (adult) (pediatric); I25.10 Atherosclerotic heart disease of native coronary artery without angina pectoris; I25.2 Old myocardial infarction; I25.5 Ischemic cardiomyopathy; I44.0 Atrioventricular block, first degree; N18.2 Chronic kidney disease, stage 2 (mild); G89.29 Other chronic pain; M54.9 Dorsalgia, unspecified; R74.8 Abnormal levels of other serum enzymes; T50.2X5A Adverse effect of carbonic-anhydrase inhibitors, benzothiadiazides and other diuretics, initial encounter; Z86.74 Personal history of sudden cardiac arrest; Z68.34 Body mass index [BMI] 34.0-34.9, adult; Z79.01 Long term (current) use of anticoagulants; Z79.4 Long term (current) use of insulin; Z79.82 Long term (current) use of aspirin; Z79.899 Other long term (current) drug therapy; Z87.891 Personal history of nicotine dependence; Z95.5 Presence of coronary angioplasty implant and graft; Z95.810 Presence of automatic (implantable) cardiac defibrillator; Y95 Nosocomial condition; Y92.9 Unspecified place or not applicable
CPT/HCPCS: 36415; 71020; 80048; 80053; 81003; 82550; 82553; 83605; 83880; 84484; 85025; 85027; 85610; 85730; 87040; 87086; 93005; 93306; 94760; 96361; 96365; 99285

== ENCOUNTER → 2017-07-12 | Outpatient (CLI) | payer BC, MEDICARE ==
--- NOTE | 2017-07-13 13:46 | XR ---
EXAMINATION TYPE: XR chest 2V DATE OF EXAM: 07/12/2017 COMPARISON: 07/07/2017 HISTORY: Shortness of breath TECHNIQUE: Frontal and lateral views of the chest are obtained. FINDINGS: Scattered senescent parenchymal changes noted. Hyperinflation compatible with COPD. Left lower lobe atelectasis and/or infiltrate with small effusion is unchanged. Heart size is stable. Mediastinal structures are stable and grossly unremarkable. No evidence for hilar prominence. Degenerative changes dorsal spine. IMPRESSION: 1. Left lower lobe atelectasis and/or infiltrate with small effusion is unchanged.
== END | disposition home or self-care (01) ==
LOC: RADXRMAIN 16:42
PROVIDERS: ATTEND Family Medicine
DX: J98.11 Atelectasis (principal); J90 Pleural effusion, not elsewhere classified; R91.8 Other nonspecific abnormal finding of lung field
CPT/HCPCS: 71020

== ENCOUNTER → 2017-07-18 | Outpatient (CLI) | payer BC, MEDICARE ==
--- NOTE | 2017-07-18 17:32 | US ---
EXAMINATION TYPE: US kidneys/renal and bladder DATE OF EXAM: 07/18/2017 COMPARISON: 05/18/2017 CLINICAL HISTORY: N18.3 CHR KIDNEY DZ STAGE 3. EXAM MEASUREMENTS: Right Kidney: 11.4 x 5.2 x 5.7 cm Left Kidney: 11.6 x 5.5 x 5.7 cm Post Void Residual Volume: 16 mL Right Kidney: No hydronephrosis or masses seen Left Kidney: No hydronephrosis or masses seen Bladder: wnl Bilateral Jets seen: Yes Normal Post Void Residual: Yes There is no evidence for hydronephrosis at this point in time. No nephrolithiasis is seen. No yane s are identified. The urinary bladder is anechoic. Bilateral ureteral jets are seen. IMPRESSION: Negative bilateral renal sonogram. Normal bladder emptying. The kidneys however measure smaller than last exam. Kidneys measure in the normal range. Previous exam findings probably due to nephritis and renal enlargement.
== END | disposition home or self-care (01) ==
LOC: RADUSWWP 16:04
PROVIDERS: ATTEND Family Medicine
DX: N18.3 Chronic kidney disease, stage 3 (moderate) (principal)
CPT/HCPCS: 76770

== ENCOUNTER 2017-11-21 23:16 | Inpatient (IN) | payer BC, MEDICARE ==
[2017-11-21] MEDS ORDERED: SODIUM CHLORIDE 0.9% 1,000 ML IV STA ×2 (23:32)
[2017-11-21] MEDS ORDERED: ACETAMINOPHEN TAB 500 MG TAB PO STA (23:32)
[2017-11-21] MEDS ORDERED: IBUPROFEN 600 MG TAB PO STA (23:32)
--- NOTE | 2017-11-21 23:36 | ED ---
General Adult HPI - General Chief complaint: Fever Stated complaint: Weakness, vomiting Time Seen by Provider: 11/21/17 23:32 Source: patient, family, EMS, RN notes reviewed, old records reviewed Mode of arrival: EMS Limitations: no limitations - History of Present Illness Initial comments: This is a 62-year-old male the ER for evaluation. This patient presents today for evaluation regarding weakness, not feeling well cough congestion. No chest pain. Patient noticed fever today. He woke up is not feeling well. History of heart disease. Patient has no known sick contacts or travel history. Patient has no modifying factors for symptoms, patient states he's been feeling not so good for a couple days was significantly worse today. states patient was significantly downhill when she went to work and came back tonight - Related Data Home Medications Medication Instructions Recorded Confirmed Amiodarone [Cordarone] 400 mg PO DAILY 07/05/17 11/21/17 Clopidogrel Bisulfate [Plavix] 75 mg PO DAILY 07/05/17 11/21/17 Digoxin [Digitek] 125 mcg PO Q48H 07/05/17 11/22/17 Isosorbide Dinitrate 20 mg PO TID 07/05/17 11/21/17 Omeprazole 20 mg PO AC-BID 07/05/17 11/21/17 Warfarin [Coumadin] 5 mg PO MOWEFR 08/26/17 11/22/17 Allopurinol [Zyloprim] 100 mg PO DAILY 09/23/17 11/21/17 Bumetanide [BUMEX] 2 mg PO DIRECTED 09/23/17 11/22/17 Ergocalciferol (Vitamin D2) 50,000 unit PO FR 09/23/17 11/21/17 [Vitamin D2] Ferrous Sulfate [Iron] 325 mg PO BID@1200,2100 09/23/17 11/21/17 Insulin Aspart [NovoLOG Flexpen] 10 units SQ AC-TID 09/23/17 11/21/17 Insulin Glargine [Lantus] 35 unit SQ HS 09/23/17 11/21/17 Polyethylene Glycol 3350 [Miralax] 17 gm PO Q48H PRN 09/23/17 11/21/17 Spironolactone [Aldactone] 25 mg PO DAILY 09/23/17 11/21/17 Warfarin [Coumadin] 2.5 mg PO SUTUTHSA 09/23/17 11/22/17 Carvedilol [Coreg] 6.25 mg PO BID 11/21/17 11/21/17 Previous Rx's Medication Instructions Recorded Aspirin 81 mg PO DAILY 05/24/17 Allergies Allergy/AdvReac Type Severity Reaction Status Date / Time No Known Allergies Allergy Verified 11/21/17 23:22 Review of Systems ROS Statement: Those systems with pertinent positive or pertinent negative responses have been documented in the HPI. ROS Other: All systems not noted in ROS Statement are negative. Past Medical History Past Medical History: Coronary Artery Disease (CAD), Diabetes Mellitus, GI Bleed , Hyperlipidemia, Myocardial Infarction ([place]), Pneumonia, Sleep Apnea/CPAP/BIPAP Additional Past Medical History / Comment(s): Morbidly obese, diabetes mellitus , obstructive sleep apnea, coronary artery disease with recent anterior wall myocardial infarction status post angioplasty and stenting of the LAD, chronic renal failure, chronic back pain, hyperlipidemia. Last Myocardial Infarction Date:: 04/2017 History of Any Multi-Drug Resistant Organisms: None Reported Past Surgical History: AICD, Appendectomy, Back Surgery, Heart Catheterization With Stent Additional Past Surgical History / Comment(s): cardiac catheterization and stenting of the LAD, back surgery with instrumentation and insertions of rods and screws, right rotator cuff. defibulator Past Anesthesia/Blood Transfusion Reactions: No Reported Reaction Date of Last Stent Placement:: 05/16/2017 Type of Cardiac Device: AICD Device Placement Date:: 06/25/2017 Past Psychological History: No Psychological Hx Reported Smoking Status: Former smoker Past Alcohol Use History: None Reported Past Drug Use History: None Reported - Past Family History Father Additional Family Medical History / Comment(s): LOW PLATLETS. SPLEENECTOMYl, Aortic Aneurysm Mother Family Medical History: CVA/TIA Additional Family Medical History / Comment(s): 2 STROKES, HEART DISEASE. General Exam Limitations: no limitations General appearance: alert, in no apparent distress, anxious, lethargic Head exam: Present: atraumatic, normocephalic, normal inspection Eye exam: Present: normal appearance, PERRL, EOMI. Absent: scleral icterus, conjunctival injection, periorbital swelling ENT exam: Present: normal exam, mucous membranes moist Neck exam: Present: normal inspection. Absent: tenderness, meningismus, lymphadenopathy Respiratory exam: Present: normal lung sounds bilaterally. Absent: respiratory distress, wheezes, rales, rhonchi, stridor Cardiovascular Exam: Present: regular rate, normal rhythm, normal heart sounds. Absent: systolic murmur, diastolic murmur, rubs, gallop, clicks GI/Abdominal exam: Present: soft, normal bowel sounds. Absent: distended, tenderness, guarding, rebound, rigid Extremities exam: Present: normal inspection, full ROM, normal capillary refill. Absent: tenderness, pedal edema, joint swelling, calf tenderness Back exam: Present: normal inspection Neurological exam: Present: alert, oriented X3, CN II-XII intact Psychiatric exam: Present: normal affect, normal mood Skin exam: Present: warm, dry, intact, normal color. Absent: rash Course Vital Signs 11/21/17 11/22/17 11/22/17 23:20 00:14 00:16 Temperature 101.8 F H Pulse Rate 61 57 L Respiratory 20 16 Rate Blood Pressure 117/59 97/54 O2 Sat by Pulse 95 96 97 Oximetry 11/22/17 00:53 Temperature 99.6 F Pulse Rate 59 L Respiratory 20 Rate Blood Pressure 99/55 O2 Sat by Pulse 97 Oximetry - Reevaluation(s) Reevaluation #1: Patient does feel significantly improved with breathing treatment, fever control EKG Findings - EKG Comments: EKG Findings:: EKG shows sinus rhythm rate of 61, pO2 70, QRS 06, QTc 408 Medical Decision Making - Medical Decision Making 59 female the ER for evasive fever, cough. COPD exacerbation, bronchitis. Patient will be admitted for steroids and breathing treatments. Control symptoms - Lab Data Result diagrams: 11/22/17 09:48 11/22/17 09:48 Lab Results 11/21/17 11/21/17 11/21/17 Range/Units 23:38 23:38 23:38 WBC 32.8 H* (3.8-10.6) k/uL RBC 3.49 L (4.30-5.90) m/uL Hgb 11.3 L (13.0-17.5) gm/dL Hct 33.9 L (39.0-53.0) % MCV 97.3 (80.0-100.0) fL MCH 32.3 (25.0-35.0) pg MCHC 33.2 (31.0-37.0) g/dL RDW 15.5 (11.5-15.5) % Plt Count 298 (150-450) k/uL Neutrophils % (Manual) 87 % Band Neutrophils % 2 % Lymphocytes % (Manual) 2 % Monocytes % (Manual) 9 % Neutrophils # (Manual) 29.10 H (1.3-7.7) k/uL Lymphocytes # (Manual) 0.66 L (1.0-4.8) k/uL Monocytes # (Manual) 2.95 H (0-1.0) k/uL Nucleated RBCs 0 (0-0) /100 WBC Manual Slide Review Performed Sodium 134 L (137-145) mmol/L Potassium 4.2 (3.5-5.1) mmol/L Chloride 97 L (98-107) mmol/L Carbon Dioxide 26 (22-30) mmol/L Anion Gap 11 mmol/L BUN 95 H* (9-20) mg/dL Creatinine 2.50 H (0.66-1.25) mg/dL Est GFR (MDRD) Af Amer 32 (>60 ml/min/1.73 sqM) Est GFR (MDRD) Non-Af 26 (>60 ml/min/1.73 sqM) Glucose 129 H (74-99) mg/dL Plasma Lactic Acid Joseph (0.7-2.0) mmol/L Calcium 8.5 (8.4-10.2) mg/dL Phosphorus 3.2 (2.5-4.5) mg/dL Magnesium 2.8 H (1.6-2.3) mg/dL Total Bilirubin 0.7 (0.2-1.3) mg/dL AST 27 (17-59) U/L ALT 32 (21-72) U/L Alkaline Phosphatase 77 (38-126) U/L Troponin I (0.000-0.034) ng/mL Total Protein 6.8 (6.3-8.2) g/dL Albumin 3.4 L (3.5-5.0) g/dL Urine Color Urine Appearance (Clear) Urine pH (5.0-8.0) Ur Specific [place] (1.001-1.035) Urine Protein (Negative) Urine Glucose (UA) (Negative) Urine Ketones (Negative) Urine Blood (Negative) Urine Nitrite (Negative) Urine Bilirubin (Negative) Urine Urobilinogen (<2.0) mg/dL Ur Leukocyte Esterase (Negative) Urine RBC (0-5) /hpf Urine WBC (0-5) /hpf Ur Squamous Epith Cells (0-4) /hpf Urine Bacteria (None) /hpf Hyaline Casts (0-2) /lpf Urine Mucus (None) /hpf Urine Sperm (None) /hpf Influenza Type A RNA Not Detected (Not Detectd) Influenza Type B (PCR) Not Detected (Not Detectd) 11/21/17 11/21/17 11/21/17 Range/Units 23:38 23:38 23:38 WBC (3.8-10.6) k/uL RBC (4.30-5.90) m/uL Hgb (13.0-17.5) gm/dL Hct (39.0-53.0) % MCV (80.0-100.0) fL MCH (25.0-35.0) pg MCHC (31.0-37.0) g/dL RDW (11.5-15.5) % Plt Count (150-450) k/uL Neutrophils % (Manual) % Band Neutrophils % % Lymphocytes % (Manual) % Monocytes % (Manual) % Neutrophils # (Manual) (1.3-7.7) k/uL Lymphocytes # (Manual) (1.0-4.8) k/uL Monocytes # (Manual) (0-1.0) k/uL Nucleated RBCs (0-0) /100 WBC Manual Slide Review Sodium (137-145) mmol/L Potassium (3.5-5.1) mmol/L Chloride (98-107) mmol/L Carbon Dioxide (22-30) mmol/L Anion Gap mmol/L BUN (9-20) mg/dL Creatinine (0.66-1.25) mg/dL Est GFR (MDRD) Af Amer (>60 ml/min/1.73 sqM) Est GFR (MDRD) Non-Af (>60 ml/min/1.73 sqM) Glucose (74-99) mg/dL Plasma Lactic Acid Joseph 1.4 (0.7-2.0) mmol/L Calcium (8.4-10.2) mg/dL Phosphorus (2.5-4.5) mg/dL Magnesium (1.6-2.3) mg/dL Total Bilirubin (0.2-1.3) mg/dL AST (17-59) U/L ALT (21-72) U/L Alkaline Phosphatase (38-126) U/L Troponin I 0.076 H* (0.000-0.034) ng/mL Total Protein (6.3-8.2) g/dL Albumin (3.5-5.0) g/dL Urine Color Yellow Urine Appearance Clear (Clear) Urine pH 5.0 (5.0-8.0) Ur Specific [place] 1.011 (1.001-1.035) Urine Protein Negative (Negative) Urine Glucose (UA) Negative (Negative) Urine Ketones Negative (Negative) Urine Blood Negative (Negative) Urine Nitrite Negative (Negative) Urine Bilirubin Negative (Negative) Urine Urobilinogen <2.0 (<2.0) mg/dL Ur Leukocyte Esterase Moderate H (Negative) Urine RBC 1 (0-5) /hpf Urine WBC 28 H (0-5) /hpf Ur Squamous Epith Cells 1 (0-4) /hpf Urine Bacteria Many H (None) /hpf Hyaline Casts 28 H (0-2) /lpf Urine Mucus Rare H (None) /hpf Urine Sperm Rare (None) /hpf Influenza Type A RNA (Not Detectd) Influenza Type B (PCR) (Not Detectd) - Radiology Data Radiology results: report reviewed (Chest x-ray negative for acute disease), image reviewed Disposition Clinical Impression: Fatigue, Fever, Influenza, Pneumonia, UTI (urinary tract infection) Disposition: ADMITTED IP TO THIS [facility] Condition: Good
[2017-11-21 23:51] LABS: HCT 33.9 % (39.0-53.0); HGB 11.3 gm/dL (13.0-17.5); MCH 32.3 pg (25.0-35.0); MCHC 33.2 g/dL (31.0-37.0); MCV 97.3 fL (80.0-100.0); Mean Platelet Volume 6.7; Platelet Count 298 k/uL (150-450); RBC 3.49 m/uL (4.30-5.90); RDW 15.5 % (11.5-15.5)
[2017-11-21 23:54] LABS: Appearance,Urine Clear (Clear); Bacteria,Urine Many /hpf; Bilirubin,Urine Negative (Negative); Blood,Urine Negative (Negative); Color,Urine Yellow; Glucose,Urine (UA) Negative (Negative); Hyaline Casts,Urine 28 /lpf (0-2); Ketones,Urine Negative (Negative); Leukocyte Esterase,Urine Moderate (Negative); Mucus,Urine Rare /hpf; Nitrite,Urine Negative (Negative); Protein,Urine Negative (Negative); RBC,Urine 1 /hpf (0-5); Specific Gravity,Urine 1.011 (1.001-1.035); Sperm,Urine Rare /hpf; Squamous Epithelial Cell,Urine 1 /hpf (0-4); Urobilinogen,Urine <2.0 mg/dL (<2.0); WBC,Urine 28 /hpf (0-5)
[2017-11-21] MEDS ORDERED: LEVOFLOXACIN 750MG-D5W PMX 750 MG in DEXTROSE/WATER 1 150ML.BAG IVPB STA (23:57)
[2017-11-21 23:58] LABS: WBC 32.8 k/uL (3.8-10.6)
[2017-11-22 00:12] LABS: Albumin 3.4 g/dL (3.5-5.0); Calcium 8.5 mg/dL (8.4-10.2); Magnesium 2.8 mg/dL (1.6-2.3); Phosphorus 3.2 mg/dL (2.5-4.5); Potassium 4.2 mmol/L (3.5-5.1); Total Bilirubin 0.7 mg/dL (0.2-1.3); Total Protein 6.8 g/dL (6.3-8.2)
[2017-11-22] MEDS ORDERED: PNEUMONIA PROTOCOL UTILIZED 1 EACH MISC PO PRN (00:13)
[2017-11-22] MEDS ORDERED: PIPERACILLIN-TAZOBACTAM 3.375 GM in DEXTROSE/WATER 1 50ML.BAG IVPB STA (00:13)
[2017-11-22 00:16] LABS: Band Neutrophils % 2 %; Lymphocytes # (M) 0.66 k/uL (1.0-4.8); Monocytes # (M) 2.95 k/uL (0-1.0); Neutrophils % (M) 87 %; Nucleated Red Blood Cells 0 /100 WBC (0-0); Total Cells Counted 100
--- NOTE | 2017-11-22 00:23 | XR ---
EXAMINATION TYPE: XR chest 2V DATE OF EXAM: 11/22/2017 COMPARISON: 10/09/2017 HISTORY: Flulike symptoms TECHNIQUE: Frontal and lateral views of the chest are obtained. FINDINGS: There is no heart failure. There is blunting of left costophrenic angle. There is left axi llary pacemaker with the lead tip in the right ventricle. There are chest leads. Right lung is clear. IMPRESSION: There is chronic pleural thickening and pleural fluid on the left side that is improved slightly compared to 10/09/2017 exam. No heart failure.
[2017-11-22 01:28] VITALS: BMI 32.1
[2017-11-22] MEDS: SODIUM CHLORIDE 0.9% 1,000 ML IV SCH ×3 (01:57→21:03)
[2017-11-22 06:38] LABS: Glucose,Whole Blood 138 mg/dL (75-99)
[2017-11-22 07:05] LABS: INR 3.3 (<1.2); Prothrombin Time 29.5 sec (9.0-12.0)
[2017-11-22] MEDS: IPRATROPIUM-ALBUTEROL 3 ML NEB INHALATION SCH ×4 (08:03→21:10)
[2017-11-22] MEDS ORDERED: ENOXAPARIN 40 MG/0.4 ML SYRINGE SQ SCH (09:00)
[2017-11-22] MEDS: PIPERACILLIN-TAZOBACTAM 3.375 GM in DEXTROSE/WATER 1 50ML.BAG IVPB SCH ×3 (09:28→23:24)
[2017-11-22 10:01] LABS: Basophils # (A) 0.3 k/uL (0-0.2); Basophils % (A) 1 %; Eosinophils % (A) 0 %; HCT 31.7 % (39.0-53.0); HGB 10.6 gm/dL (13.0-17.5); Lymphocytes # (A) 0.3 k/uL (1.0-4.8); Lymphocytes % (A) 1 %; MCHC 33.5 g/dL (31.0-37.0); MCV 98.5 fL (80.0-100.0); Monocytes # (A) 2.1 k/uL (0-1.0); Monocytes % (A) 7 %; Neutrophils # (A) 28.5 k/uL (1.3-7.7); Neutrophils % (A) 90 %; Platelet Count 258 k/uL (150-450); RBC 3.22 m/uL (4.30-5.90); RDW 15.2 % (11.5-15.5)
[2017-11-22 10:04] LABS: WBC 31.7 k/uL (3.8-10.6)
[2017-11-22 10:33] LABS: Albumin 2.9 g/dL (3.5-5.0); Calcium 8.4 mg/dL (8.4-10.2); Potassium 4.6 mmol/L (3.5-5.1); Total Protein 6.1 g/dL (6.3-8.2)
[2017-11-22] MEDS ORDERED: POLYETHYLENE GLYCOL 3350 17 GM POWD.PACK PO PRN (10:33)
[2017-11-22] MEDS ORDERED: AMIODARONE 200 MG TAB PO SCH (10:45)
--- NOTE | 2017-11-22 10:53 | P.HPIM ---
History of Present Illness H&P Date: 11/22/17 Chief Complaint: Generalized weakness and not feeling well 1 day This is a 62-year-old male, patient of Dr. Richardson. He has a known past medical history of coronary artery disease with stent, atrial fibrillation, diabetes mellitus, hyperlipidemia, myocardial infarction, obstructive sleep apnea, chronic kidney disease, ischemic cardiomyopathy with AICD. Patient was brought into the emergency room via ambulance. Patient reports he had been doing well but yesterday he started not feeling well and just became very weak and fatigued. He came into the emergency room for further evaluation. He was found have evidence of a UTI and possible pneumonia per ER report. She was started on Levaquin and Zosyn. He had a temp of 101.8 white count 32.8. Creatinine was up at 2.50, INR 3.3. He had been hypotensive with a blood pressure of 94/54. And mildly elevated troponin 0.076. He was admitted to the hospital for a UTI. Chest x-ray shows chronic pleural thickening and pleural fluid on the left side that is improved slightly compared to 10/09/2017's exam. No heart failure. Chest x-ray from this morning is pending. Patient denies any cough, chills or sweats. Denies any chest pain. Denies any nausea or vomiting. Denies any bowel movement changes. He denies any urinary symptoms. Patient was recently hospitalized in September 2017 with pneumonia and left pleural effusion requiring thoracentesis. Cardiology, pulmonary service and nephrology have all been consulted. Review of Systems Please refer to HPI otherwise unremarkable Past Medical History Past Medical History: Coronary Artery Disease (CAD), Diabetes Mellitus, GI Bleed , Hyperlipidemia, Myocardial Infarction ([place]), Pneumonia, Renal Disease, Sleep Apnea/CPAP/BIPAP Additional Past Medical History / Comment(s): Morbidly obese, diabetes mellitus , obstructive sleep apnea, coronary artery disease with recent anterior wall myocardial infarction status post angioplasty and stenting of the LAD, chronic renal failure, chronic back pain, hyperlipidemia. Last Myocardial Infarction Date:: 04/2017 History of Any Multi-Drug Resistant Organisms: None Reported Past Surgical History: AICD, Appendectomy, Back Surgery, Heart Catheterization With Stent Additional Past Surgical History / Comment(s): cardiac catheterization and stenting of the LAD, back surgery with instrumentation and insertions of rods and screws, right rotator cuff. defibulator Past Anesthesia/Blood Transfusion Reactions: No Reported Reaction Date of Last Stent Placement:: 05/16/2017 Type of Cardiac Device: AICD Device Placement Date:: 06/25/2017 Past Psychological History: No Psychological Hx Reported Additional Psychological History / Comment(s): PT IS INDEPENDANT. LIVES WITH /DAUGHTER IN SINGLE LEVEL HOME THAT HAS 3OR 4 STEPS. PT IS ON DISABILTY. 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 NO SERVICE IN BACK GROUND. HAS 3 PET CATS. NO HOME CARE SERVICES RECIEVED, HAS A GLUCOMETER. Smoking Status: Never smoker Past Alcohol Use History: None Reported Additional Past Alcohol Use History / Comment(s): STARTED SMOKING AT AGE 19(1973 ) AND QUIT AT AGE 22(1976) SMOKED 1 PPD. Past Drug Use History: None Reported - Past Family History Father Additional Family Medical History / Comment(s): LOW PLATLETS. SPLEENECTOMYl, Aortic Aneurysm Mother Family Medical History: CVA/TIA Additional Family Medical History / Comment(s): 2 STROKES, HEART DISEASE. Medications and Allergies Home Medications Medication Instructions Recorded Confirmed Type Aspirin 81 mg PO DAILY 05/24/17 11/21/17 Rx Amiodarone [Cordarone] 400 mg PO DAILY 07/05/17 11/21/17 History Clopidogrel Bisulfate [Plavix] 75 mg PO DAILY 07/05/17 11/21/17 History Digoxin [Digitek] 125 mcg PO Q48H 07/05/17 11/22/17 History Isosorbide Dinitrate 20 mg PO TID 07/05/17 11/21/17 History Omeprazole 20 mg PO AC-BID 07/05/17 11/21/17 History Warfarin [Coumadin] 5 mg PO MOWEFR 08/26/17 11/22/17 History Allopurinol [Zyloprim] 100 mg PO DAILY 09/23/17 11/21/17 History Bumetanide [BUMEX] 2 mg PO DIRECTED 09/23/17 11/22/17 History Ergocalciferol (Vitamin D2) 50,000 unit PO FR 09/23/17 11/21/17 History [Vitamin D2] Ferrous Sulfate [Iron] 325 mg PO BID@1200,2100 09/23/17 11/21/17 History Insulin Aspart [NovoLOG Flexpen] 10 units SQ AC-TID 09/23/17 11/21/17 History Insulin Glargine [Lantus] 35 unit SQ HS 09/23/17 11/21/17 History Polyethylene Glycol 3350 [Miralax] 17 gm PO Q48H PRN 09/23/17 11/21/17 History Spironolactone [Aldactone] 25 mg PO DAILY 09/23/17 11/21/17 History Warfarin [Coumadin] 2.5 mg PO SUTUTHSA 09/23/17 11/22/17 History Carvedilol [Coreg] 6.25 mg PO BID 11/21/17 11/21/17 History Allergies Allergy/AdvReac Type Severity Reaction Status Date / Time No Known Allergies Allergy Verified 11/21/17 23:22 Physical Exam Vitals: Vital Signs Temp Pulse Pulse Resp BP BP Pulse Ox 11/22/17 08:13 61 11/22/17 08:05 68 11/22/17 08:00 99.9 F H 59 L 16 103/56 98 11/22/17 04:00 97.8 F 58 L 17 94/54 96 11/22/17 00:59 97.3 F L 59 L 17 99/53 96 11/22/17 00:53 99.6 F 59 L 20 99/55 97 11/22/17 00:16 57 L 16 97/54 97 11/22/17 00:14 96 11/21/17 23:20 101.8 F H 61 20 117/59 95 Intake and Output 11/21/17 11/22/17 11/22/17 22:59 06:59 14:59 Intake Total 250 120 Output Total 250 295 Balance 0 -175 Intake: Intake, IV Titration 250 Amount Levofloxacin 750Mg-D5w 150 Pmx 750 mg In Dextrose/ Water 1 150ml.bag @ 100 mls/hr IVPB Q24H SAMANTHA Rx#: [id number] Sodium Chloride 0.9% 1, 100 000 ml @ 100 mls/hr IV . Q10H SAMANTHA Rx#:[id number] Oral 120 Output: Urine 250 295 Other: Voiding Method Urinal # Voids 1 Weight 82.5 kg Head normocephalic Neck supple Lungs diminished the left base. But no wheezing or coarse breath sounds noted Heart regular rate and rhythm S1-S2, no rub or gallop Abdomen is soft nontender nondistended positive bowel sounds no hepatosplenomegaly Extremities no edema Neuro alert and orientated to 3 Results CBC & Chem 7: 11/22/17 09:48 11/22/17 09:48 Labs: Abnormal Lab Results - Last 24 Hours (Table) 11/21/17 11/21/17 11/21/17 Range/Units 23:38 23:38 23:38 WBC 32.8 H* (3.8-10.6) k/uL RBC 3.49 L (4.30-5.90) m/uL Hgb 11.3 L (13.0-17.5) gm/dL Hct 33.9 L (39.0-53.0) % Neutrophils # (1.3-7.7) k/uL Neutrophils # (Manual) 29.10 H (1.3-7.7) k/uL Lymphocytes # (1.0-4.8) k/uL Lymphocytes # (Manual) 0.66 L (1.0-4.8) k/uL Monocytes # (0-1.0) k/uL Monocytes # (Manual) 2.95 H (0-1.0) k/uL Basophils # (0-0.2) k/uL PT (9.0-12.0) sec INR (<1.2) Sodium 134 L (137-145) mmol/L Chloride 97 L (98-107) mmol/L BUN 95 H* (9-20) mg/dL Creatinine 2.50 H (0.66-1.25) mg/dL Glucose 129 H (74-99) mg/dL POC Glucose (mg/dL) (75-99) mg/dL Magnesium 2.8 H (1.6-2.3) mg/dL Troponin I (0.000-0.034) ng/mL Total Protein (6.3-8.2) g/dL Albumin 3.4 L (3.5-5.0) g/dL Ur Leukocyte Esterase Moderate H (Negative) Urine WBC 28 H (0-5) /hpf Urine Bacteria Many H (None) /hpf Hyaline Casts 28 H (0-2) /lpf Urine Mucus Rare H (None) /hpf 11/21/17 11/22/17 11/22/17 Range/Units 23:38 06:13 06:36 WBC (3.8-10.6) k/uL RBC (4.30-5.90) m/uL Hgb (13.0-17.5) gm/dL Hct (39.0-53.0) % Neutrophils # (1.3-7.7) k/uL Neutrophils # (Manual) (1.3-7.7) k/uL Lymphocytes # (1.0-4.8) k/uL Lymphocytes # (Manual) (1.0-4.8) k/uL Monocytes # (0-1.0) k/uL Monocytes # (Manual) (0-1.0) k/uL Basophils # (0-0.2) k/uL PT 29.5 H (9.0-12.0) sec INR 3.3 H (<1.2) Sodium (137-145) mmol/L Chloride (98-107) mmol/L BUN (9-20) mg/dL Creatinine (0.66-1.25) mg/dL Glucose (74-99) mg/dL POC Glucose (mg/dL) 138 H (75-99) mg/dL Magnesium (1.6-2.3) mg/dL Troponin I 0.076 H* (0.000-0.034) ng/mL Total Protein (6.3-8.2) g/dL Albumin (3.5-5.0) g/dL Ur Leukocyte Esterase (Negative) Urine WBC (0-5) /hpf Urine Bacteria (None) /hpf Hyaline Casts (0-2) /lpf Urine Mucus (None) /hpf 11/22/17 11/22/17 Range/Units 09:48 09:48 WBC 31.7 H* (3.8-10.6) k/uL RBC 3.22 L (4.30-5.90) m/uL Hgb 10.6 L (13.0-17.5) gm/dL Hct 31.7 L (39.0-53.0) % Neutrophils # 28.5 H (1.3-7.7) k/uL Neutrophils # (Manual) (1.3-7.7) k/uL Lymphocytes # 0.3 L (1.0-4.8) k/uL Lymphocytes # (Manual) (1.0-4.8) k/uL Monocytes # 2.1 H (0-1.0) k/uL Monocytes # (Manual) (0-1.0) k/uL Basophils # 0.3 H (0-0.2) k/uL PT (9.0-12.0) sec INR (<1.2) Sodium 135 L (137-145) mmol/L Chloride (98-107) mmol/L BUN 87 H* (9-20) mg/dL Creatinine 2.43 H (0.66-1.25) mg/dL Glucose 158 H (74-99) mg/dL POC Glucose (mg/dL) (75-99) mg/dL Magnesium (1.6-2.3) mg/dL Troponin I (0.000-0.034) ng/mL Total Protein 6.1 L (6.3-8.2) g/dL Albumin 2.9 L (3.5-5.0) g/dL Ur Leukocyte Esterase (Negative) Urine WBC (0-5) /hpf Urine Bacteria (None) /hpf Hyaline Casts (0-2) /lpf Urine Mucus (None) /hpf Microbiology - Last 24 Hours (Table) 11/21/17 23:38 Urine Culture - Preliminary Urine,Voided Thrombosis Risk Factor Assmnt - Choose All That Apply Any of the Below Risk Factors Present?: Yes Each Factor Represents 1 point: Minor surgery planned Other Risk Factors: Yes Each Risk Factor Represents 2 Points: Age 61-74 years Thrombosis Risk Factor Assessment Total Risk Factor Score: 3 Thrombosis Risk Factor Assessment Level: Moderate Risk Assessment and Plan Assessment: 1. UTI with sepsis present on admission: Patient had a temporal 101.8, white count 32.8. Awaiting urine culture. Patient currently on Levaquin and Zosyn 2. Acute on chronic kidney disease stage IV. Creatinine 2.50. Bumex and Aldactone on hold. Continue with IV fluid hydration. Nephrology consulted 3. Coagulopathy INR 3.3. Hold Coumadin today. No evidence of bleeding. Repeat PT/INR in a.m. 4. Hypotension likely related to sepsis. Continue with IV fluids. Bumex Aldactone has been on hold. Also will place parameters around the Coreg. 5. History of paroxysmal atrial fibrillation. Coumadin on hold due to elevated INR. Amiodarone dose decreased by cardiology due to patient's hypotension. 6. History of ischemic cardiomyopathy with an EF 20% status post AICD 7. History of myocardial infarction with coronary artery disease and cardiac stent 8. Insulin-dependent diabetes mellitus. Resume home insulin. Add sliding scale coverage 9. Recent pneumonia in September requiring hospitalization. As well as a left pleural effusion requiring a left-sided thoracentesis 10. Minimally elevated troponin: Cardiology consulted. No chest pain reported by patient GI prophylaxis omeprazole and DVT prophylaxis Coumadin currently on hold due to elevated INR. Time with Patient: Greater than 30 (Greater than 50% of the total time spent in counseling and coordination of care.I performed an examination of the patient and discussed their management with the physician Health Advisor. I have reviewed the Physician Health Advisor's notes and agree with the documented findings and plan of care)
[2017-11-22] MEDS ORDERED: ERGOCALCIFEROL 50,000 UNIT CAP PO SCH (11:00)
[2017-11-22] MEDS: FERROUS SULFATE 325 MG TAB PO SCH ×2 (11:32→21:03)
[2017-11-22] MEDS: ASPIRIN 81 MG PO SCH (11:33)
[2017-11-22] MEDS: CLOPIDOGREL 75 MG TAB PO SCH (11:33)
[2017-11-22] MEDS: DIGOXIN 125 MCG TAB PO SCH (11:33)
[2017-11-22 11:45] LABS: Glucose,Whole Blood 153 mg/dL (75-99)
[2017-11-22] MEDS: PANTOPRAZOLE 40 MG TABLET PO SCH ×2 (12:18→17:30)
[2017-11-22] MEDS: INSULIN ASPART 100 UNIT/ML 1 ML 10 ML VIAL SQ SCH ×5 (12:18→20:51)
--- NOTE | 2017-11-22 12:18 | CONS ---
CONSULTATION CHIEF COMPLAINT: Fatigue, tiredness and not feeling well. Patient also had some fever yesterday. Comes in and had been diagnosed with urinary tract infection and Cardiology had been consulted because of mildly elevated troponin. He denies chest pain, difficulty in breathing, palpitations, or syncope. There is no history of leg edema. Patient was admitted to hospital with weakness and fatigue in September of 2017. He has known coronary artery disease and had angioplasty of LAD, has ischemic cardiomyopathy and had an AICD. He has an ejection fraction of 20% and patient has had elevated troponins in the past. At the time of my evaluation, patient appears comfortable from cardiac standpoint and his congestive heart failure is well compensated. PAST MEDICAL HISTORY: Significant for coronary artery disease, status post angioplasty, ischemic cardiomyopathy, atrial fibrillation. CURRENT MEDICATIONS: Include Bumex, Digitek, Coumadin, insulin, Aldactone, Coreg, allopurinol, iron, omeprazole, Imdur, Plavix, aspirin, and amiodarone. ALLERGIES: There are no known drug allergies. FAMILY HISTORY: Negative for premature coronary artery disease. SOCIAL HISTORY: Negative for current smoking, EtOH abuse or drug abuse. REVIEW OF SYSTEMS: HEENT is unremarkable. CARDIAC: As described above. RESPIRATORY: Negative. GI: Negative. GENITOURINARY: Significant for urinary tract infection. PSYCHOSOCIAL: Negative. DERM: Negative. CONSTITUTIONAL: Significant for weakness and fatigue. Rest of the system review is not relevant. Troponin is 0.076. At his previous hospitalizations he has always been around 0.1. White cell count is elevated at 31. Hemoglobin is 10.6, BUN is elevated at 87, creatinine is 2.4. PHYSICAL EXAM: Patient is comfortable at rest. Vital signs are stable. There is no jugular venous distention. Chest exam reveals good air entry bilaterally. Heart exam reveals first and second heart sounds. No gallop. Irregular rhythm. Abdomen is soft. Exam of extremities did not reveal any edema. ASSESSMENT: 1. Weakness and fatigue, probably secondary to urinary tract infection. 2. Chronic atrial fibrillation with therapeutic INR. 3. Mildly elevated troponin, probably related to underlying renal failure. 4. Ischemic cardiomyopathy status post AICD. PLAN: I am going to stop the Lovenox that the patient is on. Resume his Coumadin. Will cut back on the dose of the amiodarone to 200 mg daily. Continue rest of his medications. Keep the INR around 2.5. Thank you for allowing us to participate with this pleasant gentleman. KATIE / RICKIE: [id number] /
--- NOTE | 2017-11-22 14:07 | P.CNPUL ---
History of Present Illness Consult date: 11/22/17 Requesting physician: Lara Patrick Reason for consult: other Chief complaint: Generalized weakness, low-grade fever History of present illness: Adam is a 62-year-old white male patient that presented to the emergency department on 11/21/2017 2316 after severe generalized weakness, not feeling well, and low-grade fever. He denies any chest pain, shortness of breath, cough or congestion. Did have a PA in April 2017, patient had just finished his cardiac rehab. On evaluation in the emergency room, he was found to have leukocytosis with WBC of 32.8, hemoglobin of 11.3, his INR is 3.3, sodium is 134 , B1 is 95, creatinine is 2.50, his troponin was 0.076, his lactic acid was within normal limits of 1.4. His urinalysis showed moderate amount of leukocyte esterase, urine WBCs, bacteria and mucus. Influenza screen was negative. Chest x-ray showed chronic pleural thickening and pleural fluid on the left side and appear to be improved slightly compared to previous exam on . Patient was recently hospitalized for pneumonia, left-sided parapneumonic pleural effusion, and was discharged home on 09/30/2017. Did have left thoracentesis during that admission with evacuation of 1.4 L of pleural fluid from the left lung. Fluid cytology was negative for any evidence of malignancy. Pleural fluid was found to be exudative, and was thought to be parapneumonic in nature, pleural fluid cultures were negative. Patient did have a fever of 101.8F on presentation. He was given 1 L 0.9 normal saline IV bolus, and maintenance IV of 0.9 at 100 ML per hour. He was started on a combination of Levaquin and Zosyn, blood, and urine cultures were obtained and sent. Sputum culture was ordered, but patient is not producing any sputum at this time. His twelve-lead EKG shows sinus rhythm with first-degree AV block. He does have past medical history of chronic kidney disease stage IV, ischemic cardiomyopathy with EF of 20%, with AICD placement, paroxysmal atrial fibrillation, and obstructive sleep apnea as well as diabetes mellitus. Review of Systems All systems: negative Constitutional: Denies chills, Denies fever Eyes: denies blurred vision, denies pain Ears, nose, mouth and throat: Denies headache, Denies sore throat Cardiovascular: Denies chest pain, Denies shortness of breath Respiratory: Denies cough Gastrointestinal: Denies abdominal pain, Denies diarrhea, Denies nausea, Denies vomiting Musculoskeletal: Denies myalgias Integumentary: Denies pruritus, Denies rash Neurological: Denies numbness, Denies weakness Psychiatric: Denies anxiety, Denies depression Endocrine: Denies fatigue, Denies weight change Past Medical History Past Medical History: Coronary Artery Disease (CAD), Diabetes Mellitus, GI Bleed , Hyperlipidemia, Myocardial Infarction (PA), Pneumonia, Renal Disease, Sleep Apnea/CPAP/BIPAP Additional Past Medical History / Comment(s): Morbidly obese, diabetes mellitus , obstructive sleep apnea, coronary artery disease with recent anterior wall myocardial infarction status post angioplasty and stenting of the LAD, chronic renal failure, chronic back pain, hyperlipidemia. Last Myocardial Infarction Date:: 04/2017 History of Any Multi-Drug Resistant Organisms: None Reported Past Surgical History: AICD, Appendectomy, Back Surgery, Heart Catheterization With Stent Additional Past Surgical History / Comment(s): cardiac catheterization and stenting of the LAD, back surgery with instrumentation and insertions of rods and screws, right rotator cuff. defibulator Past Anesthesia/Blood Transfusion Reactions: No Reported Reaction Date of Last Stent Placement:: 05/16/2017 Type of Cardiac Device: AICD Device Placement Date:: 06/25/2017 Past Psychological History: No Psychological Hx Reported Additional Psychological History / Comment(s): PT IS INDEPENDANT. LIVES WITH /DAUGHTER IN SINGLE LEVEL HOME THAT HAS 3OR 4 STEPS. PT IS ON DISABILTY. 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 NO SERVICE IN BACK GROUND. HAS 3 PET CATS. NO HOME CARE SERVICES RECIEVED, HAS A GLUCOMETER. Smoking Status: Never smoker Past Alcohol Use History: None Reported Additional Past Alcohol Use History / Comment(s): STARTED SMOKING AT AGE 19(1973 ) AND QUIT AT AGE 22(1976) SMOKED 1 PPD. Past Drug Use History: None Reported - Past Family History Father Additional Family Medical History / Comment(s): LOW PLATLETS. SPLEENECTOMYl, Aortic Aneurysm Mother Family Medical History: CVA/TIA Additional Family Medical History / Comment(s): 2 STROKES, HEART DISEASE. Medications and Allergies Home Medications Medication Instructions Recorded Confirmed Type Aspirin 81 mg PO DAILY 05/24/17 11/21/17 Rx Amiodarone [Cordarone] 400 mg PO DAILY 07/05/17 11/21/17 History Clopidogrel Bisulfate [Plavix] 75 mg PO DAILY 07/05/17 11/21/17 History Digoxin [Digitek] 125 mcg PO Q48H 07/05/17 11/22/17 History Isosorbide Dinitrate 20 mg PO TID 07/05/17 11/21/17 History Omeprazole 20 mg PO AC-BID 07/05/17 11/21/17 History Warfarin [Coumadin] 5 mg PO MOWEFR 08/26/17 11/22/17 History Allopurinol [Zyloprim] 100 mg PO DAILY 09/23/17 11/21/17 History Bumetanide [BUMEX] 2 mg PO DIRECTED 09/23/17 11/22/17 History Ergocalciferol (Vitamin D2) 50,000 unit PO FR 09/23/17 11/21/17 History [Vitamin D2] Ferrous Sulfate [Iron] 325 mg PO BID@1200,2100 09/23/17 11/21/17 History Insulin Aspart [NovoLOG Flexpen] 10 units SQ AC-TID 09/23/17 11/21/17 History Insulin Glargine [Lantus] 35 unit SQ HS 09/23/17 11/21/17 History Polyethylene Glycol 3350 [Miralax] 17 gm PO Q48H PRN 09/23/17 11/21/17 History Spironolactone [Aldactone] 25 mg PO DAILY 09/23/17 11/21/17 History Warfarin [Coumadin] 2.5 mg PO SUTUTHSA 09/23/17 11/22/17 History Carvedilol [Coreg] 6.25 mg PO BID 11/21/17 11/21/17 History Allergies Allergy/AdvReac Type Severity Reaction Status Date / Time No Known Allergies Allergy Verified 11/21/17 23:22 Physical Exam Vitals: Vital Signs Temp Pulse Pulse Resp BP BP Pulse Ox 11/22/17 11:34 58 L 11/22/17 11:26 58 L 11/22/17 08:13 61 11/22/17 08:05 68 11/22/17 08:00 99.9 F H 59 L 16 103/56 98 11/22/17 04:00 97.8 F 58 L 17 94/54 96 11/22/17 00:59 97.3 F L 59 L 17 99/53 96 11/22/17 00:53 99.6 F 59 L 20 99/55 97 11/22/17 00:16 57 L 16 97/54 97 11/22/17 00:14 96 11/21/17 23:20 101.8 F H 61 20 117/59 95 Intake and Output 11/21/17 11/22/17 11/22/17 22:59 06:59 14:59 Intake Total 250 120 Output Total 250 295 Balance 0 -175 Intake: Intake, IV Titration 250 Amount Levofloxacin 750Mg-D5w 150 Pmx 750 mg In Dextrose/ Water 1 150ml.bag @ 100 mls/hr IVPB Q24H SAMANTHA Rx#: [id number] Sodium Chloride 0.9% 1, 100 000 ml @ 100 mls/hr IV . Q10H SAMANTHA Rx#:[id number] Oral 120 Output: Urine 250 295 Other: Voiding Method Urinal # Voids 1 Weight 82.5 kg GENERAL EXAM: Alert, 62-year-old white male, comfortable in no apparent distress. HEAD: Normocephalic/atraumatic. EYES: Normal reaction of pupils, equal size. Conjunctiva pink, sclera white. NOSE: Clear with pink turbinates. THROAT: No erythema or exudates. NECK: No masses, no JVD, no thyroid enlargement, no adenopathy. CHEST: No chest wall deformity. Symmetrical expansion. LUNGS: Equal air entry laterally, with clear breath sounds, with no rhonchi, no wheezes or rales. CVS: Regular rate and rhythm, normal S1 and S2, no gallops, no murmurs, no rubs ABDOMEN: Soft, nontender. No hepatosplenomegaly, normal bowel sounds, no guarding or rigidity. : Patient is wearing a brief chronic urinary incontinence EXTREMITIES: No clubbing, no edema, no cyanosis, 2+ pulses and upper and lower extremities. MUSCULOSKELETAL: Muscle strength and tone normal. SPINE: No scoliosis or deformity SKIN: No rashes CENTRAL NERVOUS SYSTEM: Alert and oriented -3. No focal deficits, tone is normal in all 4 extremities. PSYCHIATRIC: Alert and oriented -3. Appropriate affect. Intact judgment and insight. Results - Laboratory Findings CBC and BMP: 11/22/17 09:48 11/22/17 09:48 PT/INR, D-dimer PT 29.5 sec (9.0-12.0) H 11/22/17 06:13 INR 3.3 (<1.2) H 11/22/17 06:13 Abnormal lab findings: Abnormal Labs 11/21/17 11/21/17 11/21/17 23:38 23:38 23:38 WBC 32.8 H* RBC 3.49 L Hgb 11.3 L Hct 33.9 L Neutrophils # Neutrophils # (Manual) 29.10 H Lymphocytes # Lymphocytes # (Manual) 0.66 L Monocytes # Monocytes # (Manual) 2.95 H Basophils # PT INR Sodium 134 L Chloride 97 L BUN 95 H* Creatinine 2.50 H Glucose 129 H POC Glucose (mg/dL) Magnesium 2.8 H Troponin I Total Protein Albumin 3.4 L Ur Leukocyte Esterase Moderate H Urine WBC 28 H Urine Bacteria Many H Hyaline Casts 28 H Urine Mucus Rare H 11/21/17 11/22/17 11/22/17 23:38 06:13 06:36 WBC RBC Hgb Hct Neutrophils # Neutrophils # (Manual) Lymphocytes # Lymphocytes # (Manual) Monocytes # Monocytes # (Manual) Basophils # PT 29.5 H INR 3.3 H Sodium Chloride BUN Creatinine Glucose POC Glucose (mg/dL) 138 H Magnesium Troponin I 0.076 H* Total Protein Albumin Ur Leukocyte Esterase Urine WBC Urine Bacteria Hyaline Casts Urine Mucus 11/22/17 11/22/17 09:48 09:48 WBC 31.7 H* RBC 3.22 L Hgb 10.6 L Hct 31.7 L Neutrophils # 28.5 H Neutrophils # (Manual) Lymphocytes # 0.3 L Lymphocytes # (Manual) Monocytes # 2.1 H Monocytes # (Manual) Basophils # 0.3 H PT INR Sodium 135 L Chloride BUN 87 H* Creatinine 2.43 H Glucose 158 H POC Glucose (mg/dL) Magnesium Troponin I Total Protein 6.1 L Albumin 2.9 L Ur Leukocyte Esterase Urine WBC Urine Bacteria Hyaline Casts Urine Mucus - Diagnostic Findings Chest x-ray: report reviewed Additional studies: Twelve-lead EKG reviewed Assessment and Plan Plan: Assessment: #1. Acute sepsis secondary to acute urinary tract infection, patient presented with leukocytosis, weakness, fatigue, fever, urinalysis was positive for leukocyte esterase, WBCs, mucus and bacteria #2. Chronic pleural thickening and left pleural effusion that appears to be improved from previous exam on 10/09/2017. No evidence of infiltrate, no evidence of pneumonia #3. Acute on chronic kidney disease, stage IV, on presentation his creatinine is 2.5 #4. Elevated troponin, of 0.076, possibly related to sepsis or patient's chronic kidney disease. Patient denies any chest pain #5. History of ischemic cardiomyopathy with EF of 20%, status post AICD #6. History of paroxysmal atrial fibrillation, on long-term anticoagulation with Coumadin, INR today is 3.3 #7. History of obstructive sleep apnea #8. Insulin-dependent diabetes mellitus #9. Anemia of chronic disease #10. Coronary artery disease, with previous stenting of the LAD #11. Remote brief history of smoking #12. Recent hospitalization for pneumonia and parapneumonic left pleural effusion status post left-sided thoracentesis. The pleural fluid was exudative in nature, pleural fluid culture was negative, cytology report was negative for any evidence of malignancy Plan: Continue current antibiotic coverage with Zosyn and Levaquin, await the results of final cultures. Influenza screen was negative, patient denies any respiratory difficulty, denies any chest wall pain, cough, or sputum production. His admission chest x-ray was reviewed, there is no evidence of pneumonia. Patient is requesting incentive spirometer, which we will order for him. Denies any respiratory difficulty at this time. I performed a history & physical examination of the patient and discussed their management with my nurse practitioner, Minerva Roberto. I reviewed the nurse practitioner's note and agree with the documented findings and plan of care. Lung sounds are clear. The findings and the impression was discussed with the patient. I attest to the documentation by the nurse practitioner. Time with Patient: Greater than 30
[2017-11-22 15:30] LABS: Hemoglobin A1C 5.6 % (4.0-6.0)
[2017-11-22] MEDS: ISOSORBIDE DINITRATE 20 MG TAB PO SCH ×2 (15:37→21:03)
[2017-11-22 17:00] LABS: Glucose,Whole Blood 129 mg/dL (75-99)
[2017-11-22] MEDS: CARVEDILOL 6.25 MG TAB PO SCH (17:27)
[2017-11-22 20:46] LABS: Glucose,Whole Blood 134 mg/dL (75-99)
[2017-11-22] MEDS ORDERED: INSULIN DETEMIR 100 UNIT/ML 10 ML VIAL SQ SCH (21:00)
[2017-11-22] MEDS ORDERED: ACETAMINOPHEN TAB 325 MG TAB PO STA (22:06)
[2017-11-22] MEDS ORDERED: LEVOFLOXACIN 750MG-D5W PMX 750 MG in DEXTROSE/WATER 1 150ML.BAG IVPB SCH (23:00)
[2017-11-23 06:27] LABS: Basophils # (A) 0.1 k/uL (0-0.2); Basophils % (A) 0 %; Eosinophils % (A) 0 %; HCT 33.5 % (39.0-53.0); HGB 10.3 gm/dL (13.0-17.5); Lymphocytes % (A) 4 %; MCH 31.9 pg (25.0-35.0); MCHC 30.6 g/dL (31.0-37.0); Macrocytosis Moderate; Mean Platelet Volume 6.8; Monocytes # (A) 2.1 k/uL (0-1.0); Monocytes % (A) 9 %; Neutrophils # (A) 20.2 k/uL (1.3-7.7); Neutrophils % (A) 83 %; Platelet Count 221 k/uL (150-450); RBC 3.21 m/uL (4.30-5.90); RDW 15.8 % (11.5-15.5); WBC 24.4 k/uL (3.8-10.6)
[2017-11-23 06:34] LABS: MCV 104.4 fL (80.0-100.0)
[2017-11-23 06:36] LABS: Glucose,Whole Blood 81 mg/dL (75-99)
[2017-11-23 06:38] LABS: INR 2.5 (<1.2); Prothrombin Time 22.9 sec (9.0-12.0)
[2017-11-23 06:41] LABS: Albumin 2.5 g/dL (3.5-5.0); Potassium 4.1 mmol/L (3.5-5.1); Total Bilirubin 0.6 mg/dL (0.2-1.3); Total Protein 5.6 g/dL (6.3-8.2)
[2017-11-23] MEDS: INSULIN ASPART 100 UNIT/ML 1 ML 10 ML VIAL SQ SCH ×7 (06:57→21:21)
[2017-11-23] MEDS: CARVEDILOL 6.25 MG TAB PO SCH (06:58)
[2017-11-23] MEDS: PANTOPRAZOLE 40 MG TABLET PO SCH ×2 (06:59→17:54)
[2017-11-23] MEDS: SODIUM CHLORIDE 0.9% 1,000 ML IV SCH ×2 (06:59→11:31)
--- NOTE | 2017-11-23 08:06 | ECHOF ---
Referral Reason:abn trop MEASUREMENTS -------- HEIGHT: 170.2 cm WEIGHT: 82.1 kg BP: 94/54 RVIDd: 3.3 cm (< 3.3) IVSd: 1.3 cm (0.6 - 1.1) LVIDd: 5.8 cm (3.9 - 5.3) LVPWd: 1.3 cm (0.6 - 1.1) IVSs: 1.3 cm LVIDs: 4.8 cm LVPWs: 1.5 cm LAESV Index (A-L): 35.78 ml/m Ao Diam: 3.3 cm (2.0 - 3.7) AV Cusp: 1.9 cm (1.5 - 2.6) LA Diam: 4.4 cm (2.7 - 3.8) EPSS: 0.6 cm MV E Tai: 0.61 m/s MV DecT: 420 ms MV A Tai: 1.00 m/s MV E/A Ratio: 0.62 RAP: 5.00 mmHg RVSP: 33.52 mmHg MV EF SLOPE: 154.94 mm/s (70 - 150) MV EXCURSION: 2.17 cm (> 18.000) FINDINGS -------- Sinus rhythm. This was a technically difficult study with suboptimal views. The left ventricular size is normal. There is mild concentric left ventricular hypertrophy. Overa ll left ventricular systolic function is severely impaired with, an EF between 20 - 25 %. Mid infer oseptal LV wall motion is hypokinetic. Mid anteroseptal LV wall motion is hypokinetic. All apic al pappas are akinetic. The right ventricle is mildly enlarged. LA is moderately dilated 34-39 ml/m2 The right atrium is normal in size. Electronic pacemaker lead seen in the right ventricular cavity. Aortic valve is trileaflet and is mildly thickened. There is no evidence of aortic regurgitation. There is no evidence of aortic stenosis. The mitral valve leaflets are mildly thickened. There is trace to mild mitral regurgitation. Mild tricuspid regurgitation present. Right ventricular systolic pressure is normal at < 35 mmHg. There is borderline pulmonary hypertension. The pulmonic valve was not well visualized. The aortic root size is normal. IVC Not well visulized. The pericardium is normal. There is no pericardial effusion. 3ml of Lumason was utilized for enhancement of images. CONCLUSIONS -------- 1. Sinus rhythm. 2. This was a technically difficult study with suboptimal views. 3. The left ventricular size is normal. 4. There is mild concentric left ventricular hypertrophy. 5. Overall left ventricular systolic function is severely impaired with, an EF between 20 - 25 %. 6. Mid inferoseptal LV wall motion is hypokinetic. 7. Mid anteroseptal LV wall motion is hypokinetic. 8. All apical pappas are akinetic. 9. The right ventricle is mildly enlarged. 10. LA is moderately dilated 34-39 ml/m2 11. Electronic pacemaker lead seen in the right ventricular cavity. 12. Mild tricuspid regurgitation present. 13. 3ml of Lumason was utilized for enhancement of images. 14. Aortic valve is trileaflet and is mildly thickened. 15. The mitral valve leaflets are mildly thickened. 16. There is trace to mild mitral regurgitation. 17. Right ventricular systolic pressure is normal at < 35 mmHg. 18. There is borderline pulmonary hypertension. 19. The pulmonic valve was not well visualized. 20. The aortic root size is normal. 21. IVC Not well visulized. 22. There is no pericardial effusion. ENVIRONMENTAL PROGRAMS MANAGER: Derian Bender RDCS
[2017-11-23] MEDS: ISOSORBIDE DINITRATE 20 MG TAB PO SCH (08:26)
[2017-11-23] MEDS: AMIODARONE 200 MG TAB PO SCH (08:26)
[2017-11-23] MEDS: PIPERACILLIN-TAZOBACTAM 3.375 GM in DEXTROSE/WATER 1 50ML.BAG IVPB SCH ×2 (08:26→15:48)
[2017-11-23] MEDS: CLOPIDOGREL 75 MG TAB PO SCH (08:26)
[2017-11-23] MEDS: ASPIRIN 81 MG PO SCH (08:26)
[2017-11-23] MEDS: IPRATROPIUM-ALBUTEROL 3 ML NEB INHALATION SCH ×4 (08:50→21:00)
[2017-11-23] MEDS: FERROUS SULFATE 325 MG TAB PO SCH ×2 (10:56→21:25)
--- NOTE | 2017-11-23 11:15 | P.PN ---
Subjective Progress Note Date: 11/23/17 Patient is doing about the same. No change overnight. Objective - Vital Signs Vital signs: Vital Signs Temp 98.6 F 11/23/17 08:00 Pulse 54 L 11/23/17 08:00 Resp 18 11/23/17 08:00 BP 96/51 11/23/17 08:00 Pulse Ox 97 11/23/17 08:00 Intake & Output 11/22/17 11/23/17 11/23/17 18:59 06:59 18:59 Intake Total 480 2200 Output Total 815 240 Balance -335 1960 Weight 82.5 kg Intake: IV 2100 Sodium Chloride 0.9% 1, 2100 000 ml @ 100 mls/hr IV . Q10H [facility]ANTHA Rx#:[id number] Intake, IV Titration 100 Amount Piperacillin-Tazobactam 3 100 .375 gm In Dextrose/Water 1 50ml.bag @ 12.5 mls/hr IVPB Q8HR SAMANTHA Rx#: [id number] Oral 480 Output: Urine 815 240 Other: Voiding Method Urinal # Voids 1 # Bowel Movements 0 - Exam General: The patient is awake and alert, in no distress Eye: there is normal conjunctiva bilaterally. Neck: The neck is supple, there is no JVD. Cardiovascular: Normal S1-S2, no S3-S4, no murmurs. Respiratory: Lungs clear to auscultation bilaterally Gastrointestinal: Abdomen is soft, nontender Musculoskeletal: There is no pedal edema. Neurological:. Speech is normal. Skin: Skin is warm and dry - Labs CBC & Chem 7: 11/23/17 06:11 11/23/17 06:11 Labs: Abnormal Lab Results - Last 24 Hours (Table) 11/22/17 11/22/17 11/22/17 Range/Units 11:42 16:32 20:44 WBC (3.8-10.6) k/uL RBC (4.30-5.90) m/uL Hgb (13.0-17.5) gm/dL Hct (39.0-53.0) % MCV (80.0-100.0) fL MCHC (31.0-37.0) g/dL RDW (11.5-15.5) % Neutrophils # (1.3-7.7) k/uL Monocytes # (0-1.0) k/uL PT (9.0-12.0) sec INR (<1.2) BUN (9-20) mg/dL Creatinine (0.66-1.25) mg/dL POC Glucose (mg/dL) 153 H 129 H 134 H (75-99) mg/dL Calcium (8.4-10.2) mg/dL Total Protein (6.3-8.2) g/dL Albumin (3.5-5.0) g/dL 11/23/17 11/23/17 11/23/17 Range/Units 06:11 06:11 06:11 WBC 24.4 H (3.8-10.6) k/uL RBC 3.21 L (4.30-5.90) m/uL Hgb 10.3 L (13.0-17.5) gm/dL Hct 33.5 L (39.0-53.0) % MCV 104.4 H D (80.0-100.0) fL MCHC 30.6 L (31.0-37.0) g/dL RDW 15.8 H (11.5-15.5) % Neutrophils # 20.2 H (1.3-7.7) k/uL Monocytes # 2.1 H (0-1.0) k/uL PT 22.9 H (9.0-12.0) sec INR 2.5 H (<1.2) BUN 67 H (9-20) mg/dL Creatinine 2.30 H (0.66-1.25) mg/dL POC Glucose (mg/dL) (75-99) mg/dL Calcium 8.0 L (8.4-10.2) mg/dL Total Protein 5.6 L (6.3-8.2) g/dL Albumin 2.5 L (3.5-5.0) g/dL Microbiology - Last 24 Hours (Table) 11/21/17 23:38 Urine Culture - Preliminary Urine,Voided Gram Neg Bacilli 11/21/17 23:38 Blood Culture - Preliminary Blood No Growth after 24 hours Assessment and Plan Assessment: 1. UTI with sepsis present on admission: Patient had a temporal 101.8, white count 32.8. Awaiting urine culture. Patient currently on Levaquin and Zosyn 2. Acute on chronic kidney disease stage IV. Creatinine 2.50. Bumex and Aldactone on hold. Continue with IV fluid hydration. Nephrology consulted 3. Coagulopathy INR 3.3 On presentation 4. Hypotension likely related to sepsis. Continue with IV fluids. Bumex Aldactone has been on hold. Also will place parameters around the Coreg. 5. History of paroxysmal atrial fibrillation. Coumadin on hold due to elevated INR. Amiodarone dose decreased by cardiology due to patient's hypotension. 6. History of ischemic cardiomyopathy with an EF 20% status post AICD 7. History of myocardial infarction with coronary artery disease and cardiac stent 8. Insulin-dependent diabetes mellitus. Resume home insulin. Add sliding scale coverage 9. Recent pneumonia in September requiring hospitalization. As well as a left pleural effusion requiring a left-sided thoracentesis 10. Minimally elevated troponin: Cardiology consulted. No chest pain reported by patient
--- NOTE | 2017-11-23 11:16 | P.PN ---
Subjective Progress Note Date: 11/23/17 Principal diagnosis: Acute sepsis secondary to urinary tract infection Adam is a 62-year-old white male patient that presented to the emergency department on 11/21/2017 2316 after severe generalized weakness, not feeling well, and low-grade fever. He denies any chest pain, shortness of breath, cough or congestion. Did have a OH in April 2017, patient had just finished his cardiac rehab. On evaluation in the emergency room, he was found to have leukocytosis with WBC of 32.8, hemoglobin of 11.3, his INR is 3.3, sodium is 134 , B1 is 95, creatinine is 2.50, his troponin was 0.076, his lactic acid was within normal limits of 1.4. His urinalysis showed moderate amount of leukocyte esterase, urine WBCs, bacteria and mucus. Influenza screen was negative. Chest x-ray showed chronic pleural thickening and pleural fluid on the left side and appear to be improved slightly compared to previous exam on . Patient was recently hospitalized for pneumonia, left-sided parapneumonic pleural effusion, and was discharged home on 09/30/2017. Did have left thoracentesis during that admission with evacuation of 1.4 L of pleural fluid from the left lung. Fluid cytology was negative for any evidence of malignancy. Pleural fluid was found to be exudative, and was thought to be parapneumonic in nature, pleural fluid cultures were negative. Patient did have a fever of 101.8F on presentation. He was given 1 L 0.9 normal saline IV bolus, and maintenance IV of 0.9 at 100 ML per hour. He was started on a combination of Levaquin and Zosyn, blood, and urine cultures were obtained and sent. Sputum culture was ordered, but patient is not producing any sputum at this time. His twelve-lead EKG shows sinus rhythm with first-degree AV block. He does have past medical history of chronic kidney disease stage IV, ischemic cardiomyopathy with EF of 20%, with AICD placement, paroxysmal atrial fibrillation, and obstructive sleep apnea as well as diabetes mellitus. Patient was reevaluated today on 11/23/2017, overall, the patient is feeling much better compared to how he felt on admission. Less weakness, T-max of 98.6 yesterday, patient is hemodynamically stable. WBC count is down to 24.4 hemoglobin is 10.3 basic metabolic profile is normal BUN is 67 creatinine is 2.3 , slightly improved compared to baseline. Objective - Vital Signs Vital signs: Vital Signs Temp 98.6 F 11/23/17 08:00 Pulse 54 L 11/23/17 08:00 Resp 18 11/23/17 08:00 BP 96/51 11/23/17 08:00 Pulse Ox 97 11/23/17 08:00 Intake & Output 11/22/17 11/23/17 11/23/17 18:59 06:59 18:59 Intake Total 480 2200 Output Total 815 240 Balance -335 1960 Weight 82.5 kg Intake: IV 2100 Sodium Chloride 0.9% 1, 2100 000 ml @ 100 mls/hr IV . Q10H SAMANTHA Rx#:[id number] Intake, IV Titration 100 Amount Piperacillin-Tazobactam 3 100 .375 gm In Dextrose/Water 1 50ml.bag @ 12.5 mls/hr IVPB Q8HR SAMANTHA Rx#: [id number] Oral 480 Output: Urine 815 240 Other: Voiding Method Urinal # Voids 1 # Bowel Movements 0 - Exam GENERAL EXAM: Alert, 62-year-old white male, comfortable in no apparent distress. HEAD: Normocephalic/atraumatic. EYES: Normal reaction of pupils, equal size. Conjunctiva pink, sclera white. NOSE: Clear with pink turbinates. THROAT: No erythema or exudates. NECK: No masses, no JVD, no thyroid enlargement, no adenopathy. CHEST: No chest wall deformity. Symmetrical expansion. LUNGS: Equal air entry laterally, with clear breath sounds, with no rhonchi, no wheezes or rales. CVS: Regular rate and rhythm, normal S1 and S2, no gallops, no murmurs, no rubs ABDOMEN: Soft, nontender. No hepatosplenomegaly, normal bowel sounds, no guarding or rigidity. : Patient is wearing a brief chronic urinary incontinence EXTREMITIES: No clubbing, no edema, no cyanosis, 2+ pulses and upper and lower extremities. MUSCULOSKELETAL: Muscle strength and tone normal. SPINE: No scoliosis or deformity SKIN: No rashes CENTRAL NERVOUS SYSTEM: Alert and oriented -3. No focal deficits, tone is normal in all 4 extremities. PSYCHIATRIC: Alert and oriented -3. Appropriate affect. Intact judgment and insight. - Labs CBC & Chem 7: 11/23/17 06:11 11/23/17 06:11 Labs: Abnormal Lab Results - Last 24 Hours (Table) 11/22/17 11/22/17 11/22/17 Range/Units 11:42 16:32 20:44 WBC (3.8-10.6) k/uL RBC (4.30-5.90) m/uL Hgb (13.0-17.5) gm/dL Hct (39.0-53.0) % MCV (80.0-100.0) fL MCHC (31.0-37.0) g/dL RDW (11.5-15.5) % Neutrophils # (1.3-7.7) k/uL Monocytes # (0-1.0) k/uL PT (9.0-12.0) sec INR (<1.2) BUN (9-20) mg/dL Creatinine (0.66-1.25) mg/dL POC Glucose (mg/dL) 153 H 129 H 134 H (75-99) mg/dL Calcium (8.4-10.2) mg/dL Total Protein (6.3-8.2) g/dL Albumin (3.5-5.0) g/dL 11/23/17 11/23/17 11/23/17 Range/Units 06:11 06:11 06:11 WBC 24.4 H (3.8-10.6) k/uL RBC 3.21 L (4.30-5.90) m/uL Hgb 10.3 L (13.0-17.5) gm/dL Hct 33.5 L (39.0-53.0) % MCV 104.4 H D (80.0-100.0) fL MCHC 30.6 L (31.0-37.0) g/dL RDW 15.8 H (11.5-15.5) % Neutrophils # 20.2 H (1.3-7.7) k/uL Monocytes # 2.1 H (0-1.0) k/uL PT 22.9 H (9.0-12.0) sec INR 2.5 H (<1.2) BUN 67 H (9-20) mg/dL Creatinine 2.30 H (0.66-1.25) mg/dL POC Glucose (mg/dL) (75-99) mg/dL Calcium 8.0 L (8.4-10.2) mg/dL Total Protein 5.6 L (6.3-8.2) g/dL Albumin 2.5 L (3.5-5.0) g/dL Microbiology - Last 24 Hours (Table) 11/21/17 23:38 Urine Culture - Preliminary Urine,Voided Gram Neg Bacilli 11/21/17 23:38 Blood Culture - Preliminary Blood No Growth after 24 hours Assessment and Plan Assessment: #1. Acute sepsis secondary to acute urinary tract infection, patient presented with leukocytosis, weakness, fatigue, fever, urinalysis was positive for leukocyte esterase, WBCs, mucus and bacteria #2. Chronic pleural thickening and left pleural effusion that appears to be improved from previous exam on 10/09/2017. No evidence of infiltrate, no evidence of pneumonia #3. Acute on chronic kidney disease, stage IV, on presentation his creatinine is 2.5 #4. Elevated troponin, of 0.076, possibly related to sepsis or patient's chronic kidney disease. Patient denies any chest pain #5. History of ischemic cardiomyopathy with EF of 20%, status post AICD #6. History of paroxysmal atrial fibrillation, on long-term anticoagulation with Coumadin, INR today is 3.3 #7. History of obstructive sleep apnea #8. Insulin-dependent diabetes mellitus #9. Anemia of chronic disease #10. Coronary artery disease, with previous stenting of the LAD #11. Remote brief history of smoking #12. Recent hospitalization for pneumonia and parapneumonic left pleural effusion status post left-sided thoracentesis. The pleural fluid was exudative in nature, pleural fluid culture was negative, cytology report was negative for any evidence of malignancy Plan: Continue current antibiotic coverage with Zosyn and Levaquin, await the results of final cultures. Influenza screen was negative, patient denies any respiratory difficulty, denies any chest wall pain, cough, or sputum production. His admission chest x-ray was reviewed, there is no evidence of pneumonia. Patient is requesting incentive spirometer, which we will order for him. Denies any respiratory difficulty at this time. Time with Patient: Less than 30
--- NOTE | 2017-11-23 11:26 | XR ---
EXAMINATION TYPE: XR chest 2V DATE OF EXAM: 11/23/2017 HISTORY: pneumonia. REFERENCE: Previous study dated 11/22/2017. FINDINGS: There is unipolar pacemaker place on the left. Heart size is upper limits of normal. The lungs are clear. Pleural spaces are clear. IMPRESSION: BORDERLINE CARDIOMEGALY.
[2017-11-23 12:19] LABS: Glucose,Whole Blood 156 mg/dL (75-99)
--- NOTE | 2017-11-23 12:47 | P.NPCON ---
History of Present Illness - Reason for Consult Consult date: 11/23/17 acute renal failure - Chief Complaint Generalized weakness - History of Present Illness Mr. Muro is a 62-year-old male coming to the hospital with generalized weakness. He has a history of multiple medical problems including atrial fibrillation, diabetes, dyslipidemia, myocardial infarction, obstructive sleep apnea, chronic kidney disease. He says he follows with Dr. Smith in the office. But unable to pull his records from the office chart. He also has ischemic cardiomyopathy with an AICD. He comes into the hospital with weakness and found to have pneumonia and urinary tract infection. Currently on antibiotics. So his baseline creatinine unknown but when he presented to the hospital creatinine was 2.5 improving to 2.3 today. On IV fluids normal saline at 50 mL seven-hour. Feels better. Hypotensive with a systolic blood pressure off 90 on admission. He admits having low blood pressure all the time. Denies taking NSAIDs at home no recent contrast studies or herbal supplements. Review of Systems Constitutional: Reports as per HPI Past Medical History Past Medical History: Coronary Artery Disease (CAD), Diabetes Mellitus, GI Bleed , Hyperlipidemia, Myocardial Infarction (OH), Pneumonia, Sleep Apnea/CPAP/BIPAP Additional Past Medical History / Comment(s): Morbidly obese, diabetes mellitus , obstructive sleep apnea, coronary artery disease with recent anterior wall myocardial infarction status post angioplasty and stenting of the LAD, chronic renal failure, chronic back pain, hyperlipidemia. Last Myocardial Infarction Date:: 04/2017 History of Any Multi-Drug Resistant Organisms: None Reported Past Surgical History: AICD, Appendectomy, Back Surgery, Heart Catheterization With Stent Additional Past Surgical History / Comment(s): cardiac catheterization and stenting of the LAD, back surgery with instrumentation and insertions of rods and screws, right rotator cuff. defibulator Past Anesthesia/Blood Transfusion Reactions: No Reported Reaction Date of Last Stent Placement:: 05/16/2017 Type of Cardiac Device: AICD Device Placement Date:: 06/25/2017 Past Psychological History: No Psychological Hx Reported Smoking Status: Former smoker Past Alcohol Use History: None Reported Past Drug Use History: None Reported - Past Family History Father Additional Family Medical History / Comment(s): LOW PLATLETS. SPLEENECTOMYl, Aortic Aneurysm Mother Family Medical History: CVA/TIA Additional Family Medical History / Comment(s): 2 STROKES, HEART DISEASE. Medications and Allergies Home Medications Medication Instructions Recorded Confirmed Type Aspirin 81 mg PO DAILY 05/24/17 11/21/17 Rx Amiodarone [Cordarone] 400 mg PO DAILY 07/05/17 11/21/17 History Clopidogrel Bisulfate [Plavix] 75 mg PO DAILY 07/05/17 11/21/17 History Digoxin [Digitek] 125 mcg PO Q48H 07/05/17 11/22/17 History Isosorbide Dinitrate 20 mg PO TID 07/05/17 11/21/17 History Omeprazole 20 mg PO AC-BID 07/05/17 11/21/17 History Warfarin [Coumadin] 5 mg PO MOWEFR 08/26/17 11/22/17 History Allopurinol [Zyloprim] 100 mg PO DAILY 09/23/17 11/21/17 History Bumetanide [BUMEX] 2 mg PO DIRECTED 09/23/17 11/22/17 History Ergocalciferol (Vitamin D2) 50,000 unit PO FR 09/23/17 11/21/17 History [Vitamin D2] Ferrous Sulfate [Iron] 325 mg PO BID@1200,2100 09/23/17 11/21/17 History Insulin Aspart [NovoLOG Flexpen] 10 units SQ AC-TID 09/23/17 11/21/17 History Insulin Glargine [Lantus] 35 unit SQ HS 09/23/17 11/21/17 History Polyethylene Glycol 3350 [Miralax] 17 gm PO Q48H PRN 09/23/17 11/21/17 History Spironolactone [Aldactone] 25 mg PO DAILY 09/23/17 11/21/17 History Warfarin [Coumadin] 2.5 mg PO SUTUTHSA 09/23/17 11/22/17 History Carvedilol [Coreg] 6.25 mg PO BID 11/21/17 11/21/17 History Allergies Allergy/AdvReac Type Severity Reaction Status Date / Time No Known Allergies Allergy Verified 11/21/17 23:22 Physical Exam Vitals: Vital Signs Temp Pulse Pulse Resp BP Pulse Ox 11/23/17 08:00 98.6 F 54 L 18 96/51 97 11/23/17 04:00 98.3 F 56 L 17 91/54 98 11/23/17 00:00 98.5 F 63 17 103/48 98 11/22/17 21:19 76 11/22/17 21:11 66 11/22/17 20:00 100.7 F H 64 17 95/47 98 11/22/17 15:43 64 11/22/17 15:40 99.7 F H 62 16 100/57 100 11/22/17 15:30 64 Intake and Output 11/22/17 11/23/17 11/23/17 22:59 06:59 14:59 Intake Total 1640 800 Output Total 340 Balance 1300 800 Intake: IV 1300 800 Sodium Chloride 0.9% 1, 1300 800 000 ml @ 100 mls/hr IV . Q10H SAMANTHA Rx#:[id number] Intake, IV Titration 100 Amount Piperacillin-Tazobactam 3 100 .375 gm In Dextrose/Water 1 50ml.bag @ 12.5 mls/hr IVPB Q8HR SAMANTHA Rx#: [id number] Oral 240 Output: Urine 340 Other: Voiding Method Urinal Urinal # Voids 1 # Bowel Movements 0 Weight 82.5 kg Sitting in the bed no acute distress eating lunch S1-S2 heard Lungs clear to auscultation Abdomen soft bowel sounds present No edema Results - Lab Results Most recent lab results Calcium 8.0 mg/dL (8.4-10.2) L 11/23/17 06:11 Phosphorus 3.2 mg/dL (2.5-4.5) 11/21/17 23:38 Magnesium 2.8 mg/dL (1.6-2.3) H 11/21/17 23:38 11/23/17 06:11 11/23/17 06:11 Assessment and Plan Assessment: Impression: #1 acute kidney injury secondary to hemodynamic ATN with low blood pressures. #2 CKD3 baseline creatinine unclear, suspect secondary to long history of diabetes. #3 CHF with systolic dysfunction EF of 20% #4 diabetes on insulin #5 complicated UTI with pneumonia Recommendation: #1 renal function improving. UA noted muddy brown casts suggesting ATN. #2 continue with IV fluids for now #3 antibiotics as per primary team #4 avoid nephrotoxic agents and hypotensive episodes #5 decrease Coreg from 6.25 twice a day to 3.125 mg twice a day and into from 20 mg 3 times a day to 10 twice a day for better blood pressure control to increase renal perfusion. #6 ultrasound the kidneys for size and bladder scan to rule out obstruction. Thank you very much for this consultation we will follow along while he is in the hospital.
--- NOTE | 2017-11-23 16:02 | US ---
EXAMINATION TYPE: US renals and bladder DATE OF EXAM: 11/23/2017 COMPARISON: NONE CLINICAL HISTORY: RENAL FAILURE. UTI, renal failure, GREGORY EXAM MEASUREMENTS: Right Kidney: 12.4 x 5.5 x 5.5 cm Left Kidney: 12.4 x 5.5 x 5.6 cm Right Kidney: upper limits of normal in size, no evidence of hydronephrosis Left Kidney: upper limits of normal in size, no evidence of hydronephrosis Bladder: appears wnl Bilateral Jets seen: no Incidental finding: enlarged prostate IMPRESSION: 1. Visualized renal ultrasound appears normal. 2. Nonvisualization of the ureteral jets during this exam.
[2017-11-23 17:26] LABS: Glucose,Whole Blood 76 mg/dL (75-99)
[2017-11-23] MEDS: WARFARIN 2.5 MG TAB PO SCH (17:54)
[2017-11-23] MEDS: CARVEDILOL 3.125 MG TAB PO SCH (17:54)
[2017-11-23 20:36] LABS: Glucose,Whole Blood 168 mg/dL (75-99)
[2017-11-23] MEDS: ISOSORBIDE MONONITRATE 10 MG TAB PO SCH (21:24)
[2017-11-23] MEDS: INSULIN DETEMIR 100 UNIT/ML 10 ML VIAL SQ SCH (21:24)
[2017-11-23] MEDS ORDERED: LEVOFLOXACIN 750MG-D5W PMX 750 MG in DEXTROSE/WATER 1 150ML.BAG IVPB SCH (23:00)
[2017-11-24] MEDS: PIPERACILLIN-TAZOBACTAM 3.375 GM in DEXTROSE/WATER 1 50ML.BAG IVPB SCH ×4 (00:07→23:32)
[2017-11-24 06:04] LABS: HCT 32.4 % (39.0-53.0); MCH 32.2 pg (25.0-35.0); MCHC 30.9 g/dL (31.0-37.0); MCV 104.4 fL (80.0-100.0); Macrocytosis Moderate; Mean Platelet Volume 7.1; Platelet Count 258 k/uL (150-450); RDW 15.9 % (11.5-15.5); WBC 15.2 k/uL (3.8-10.6)
[2017-11-24 06:08] LABS: Prothrombin Time 18.1 sec (9.0-12.0)
[2017-11-24 06:14] LABS: Glucose,Whole Blood 72 mg/dL (75-99)
[2017-11-24 06:16] LABS: Albumin 2.4 g/dL (3.5-5.0); Calcium 8.2 mg/dL (8.4-10.2); Potassium 4.7 mmol/L (3.5-5.1); Total Bilirubin 0.4 mg/dL (0.2-1.3); Total Protein 5.3 g/dL (6.3-8.2)
[2017-11-24 06:19] LABS: Eosinophils # (M) 0.15 k/uL (0-0.7); Lymphocytes # (M) 1.22 k/uL (1.0-4.8); Monocytes # (M) 1.67 k/uL (0-1.0); Neutrophils # (M) 12.16 k/uL (1.3-7.7); Neutrophils % (M) 80 %; Nucleated Red Blood Cells 0 /100 WBC (0-0); Total Cells Counted 100
[2017-11-24] MEDS: INSULIN ASPART 100 UNIT/ML 1 ML 10 ML VIAL SQ SCH ×7 (06:36→20:47)
[2017-11-24] MEDS: SODIUM CHLORIDE 0.9% 1,000 ML IV SCH (06:36)
[2017-11-24] MEDS: CARVEDILOL 3.125 MG TAB PO SCH ×2 (06:37→17:19)
[2017-11-24] MEDS: PANTOPRAZOLE 40 MG TABLET PO SCH ×2 (06:37→17:19)
[2017-11-24] MEDS: AMIODARONE 200 MG TAB PO SCH (08:11)
[2017-11-24] MEDS: ASPIRIN 81 MG PO SCH (08:11)
[2017-11-24] MEDS: CLOPIDOGREL 75 MG TAB PO SCH (08:11)
[2017-11-24] MEDS: IPRATROPIUM-ALBUTEROL 3 ML NEB INHALATION SCH ×4 (08:20→20:56)
[2017-11-24] MEDS: ISOSORBIDE MONONITRATE 10 MG TAB PO SCH ×2 (09:34→20:47)
--- NOTE | 2017-11-24 10:39 | P.PN ---
Subjective Progress Note Date: 11/24/17 Seen and examined for the follow-up of acute kidney injury. Feeling better. No nausea vomiting diarrhea. Making good amount of urine Objective - Vital Signs Vital signs: Vital Signs Temp 98.5 F 11/24/17 04:00 Pulse 55 L 11/24/17 04:00 Resp 17 11/24/17 04:00 BP 99/57 11/24/17 04:00 Pulse Ox 99 11/24/17 04:00 Intake & Output 11/23/17 11/24/17 11/24/17 18:59 06:59 18:59 Intake Total 1110 150 Output Total 800 750 Balance 310 -600 Weight 92 kg Intake: IV 500 Sodium Chloride 0.9% 1, 500 000 ml @ 100 mls/hr IV . Q10H ASMANTHA Rx#:[id number] Intake, IV Titration 150 Amount Sodium Chloride 0.9% 1, 150 000 ml @ 50 mls/hr IV . Q20H [facility]ANTHA Rx#:[id number] Oral 610 Output: Urine 800 750 Other: # Voids 1 - Exam Lying in bed no acute distress S1-S2 heard Lungs clear No edema - Labs CBC & Chem 7: 11/24/17 05:24 11/24/17 05:24 Labs: Abnormal Lab Results - Last 24 Hours (Table) 11/23/17 11/23/17 11/24/17 Range/Units 11:59 20:33 05:24 WBC 15.2 H (3.8-10.6) k/uL RBC 3.10 L (4.30-5.90) m/uL Hgb 10.0 L (13.0-17.5) gm/dL Hct 32.4 L (39.0-53.0) % MCV 104.4 H (80.0-100.0) fL MCHC 30.9 L (31.0-37.0) g/dL RDW 15.9 H (11.5-15.5) % Neutrophils # (Manual) 12.16 H (1.3-7.7) k/uL Monocytes # (Manual) 1.67 H (0-1.0) k/uL PT (9.0-12.0) sec INR (<1.2) Chloride (98-107) mmol/L BUN (9-20) mg/dL Creatinine (0.66-1.25) mg/dL Glucose (74-99) mg/dL POC Glucose (mg/dL) 156 H 168 H (75-99) mg/dL Calcium (8.4-10.2) mg/dL Total Protein (6.3-8.2) g/dL Albumin (3.5-5.0) g/dL 11/24/17 11/24/17 11/24/17 Range/Units 05:24 05:24 06:11 WBC (3.8-10.6) k/uL RBC (4.30-5.90) m/uL Hgb (13.0-17.5) gm/dL Hct (39.0-53.0) % MCV (80.0-100.0) fL MCHC (31.0-37.0) g/dL RDW (11.5-15.5) % Neutrophils # (Manual) (1.3-7.7) k/uL Monocytes # (Manual) (0-1.0) k/uL PT 18.1 H (9.0-12.0) sec INR 2.0 H (<1.2) Chloride 108 H (98-107) mmol/L BUN 42 H (9-20) mg/dL Creatinine 1.73 H (0.66-1.25) mg/dL Glucose 71 L (74-99) mg/dL POC Glucose (mg/dL) 72 L (75-99) mg/dL Calcium 8.2 L (8.4-10.2) mg/dL Total Protein 5.3 L (6.3-8.2) g/dL Albumin 2.4 L (3.5-5.0) g/dL Microbiology - Last 24 Hours (Table) 11/21/17 23:38 Urine Culture - Final Urine,Voided Klebsiella oxytoca 11/21/17 23:38 Blood Culture - Preliminary Blood No Growth after 48 hours Assessment and Plan Assessment: Impression: #1 nonoliguric acute kidney injury secondary to hemodynamic ATN with low blood pressures. Creatinine improving #2 CKD stage III Baseline creatinine 1.6-1.8 MG per DL. Suspect secondary to diabetic nephropathy #3 CHF with systolic dysfunction EF of 20% #4 diabetes on insulin #5 complicated UTI and pneumonia Recommendations: #1 stop IV fluids #2 renal function improving back to baseline #3 avoid nephrotoxic agents and hypotensive episodes #4 stable from nephrology point of view for discharge to be followed up with Dr. Smith in the office.
[2017-11-24 11:21] LABS: Glucose,Whole Blood 168 mg/dL (75-99)
[2017-11-24] MEDS: FERROUS SULFATE 325 MG TAB PO SCH ×2 (11:33→20:47)
[2017-11-24] MEDS: DIGOXIN 125 MCG TAB PO SCH (11:33)
--- NOTE | 2017-11-24 12:15 | P.PN ---
Subjective Patient is doing about the same. No change overnight. Objective - Vital Signs Vital signs: Vital Signs Temp 96.3 F L 11/24/17 08:00 Pulse 49 L 11/24/17 08:00 Resp 18 11/24/17 08:00 BP 103/58 11/24/17 08:00 Pulse Ox 100 11/24/17 08:00 Intake & Output 11/23/17 11/24/17 11/24/17 18:59 06:59 18:59 Intake Total 1110 150 Output Total 800 750 Balance 310 -600 Weight 92 kg Intake: IV 500 Sodium Chloride 0.9% 1, 500 000 ml @ 100 mls/hr IV . Q10H [facility]ANTHA Rx#:[id number] Intake, IV Titration 150 Amount Sodium Chloride 0.9% 1, 150 000 ml @ 50 mls/hr IV . Q20H [facility]ANTHA Rx#:[id number] Oral 610 Output: Urine 800 750 Other: Voiding Method Urinal # Voids 1 - Exam General: The patient is awake and alert, in no distress Eye: there is normal conjunctiva bilaterally. Neck: The neck is supple, there is no JVD. Cardiovascular: Normal S1-S2, no S3-S4, no murmurs. Respiratory: Lungs clear to auscultation bilaterally Gastrointestinal: Abdomen is soft, nontender Musculoskeletal: There is no pedal edema. Neurological:. Speech is normal. Skin: Skin is warm and dry - Labs CBC & Chem 7: 11/24/17 05:24 11/24/17 05:24 Labs: Abnormal Lab Results - Last 24 Hours (Table) 11/23/17 11/23/17 11/24/17 Range/Units 11:59 20:33 05:24 WBC 15.2 H (3.8-10.6) k/uL RBC 3.10 L (4.30-5.90) m/uL Hgb 10.0 L (13.0-17.5) gm/dL Hct 32.4 L (39.0-53.0) % MCV 104.4 H (80.0-100.0) fL MCHC 30.9 L (31.0-37.0) g/dL RDW 15.9 H (11.5-15.5) % Neutrophils # (Manual) 12.16 H (1.3-7.7) k/uL Monocytes # (Manual) 1.67 H (0-1.0) k/uL PT (9.0-12.0) sec INR (<1.2) Chloride (98-107) mmol/L BUN (9-20) mg/dL Creatinine (0.66-1.25) mg/dL Glucose (74-99) mg/dL POC Glucose (mg/dL) 156 H 168 H (75-99) mg/dL Calcium (8.4-10.2) mg/dL Total Protein (6.3-8.2) g/dL Albumin (3.5-5.0) g/dL 11/24/17 11/24/17 11/24/17 Range/Units 05:24 05:24 06:11 WBC (3.8-10.6) k/uL RBC (4.30-5.90) m/uL Hgb (13.0-17.5) gm/dL Hct (39.0-53.0) % MCV (80.0-100.0) fL MCHC (31.0-37.0) g/dL RDW (11.5-15.5) % Neutrophils # (Manual) (1.3-7.7) k/uL Monocytes # (Manual) (0-1.0) k/uL PT 18.1 H (9.0-12.0) sec INR 2.0 H (<1.2) Chloride 108 H (98-107) mmol/L BUN 42 H (9-20) mg/dL Creatinine 1.73 H (0.66-1.25) mg/dL Glucose 71 L (74-99) mg/dL POC Glucose (mg/dL) 72 L (75-99) mg/dL Calcium 8.2 L (8.4-10.2) mg/dL Total Protein 5.3 L (6.3-8.2) g/dL Albumin 2.4 L (3.5-5.0) g/dL 11/24/17 Range/Units 11:19 WBC (3.8-10.6) k/uL RBC (4.30-5.90) m/uL Hgb (13.0-17.5) gm/dL Hct (39.0-53.0) % MCV (80.0-100.0) fL MCHC (31.0-37.0) g/dL RDW (11.5-15.5) % Neutrophils # (Manual) (1.3-7.7) k/uL Monocytes # (Manual) (0-1.0) k/uL PT (9.0-12.0) sec INR (<1.2) Chloride (98-107) mmol/L BUN (9-20) mg/dL Creatinine (0.66-1.25) mg/dL Glucose (74-99) mg/dL POC Glucose (mg/dL) 168 H (75-99) mg/dL Calcium (8.4-10.2) mg/dL Total Protein (6.3-8.2) g/dL Albumin (3.5-5.0) g/dL Microbiology - Last 24 Hours (Table) 11/21/17 23:38 Urine Culture - Final Urine,Voided Klebsiella oxytoca 11/21/17 23:38 Blood Culture - Preliminary Blood No Growth after 48 hours Assessment and Plan Assessment: 1. UTI with sepsis present on admission: Patient had a temporal 101.8, white count 32.8. Awaiting urine culture. Patient currently on Levaquin and Zosyn 2. Acute on chronic kidney disease stage IV. Creatinine 2.50. Bumex and Aldactone on hold. Continue with IV fluid hydration. Nephrology consulted 3. Coagulopathy INR 3.3 On presentation 4. Hypotension likely related to sepsis. Continue with IV fluids. Bumex Aldactone has been on hold. Also will place parameters around the Coreg. 5. History of paroxysmal atrial fibrillation. Coumadin on hold due to elevated INR. Amiodarone dose decreased by cardiology due to patient's hypotension. 6. History of ischemic cardiomyopathy with an EF 20% status post AICD 7. History of myocardial infarction with coronary artery disease and cardiac stent 8. Insulin-dependent diabetes mellitus. Resume home insulin. Add sliding scale coverage 9. Recent pneumonia in September requiring hospitalization. As well as a left pleural effusion requiring a left-sided thoracentesis 10. Minimally elevated troponin: Cardiology consulted. No chest pain reported by patient
--- NOTE | 2017-11-24 13:40 | P.PN ---
Subjective Progress Note Date: 11/24/17 Principal diagnosis: Acute sepsis secondary to urinary tract infection Adam is a 62-year-old white male patient that presented to the emergency department on 11/21/2017 2316 after severe generalized weakness, not feeling well, and low-grade fever. He denies any chest pain, shortness of breath, cough or congestion. Did have a IN in April 2017, patient had just finished his cardiac rehab. On evaluation in the emergency room, he was found to have leukocytosis with WBC of 32.8, hemoglobin of 11.3, his INR is 3.3, sodium is 134 , B1 is 95, creatinine is 2.50, his troponin was 0.076, his lactic acid was within normal limits of 1.4. His urinalysis showed moderate amount of leukocyte esterase, urine WBCs, bacteria and mucus. Influenza screen was negative. Chest x-ray showed chronic pleural thickening and pleural fluid on the left side and appear to be improved slightly compared to previous exam on . Patient was recently hospitalized for pneumonia, left-sided parapneumonic pleural effusion, and was discharged home on 09/30/2017. Did have left thoracentesis during that admission with evacuation of 1.4 L of pleural fluid from the left lung. Fluid cytology was negative for any evidence of malignancy. Pleural fluid was found to be exudative, and was thought to be parapneumonic in nature, pleural fluid cultures were negative. Patient did have a fever of 101.8F on presentation. He was given 1 L 0.9 normal saline IV bolus, and maintenance IV of 0.9 at 100 ML per hour. He was started on a combination of Levaquin and Zosyn, blood, and urine cultures were obtained and sent. Sputum culture was ordered, but patient is not producing any sputum at this time. His twelve-lead EKG shows sinus rhythm with first-degree AV block. He does have past medical history of chronic kidney disease stage IV, ischemic cardiomyopathy with EF of 20%, with AICD placement, paroxysmal atrial fibrillation, and obstructive sleep apnea as well as diabetes mellitus. Patient was reevaluated today on 11/23/2017, overall, the patient is feeling much better compared to how he felt on admission. Less weakness, T-max of 98.6 yesterday, patient is hemodynamically stable. WBC count is down to 24.4 hemoglobin is 10.3 basic metabolic profile is normal BUN is 67 creatinine is 2.3 , slightly improved compared to baseline. Reevaluated today on 11/24/2017, continues to do well, relatively asymptomatic, his urine cultures were noted, patient hasKlebsiella oxytoca in the urine, sensitive to most antibiotics, including oral antibiotics/Levaquin/Cipro/ Bactrim. Hence I believe the patient could be switched tomorrow to oral antibiotics preferably Bactrim and discharge the patient home. Objective - Vital Signs Vital signs: Vital Signs Temp 96.3 F L 11/24/17 08:00 Pulse 50 L 11/24/17 12:00 Resp 16 11/24/17 12:00 BP 113/61 11/24/17 12:00 Pulse Ox 98 11/24/17 12:00 Intake & Output 11/23/17 11/24/17 11/24/17 18:59 06:59 18:59 Intake Total 1110 150 Output Total 800 750 Balance 310 -600 Weight 92 kg Intake: IV 500 Sodium Chloride 0.9% 1, 500 000 ml @ 100 mls/hr IV . Q10H SAMANTHA Rx#:[id number] Intake, IV Titration 150 Amount Sodium Chloride 0.9% 1, 150 000 ml @ 50 mls/hr IV . Q20H SAMANTHA Rx#:[id number] Oral 610 Output: Urine 800 750 Other: Voiding Method Urinal # Voids 1 - Exam GENERAL EXAM: Alert, 62-year-old white male, comfortable in no apparent distress. HEAD: Normocephalic/atraumatic. EYES: Normal reaction of pupils, equal size. Conjunctiva pink, sclera white. NOSE: Clear with pink turbinates. THROAT: No erythema or exudates. NECK: No masses, no JVD, no thyroid enlargement, no adenopathy. CHEST: No chest wall deformity. Symmetrical expansion. LUNGS: Equal air entry laterally, with clear breath sounds, with no rhonchi, no wheezes or rales. CVS: Regular rate and rhythm, normal S1 and S2, no gallops, no murmurs, no rubs ABDOMEN: Soft, nontender. No hepatosplenomegaly, normal bowel sounds, no guarding or rigidity. : Patient is wearing a brief chronic urinary incontinence EXTREMITIES: No clubbing, no edema, no cyanosis, 2+ pulses and upper and lower extremities. MUSCULOSKELETAL: Muscle strength and tone normal. SPINE: No scoliosis or deformity SKIN: No rashes CENTRAL NERVOUS SYSTEM: Alert and oriented -3. No focal deficits, tone is normal in all 4 extremities. PSYCHIATRIC: Alert and oriented -3. Appropriate affect. Intact judgment and insight. - Labs CBC & Chem 7: 11/24/17 05:24 11/24/17 05:24 Labs: Abnormal Lab Results - Last 24 Hours (Table) 11/23/17 11/24/17 11/24/17 Range/Units 20:33 05:24 05:24 WBC 15.2 H (3.8-10.6) k/uL RBC 3.10 L (4.30-5.90) m/uL Hgb 10.0 L (13.0-17.5) gm/dL Hct 32.4 L (39.0-53.0) % MCV 104.4 H (80.0-100.0) fL MCHC 30.9 L (31.0-37.0) g/dL RDW 15.9 H (11.5-15.5) % Neutrophils # (Manual) 12.16 H (1.3-7.7) k/uL Monocytes # (Manual) 1.67 H (0-1.0) k/uL PT (9.0-12.0) sec INR (<1.2) Chloride 108 H (98-107) mmol/L BUN 42 H (9-20) mg/dL Creatinine 1.73 H (0.66-1.25) mg/dL Glucose 71 L (74-99) mg/dL POC Glucose (mg/dL) 168 H (75-99) mg/dL Calcium 8.2 L (8.4-10.2) mg/dL Total Protein 5.3 L (6.3-8.2) g/dL Albumin 2.4 L (3.5-5.0) g/dL 11/24/17 11/24/17 11/24/17 Range/Units 05:24 06:11 11:19 WBC (3.8-10.6) k/uL RBC (4.30-5.90) m/uL Hgb (13.0-17.5) gm/dL Hct (39.0-53.0) % MCV (80.0-100.0) fL MCHC (31.0-37.0) g/dL RDW (11.5-15.5) % Neutrophils # (Manual) (1.3-7.7) k/uL Monocytes # (Manual) (0-1.0) k/uL PT 18.1 H (9.0-12.0) sec INR 2.0 H (<1.2) Chloride (98-107) mmol/L BUN (9-20) mg/dL Creatinine (0.66-1.25) mg/dL Glucose (74-99) mg/dL POC Glucose (mg/dL) 72 L 168 H (75-99) mg/dL Calcium (8.4-10.2) mg/dL Total Protein (6.3-8.2) g/dL Albumin (3.5-5.0) g/dL Microbiology - Last 24 Hours (Table) 11/21/17 23:38 Urine Culture - Final Urine,Voided Klebsiella oxytoca 11/21/17 23:38 Blood Culture - Preliminary Blood No Growth after 48 hours Assessment and Plan Assessment: #1. Acute sepsis secondary to acute urinary tract infection, patient presented with leukocytosis, weakness, fatigue, fever, urinalysis was positive for leukocyte esterase, WBCs, mucus and bacteria. Urine culture came back positive to Klebsiella oxytoca. #2. Chronic pleural thickening and left pleural effusion that appears to be improved from previous exam on 10/09/2017. No evidence of infiltrate, no evidence of pneumonia #3. Acute on chronic kidney disease, stage IV, on presentation his creatinine is 2.5 #4. Elevated troponin, of 0.076, possibly related to sepsis or patient's chronic kidney disease. Patient denies any chest pain #5. History of ischemic cardiomyopathy with EF of 20%, status post AICD #6. History of paroxysmal atrial fibrillation, on long-term anticoagulation with Coumadin, INR today is 3.3 #7. History of obstructive sleep apnea #8. Insulin-dependent diabetes mellitus #9. Anemia of chronic disease #10. Coronary artery disease, with previous stenting of the LAD #11. Remote brief history of smoking #12. Recent hospitalization for pneumonia and parapneumonic left pleural effusion status post left-sided thoracentesis. The pleural fluid was exudative in nature, pleural fluid culture was negative, cytology report was negative for any evidence of malignancy Plan: section consider switching the patient to oral Bactrim tomorrow and discharge home follow-up on outpatient basis. Time with Patient: Less than 30
[2017-11-24 17:05] LABS: Glucose,Whole Blood 94 mg/dL (75-99)
[2017-11-24] MEDS: WARFARIN 2.5 MG TAB PO SCH (17:19)
[2017-11-24 20:48] LABS: Glucose,Whole Blood 131 mg/dL (75-99)
[2017-11-24] MEDS: INSULIN DETEMIR 100 UNIT/ML 10 ML VIAL SQ SCH (20:53)
[2017-11-25 05:55] LABS: Basophils # (A) 0.1 k/uL (0-0.2); Basophils % (A) 1 %; Eosinophils # (A) 0.2 k/uL (0-0.7); Eosinophils % (A) 2 %; HCT 33.8 % (39.0-53.0); HGB 10.5 gm/dL (13.0-17.5); Hypochromasia Slight; Lymphocytes # (A) 1.4 k/uL (1.0-4.8); Lymphocytes % (A) 13 %; MCH 32.1 pg (25.0-35.0); MCV 103.4 fL (80.0-100.0); Macrocytosis Moderate; Monocytes % (A) 9 %; Neutrophils # (A) 8.4 k/uL (1.3-7.7); Neutrophils % (A) 73 %; Platelet Count 302 k/uL (150-450); RBC 3.27 m/uL (4.30-5.90); RDW 15.6 % (11.5-15.5); WBC 11.5 k/uL (3.8-10.6)
[2017-11-25 06:03] LABS: INR 1.9 (<1.2); Prothrombin Time 17.2 sec (9.0-12.0)
[2017-11-25 06:08] LABS: Albumin 2.4 g/dL (3.5-5.0); Calcium 8.3 mg/dL (8.4-10.2); Potassium 4.6 mmol/L (3.5-5.1); Total Bilirubin 0.3 mg/dL (0.2-1.3); Total Protein 5.4 g/dL (6.3-8.2)
[2017-11-25 06:09] LABS: Glucose,Whole Blood 82 mg/dL (75-99)
[2017-11-25] MEDS: INSULIN ASPART 100 UNIT/ML 1 ML 10 ML VIAL SQ SCH ×4 (06:32→12:14)
[2017-11-25] MEDS: CARVEDILOL 3.125 MG TAB PO SCH (06:33)
[2017-11-25] MEDS: PANTOPRAZOLE 40 MG TABLET PO SCH (06:34)
[2017-11-25] MEDS: PIPERACILLIN-TAZOBACTAM 3.375 GM in DEXTROSE/WATER 1 50ML.BAG IVPB SCH (08:41)
[2017-11-25] MEDS: ASPIRIN 81 MG PO SCH (08:41)
[2017-11-25] MEDS: AMIODARONE 200 MG TAB PO SCH (08:41)
[2017-11-25] MEDS: CLOPIDOGREL 75 MG TAB PO SCH (08:42)
[2017-11-25] MEDS: ISOSORBIDE MONONITRATE 10 MG TAB PO SCH (08:42)
[2017-11-25] MEDS: IPRATROPIUM-ALBUTEROL 3 ML NEB INHALATION SCH ×2 (09:10→12:10)
[2017-11-25] MEDS: FERROUS SULFATE 325 MG TAB PO SCH (11:24)
--- NOTE | 2017-11-25 11:25 | P.DS ---
Providers Date of admission: 11/22/17 00:14 Expected date of discharge: 11/25/17 Attending physician: Lara Patrick Consults: 11/22/17 00:35 Consult Physician Urgent Consulting Provider: Jerry Veliz Consult Reason/Comments: pneumonia Do you want consulting provider notified?: Yes, Notify in am 11/22/17 00:37 Consult Physician Urgent Consulting Provider: [facility] Consult Reason/Comments: known patient Do you want consulting provider notified?: Yes, Notify in am 11/22/17 14:20 Consult Physician Routine Consulting Provider: Mulu Smith Consult Reason/Comments: ARF Do you want consulting provider notified?: Yes Primary care physician: Linda Echevarria Hospital Course: Discharge diagnosis 1. UTI with sepsis present on admission: Patient had a temperature 101.8, white count 32.8. Urine culture grew Klebsiella oxytoca. This is sensitive to Ceftin. We'll continue Ceftin for 7 more days 2. Acute on chronic kidney disease stage IV. Creatinine has returned to baseline. Creatinine at discharge 1.58. Case discussed with Dr. Smith. She okayed to resume the Aldactone. And continue the Bumex just as needed 3. Coagulopathy INR 3.3 On presentation. Now resolved. INR 1.9 at discharge. Continue Coumadin alternating 2.5 mg and 5 mg 4. Hypotension likely related to sepsis. Improved with IV fluids. Cardiology did adjust patient's medications. Amiodarone was decreased to 200 mg daily. Coreg was decreased to 3.125 mg twice a day and Imdur was decreased to 10 mg twice a day 5. History of paroxysmal atrial fibrillation. Coumadin on hold due to elevated INR. Amiodarone dose decreased by cardiology due to patient's hypotension. 6. History of ischemic cardiomyopathy with an EF 20% status post AICD 7. History of myocardial infarction with coronary artery disease and cardiac stent 8. Insulin-dependent diabetes mellitus. Resume home insulin. Add sliding scale coverage 9. Recent pneumonia in September requiring hospitalization. As well as a left pleural effusion requiring a left-sided thoracentesis 10. Minimally elevated troponin: Evaluated by cardiology. No evidence of acute coronary syndrome. Likely related to patient's renal failure Hospital course This is a 62-year-old male, patient of Dr. Richardson. He has a known past medical history of coronary artery disease with stent, atrial fibrillation, diabetes mellitus, hyperlipidemia, myocardial infarction, obstructive sleep apnea, chronic kidney disease, ischemic cardiomyopathy with AICD. Patient was brought into the emergency room via ambulance. Patient reports he had been doing well but yesterday he started not feeling well and just became very weak and fatigued. He came into the emergency room for further evaluation. He was found have evidence of a UTI and possible pneumonia per ER report. She was started on Levaquin and Zosyn. He had a temp of 101.8 white count 32.8. Creatinine was up at 2.50, INR 3.3. He had been hypotensive with a blood pressure of 94/54. And mildly elevated troponin 0.076. He was admitted to the hospital for a UTI. Chest x-ray shows chronic pleural thickening and pleural fluid on the left side that is improved slightly compared to 10/09/2017's exam. No heart failure. Chest x-ray from this morning is pending. Patient denies any cough, chills or sweats. Denies any chest pain. Denies any nausea or vomiting. Denies any bowel movement changes. He denies any urinary symptoms. Patient was recently hospitalized in September 2017 with pneumonia and left pleural effusion requiring thoracentesis. Cardiology, pulmonary service and nephrology have all been consulted. Patient was treated for UTI with sepsis. Started on IV antibiotics. Urine culture grew Klebsiella oxytoca which is sensitive to Ceftin. He'll continue Ceftin for 7 days at discharge. Patient's symptoms have improved. Blood pressures have normalized with treatment of his sepsis and IV fluids. Patient has been cleared by consulting physicians for discharge. Medications have been adjusted by nephrology and cardiology as stated above. Patient will follow-up with consulting physicians in 1 week after discharge. Recommend following up on patient's bmp, cbc and PT/INR in 1 week. Patient is medically stable for discharge home. He is eager for discharge. I performed an examination of the patient and discussed their management with the physician Telecommunication Engineer. I have reviewed the Physician Telecommunication Engineer's notes and agree with the documented findings and plan of care Patient Condition at Discharge: Stable Plan - Discharge Summary New Discharge Prescriptions: New Amiodarone [Cordarone] 200 mg PO DAILY #30 tab Carvedilol [Coreg] 3.125 mg PO BID-W/MEALS #60 tab Cefuroxime Axetil [Ceftin] 500 mg PO BID #14 tab Isosorbide Mononitrate [Ismo] 10 mg PO BID #60 tab Continue Aspirin 81 mg PO DAILY Digoxin [Digitek] 125 mcg PO Q48H Clopidogrel Bisulfate [Plavix] 75 mg PO DAILY Omeprazole 20 mg PO AC-BID Warfarin [Coumadin] 5 mg PO MOWEFR Allopurinol [Zyloprim] 100 mg PO DAILY Bumetanide [BUMEX] 2 mg PO DIRECTED Ergocalciferol (Vitamin D2) [Vitamin D2] 50,000 unit PO FR Ferrous Sulfate [Iron] 325 mg PO BID@1200,2100 Insulin Aspart [NovoLOG Flexpen] 10 units SQ AC-TID Insulin Glargine [Lantus] 35 unit SQ HS Polyethylene Glycol 3350 [Miralax] 17 gm PO Q48H PRN PRN Reason: Constipation Spironolactone [Aldactone] 25 mg PO DAILY Warfarin [Coumadin] 2.5 mg PO SUTUTHSA Discontinued Amiodarone [Cordarone] 400 mg PO DAILY Isosorbide Dinitrate 20 mg PO TID Carvedilol [Coreg] 6.25 mg PO BID Discharge Medication List Aspirin 81 mg PO DAILY 05/24/17 [Rx] Clopidogrel Bisulfate [Plavix] 75 mg PO DAILY 07/05/17 [History] Digoxin [Digitek] 125 mcg PO Q48H 07/05/17 [History] Omeprazole 20 mg PO AC-BID 07/05/17 [History] Warfarin [Coumadin] 5 mg PO MOWEFR 08/26/17 [History] Allopurinol [Zyloprim] 100 mg PO DAILY 09/23/17 [History] Bumetanide [BUMEX] 2 mg PO DIRECTED 09/23/17 [History] Ergocalciferol (Vitamin D2) [Vitamin D2] 50,000 unit PO FR 09/23/17 [History] Ferrous Sulfate [Iron] 325 mg PO BID@1200,2100 09/23/17 [History] Insulin Aspart [NovoLOG Flexpen] 10 units SQ AC-TID 09/23/17 [History] Insulin Glargine [Lantus] 35 unit SQ HS 09/23/17 [History] Polyethylene Glycol 3350 [Miralax] 17 gm PO Q48H PRN 09/23/17 [History] Spironolactone [Aldactone] 25 mg PO DAILY 09/23/17 [History] Warfarin [Coumadin] 2.5 mg PO SUTUTHSA 09/23/17 [History] Amiodarone [Cordarone] 200 mg PO DAILY #30 tab 11/25/17 [Rx] Carvedilol [Coreg] 3.125 mg PO BID-W/MEALS #60 tab 11/25/17 [Rx] Cefuroxime Axetil [Ceftin] 500 mg PO BID #14 tab 11/25/17 [Rx] Isosorbide Mononitrate [Ismo] 10 mg PO BID #60 tab 11/25/17 [Rx] Follow up Appointment(s)/Referral(s): Mulu Smith MD [STAFF PHYSICIAN] - 1 Week Linda Echevarria MD [Primary Care Provider] - 1 Week Juan Mathew MD [STAFF PHYSICIAN] - 1 Week Activity/Diet/Wound Care/Special Instructions: Diet: diabetic, cardiac Activity: as tolerated check PT/INR, BMP in 1 week Discharge Disposition: HOME SELF-CARE
[2017-11-25 11:56] LABS: Glucose,Whole Blood 124 mg/dL (75-99)
[2017-11-25 12:03] VITALS: BP 126/55; PULSE 52; RESP 16; TEMP 97.4
--- NOTE | 2017-11-26 05:23 | PN ---
PROGRESS NOTE Patient was seen this morning. He was admitted to the hospital with acute kidney injury, hypotension and volume depletion. Bumex and Aldactone have been on hold. Renal function has improved significantly with creatinine now at 1.5 mg/dL, which is down from about 2.5 on initial admission. The patient is advised that he will need to resume his Bumex after a couple of days, possibly 2-3 times a week depending on his volume status and weight gains. He may continue with the Aldactone for now. EXAMINATION: Blood pressure was 126/55, heart rate 58 per minute. He is afebrile. Examination of the heart S1, S2. Examination of the lungs: Decreased breath sounds at bases. Abdomen is soft, nontender. Examination of lower extremities: Shows no evidence of edema. VEST BUSHELER exam is grossly intact. LAB: Show serum creatinine 1.5, sodium 143, potassium 4.6, hemoglobin 10.5 g/dL. ASSESSMENT: 1. Acute kidney injury, prerenal, currently resolved with significant improvement in renal function. 2. Chronic kidney disease with baseline creatinine about 1.8 mg/dL. 3. Cardiomyopathy, being followed by blast hole driller at [facility]. Echocardiogram shows ejection fraction 20-25%. PLAN: The patient is stable for discharge. was advised regarding initiation of Bumex with close monitoring of weight and edema. We will see him back for followup in the office in about 1 week's time. KATIE / RICKIE: [phone] /
== END 2017-11-25 14:22 | disposition home or self-care (01) | DRG 871 ==
LOC: EC 23:16 → 6SEL 11-22 00:14
PROVIDERS: ADMIT Internal Medicine; ATTEND Internal Medicine
DX: A41.59 Other Gram-negative sepsis (principal); N17.0 Acute kidney failure with tubular necrosis; N18.4 Chronic kidney disease, stage 4 (severe); I50.22 Chronic systolic (congestive) heart failure; J44.0 Chronic obstructive pulmonary disease with (acute) lower respiratory infection; N39.0 Urinary tract infection, site not specified; E11.22 Type 2 diabetes mellitus with diabetic chronic kidney disease; I48.0 Paroxysmal atrial fibrillation; E66.01 Morbid (severe) obesity due to excess calories; E86.9 Volume depletion, unspecified; I48.2 Chronic atrial fibrillation; D63.8 Anemia in other chronic diseases classified elsewhere; E78.5 Hyperlipidemia, unspecified; G47.33 Obstructive sleep apnea (adult) (pediatric); I25.10 Atherosclerotic heart disease of native coronary artery without angina pectoris; I25.2 Old myocardial infarction; I25.5 Ischemic cardiomyopathy; I44.0 Atrioventricular block, first degree; R79.1 Abnormal coagulation profile; G89.29 Other chronic pain; M54.9 Dorsalgia, unspecified; R74.8 Abnormal levels of other serum enzymes; Z79.01 Long term (current) use of anticoagulants; Z79.02 Long term (current) use of antithrombotics/antiplatelets; Z79.4 Long term (current) use of insulin; Z79.82 Long term (current) use of aspirin; Z79.899 Other long term (current) drug therapy; Z87.891 Personal history of nicotine dependence; Z95.5 Presence of coronary angioplasty implant and graft; Z95.810 Presence of automatic (implantable) cardiac defibrillator
CPT/HCPCS: 36415; 71046; 76770; 80053; 81001; 83036; 83605; 83735; 84100; 84484; 85025; 85610; 87040; 87077; 87086; 87186; 87502; 93005; 93306; 94640; 94760; 96365; 99285

== ENCOUNTER 2017-12-20 08:36 | Day surgery (SDC) | payer BC, MEDICARE ==
[2017-12-19 08:31] VITALS: BMI 30.4
[~2017-12-20 08:36] MED LIST: LACTATED RINGERS 1,000 ML IV SCH; LIDOCAINE 1% 20 ML VIAL (10MG/ML) FOR IV START INTRADERMA PRN
[2017-12-20 09:13] LABS: Glucose,Whole Blood 116 mg/dL (75-99)
[2017-12-20] MEDS ORDERED: PROPOFOL 10 MG/ML 20 ML VIAL IV ONE (09:19)
[2017-12-20] MEDS ORDERED: LIDOCAINE 1% INJ 10MG/ML (20 ML MDV) ONE (09:19)
[2017-12-20 09:26] VITALS: TEMP 98.4
--- NOTE | 2017-12-20 09:30 | P.PCN ---
Date of Procedure: 12/20/17 Procedure(s) Performed: BRIEF HISTORY: Patient is a 62-year-old, pleasant, white male, scheduled for an upper endoscopy as a part of follow-up of gastric ulcer that was diagnosed in May 2017 when he had an upper GI bleed. Patient states that he was at [facility] and was diagnosed with a gastric ulcer and since then has been maintained on Protonix twice daily. He denies any abdominal pain. He scheduled for an upper endoscopy to document ulcer healing.. PROCEDURE PERFORMED: Esophagogastroduodenoscopy with biopsy. PREOPERATIVE DIAGNOSIS: Follow-up gastric ulcer. IV sedation per anesthesia. PROCEDURE: After informed consent was obtained, the patient was brought into the endoscopy unit. IV sedation was administered by Anesthesia under continuous monitoring. Initially the Olympus GIF-140 video endoscope was inserted into the mouth. Esophagus intubated without any difficulty. It was gradually advanced into the stomach and duodenum and carefully examined. The bulb and the second part of the duodenum appeared normal. The scope at this time was withdrawn to the stomach, adequately insufflated with air, and upon careful examination, mucosa of the antrum, had some retained food noted in the prepyloric area but no ulcerations identified. There was mild erythema noted in the antrum consistent with gastritis and biopsies were done from this area. The body, cardia and the fundus appeared normal. The scope was then withdrawn into the esophagus. The GE junction was located at 39 cm from the incisors. The esophagus appeared normal. There were no erosions or ulcerations seen and the patient tolerated the procedure well. IMPRESSION: 1. Mild antral gastritis. 2. No evidence of peptic ulcer disease. 3. Small hiatal hernia. RECOMMENDATIONS: The findings of this examination were discussed with the patient as well as his family. He was advised to follow with the biopsy results. He was advised to decrease the Protonix to 40 mg once daily..
[2017-12-20 09:52] VITALS: BP 144/70; PULSE 53; RESP 18
== END 2017-12-20 10:40 | disposition home or self-care (01) ==
LOC: ORWHC2ENDO 08:36
PROVIDERS: ATTEND Internal Medicine Gastroenterology
DX: K29.70 Gastritis, unspecified, without bleeding (principal); K44.9 Diaphragmatic hernia without obstruction or gangrene; E11.9 Type 2 diabetes mellitus without complications; Z09 Encounter for follow-up examination after completed treatment for conditions other than malignant neoplasm; I25.2 Old myocardial infarction; Z95.810 Presence of automatic (implantable) cardiac defibrillator; K21.9 Gastro-esophageal reflux disease without esophagitis; Z79.02 Long term (current) use of antithrombotics/antiplatelets; Z87.11 Personal history of peptic ulcer disease; Z79.4 Long term (current) use of insulin; Z79.82 Long term (current) use of aspirin; Z79.01 Long term (current) use of anticoagulants; Z79.899 Other long term (current) drug therapy
CPT/HCPCS: 88305; 43239; J2001; J2704

== ENCOUNTER 2018-08-04 17:12 | Emergency (ER) | payer BC, MEDICARE ==
[2018-08-04 17:35] VITALS: BP 119/60; PULSE 52; RESP 18; TEMP 97.8
== END 2018-08-04 18:34 | disposition left against medical advice (07) ==
LOC: EC 17:12
DX: R79.89 Other specified abnormal findings of blood chemistry (principal)
CPT/HCPCS: 99499

== ENCOUNTER → 2018-11-25 | Outpatient (CLI) | payer BC, MEDICARE | LOC: LABWHC1 10:10 | PROVIDERS: ATTEND Internal Medicine | DX: I48.0 Paroxysmal atrial fibrillation (principal); I25.5 Ischemic cardiomyopathy | CPT/HCPCS: 36415; 80162 ==

== ENCOUNTER → 2020-03-29 | Outpatient (CLI) | payer MEDICARE | END | disposition home or self-care (01) | LOC: CPPFTMAIN 13:15 | PROVIDERS: ATTEND Internal Medicine | DX: I50.22 Chronic systolic (congestive) heart failure (principal); Z79.899 Other long term (current) drug therapy | CPT/HCPCS: 94060; 94726; 94729 ==

== ENCOUNTER 2021-04-06 15:39 | Emergency (ER) | payer MEDICARE ==
[2021-04-06 15:56] VITALS: RESP 18
--- NOTE | 2021-04-06 16:18 | ED ---
General Adult HPI - General Chief complaint: Fall Stated complaint: Fall/Hit Head Time Seen by Provider: 04/06/21 16:03 Source: patient, family, RN notes reviewed Mode of arrival: wheelchair Limitations: no limitations - History of Present Illness Initial comments: Patient is a pleasant 65-year-old male presenting to the emergency department after fall. Incident occurred today prior to arrival. Patient was out walking a long distance in the warm sun. When he got back his legs felt a little bit weak and he fell forward. Patient did strike his right forehead. No loss of consciousness. No sick. Near-syncope. Patient states otherwise his legs are working fine. No weakness. No paresthesias. No neck or back pain. No confusion. Patient is on Coumadin and was told previously if he had a head injury that he would need a computed tomography scan. - Related Data Home Medications Medication Instructions Recorded Confirmed Clopidogrel Bisulfate [Plavix] 75 mg PO DAILY 07/05/17 12/20/17 Digoxin [Digitek] 125 mcg PO Q48H 07/05/17 12/20/17 Omeprazole 20 mg PO AC-BID 07/05/17 12/20/17 Warfarin [Coumadin] 5 mg PO MOWEFR 08/26/17 12/20/17 Bumetanide [BUMEX] 2 mg PO SUWE 09/23/17 12/20/17 Ergocalciferol (Vitamin D2) 50,000 unit PO FR 09/23/17 12/20/17 [Vitamin D2] Ferrous Sulfate [Iron] 325 mg PO BID@1200,2100 09/23/17 12/20/17 Insulin Aspart [NovoLOG Flexpen] 10 units SQ AC-TID 09/23/17 12/20/17 Insulin Glargine [Lantus] 35 unit SQ HS PRN 09/23/17 12/20/17 Spironolactone [Aldactone] 25 mg PO DAILY 09/23/17 12/20/17 Warfarin [Coumadin] 2.5 mg PO SUTUTHSA 09/23/17 12/20/17 allopurinoL [Zyloprim] 100 mg PO DAILY 09/23/17 12/20/17 polyethylene glycoL 3350 [Miralax] 17 gm PO Q48H PRN 09/23/17 12/20/17 Previous Rx's Medication Instructions Recorded Aspirin 81 mg PO DAILY 05/24/17 Amiodarone [Cordarone] 200 mg PO DAILY #30 tab 11/25/17 Isosorbide Mononitrate [Ismo] 10 mg PO BID #60 tab 11/25/17 carvediloL [Coreg] 3.125 mg PO BID-W/MEALS #60 tab 11/25/17 Allergies Allergy/AdvReac Type Severity Reaction Status Date / Time No Known Allergies Allergy Verified 04/06/21 15:55 Review of Systems ROS Statement: Those systems with pertinent positive or pertinent negative responses have been documented in the HPI. ROS Other: All systems not noted in ROS Statement are negative. Constitutional: Denies: fever Eyes: Denies: eye pain ENT: Denies: ear pain Respiratory: Denies: cough Cardiovascular: Denies: chest pain Endocrine: Denies: fatigue Gastrointestinal: Denies: abdominal pain Genitourinary: Denies: dysuria Musculoskeletal: Denies: back pain Skin: Denies: rash Neurological: Denies: headache, weakness, numbness, paresthesias, confusion, vertigo Past Medical History Past Medical History: Coronary Artery Disease (CAD), Heart Failure, Diabetes Mellitus, GI Bleed, Myocardial Infarction ([place]), Sleep Apnea/CPAP/BIPAP Additional Past Medical History / Comment(s): bleeding ulcer 05/2017-had blood transfusion, high uric acid level, anemia, recent kidney/bladder infections Last Myocardial Infarction Date:: 04/2017 History of Any Multi-Drug Resistant Organisms: None Reported Past Surgical History: AICD, Appendectomy, Back Surgery, Heart Catheterization With Stent, Orthopedic Surgery Additional Past Surgical History / Comment(s): on cardiac stent, rt shoulder rotator cuff, screws./gayatri in back Past Anesthesia/Blood Transfusion Reactions: No Reported Reaction Date of Last Stent Placement:: 05/16/2017 Type of Cardiac Device: AICD Device Placement Date:: 06/25/2017 Past Psychological History: No Psychological Hx Reported Smoking Status: Never smoker Past Alcohol Use History: None Reported Past Drug Use History: None Reported - Past Family History Father Additional Family Medical History / Comment(s): LOW PLATLETS. SPLEENECTOMYl, Aortic Aneurysm Mother Family Medical History: No Reported History Additional Family Medical History / Comment(s): .. General Exam Limitations: no limitations General appearance: alert, in no apparent distress Head exam: Present: other (Soft tissue swelling right frontal region) Eye exam: Present: normal appearance, PERRL, EOMI Neck exam: Present: normal inspection. Absent: tenderness Respiratory exam: Present: normal lung sounds bilaterally Cardiovascular Exam: Present: regular rate, normal rhythm GI/Abdominal exam: Present: soft. Absent: tenderness Extremities exam: Present: normal inspection Neurological exam: Present: alert, oriented X3, CN II-XII intact. Absent: motor sensory deficit Expanded Neurological exam: Present: protecting the airway Speech: Present: fluid speech Cranial nerves: EOM's Intact: Normal Sensory exam: Upper Extremity Light Touch: Normal, Lower Extremity Light Touch: Normal Motor strength exam: RUE: 5, LUE: 5, RLE: 5, LLE: 5 Eye Response: (4) open spontaneously Motor Response: (6) obeys commands Verbal Response: (5) oriented Psychiatric exam: Present: normal affect, normal mood Skin exam: Present: normal color Course Vital Signs 04/06/21 04/06/21 15:52 16:22 Temperature 98.4 F Pulse Rate 53 L 58 L Respiratory 18 18 Rate Blood Pressure 137/79 144/75 O2 Sat by Pulse 98 97 Oximetry Medical Decision Making - Medical Decision Making Patient reevaluated. Patient and family updated. - Radiology Data Radiology results: report reviewed (Computed tomography scan shows scalp hematoma. Cerebral atrophy.) Disposition Clinical Impression: Fall Disposition: HOME SELF-CARE Condition: Stable Instructions (If sedation given, give patient instructions): Fall Prevention (ED), Head Injury (ED) Additional Instructions: Hold Coumadin for the next one to 2 days. Please do follow-up with primary care physician next day or 2 for recheck. Return for falling, confusion, weakness, worsening or changing symptoms or any other concerns. Is patient prescribed a controlled substance at d/c from ED?: No Referrals: Linda Echevarria MD [Primary Care Provider] - 1-2 days Time of Disposition: 18:05
--- NOTE | 2021-04-06 18:15 | CT ---
EXAMINATION TYPE: CT brain wo con DATE OF EXAM: 04/06/2021 COMPARISON: None HISTORY: fall, right superior contusion, on thinners CT DLP: 1098.4 mGycm Automated exposure control for dose reduction was used. There is cerebral cortical atrophy. There is no mass effect nor midline shift. There is no sign of in tracranial hemorrhage. There is mild right frontal scalp soft tissue swelling and hematoma. The tariq rium is intact. There is no evidence of a fracture. IMPRESSION: Cerebral atrophy. Right frontal mild scalp hematoma. No acute intracranial abnormality.
[2021-04-06 18:42] VITALS: BP 156/73; PULSE 66; TEMP 97.7
== END 2021-04-06 18:43 | disposition home or self-care (01) ==
LOC: EC 15:39
DX: S00.03XA Contusion of scalp, initial encounter (principal); G31.9 Degenerative disease of nervous system, unspecified; R55 Syncope and collapse; E11.9 Type 2 diabetes mellitus without complications; I25.10 Atherosclerotic heart disease of native coronary artery without angina pectoris; I25.2 Old myocardial infarction; I50.9 Heart failure, unspecified; Z79.01 Long term (current) use of anticoagulants; Z79.4 Long term (current) use of insulin; Z95.5 Presence of coronary angioplasty implant and graft; Z95.810 Presence of automatic (implantable) cardiac defibrillator; Z79.899 Other long term (current) drug therapy; W01.10XA Fall on same level from slipping, tripping and stumbling with subsequent striking against unspecified object, initial encounter; Y93.01 Activity, walking, marching and hiking; Y92.009 Unspecified place in unspecified non-institutional (private) residence as the place of occurrence of the external cause
CPT/HCPCS: 70450; 99284

== ENCOUNTER → 2021-09-20 | Outpatient (CLI) | payer MEDICARE ==
--- NOTE | 2021-09-20 16:45 | US ---
EXAMINATION TYPE: US kidneys/renal and bladder DATE OF EXAM: 09/20/2021 COMPARISON: NONE CLINICAL HISTORY: CKD stage 3 N18.3. CKD, no symptoms EXAM MEASUREMENTS: Right Kidney: 10.9 x 4.8 x 6.0 cm Left Kidney: 11.3 x 4.0 x 5.9 cm Right Kidney: No hydronephrosis or masses seen Left Kidney: No hydronephrosis or masses seen Bladder: wnl Bilateral Jets seen: Yes IMPRESSION: 1. Normal renal ultrasound
== END | disposition home or self-care (01) ==
LOC: RADUSWWP 12:24
PROVIDERS: ATTEND Internal Medicine Nephrology
DX: N18.30 Chronic kidney disease, stage 3 unspecified (principal)
CPT/HCPCS: 76770